=== PATIENT | female | born 1975 | race Caucasian/White ===

== ENCOUNTER 2020-01-22 11:32 | Outpatient (REF) | payer OTHER, SELFPAY ==
--- NOTE | 2020-01-22 11:43 | XR_ITS ---
EXAMINATION: XR ANKLE, RIGHT CLINICAL INFORMATION: Pain right ankle COMPARISON: Radiographs right ankle 05/05/2017 TECHNIQUE: AP, lateral, and mortise views of the right ankle. FINDINGS: There is no acute or healing fracture, dislocation, or visible ankle capsular effusion. The ankle mortise is symmetric. The talar dome shows no osteochondral lesion. There is no joint narrowing or erosive change. The subtalar joint is unremarkable. The retrocalcaneal recess is preserved. Again, there is plantar calcaneal spur and dorsal spurring at the talonavicular region. IMPRESSION: 1. No acute bony abnormality. 2. Plantar calcaneal spur. Spurring talonavicular region.
[2020-01-22 15:14] LABS: Anion Gap 15 (12-20); Blood Urea Nitrogen 9 mg/dL (9-16); Calcium 9.1 mg/dL (8.4-10.2); Carbon Dioxide 25 mmol/L (22-29); Chloride 102 mmol/L (96-108); Estimated Glomerular Filt Rate > 60; Glucose Random 139 mg/dL (60-115); Potassium 3.9 mmol/l (3.3-5.1); Sodium 138 mmol/L (135-145)
[2020-01-23 19:42] LABS: LDL Cholesterol Direct 174 mg/dL (<100)
== END 2020-01-22 11:33 | disposition home or self-care (01) ==
LOC: HO.HMGCLDS 11:32
PROVIDERS: PCP Internal Medicine; Visit Provider Internal Medicine
DX: M25.571 Pain in right ankle and joints of right foot (principal); I10 Essential (primary) hypertension; J45.909 Unspecified asthma, uncomplicated; Z91.09 Other allergy status, other than to drugs and biological substances
CPT/HCPCS: 36415; 73600; 80048; 83721; 84443

== ENCOUNTER 2020-05-28 13:40 | Outpatient (REF) | payer OTHER, SELFPAY ==
[2020-05-28 16:29] LABS: MANUAL DIFF FLAG NO
[2020-05-28 16:35] LABS: Basophils Percent Auto 0.3 % (0-2); Eosinophils Absolute Auto 0.6 X10*3/uL (0.0-0.4); Eosinophils Percent Auto 4.5 % (0-4); Hematocrit 48.1 % (37-47); Hemoglobin 15.5 g/dl (12.0-16.0); Imm Gran Abs Auto 0.06 X10*3/uL (0.00-0.03); Imm Gran Pct Auto 0.4 % (0.0-0.4); Lymphocytes Absolute Auto 3.1 X10*3/uL (1.2-4.9); Lymphocytes Percent Auto 23.5 % (20-40); Mean Corpuscular HGB Conc 32.2 g/dl (31.0-35.0); Mean Corpuscular Hemoglobin 29.4 pg (27.0-33.0); Mean Corpuscular Volume 91.3 fL (80-98); Mean Platelet Volume 10.7 fL (9.4-12.3); Monocytes Absolute Auto 1.1 X10*3/uL (0.1-1.2); Monocytes Percent Auto 8.5 % (2-11); Neutrophils Absolute Auto 8.4 X10*3/uL (2.0-8.3); Neutrophils Percent Auto 62.8 % (45-73); Platelet Count 514 X10*3/uL (160-400); Red Blood Count 5.27 X10*6/uL (4.20-5.50); Red Cell Distribution Width 14.6 % (11.0-16.0); White Blood Count 13.4 X10*3/uL (4.8-10.8)
== END 2020-05-28 13:41 | disposition home or self-care (01) ==
LOC: HO.HMGCLDS 13:40
PROVIDERS: PCP Internal Medicine; Visit Provider Internal Medicine
DX: I10 Essential (primary) hypertension (principal); J45.909 Unspecified asthma, uncomplicated; M25.571 Pain in right ankle and joints of right foot; Z91.09 Other allergy status, other than to drugs and biological substances
CPT/HCPCS: 36415; 85025

== ENCOUNTER → 2020-06-13 13:18 | Outpatient (BNV) | payer OTHER, SELFPAY | PROVIDERS: PCP Internal Medicine; Visit Provider Internal Medicine | DX: D47.3 Essential (hemorrhagic) thrombocythemia (principal); D72.829 Elevated white blood cell count, unspecified | CPT/HCPCS: 99203; 99213; 99214; 99441 ==

== ENCOUNTER 2020-06-17 12:27 | Outpatient (REF) | payer OTHER, SELFPAY ==
[2020-06-17 15:25] LABS: Alanine Aminotransferase < 6 U/L (0-31); Albumin Level 4.3 g/dL (3.5-5.0); Alkaline Phosphatase 89 U/L (39-117); Anion Gap 15 (12-20); Aspartate Amino Transferase 13 U/L (5-31); Bilirubin Direct 0.2 mg/dL (0.0-0.5); Bilirubin Total 0.5 mg/dL (0.0-1.0); Blood Urea Nitrogen 9 mg/dL (9-16); Calcium 8.5 mg/dL (8.4-10.2); Carbon Dioxide 26 mmol/L (22-29); Chloride 102 mmol/L (96-108); Cholesterol 178 mg/dL; Estimated Glomerular Filt Rate > 60; Glucose Fasting 90 mg/dL (60-99); HDL Cholesterol 41 mg/dL; LDL Cholesterol Calculated 89 mg/dl; Potassium 3.9 mmol/L (3.3-5.1); Sodium 139 mmol/L (135-145); Total Protein 7.5 g/dL (6.5-8.0); Triglycerides 244 mg/dL
== END 2020-06-17 12:28 | disposition home or self-care (01) ==
LOC: HO.HMGCLDS 12:27
PROVIDERS: PCP Internal Medicine; Visit Provider Internal Medicine
DX: D72.829 Elevated white blood cell count, unspecified (principal); E78.9 Disorder of lipoprotein metabolism, unspecified; G43.109 Migraine with aura, not intractable, without status migrainosus; I10 Essential (primary) hypertension; J45.909 Unspecified asthma, uncomplicated; D47.3 Essential (hemorrhagic) thrombocythemia
CPT/HCPCS: 36415; 80048; 80061; 80076; 81206; 81207; 81219; 81270; 81279; 81339

== ENCOUNTER 2020-07-29 12:20 | Outpatient (REF) | payer OTHER, SELFPAY ==
--- NOTE | ~2020-07-29 | MM_ITS ---
EXAMINATION: MM SCREENING DIGITAL BREAST TOMOSYNTHESIS, BILATERAL CLINICAL INFORMATION: Screening. Asymptomatic. The lifetime risk of breast cancer based on the Tyrer-Cuzick Model is 7.0%. COMPARISON: Mammography: April 17, 2019 and studies dating back to August 22, 2013 TECHNIQUE: Digital breast tomosynthesis is performed in both the craniocaudal and mediolateral oblique views along with computer-aided detection (CAD). Synthesized 2D images are generated from the tomosynthesis. FINDINGS: There are scattered areas of fibroglandular density (ACR BI-RADS breast composition Category b). There are no significant masses, abnormal calcifications, or other abnormalities. There is a stable lobulated density about the central aspect of the right breast about 5 cm from the nipple. MM/MM tomosynthesis screening BI IMPRESSION: There are no significant changes from prior study. ASSESSMENT: BI-RADS 1: Negative RECOMMENDATION: Routine annual mammography screening. This patient's information was entered into a reminder system with a target due date for their next mammogram.
== END 2020-07-29 12:21 | disposition home or self-care (01) ==
LOC: HO.MAMMO 12:20
PROVIDERS: PCP Internal Medicine; Visit Provider Internal Medicine
DX: Z12.31 Encounter for screening mammogram for malignant neoplasm of breast (principal)
CPT/HCPCS: 77063; 77067

== ENCOUNTER 2020-09-26 09:57 | Outpatient (REF) | payer OTHER, SELFPAY ==
[2020-09-26 11:28] LABS: Hematocrit 47.2 % (37-47); Hemoglobin 15.6 g/dl (12.0-16.0); Mean Corpuscular HGB Conc 33.1 g/dl (31.0-35.0); Mean Corpuscular Hemoglobin 29.9 pg (27.0-33.0); Mean Corpuscular Volume 90.4 fL (80-98); Mean Platelet Volume 10.3 fL (9.4-12.3); Platelet Count 420 X10*3/uL (160-400); Red Blood Count 5.22 X10*6/uL (4.20-5.50); Red Cell Distribution Width 14.2 % (11.0-16.0); White Blood Count 15.1 X10*3/uL (4.8-10.8)
[2020-09-26 12:28] LABS: HCG Quantitative < 2 mIU/mL
[2020-09-26 15:06] LABS: CT PCR NOT DETECTED (Not Detect.); NG PCR NOT DETECTED (Not Detect.)
[2020-09-30 17:46] LABS: HPV mRNA E6/E7 rflx Not Detected (Not Detected)
== END 2020-09-26 09:58 | disposition home or self-care (01) ==
LOC: HO.LAB 09:57
PROVIDERS: PCP Internal Medicine; Visit Provider Obstetrics & Gynecology
DX: Z01.419 Encounter for gynecological examination (general) (routine) without abnormal findings (principal); Z11.51 Encounter for screening for human papillomavirus (HPV); Z11.3 Encounter for screening for infections with a predominantly sexual mode of transmission; N93.9 Abnormal uterine and vaginal bleeding, unspecified
CPT/HCPCS: 36415; 84443; 84702; 85027; 87491; 87591; 87624; 88142

== ENCOUNTER → 2020-10-02 10:48 | Outpatient (BNVA) | payer OTHER, SELFPAY | PROVIDERS: PCP Internal Medicine; Visit Provider Obstetrics & Gynecology | DX: Z30.09 Encounter for other general counseling and advice on contraception (principal); N92.1 Excessive and frequent menstruation with irregular cycle | CPT/HCPCS: Q3014 ==

== ENCOUNTER 2020-10-13 07:48 | Outpatient (REF) | payer OTHER, SELFPAY | END 2020-10-13 07:49 | disposition home or self-care (01) | LOC: HO.LAB 07:48 | PROVIDERS: PCP Internal Medicine; Visit Provider Obstetrics & Gynecology | DX: N92.1 Excessive and frequent menstruation with irregular cycle (principal) | CPT/HCPCS: 58100; 88305 ==

== ENCOUNTER 2020-10-15 13:34 | Outpatient (REF) | payer OTHER, SELFPAY ==
--- NOTE | ~2020-10-15 | US_ITS ---
EXAMINATION: PELVIC ULTRASOUND CLINICAL INFORMATION: Abnormal bleeding COMPARISON: Previous exam January 2019 TECHNIQUE: Transabdominal pelvic ultrasound FINDINGS: The uterus is anteverted and measures 12.8 x 5.3 x 6.9 cm in dimension. There are 2 focal hypoechoic lesions in the posterior intramural uterine body suggestive of fibroids measuring 1.7 x 1.4 x 1.6 cm and 2.1 x 1.5 x 1.9 cm. These do not appear appreciably changed in size. No other focal uterine lesion is seen. Endometrial thickness is normal measuring 0.6 cm. The ovaries are normal. The right ovary measures 2.2 x 1.3 x 2.4 cm. The left ovary measures 1.9 x 1.3 x 1.4 cm. There is no fluid in the pelvis. US/US pelvic and transvaginal IMPRESSION: Small uterine fibroids not appreciably changed from January 2019 exam. Otherwise unremarkable exam.
== END 2020-10-15 13:35 | disposition home or self-care (01) ==
LOC: HO.US 13:34
PROVIDERS: Visit Provider Obstetrics & Gynecology
DX: N93.9 Abnormal uterine and vaginal bleeding, unspecified (principal)
CPT/HCPCS: 76830; 76856

== ENCOUNTER → 2020-10-27 11:44 | Outpatient (BNVA) | payer OTHER, SELFPAY | PROVIDERS: Visit Provider Obstetrics & Gynecology | CPT/HCPCS: Q3014 ==

== ENCOUNTER → 2020-11-06 10:01 | Outpatient (BNVA) | payer OTHER, SELFPAY | PROVIDERS: PCP Internal Medicine; Visit Provider Obstetrics & Gynecology | DX: Z30.430 Encounter for insertion of intrauterine contraceptive device (principal) | CPT/HCPCS: 58300; J7298 ==

== ENCOUNTER → 2020-12-23 09:43 | Outpatient (BNVA) | payer OTHER, SELFPAY | PROVIDERS: Visit Provider Obstetrics & Gynecology | DX: Z30.431 Encounter for routine checking of intrauterine contraceptive device (principal); N92.1 Excessive and frequent menstruation with irregular cycle | CPT/HCPCS: 99212 ==

== ENCOUNTER 2021-03-05 09:04 | Outpatient (REF) | payer OTHER, SELFPAY | END 2021-03-05 09:05 | disposition home or self-care (01) | LOC: HO.HMGCLDS 09:04 | PROVIDERS: Visit Provider Internal Medicine | DX: Z20.822 Contact with and (suspected) exposure to COVID-19 (principal) | CPT/HCPCS: C9803; U0003; U0005 ==

== ENCOUNTER → 2021-03-24 09:12 | Outpatient (BNVA) | payer OTHER, SELFPAY | PROVIDERS: Visit Provider Obstetrics & Gynecology | DX: Z30.432 Encounter for removal of intrauterine contraceptive device (principal); N92.1 Excessive and frequent menstruation with irregular cycle | CPT/HCPCS: 58301; 99212 ==

== ENCOUNTER → 2021-04-01 15:00 | Outpatient (BNVA) | payer OTHER, SELFPAY | PROVIDERS: Visit Provider Obstetrics & Gynecology | DX: N92.1 Excessive and frequent menstruation with irregular cycle (principal) | CPT/HCPCS: Q3014 ==

== ENCOUNTER 2021-04-21 08:59 | Outpatient (REF) | payer OTHER, SELFPAY ==
[2021-04-21 11:26] LABS: MANUAL DIFF FLAG NO
[2021-04-21 11:28] LABS: Basophils Absolute Auto 0.1 X10*3/uL (0.0-0.2); Basophils Percent Auto 0.4 % (0-2); Eosinophils Absolute Auto 0.6 X10*3/uL (0.0-0.4); Eosinophils Percent Auto 4.2 % (0-4); Hematocrit 47.3 % (37.0-47.0); Hemoglobin 15.5 g/dl (12.0-16.0); Imm Gran Abs Auto 0.06 X10*3/uL (0.00-0.03); Imm Gran Pct Auto 0.4 % (0.0-0.4); Lymphocytes Absolute Auto 2.9 X10*3/uL (1.2-4.9); Lymphocytes Percent Auto 19.5 % (20-40); Mean Corpuscular HGB Conc 32.8 g/dl (31.0-35.0); Mean Corpuscular Hemoglobin 30.8 pg (27.0-33.0); Mean Corpuscular Volume 93.8 fL (80.0-98.0); Mean Platelet Volume 10.7 fL (9.4-12.3); Neutrophils Absolute Auto 10.1 x10*3/uL (2.0-8.3); Neutrophils Percent Auto 68.5 % (45-73); Platelet Count 462 X10*3/uL (160-400); Red Blood Count 5.04 X10*6/uL (4.20-5.50); Red Cell Distribution Width 14.6 % (11.0-16.0); White Blood Count 14.7 X10*3/uL (4.8-10.8)
[2021-04-21 12:16] LABS: Alanine Aminotransferase 8 U/L (0-31); Alkaline Phosphatase 85 U/L (39-117); Anion Gap 14 (12-20); Aspartate Amino Transferase 15 U/L (5-31); Bilirubin Total 0.4 mg/dL (0.0-1.0); Blood Urea Nitrogen 9 mg/dL (9-16); Calcium 8.9 mg/dL (8.4-10.2); Carbon Dioxide 26 mmol/L (22-29); Chloride 105 mmol/L (96-108); Cholesterol 167 mg/dL; Estimated Glomerular Filt Rate > 60; Glucose Fasting 88 mg/dL (60-99); HDL Cholesterol 39 mg/dL; LDL Cholesterol Calculated 85 mg/dl; Sodium 141 mmol/L (135-145); Total Protein 7.2 g/dL (6.5-8.0); Triglycerides 219 mg/dL
== END 2021-04-21 09:00 | disposition home or self-care (01) ==
LOC: HO.HMGCLDS 08:59
PROVIDERS: PCP Internal Medicine; Visit Provider Internal Medicine
DX: D47.3 Essential (hemorrhagic) thrombocythemia (principal); E03.8 Other specified hypothyroidism; E78.9 Disorder of lipoprotein metabolism, unspecified; I10 Essential (primary) hypertension; J45.40 Moderate persistent asthma, uncomplicated; Z91.09 Other allergy status, other than to drugs and biological substances
CPT/HCPCS: 36415; 80053; 80061; 84443; 85025

== ENCOUNTER 2021-08-10 08:51 | Outpatient (REF) | payer OTHER, SELFPAY ==
--- NOTE | ~2021-08-10 | MM_ITS ---
EXAMINATION: MM SCREENING DIGITAL BREAST TOMOSYNTHESIS, BILATERAL CLINICAL INFORMATION: Screening. Asymptomatic. The lifetime risk of breast cancer based on the Tyrer-Cuzick Model is 7%. COMPARISON: Mammography: 07/29/2020, 04/17/2019, 04/11/2018 TECHNIQUE: Digital breast tomosynthesis is performed in both the craniocaudal and mediolateral oblique views along with computer-aided detection (CAD). Synthesized 2D images are generated from the tomosynthesis. FINDINGS: There are scattered areas of fibroglandular density (ACR BI-RADS breast composition Category b). There is fine fibronodular parenchymal pattern similar to prior studies. No significant mass or architectural abnormality or abnormal calcifications. Again, there are intramammary nodes bilateral posterior upper outer breasts. The axilla and skin contours are unremarkable. No significant changes. MM/MM tomosynthesis screening BI IMPRESSION: No mammographic evidence of malignancy. ASSESSMENT: BI-RADS 2: Benign RECOMMENDATION: Routine annual mammography screening. This patient's information was entered into a reminder system with a target due date for their next mammogram.
== END 2021-08-10 08:52 | disposition home or self-care (01) ==
LOC: HO.MAMMO 08:51
PROVIDERS: PCP Internal Medicine; Visit Provider Internal Medicine
DX: Z12.31 Encounter for screening mammogram for malignant neoplasm of breast (principal)
CPT/HCPCS: 77063; 77067

== ENCOUNTER 2021-08-26 09:51 | Outpatient (REF) | payer OTHER, SELFPAY ==
--- NOTE | ~2021-08-26 | XR_ITS ---
EXAMINATION: XR ANKLE, RIGHT CLINICAL INFORMATION: Pain in right ankle. COMPARISON: Prior exam January 2020. TECHNIQUE: AP, lateral, and mortise views of the right ankle. FINDINGS: Osteoarthritis of the talonavicular joint with marginal osteophytes dorsally unchanged in the joint space narrowing. Remaining bone and joints are unremarkable. Small calcaneal spur. XR/XR ankle RT min 3V IMPRESSION: [id number] osteoarthritis of the talonavicular joint, unchanged.
[2021-08-26 12:20] LABS: Alanine Aminotransferase 13 U/L (0-31); Albumin Level 4.4 g/dL (3.5-5.0); Alkaline Phosphatase 98 U/L (39-117); Anion Gap 15 (12-20); Aspartate Amino Transferase 16 U/L (5-31); Bilirubin Total 0.3 mg/dL (0.0-1.0); Blood Urea Nitrogen 9 mg/dL (9-16); Calcium 9.8 mg/dL (8.4-10.2); Carbon Dioxide 24 mmol/L (22-29); Chloride 106 mmol/L (96-108); Estimated Glomerular Filt Rate > 60; Glucose Random 111 mg/dL (60-115); Potassium 3.8 mmol/L (3.3-5.1); Sodium 141 mmol/L (135-145); Total Protein 7.8 g/dL (6.5-8.0)
[2021-08-26 12:29] LABS: TSH reflex Free T4 2.78 uIU/mL (0.32-4.0)
== END 2021-08-26 09:52 | disposition home or self-care (01) ==
LOC: HO.HMGCX 09:51
PROVIDERS: PCP Internal Medicine; Visit Provider Internal Medicine
DX: E03.8 Other specified hypothyroidism (principal); E78.9 Disorder of lipoprotein metabolism, unspecified; I10 Essential (primary) hypertension
CPT/HCPCS: 36415; 73610; 80053; 84443

== ENCOUNTER 2021-09-20 16:43 | Emergency (ER) | payer OTHER, SELFPAY ==
[2021-09-20 16:44] VITALS: BP 181/103; PULSE 116; RESP 14; TEMP 37; O2SAT 94; BMI 36.1
[2021-09-20 16:58] LABS: MANUAL DIFF FLAG NO
[2021-09-20 17:00] LABS: Basophils Absolute Auto 0.1 X10*3/uL (0.0-0.2); Basophils Percent Auto 0.5 % (0-2); Eosinophils Absolute Auto 1.1 X10*3/uL (0.0-0.4); Eosinophils Percent Auto 7.7 % (0-4); Hematocrit 47.7 % (37.0-47.0); Hemoglobin 15.7 g/dl (12.0-16.0); Imm Gran Abs Auto 0.07 X10*3/uL (0.00-0.03); Imm Gran Pct Auto 0.5 % (0.0-0.4); Lymphocytes Absolute Auto 4.5 X10*3/uL (1.2-4.9); Lymphocytes Percent Auto 30.3 % (20-40); Mean Corpuscular HGB Conc 32.9 g/dl (31.0-35.0); Mean Corpuscular Hemoglobin 30.1 pg (27.0-33.0); Mean Corpuscular Volume 91.4 fL (80.0-98.0); Mean Platelet Volume 9.8 fL (9.4-12.3); Monocytes Absolute Auto 1.2 X10*3/uL (0.1-1.2); Monocytes Percent Auto 7.7 % (2-11); Neutrophils Absolute Auto 7.9 x10*3/uL (2.0-8.3); Neutrophils Percent Auto 53.3 % (45-73); Platelet Count 500 X10*3/uL (160-400); Red Blood Count 5.22 X10*6/uL (4.20-5.50); Red Cell Distribution Width 13.5 % (11.0-16.0); White Blood Count 14.8 X10*3/uL (4.8-10.8)
[2021-09-20 17:13] LABS: Alanine Aminotransferase 12 U/L (0-31); Albumin Level 4.3 g/dL (3.5-5.0); Alkaline Phosphatase 107 U/L (39-117); Anion Gap 14 (12-20); Aspartate Amino Transferase 17 U/L (5-31); Bilirubin Direct < 0.2 mg/dL (0.0-0.5); Bilirubin Total 0.2 mg/dL (0.0-1.0); Blood Urea Nitrogen 9 mg/dL (9-16); Calcium 9.2 mg/dL (8.4-10.2); Carbon Dioxide 24 mmol/L (22-29); Chloride 103 mmol/L (96-108); Creatinine Clr Calc Pharmacy 81.9; Estimated Glomerular Filt Rate > 60; Glucose Random 130 mg/dL (60-115); Potassium 3.7 mmol/L (3.3-5.1); Sodium 137 mmol/L (135-145)
[2021-09-20 18:26] VITALS: BP 147/95; PULSE 103; RESP 18; TEMP 37.2; O2SAT 96
[2021-09-20 18:49] LABS: Appearance Urine HAZY; Color Urine YELLOW; Glucose Urine UA NEG (NEG); Leukocyte Esterase Urine NEG (NEG); Nitrite Urine NEG (NEG); Specific Gravity - Urine 1.015 (1.005-1.025); Urine Blood NEG (NEG); Urine Ketones NEG (NEG); Urine Protein NEG (NEG-TRACE)
--- NOTE | 2021-09-20 18:53 | ED.GIBLEED ---
HPI - GI Bleed General Chief complaint: GI Bleed Stated complaint: bloody stool Time Seen by Provider: 09/20/21 18:53 Source: patient Mode of arrival: ambulatory Limitations: no limitations History of Present Illness HPI Narrative: Patient with History of IBS otherwise healthy never had colonoscopy in the past comes here for blood in the stool x2 earlier today. Patient had normal bowel movement mixed with blood which was maroon last bowel movement was 16:00 which was small amount no history of hemorrhoids patient denies any abdominal pain no nausea no vomiting no dizziness no history of constipation or hemorrhoids Related Data Home Medications Medication Instructions Recorded Confirmed amitriptyline 50 mg tablet 50 mg PO BEDTIME 01/18/20 08/26/21 cholecalciferol (vitamin D3) 50 50 mcg PO DAILY 01/18/20 08/26/21 mcg (2,000 unit) capsule lamotrigine 150 mg tablet 300 mg PO QAM 01/18/20 08/26/21 ziprasidone HCl 60 mg capsule 60 mg PO BID 01/18/20 08/26/21 Previous Rx's Medication Instructions Recorded propranolol 120 mg capsule,24 120 mg PO DAILY 90 days #90 caps 07/30/20 hr,extended release albuterol sulfate 90 mcg/actuation 2 puff PO Q6H PRN for muscle spasm 11/17/20 aerosol inhaler #25.5 grams cetirizine 10 mg tablet 10 mg PO DAILY 90 days #90 tabs 01/07/21 amlodipine 10 mg tablet 10 mg PO DAILY #90 tabs 04/08/21 fluticasone furoate 200 1 inh inhalation DAILY 30 days #28 04/08/21 mcg-vilanterol 25 mcg/dose ea inhalation powder (Breo Ellipta) losartan 50 mg tablet 50 mg PO DAILY 90 days #90 tabs 06/25/21 simvastatin 20 mg tablet 20 mg PO BEDTIME 90 days #90 tabs 06/25/21 Ventolin HFA 90 mcg/actuation 2 puff PO Q6H PRN for muscle spasm 09/14/21 aerosol inhaler (albuterol sulfate) #18 grams Allergies Allergy/AdvReac Type Severity Reaction Status Date / Time penicillin V Allergy Unknown hives Verified 08/26/21 09:27 Penicillins [PENICILLINS] Allergy Unknown HIVES Verified 08/26/21 09:27 celecoxib [Celebrex] AdvReac Unknown unknown Verified 08/26/21 09:27 clonidine AdvReac Unknown dizziness, Verified 08/26/21 09:27 N/V sumatriptan [Imitrex] AdvReac Unknown unknown Verified 08/26/21 09:27 Review of Systems Review of Systems: Yes all other systems are reviewed and are negative [facility] Past Medical History Surgical History H/O skin graft History of carpal tunnel release History of tooth extraction Hx of cholecystectomy Family History Family History Father Anxiety HTN (hypertension) Mother Anxiety Depression HTN (hypertension) Maternal Grandmother High cholesterol HTN (hypertension) Maternal Grandfather Hemochromatosis Stomach cancer Brother No problems noted. Sister No problems noted. Son No problems noted. Daughter No problems noted. Other Mental health disorder Social History Social History Household Members: None Housing: Apartment Alcohol intake: current Alcohol intake frequency: a few times a month Patient Tobacco Use Status: Former Tobacco user e-Cigarette/Vaping Use: Never Used Use of substances other than those prescribed or required for medical reasons: Yes Substance Use Type: Marijuana Advance Directives: Yes Advance Directives Information Provided: No Advance Directives on File: No service: No Current occupational status: disabled Cognitive needs: No Hearing needs: No Vision needs: Yes Physical Exam Vital Signs: Vital Signs: Last Vital Signs Temp 99.0 F 09/20/21 18:26 Pulse 99 09/20/21 19:16 Resp 14 09/20/21 19:16 BP 137/90 H 09/20/21 19:16 Pulse Ox 96 09/20/21 19:16 O2 Del Method 09/20/21 19:16 BMI result Body Mass Index 36.1 Appearance: Alert. Oriented X3. No acute distress. Eyes: No pallor ENT: Pharynx normal. Oral Mucosa moist Neck: Normal inspection. Neck supple. CVS: Normal heart rate and rhythm. Pulses normal. Respiratory: No respiratory distress. Equal air entry bilateral, no wheezing/rales/rhonchi Abdomen: Soft and nontender. Bowel sounds are present, no mass palpable, no CVA tenderness rectal; brown stool Hemoccult negative Skin: Skin warm and dry. Normal skin color. Normal skin turgor. Extremities: No lower extremity edema. No calf tenderness Neuro: Oriented X 3. No motor deficit. MDM - GI Bleed MDM Narrative Medical decision making narrative: Patient rectal is negative for bleeding patient had lot of watermelon, earlier today likely the cause of red discoloration of stool patient advised to follow with PCP/GI in case bleeding continues Lab Data Attestation: I reviewed the patient's lab results. Result diagrams: 09/20/21 16:52 09/20/21 16:52 Labs: Lab Results 09/20/21 09/20/21 09/20/21 Range/Units 16:52 16:52 18:44 WBC 14.8 H (4.8-10.8) X10*3/uL RBC 5.22 (4.20-5.50) X10*6/uL Hgb 15.7 (12.0-16.0) g/dl Hct 47.7 H (37.0-47.0) % MCV 91.4 (80.0-98.0) fL MCH 30.1 (27.0-33.0) pg MCHC 32.9 (31.0-35.0) g/dl RDW 13.5 (11.0-16.0) % Plt Count 500 H (160-400) X10*3/uL MPV 9.8 (9.4-12.3) fL Immature Gran % (Auto) 0.5 H (0.0-0.4) % Neut % (Auto) 53.3 (45-73) % Lymph % (Auto) 30.3 (20-40) % Williams % (Auto) 7.7 (2-11) % Eos % (Auto) 7.7 H (0-4) % Baso % (Auto) 0.5 (0-2) % Lymph # (Auto) 4.5 (1.2-4.9) X10*3/uL Williams # (Auto) 1.2 (0.1-1.2) X10*3/uL Eos # (Auto) 1.1 H (0.0-0.4) X10*3/uL Baso # (Auto) 0.1 (0.0-0.2) X10*3/uL Abs Immat Gran (auto) 0.07 H (0.00-0.03) X10*3/uL Absolute Neuts (auto) 7.9 (2.0-8.3) x10*3/uL Absolute Nucleated RBC 0.000 (0.0-0.012) X10*3/uL Nucleated RBC % (auto) 0.0 (0.0-0.2) /100WBC Sodium 137 (135-145) mmol/L Potassium 3.7 (3.3-5.1) mmol/L Chloride 103 (96-108) mmol/L Carbon Dioxide 24 (22-29) mmol/L Anion Gap 14 (12-20) BUN 9 (9-16) mg/dL Creatinine 0.84 (0.5-1.4) mg/dL Estim Creat Clear Calc 81.9 Estimated GFR > 60 Random Glucose 130 H (60-115) mg/dL Calcium 9.2 D (8.4-10.2) mg/dL Total Bilirubin 0.2 (0.0-1.0) mg/dL Direct Bilirubin < 0.2 (0.0-0.5) mg/dL AST 17 (5-31) U/L ALT 12 (0-31) U/L Alkaline Phosphatase 107 (39-117) U/L Total Protein 8.0 (6.5-8.0) g/dL Albumin 4.3 (3.5-5.0) g/dL Urine Color YELLOW Urine Appearance HAZY Urine pH 6.0 (5.0-8.0) Ur Specific [place] 1.015 (1.005-1.025) Urine Protein NEG (NEG-TRACE) MG/DL Urine Glucose (UA) NEG (NEG) MG/DL Urine Ketones NEG (NEG) MG/DL Urine Blood NEG (NEG) Urine Nitrite NEG (NEG) Ur Leukocyte Esterase NEG (NEG) Stool Occult Blood (NEGATIVE) 09/20/21 Range/Units 19:12 WBC (4.8-10.8) X10*3/uL RBC (4.20-5.50) X10*6/uL Hgb (12.0-16.0) g/dl Hct (37.0-47.0) % MCV (80.0-98.0) fL MCH (27.0-33.0) pg MCHC (31.0-35.0) g/dl RDW (11.0-16.0) % Plt Count (160-400) X10*3/uL MPV (9.4-12.3) fL Immature Gran % (Auto) (0.0-0.4) % Neut % (Auto) (45-73) % Lymph % (Auto) (20-40) % Williams % (Auto) (2-11) % Eos % (Auto) (0-4) % Baso % (Auto) (0-2) % Lymph # (Auto) (1.2-4.9) X10*3/uL Williams # (Auto) (0.1-1.2) X10*3/uL Eos # (Auto) (0.0-0.4) X10*3/uL Baso # (Auto) (0.0-0.2) X10*3/uL Abs Immat Gran (auto) (0.00-0.03) X10*3/uL Absolute Neuts (auto) (2.0-8.3) x10*3/uL Absolute Nucleated RBC (0.0-0.012) X10*3/uL Nucleated RBC % (auto) (0.0-0.2) /100WBC Sodium (135-145) mmol/L Potassium (3.3-5.1) mmol/L Chloride (96-108) mmol/L Carbon Dioxide (22-29) mmol/L Anion Gap (12-20) BUN (9-16) mg/dL Creatinine (0.5-1.4) mg/dL Estim Creat Clear Calc Estimated GFR Random Glucose (60-115) mg/dL Calcium (8.4-10.2) mg/dL Total Bilirubin (0.0-1.0) mg/dL Direct Bilirubin (0.0-0.5) mg/dL AST (5-31) U/L ALT (0-31) U/L Alkaline Phosphatase (39-117) U/L Total Protein (6.5-8.0) g/dL Albumin (3.5-5.0) g/dL Urine Color Urine Appearance Urine pH (5.0-8.0) Ur Specific [place] (1.005-1.025) Urine Protein (NEG-TRACE) MG/DL Urine Glucose (UA) (NEG) MG/DL Urine Ketones (NEG) MG/DL Urine Blood (NEG) Urine Nitrite (NEG) Ur Leukocyte Esterase (NEG) Stool Occult Blood NEGATIVE (NEGATIVE) Discharge Plan Discharge Clinical Impression: Dark red stool Patient Disposition: Home, Self-Care Instructions: Rectal Bleeding (ED) Additional Instructions: Red color of stool is likely from food/watermelon Follow with PCP if red discoloration/ bleeding continues Prescriptions: No Action albuterol sulfate 90 mcg/actuation HFA aerosol inhaler 2 puff PO Q6H PRN (Reason: for muscle spasm) Qty: 25.5 0RF cetirizine 10 mg tablet 10 mg PO DAILY 90 Days Qty: 90 3RF losartan 50 mg tablet 50 mg PO DAILY 90 Days Qty: 90 0RF simvastatin 20 mg tablet 20 mg PO BEDTIME 90 Days Qty: 90 0RF albuterol sulfate [Ventolin HFA] 90 mcg/actuation HFA aerosol inhaler 2 puff PO Q6H PRN (Reason: for muscle spasm) Qty: 18 0RF propranolol 120 mg capsule,extended release 24 hr 120 mg PO DAILY 90 Days Qty: 90 0RF Breo Ellipta 200-25 mcg/dose blister with device 1 inh inhalation DAILY 30 Days Qty: 28 3RF amlodipine 10 mg tablet 10 mg PO DAILY Qty: 90 0RF cholecalciferol (vitamin D3) 50 mcg (2,000 unit) capsule 50 mcg PO DAILY ziprasidone HCl 60 mg capsule 60 mg PO BID lamotrigine 150 mg tablet 300 mg PO QAM amitriptyline 50 mg tablet 50 mg PO BEDTIME
[2021-09-20 19:16] VITALS: BP 137/90; PULSE 99; RESP 14; O2SAT 96
[2021-09-20 19:17] LABS: OBS Int Ctl Valid YES; OBS1 NEGATIVE (NEGATIVE)
== END 2021-09-20 19:55 | disposition home or self-care (01) ==
PROVIDERS: Emergency Provider Internal Medicine; PCP Internal Medicine
DX: K92.1 Melena (principal); Z79.899 Other long term (current) drug therapy
CPT/HCPCS: 36415; 80048; 80076; 81003; 82272; 85025; 99284

== ENCOUNTER 2021-11-13 08:28 | Emergency (ER) | payer OTHER, SELFPAY ==
--- NOTE | ~2021-11-13 | XR_ITS ---
EXAMINATION: XR chest 1V CLINICAL INFORMATION: Fever, pneumonia. COMPARISON: None TECHNIQUE: XR chest 1V Tubes and lines: None Lungs and pleura: Both lungs are clear. Heart and mediastinum: The mediastinum is within normal limits.. Bones/soft tissue: Skeletal structures included are normal for patient's age. XR/XR chest 1V IMPRESSION: No radiographic evidence of acute pneumonia.
[2021-11-13 08:51] VITALS: BP 138/93; BP 158/80; PULSE 123; PULSE 125; RESP 18; TEMP 38.3; O2SAT 94; BMI 38.5
--- NOTE | 2021-11-13 09:13 | ED.GENADULT ---
HPI - General Adult General Chief complaint: Headache Stated complaint: migraine Time Seen by Provider: 11/13/21 08:47 Source: patient Mode of arrival: ambulatory Limitations: no limitations History of Present Illness HPI narrative: 46-year-old female history of migraines on propanolol presents to ED for migraine exacerbation. Patient states she woke up with migraine headache TODAY and called her primary care who told to come to the ED to get migraine meds. Patient states the panel is her long-term migraine medication and does not work in acute episodes. Patient states feeling warm but denies any chest pain, shortness of breath, neck stiffness, rash, watery eyes, coughing, abdominal pain, dysuria, hematuria, or any recent travel outside the country. pATIENT ADMITS TO BODYACHES SINCE YESTERDAY. Patient states her AURAl from migraine is usually photophobia and nausea. Patient states presently just some mild nausea WITH HEADACHE. Patient states having migraine also on Tuesday. Patient denies any seizures or loss of consciousness. Related Data Home Medications Medication Instructions Recorded Confirmed amitriptyline 50 mg tablet 50 mg PO BEDTIME 01/18/20 08/26/21 cholecalciferol (vitamin D3) 50 50 mcg PO DAILY 01/18/20 08/26/21 mcg (2,000 unit) capsule lamotrigine 150 mg tablet 300 mg PO QAM 01/18/20 08/26/21 ziprasidone HCl 60 mg capsule 60 mg PO BID 01/18/20 08/26/21 Previous Rx's Medication Instructions Recorded propranolol 120 mg capsule,24 120 mg PO DAILY 90 days #90 caps 07/30/20 hr,extended release albuterol sulfate 90 mcg/actuation 2 puff PO Q6H PRN for muscle spasm 11/17/20 aerosol inhaler #25.5 grams fluticasone furoate 200 1 inh inhalation DAILY 30 days #28 04/08/21 mcg-vilanterol 25 mcg/dose ea inhalation powder (Breo Ellipta) Ventolin HFA 90 mcg/actuation 2 puff PO Q6H PRN for muscle spasm 09/14/21 aerosol inhaler (albuterol sulfate) #18 grams amlodipine 10 mg tablet 10 mg PO DAILY #90 tabs 09/23/21 cetirizine 10 mg tablet 10 mg PO DAILY 90 days #90 tabs 09/23/21 losartan 50 mg tablet 50 mg PO DAILY 90 days #90 tabs 09/23/21 simvastatin 20 mg tablet 20 mg PO BEDTIME 90 days #90 tabs 09/23/21 Allergies Allergy/AdvReac Type Severity Reaction Status Date / Time penicillin V Allergy Unknown hives Verified 09/29/21 09:00 Penicillins [PENICILLINS] Allergy Unknown HIVES Verified 09/29/21 09:00 celecoxib [Celebrex] AdvReac Unknown unknown Verified 09/29/21 09:00 clonidine AdvReac Unknown dizziness, Verified 09/29/21 09:00 N/V sumatriptan [Imitrex] AdvReac Unknown unknown Verified 09/29/21 09:00 Review of Systems Review of Systems: Migraine exacerbation Yes all other systems are reviewed and are negative [facility] Past Medical History Medical History (Updated 11/13/21 @ 13:13 by ARSH Ureña) Ankle pain, right Asthma Bipolar disorder Environmental allergies Hypertension, essential Migraine headache with aura Obesity Surgical History H/O skin graft H/O: hysterectomy History of carpal tunnel release History of tooth extraction Hx of cholecystectomy Family History Family History Father Anxiety HTN (hypertension) Mother Anxiety Depression HTN (hypertension) Maternal Grandmother High cholesterol HTN (hypertension) Maternal Grandfather Hemochromatosis Stomach cancer Brother No problems noted. Sister No problems noted. Son No problems noted. Daughter No problems noted. Other Mental health disorder Social History Social History Household Members: None Housing: Apartment Alcohol intake: current Alcohol intake frequency: does not drink Patient Tobacco Use Status: Former Tobacco user e-Cigarette/Vaping Use: Never Used Use of substances other than those prescribed or required for medical reasons: No Substance Use Type: Marijuana Advance Directives: Yes Advance Directives Information Provided: Yes Advance Directives on File: No service: No Current occupational status: disabled Cognitive needs: No Hearing needs: No Vision needs: Yes Physical Exam ED Vital Signs: Vital Signs - 24 hr 11/13/21 08:51 11/13/21 11:33 Temperature 101 F H 99.5 F Pulse Rate 123 H 110 H Respiratory Rate 18 17 Blood Pressure 138/93 H 141/75 H Pulse Oximetry 94 96 Oxygen Delivery Method Room Air Room Air BMI result Body Mass Index 38.5 Const General: cooperative, healthy appearing, comfortable, no acute distress, well developed, alert, awake and Physically active Orientation/consciousness: patient oriented x3 [facility] Head: Yes normal to inspection, Yes No palpable skull fracture present, Yes normocephalic, Yes atraumatic and No abrasion Ears: hearing grossly normal bilaterally, external ears normal, TM's normal bilaterally, EAC's normal, mastoids normal and no periauricular adenopathy Throat: Yes posterior oropharynx normal, Yes tonsils normal and Yes uvula midline Eyes Other: Negative for photophobia. General: appearance normal, both eyes and all related structures Neck Neck: Yes normal visual inspection, Yes full ROM, Yes no lymphadenopathy, Yes no meningeal signs, Yes trachea midline, Yes supple, No anterior neck swelling, No positive Brudzinski's sign, No positive Kernig's sign and No tender Chest Chest palpation & inspection: normal inspection of the chest and normal palpation of entire chest wall Resp Effort & Inspection: normal respiratory effort and able to speak in complete sentences Auscultation: clear to auscultation bilaterally Cardio Jugular venous distension: no JVD Heart sounds: S1 normal heart sound present and S2 normal heart sound present GI Inspection: Yes normal to inspection and No abdominal wall ecchymosis Palpation (GI): Soft to palpation, not firm, nontender and no guarding General: No CVA tenderness and Yes no CVA tenderness Back/Spine/Pelvis Back: no CVA tenderness, No CVA tenderness and No back tenderness Skin General skin exam: no rashes or lesions noted and elasticity normal Neuro General: patient oriented x3, gait normal, no meningeal signs and CN's II-XI intact bilaterally Cranial nerves: Yes CN's II-XII intact bilaterally Extrem General: Yes normal to inspection and Yes full ROM Psych Appearance: grossly normal, well kempt and not disheveled Course Course Course Narrative: Patient is well-appearing vital signs shows febrile tachycardia. Sepsis alert called. Tylenol fluids ordered. Chest x-ray UA ordered. Reevaluation(s) Reevaluation #1: Sepsis Alert called. Labs ordered Time: 21:13 Reevaluation #2: Sepsis cancel. Patient positive for COVID. Chest x-ray negative pneumonia. Patient is not toxic appearing. White count 76259. UA negative for UTI. PATIENT WELL-APPEARING. NOT SUSPECTING MENINGITIS. PATIENT NOT SEPTIC. UA NEGATIVE FOR INFECTION. Time: 10:37 Medical Decision Making MDM Narrative Medical decision making narrative: cOVID Lab Data Result diagrams: 11/13/21 09:35 11/13/21 09:35 Labs: Lab Results 11/13/21 11/13/21 11/13/21 Range/Units 09:22 09:22 09:35 WBC 15.6 H (4.8-10.8) X10*3/uL RBC 5.12 (4.20-5.50) X10*6/uL Hgb 15.4 (12.0-16.0) g/dl Hct 46.5 (37.0-47.0) % MCV 90.8 (80.0-98.0) fL MCH 30.1 (27.0-33.0) pg MCHC 33.1 (31.0-35.0) g/dl RDW 13.9 (11.0-16.0) % Plt Count 478 H (160-400) X10*3/uL MPV 9.5 (9.4-12.3) fL Immature Gran % (Auto) 0.6 H (0.0-0.4) % Neut % (Auto) 85.9 H (45-73) % Lymph % (Auto) 3.9 L (20-40) % [place] % (Auto) 6.1 (2-11) % Eos % (Auto) 3.1 (0-4) % Baso % (Auto) 0.4 (0-2) % Lymph # (Auto) 0.6 L (1.2-4.9) X10*3/uL [place] # (Auto) 1.0 (0.1-1.2) X10*3/uL Eos # (Auto) 0.5 H (0.0-0.4) X10*3/uL Baso # (Auto) 0.1 (0.0-0.2) X10*3/uL Abs Immat Gran (auto) 0.09 H (0.00-0.03) X10*3/uL Absolute Neuts (auto) 13.4 H (2.0-8.3) x10*3/uL Absolute Nucleated RBC 0.000 (0.0-0.012) X10*3/uL Nucleated RBC % (auto) 0.0 (0.0-0.2) /100WBC PT (10.0-13.1) SEC INR (0.9-1.1) APTT (26.0-36.4) SEC Sodium (135-145) mmol/L Potassium (3.3-5.1) mmol/L Chloride (96-108) mmol/L Carbon Dioxide (22-29) mmol/L Anion Gap (12-20) BUN (9-16) mg/dL Creatinine (0.5-1.4) mg/dL Estim Creat Clear Calc Estimated GFR Random Glucose (60-115) mg/dL Lactic Acid (0.5-2.0) mmol/L Calcium (8.4-10.2) mg/dL Total Bilirubin (0.0-1.0) mg/dL AST (5-31) U/L ALT (0-31) U/L Alkaline Phosphatase (39-117) U/L Total Protein (6.5-8.0) g/dL Albumin (3.5-5.0) g/dL Urine Color Urine Appearance Urine pH (5.0-8.0) Ur Specific [place] (1.005-1.025) Urine Protein (NEG-TRACE) MG/DL Urine Glucose (UA) (NEG) MG/DL Urine Ketones (NEG) MG/DL Urine Blood (NEG) Urine Nitrite (NEG) Ur Leukocyte Esterase (NEG) Urine Test (NEGATIVE) COVID-19 (TIGIST) Positive A (Negative) COVID-19 Clin Com See Note Influenza Type A ([facility]) Negative (Negative) Influenza Type B ([facility]) Negative (Negative) Influenza A & B Note See Note 11/13/21 11/13/21 11/13/21 Range/Units 09:35 09:35 09:35 WBC (4.8-10.8) X10*3/uL RBC (4.20-5.50) X10*6/uL Hgb (12.0-16.0) g/dl Hct (37.0-47.0) % MCV (80.0-98.0) fL MCH (27.0-33.0) pg MCHC (31.0-35.0) g/dl RDW (11.0-16.0) % Plt Count (160-400) X10*3/uL MPV (9.4-12.3) fL Immature Gran % (Auto) (0.0-0.4) % Neut % (Auto) (45-73) % Lymph % (Auto) (20-40) % [place] % (Auto) (2-11) % Eos % (Auto) (0-4) % Baso % (Auto) (0-2) % Lymph # (Auto) (1.2-4.9) X10*3/uL [place] # (Auto) (0.1-1.2) X10*3/uL Eos # (Auto) (0.0-0.4) X10*3/uL Baso # (Auto) (0.0-0.2) X10*3/uL Abs Immat Gran (auto) (0.00-0.03) X10*3/uL Absolute Neuts (auto) (2.0-8.3) x10*3/uL Absolute Nucleated RBC (0.0-0.012) X10*3/uL Nucleated RBC % (auto) (0.0-0.2) /100WBC PT 10.6 (10.0-13.1) SEC INR 0.9 (0.9-1.1) APTT 37.3 H (26.0-36.4) SEC Sodium 139 (135-145) mmol/L Potassium 4.1 (3.3-5.1) mmol/L Chloride 103 (96-108) mmol/L Carbon Dioxide 24 (22-29) mmol/L Anion Gap 16 (12-20) BUN 8 L (9-16) mg/dL Creatinine 0.83 (0.5-1.4) mg/dL Estim Creat Clear Calc 85.9 Estimated GFR > 60 Random Glucose 93 (60-115) mg/dL Lactic Acid 1.2 (0.5-2.0) mmol/L Calcium 9.0 (8.4-10.2) mg/dL Total Bilirubin 0.3 (0.0-1.0) mg/dL AST 18 (5-31) U/L ALT 12 (0-31) U/L Alkaline Phosphatase 99 (39-117) U/L Total Protein 7.6 (6.5-8.0) g/dL Albumin 4.3 (3.5-5.0) g/dL Urine Color Urine Appearance Urine pH (5.0-8.0) Ur Specific [place] (1.005-1.025) Urine Protein (NEG-TRACE) MG/DL Urine Glucose (UA) (NEG) MG/DL Urine Ketones (NEG) MG/DL Urine Blood (NEG) Urine Nitrite (NEG) Ur Leukocyte Esterase (NEG) Urine Test (NEGATIVE) COVID-19 (TIGIST) (Negative) COVID-19 Clin Com Influenza Type A ([facility]) (Negative) Influenza Type B ([facility]) (Negative) Influenza A & B Note 11/13/21 11/13/21 Range/Units 09:48 09:48 WBC (4.8-10.8) X10*3/uL RBC (4.20-5.50) X10*6/uL Hgb (12.0-16.0) g/dl Hct (37.0-47.0) % MCV (80.0-98.0) fL MCH (27.0-33.0) pg MCHC (31.0-35.0) g/dl RDW (11.0-16.0) % Plt Count (160-400) X10*3/uL MPV (9.4-12.3) fL Immature Gran % (Auto) (0.0-0.4) % Neut % (Auto) (45-73) % Lymph % (Auto) (20-40) % [place] % (Auto) (2-11) % Eos % (Auto) (0-4) % Baso % (Auto) (0-2) % Lymph # (Auto) (1.2-4.9) X10*3/uL [place] # (Auto) (0.1-1.2) X10*3/uL Eos # (Auto) (0.0-0.4) X10*3/uL Baso # (Auto) (0.0-0.2) X10*3/uL Abs Immat Gran (auto) (0.00-0.03) X10*3/uL Absolute Neuts (auto) (2.0-8.3) x10*3/uL Absolute Nucleated RBC (0.0-0.012) X10*3/uL Nucleated RBC % (auto) (0.0-0.2) /100WBC PT (10.0-13.1) SEC INR (0.9-1.1) APTT (26.0-36.4) SEC Sodium (135-145) mmol/L Potassium (3.3-5.1) mmol/L Chloride (96-108) mmol/L Carbon Dioxide (22-29) mmol/L Anion Gap (12-20) BUN (9-16) mg/dL Creatinine (0.5-1.4) mg/dL Estim Creat Clear Calc Estimated GFR Random Glucose (60-115) mg/dL Lactic Acid (0.5-2.0) mmol/L Calcium (8.4-10.2) mg/dL Total Bilirubin (0.0-1.0) mg/dL AST (5-31) U/L ALT (0-31) U/L Alkaline Phosphatase (39-117) U/L Total Protein (6.5-8.0) g/dL Albumin (3.5-5.0) g/dL Urine Color YELLOW Urine Appearance CLOUDY Urine pH 8.5 H (5.0-8.0) Ur Specific [place] 1.015 (1.005-1.025) Urine Protein TRACE (NEG-TRACE) MG/DL Urine Glucose (UA) NEG (NEG) MG/DL Urine Ketones NEG (NEG) MG/DL Urine Blood NEG (NEG) Urine Nitrite NEG (NEG) Ur Leukocyte Esterase NEG (NEG) Urine Test NEGATIVE (NEGATIVE) COVID-19 (TIGIST) (Negative) COVID-19 Clin Com Influenza Type A ([facility]) (Negative) Influenza Type B ([facility]) (Negative) Influenza A & B Note Discharge Plan Discharge Clinical Impression: COVID-19, Migraine Patient Disposition: Home, Self-Care Instructions: Migraine Headache (ED), COVID-19 (Coronavirus Disease 2019) (ED) Additional Instructions: YOU TESTED POSITIVE FOR COVID-19. YOU NEED TO ISOLATE FOR AT LEAST 7 DAYS. RETURN TO THE ED IMMEDIATELY FOR CHEST PAIN, SHORTNESS OF BREATH, WEAKNESS, DIZZINESS, COUGHING UP BLOOD, LEG SWELLING, CALF PAIN, WORSENING HEADACHE, OR ANY OTHER CONCERNING SYMPTOMS. PLEASE FOLLOW-UP WITH PRIMARY CARE PROVIDER. Prescriptions: No Action albuterol sulfate 90 mcg/actuation HFA aerosol inhaler 2 puff PO Q6H PRN (Reason: for muscle spasm) Qty: 25.5 0RF albuterol sulfate [Ventolin HFA] 90 mcg/actuation HFA aerosol inhaler 2 puff PO Q6H PRN (Reason: for muscle spasm) Qty: 18 0RF simvastatin 20 mg tablet 20 mg PO BEDTIME 90 Days Qty: 90 0RF cetirizine 10 mg tablet 10 mg PO DAILY 90 Days Qty: 90 3RF losartan 50 mg tablet 50 mg PO DAILY 90 Days Qty: 90 0RF amlodipine 10 mg tablet 10 mg PO DAILY Qty: 90 0RF propranolol 120 mg capsule,extended release 24 hr 120 mg PO DAILY 90 Days Qty: 90 0RF Breo Ellipta 200-25 mcg/dose blister with device 1 inh inhalation DAILY 30 Days Qty: 28 3RF cholecalciferol (vitamin D3) 50 mcg (2,000 unit) capsule 50 mcg PO DAILY ziprasidone HCl 60 mg capsule 60 mg PO BID lamotrigine 150 mg tablet 300 mg PO QAM amitriptyline 50 mg tablet 50 mg PO BEDTIME Stand Alone Forms: Work/School Release Print Language: Hungarian
[2021-11-13 09:43] LABS: Basophils Absolute Auto 0.1 X10*3/uL (0.0-0.2); Basophils Percent Auto 0.4 % (0-2); Eosinophils Absolute Auto 0.5 X10*3/uL (0.0-0.4); Eosinophils Percent Auto 3.1 % (0-4); Hematocrit 46.5 % (37.0-47.0); Hemoglobin 15.4 g/dl (12.0-16.0); Imm Gran Abs Auto 0.09 X10*3/uL (0.00-0.03); Imm Gran Pct Auto 0.6 % (0.0-0.4); Lymphocytes Absolute Auto 0.6 X10*3/uL (1.2-4.9); Lymphocytes Percent Auto 3.9 % (20-40); MANUAL DIFF FLAG NO; Mean Corpuscular HGB Conc 33.1 g/dl (31.0-35.0); Mean Corpuscular Hemoglobin 30.1 pg (27.0-33.0); Mean Corpuscular Volume 90.8 fL (80.0-98.0); Mean Platelet Volume 9.5 fL (9.4-12.3); Monocytes Percent Auto 6.1 % (2-11); Neutrophils Absolute Auto 13.4 x10*3/uL (2.0-8.3); Neutrophils Percent Auto 85.9 % (45-73); Platelet Count 478 X10*3/uL (160-400); Red Blood Count 5.12 X10*6/uL (4.20-5.50); Red Cell Distribution Width 13.9 % (11.0-16.0); White Blood Count 15.6 X10*3/uL (4.8-10.8)
[2021-11-13 09:51] LABS: INTERNATIONAL NORM RATIO 0.9 (0.9-1.1); Prothrombin Time 10.6 SEC (10.0-13.1)
[2021-11-13 09:52] LABS: Lactic Acid 1.2 mmol/L (0.5-2.0)
[2021-11-13 09:53] LABS: Partial Thromboplastin Time 37.3 SEC (26.0-36.4)
[2021-11-13 09:54] LABS: COVID-19 Test Positive (Negative)
[2021-11-13 09:59] LABS: Appearance Urine CLOUDY; Color Urine YELLOW; Glucose Urine UA NEG (NEG); Leukocyte Esterase Urine NEG (NEG); Nitrite Urine NEG (NEG); PH 8.5 (5.0-8.0); Specific Gravity - Urine 1.015 (1.005-1.025); Urine Blood NEG (NEG); Urine Ketones NEG (NEG); Urine Protein TRACE MG/DL (NEG-TRACE)
[2021-11-13 10:13] LABS: Alanine Aminotransferase 12 U/L (0-31); Albumin Level 4.3 g/dL (3.5-5.0); Alkaline Phosphatase 99 U/L (39-117); Anion Gap 16 (12-20); Aspartate Amino Transferase 18 U/L (5-31); Bilirubin Total 0.3 mg/dL (0.0-1.0); Blood Urea Nitrogen 8 mg/dL (9-16); Carbon Dioxide 24 mmol/L (22-29); Chloride 103 mmol/L (96-108); Creatinine Clr Calc Pharmacy 85.9; Estimated Glomerular Filt Rate > 60; Glucose Random 93 mg/dL (60-115); Potassium 4.1 mmol/L (3.3-5.1); Sodium 139 mmol/L (135-145); Total Protein 7.6 g/dL (6.5-8.0)
[2021-11-13] MEDS: Acetaminophen 325 MG TABLET 975 MG PO (10:23)
[2021-11-13] MEDS: 0.9 % Sodium Chloride 1,000 ML 999 ML IV (10:24)
[2021-11-13 10:37] LABS: Influenza A Negative (Negative); Influenza B2 Negative (Negative)
--- NOTE | 2021-11-13 11:08 | PC.NURSE ---
sepsis protocol cancelled due to pt having covid. PA is aware
[2021-11-13 11:14] LABS: UPreg QC Valid YES; Urine Pregnancy NEGATIVE (NEGATIVE)
[2021-11-13 11:33] VITALS: BP 141/75; PULSE 110; RESP 17; TEMP 37.5; O2SAT 96
== END 2021-11-13 15:31 | disposition home or self-care (01) ==
PROVIDERS: Physician Assistant; Emergency Provider Student in an Organized Health Care Education/Training Program; PCP Internal Medicine
DX: U07.1 COVID-19 (principal); G43.909 Migraine, unspecified, not intractable, without status migrainosus; I10 Essential (primary) hypertension; J45.909 Unspecified asthma, uncomplicated
CPT/HCPCS: 71045; 80053; 81003; 81025; 83605; 85025; 85610; 85730; 87040; 87502; 87635; 99283; 99284

== ENCOUNTER → 2021-12-21 07:10 | Outpatient (BNVA) | payer OTHER, SELFPAY | PROVIDERS: PCP Internal Medicine; Visit Provider Physician Assistant | DX: Z12.11 Encounter for screening for malignant neoplasm of colon (principal); J45.40 Moderate persistent asthma, uncomplicated | CPT/HCPCS: 99202 ==

== ENCOUNTER 2022-01-19 | Outpatient (REF) | payer OTHER, SELFPAY ==
--- NOTE | ~2022-01-19 | XR_ITS ---
EXAMINATION: 1. STANDING BILATERAL AP KNEE RADIOGRAPH 2. RADIOGRAPHS LEFT KNEE, 2 VIEWS CLINICAL INFORMATION: Pain COMPARISON: Bilateral knee x-rays 04/09/2019 TECHNIQUE: Standing AP views of both knees were obtained. Additional lateral and patellar sunrise views of the left knee were obtained. FINDINGS: Left knee: No fracture or dislocation. Mild narrowing of the medial joint space height. Small tricompartmental marginal osteophytes are noted, most prominent involving the lateral and patellofemoral compartments. No suprapatellar joint effusion. No focal soft tissue swelling of the anterior knee. AP standing right knee: No gross fracture or dislocation. Minimal narrowing of the medial joint space height. Tiny tricompartmental marginal osteophytes. XR/XR knee LT 2V IMPRESSION: 1. Mild degenerative changes of the left knee. 2. Mild degenerative changes of the right knee. 3. Degenerative changes are relatively similar in prominence compared with radiographs from April 2019.
--- NOTE | ~2022-01-19 | XR_ITS ---
EXAMINATION: 1. STANDING BILATERAL AP KNEE RADIOGRAPH 2. RADIOGRAPHS LEFT KNEE, 2 VIEWS CLINICAL INFORMATION: Pain COMPARISON: Bilateral knee x-rays 04/09/2019 TECHNIQUE: Standing AP views of both knees were obtained. Additional lateral and patellar sunrise views of the left knee were obtained. FINDINGS: Left knee: No fracture or dislocation. Mild narrowing of the medial joint space height. Small tricompartmental marginal osteophytes are noted, most prominent involving the lateral and patellofemoral compartments. No suprapatellar joint effusion. No focal soft tissue swelling of the anterior knee. AP standing right knee: No gross fracture or dislocation. Minimal narrowing of the medial joint space height. Tiny tricompartmental marginal osteophytes. XR/XR knee standing BI IMPRESSION: 1. Mild degenerative changes of the left knee. 2. Mild degenerative changes of the right knee. 3. Degenerative changes are relatively similar in prominence compared with radiographs from April 2019.
== END 2022-01-19 00:01 | disposition home or self-care (01) ==
LOC: HO.HOSX
PROVIDERS: Visit Provider Physician Assistant
DX: M17.12 Unilateral primary osteoarthritis, left knee (principal)
CPT/HCPCS: 20610; 73560; 73565; 99202; J1040

== ENCOUNTER 2022-01-21 11:26 | Day surgery (SDC) | payer OTHER, SELFPAY ==
[2022-01-21] VITALS (7 sets, daily range): BP systolic 123–142; BP diastolic 64–89; PULSE 86–107; RESP 16–18; TEMP 36.6–37; O2SAT 96–98; BMI 36.6
--- NOTE | ~2022-01-21 | CT_ITS ---
PROCEDURE: CT GUIDED BONE MARROW BIOPSY CLINICAL INFORMATION: Thrombocytosis. COMPARISON: None TECHNIQUE: Following explaining CT fluoroscopy-guided bone marrow biopsy iliac crest procedure, benefits and risk, a written consent was obtained. Patient was placed prone on fluoroscopy table and preliminary imaging of pelvis was obtained. Lead markers were placed along the posterior buttock region overlying the left posterior iliac crest. An optimal lead marker was selected and marked. The marked site was cleaned and draped in usual sterile manner. 1% lidocaine was injected at puncture site. Through a small skin incision a 14 American guide needle was advanced from the skin to the level of periosteum of the left neck crest. With a hammer the needle was advanced into the bone marrow. Subsequently the stylet was removed and bone marrow was aspirated into two syringes containing EDTA and heparin. Subsequently coaxial bone cutting needle was advanced and a core biopsy of bone marrow was obtained. Postprocedure the needles withdrawn and complete hemostasis achieved at puncture site. Sterile dressing applied postprocedure. Patient tolerated procedure extremely well. Conscious sedation was utilized for 30 minutes and patient monitored by IR nursing and IR radiologist. This CT examination was performed using dose optimization techniques as appropriate, variously including the following: *Automated exposure control *Adjustment of mA and/or kV according to patient size (this includes techniques or standardized protocols for targeted exams where dose is matched to indication/reason for exam; i.e. extremities or head) *Use of iterative reconstruction technique DLP: 239 mGy-cm FINDINGS: On preliminary CT imaging there is symmetrical bone marrow of the pelvis. No lytic or sclerotic process seen. No pelvic mass, free fluid seen. Few scattered diverticuli seen in sigmoid colon. CT fluoroscopy-guided bone marrow biopsy and aspirate was performed with a 14-gauge needle. CT/CT biopsy aspirate bone marrow IMPRESSION: Successful CT fluoroscopy-guided two bone marrow aspirates and a bone marrow biopsy was performed through the left posterior iliac crest.
[2022-01-21 12:17] LABS: Hematocrit 49.1 % (37.0-47.0); Hemoglobin 16.5 g/dl (12.0-16.0); Mean Corpuscular HGB Conc 33.6 g/dl (31.0-35.0); Mean Corpuscular Hemoglobin 30.9 pg (27.0-33.0); Mean Corpuscular Volume 91.9 fL (80.0-98.0); Platelet Count 504 X10*3/uL (160-400); Red Blood Count 5.34 X10*6/uL (4.20-5.50); White Blood Count 22.1 X10*3/uL (4.8-10.8)
[2022-01-21 12:28] LABS: Anion Gap 18 (12-20); Carbon Dioxide 22 mmol/L (22-29); Chloride 108 mmol/L (96-108); Potassium 3.9 mmol/L (3.3-5.1); Sodium 144 mmol/L (135-145)
[2022-01-21 12:29] LABS: Partial Thromboplastin Time 28.1 SEC (26.0-36.4)
[2022-01-21 12:48] LABS: SLIDE REVIEW MANUAL DIFF
[2022-01-21 13:26] LABS: Lymphocytes Absolute Manual 5.7 X10*3/uL (1.2-4.9); Lymphocytes Percent Manual 26 % (20-40); Monocytes Absolute Manual 0.9 X10*3/uL (0.1-1.2); Monocytes Percent Manual 4 % (2-11); Neutrophils Percent Manual 70 % (45-73)
[2022-01-21 13:27] LABS: Band Neutrophils Percent 0 % (3-5); Neutrophils Absolute Manual 15.5 X10*3/uL (2.0-8.3); RBC Morphology NORMAL
[2022-01-21 13:28] LABS: Platelet Estimate INCREASED (NORMAL); Platelet Morphology Comment NORM
[2022-01-21 14:48] LABS: Bone Marrow SEE SEPARATE REPORT
== END 2022-01-21 16:30 | disposition home or self-care (01) ==
PROVIDERS: Pathology Anatomic Pathology & Clinical Pathology; Radiology Diagnostic Radiology; PCP Internal Medicine; Visit Provider Internal Medicine
PROC: (CPT 38221; principal; 2022-01-21 13:30)
DX: D47.3 Essential (hemorrhagic) thrombocythemia (principal); I10 Essential (primary) hypertension
CPT/HCPCS: 36415; 38221; 38222; 80051; 85007; 85027; 85610; 85730; 88184; 88185; 88237; 88264; 88305; 88311; 88313; 88374; 99153; J1642; J2250; J3010

== ENCOUNTER 2022-04-09 17:15 | Outpatient (REF) | payer OTHER, SELFPAY ==
--- NOTE | ~2022-04-09 | XR_ITS ---
EXAMINATION: XR SHOULDER, LEFT CLINICAL INFORMATION: Left shoulder pain COMPARISON: None TECHNIQUE: AP external rotation, Grashey, scapular Y, and axillary views of the left shoulder. FINDINGS: The bones and soft tissues are normal. No fracture. Glenohumeral and acromioclavicular alignment is anatomic with normal joint space. No abnormal soft tissue calcifications. XR/XR shoulder LT min 2V IMPRESSION: Normal left shoulder.
== END 2022-04-09 17:16 | disposition home or self-care (01) ==
LOC: HO.HOSX 17:15
PROVIDERS: Visit Provider Physician Assistant
DX: M19.012 Primary osteoarthritis, left shoulder (principal); M75.82 Other shoulder lesions, left shoulder
CPT/HCPCS: 20610; 73030; 99202; J1040

== ENCOUNTER → 2022-05-04 08:33 | Outpatient (BNVA) | payer OTHER, SELFPAY | PROVIDERS: PCP Internal Medicine; Visit Provider Orthopaedic Surgery | DX: G56.02 Carpal tunnel syndrome, left upper limb (principal) | CPT/HCPCS: 99202 ==

== ENCOUNTER 2022-06-02 11:00 | Outpatient (RCR) | payer OTHER, SELFPAY ==
--- NOTE | 2022-04-26 11:44 | MHC.PT.EP ---
[facility] [place] Office [place] Office [place] Office [address] Joseph Thrasher [address] [phone] F: [phone] F: [phone] F: [phone] F: [phone] Physical Therapy Plan of Care Date of Evaluation: Date of Surgery: n/a Diagnosis: arthritis of L AC joint Assessment: Patient is a 47 year old female presenting to PT with complaints of pain in her L shoulder. Pt reports onset of pain began about 2 weeks ago due to insidious onset. She presents today with impairments in pain, ROM, shoulder strength, and posture. Pt's current occupation is none, with baseline physical activities including ADLs, reaching, lifting. 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 Clinical presentation today is most consistent with signs and sx associated with possible L shoulder impingement and pt will benefit from skilled PT to address the following problems and impairments noted upon evaluation: pain, ROM, shoulder strength, and posture. These problems limit the patient with the following functional activities: ADLs, reaching, lifting. The prescribed treatment plan of care is medically necessary. Co-morbidities of HTN were identified and taken into considerations of plan of care. Pt was educated on HEP, role of PT, prognosis, POC. Frequency and Duration: The patient will be seen 2 x week x 4 weeks Short Term Goals: Pt will demonstrate L shoulder AROM in available range with min to no pain in 2 weeks. Pt will demonstrate improved L shoulder strength by 1/3 grade in 2 weeks. Pt will demonstrate improved postural awareness by sitting with biomechanically correct posture without cues throughout session to improve overall postural function in 2 weeks. Assisted Goals: Pt will demonstrate improved SPADI score by 13 points in 4 weeks for improved functional mobility. Pt will demonstrate ability to reach OH with min to no pain in 4 week for improved ability to wash her hair. Pt will demonstrate ability to complete ADLs with min to no pain in 4 weeks for return to PLOF. Treatment Plan: Modalities to reduce pain, spasms and effusion. Manual therapy to restore motion and function. Therapeutic exercise to improve strength and flexibility. Neuromuscular re-education for posture and balance. Therapeutic activities to return to functional activities of daily living. Electronically signed by: Katrin Amador, PT, DPT, ATC Please sign and return to therapist. Thank you for your referral.
--- NOTE | 2022-06-02 11:50 | MHC.PT.DC ---
[facility] [place] Office [place] Office [place] Office [address] Joseph Thrasher [address] [phone] F: [phone] F: [phone] F: [phone] F: [phone] Physical Therapy Discharge Report Diagnosis: arthritis of L AC joint Date of Surgery: n/a Date of Evaluation: 04/26/22 Date of Discharge: 06/02/22 Treatments to Date: 6 Cancellations to Date: 5 No Shows to Date: 0 Discharge Status: Achieved Goals Improved Function Independent with HEP Discharge Summary: 06/02/2022: Pt has made progress since beginning skilled PT. Pain appears to have subsided at this point. She is completing all activities with good tolerance. At this point max benefits of PT have been provided and skilled PT is no longer indicated at this time. Recommend continuing with HEP to maintain all gains thus far. Pt to be d/c and agreement with this. Electronically signed by: Katrin Amador, PT, DPT, ATC Please sign and return to therapist. Thank you for your referral.
== END 2022-06-02 11:51 | disposition home or self-care (01) ==
LOC: HO.PTCHIC 11:00
PROVIDERS: PCP Internal Medicine; Visit Provider Physician Assistant
DX: M19.012 Primary osteoarthritis, left shoulder (principal); M75.82 Other shoulder lesions, left shoulder
CPT/HCPCS: 97110; 97161

== ENCOUNTER 2022-06-07 09:18 | Day surgery (SDC) | payer OTHER, SELFPAY ==
[2022-06-07 10:24] VITALS: BMI 37.2
--- NOTE | 2022-06-07 12:51 | MHC.SHP ---
Pre-Procedural Eval Section A Date of Service: 06/07/22 The patient is an INPATIENT: No Changes since office visit: No Cold of Flu in the past 2 weeks, No New Medical Problems, No Changes in Medication and No Patient answered all questions The History & Physical has been completed within 30 days and I have reviewed it.: Yes Section B Chief Complaint: Carpal tunnel syndrome, left upper limb Allergies: Allergies Allergy/AdvReac Type Severity Reaction Status Date / Time penicillin V Allergy Unknown hives Verified 05/04/22 08:47 Penicillins [PENICILLINS] Allergy Unknown HIVES Verified 05/04/22 08:47 celecoxib [Celebrex] AdvReac Unknown unknown Verified 05/04/22 08:47 clonidine AdvReac Unknown dizziness, Verified 05/04/22 08:47 N/V sumatriptan [Imitrex] AdvReac Unknown unknown Verified 05/04/22 08:47 Plan I have reviewed the history and physical and performed a pertinent physical examination on my patient. No changes have occurred unless specified. Time Spent With Patient Time: Total time managing care of this patient today ____ minutes.
--- NOTE | 2022-06-07 12:52 | W.PM.OPN ---
Operative Note Operative Note Date of Service: 06/07/22 Narrative: Preop diagnosis: 1. Left Carpal tunnel syndrome Postop diagnosis: same Procedure: 1. Left Carpal tunnel release Surgeon: Amada Puga MD Anesthesia: local block using 1% lidocaine with epinephrine Findings: Thickened transverse carpal ligament. EBL: Less than 5 mL Specimens: None Complications: None Disposition: Brought to recovery room in stable condition Plan: Follow-up for 10-14 days for wound check and suture removal Indications: The patient is 47 years old, with left carpal tunnel syndrome that has been unresponsive to nonoperative management. The risks and benefits of operative treatment including but not limited to risk of damage to blood vessels, nerves, tendons, infection, persistent pain, persistent symptoms, or possible need for additional surgery were discussed with the patient and the patient wishes to proceed with surgery. Procedure: Once consent was obtained a local block was performed using a combination of 1% lidocaine with epinephrine. The patient was then brought back to the operating suite and placed on the operative table in supine position. The left upper extremity was prepped and draped in a standard surgical fashion. Once assured that we had a good block, a 2.0 cm longitudinal incision was made centered over the carpal tunnel. The incision was made through the skin to the subcutaneous tissues using a #15 blade. Dissection was made down to the level of the transverse carpal ligament with care being taken to protect the palmar cutaneous nerve. Once the transverse carpal ligament was clearly visualized, a longitudinal incision was made in the transverse carpal ligament 1st using a #15 blade, then using tenotomy scissors under direct visualization. Care was taken to look for and protect the motor branch of the median nerve when seen in this area. Once satisfied with our carpal tunnel release the wound was copiously irrigated with normal saline and hemostasis was obtained with a brief period of local pressure. The skin edges were reapproximated with some 5.0 nylon suture material and a sterile dressing was applied. The patient appears to have tolerated the procedure well and with no complications. All digits were well vascularized at the conclusion of the case.
== END 2022-06-07 14:55 | disposition home or self-care (01) ==
PROVIDERS: PCP Internal Medicine; Visit Provider Orthopaedic Surgery
PROC: (CPT 64721; principal; 2022-06-07 11:20)
DX: G56.02 Carpal tunnel syndrome, left upper limb (principal); R20.0 Anesthesia of skin; R20.2 Paresthesia of skin; I10 Essential (primary) hypertension; J45.909 Unspecified asthma, uncomplicated; E66.9 Obesity, unspecified; Z68.37 Body mass index [BMI] 37.0-37.9, adult; G43.909 Migraine, unspecified, not intractable, without status migrainosus; Z88.0 Allergy status to penicillin; Z88.8 Allergy status to other drugs, medicaments and biological substances; Z87.891 Personal history of nicotine dependence
CPT/HCPCS: 64721; J0171

== ENCOUNTER → 2022-06-22 08:54 | Outpatient (BNVA) | payer OTHER, SELFPAY | PROVIDERS: PCP Internal Medicine; Visit Provider Orthopaedic Surgery ==

== ENCOUNTER 2022-06-24 07:54 | Day surgery (SDC) | payer OTHER, SELFPAY ==
[2022-06-17 19:39] VITALS: BMI 37.8
--- NOTE | 2022-06-23 09:58 | P.CONAN_ITS ---
Documented by User: Jelena Foy NP 06/23/22 10:01 HPI - Anesthesia Eval Consult details Narrative: 47yo F for Colonoscopy Chronic thrombocytosis - testing and bone marrow negative. Continues to follow with heme. PMFSH Active Problems Active Problems: All Active Problems (Updated 06/18/22 @ 14:03 by Mayelin Baron RN) Lipid disorder (Acute) Thrombocytosis (Chronic) Well woman exam (Acute) Menometrorrhagia (Acute) Family planning advice (Acute) Encounter for IUD insertion (Acute) IUD check up (Acute) Encounter for IUD removal (Acute) Asthma, moderate persistent (Acute) Other specified hypothyroidism (Acute) Encounter for general adult medical examination with abnormal findings (Acute) Ankle pain, right (Acute) COVID-19 (Acute) Encounter for screening colonoscopy (Acute) Osteoarthritis of left knee (Acute) Arthritis of left acromioclavicular joint (Acute) Tendonitis of left rotator cuff (Acute) Elevated hemoglobin (Acute) Carpal tunnel syndrome of left wrist (Acute) Obesity (Acute) Migraine headache with aura (Acute) Bipolar disorder (Acute) Hypertension, essential (Acute) Ankle pain, right (Acute) Asthma (Acute) Environmental allergies (Acute) Past Medical History Medical History Ankle pain, right Asthma Bipolar disorder Environmental allergies History of COVID-19 Hypertension, essential Migraine headache with aura Obesity Family History Family History Father Anxiety HTN (hypertension) Mother Anxiety Depression HTN (hypertension) Maternal Grandmother High cholesterol HTN (hypertension) Maternal Grandfather Hemochromatosis Stomach cancer Brother No problems noted. Sister No problems noted. Son No problems noted. Daughter No problems noted. Other Mental health disorder Surgical History Surgical History H/O skin graft H/O: hysterectomy History of bone marrow biopsy History of carpal tunnel release History of tooth extraction Hx of cholecystectomy Social History Social History Household Members: None Housing: Apartment Are you a primary dialysis patient care technician to a significant other at home: No Do you presently have visiting nurse or other home services: No Alcohol intake: current Alcohol intake frequency: holidays/special occasions only Patient Tobacco Use Status: Former Tobacco user Smoked in Last 30 Days: No e-Cigarette/Vaping Use: Never Used Use of substances other than those prescribed or required for medical reasons: Yes Substance Use Type: Marijuana Substance Use Frequency: Occasionally Have you been hit, kicked, punched, or otherwise hurt by someone within the past year? If so, by whom?: No Advance Directives: No Advance Directives Information Provided: Yes Recently lost weight without trying: No How much weight loss: Not applicable Eating poorly because of decreased appetite: No Nutrition screen score: 0 Nutrition Risks: No Nutritional Risk Patient : No : No Poor oral hygiene: No service: No Current occupational status: disabled Current occupation: rt hand Cognitive needs: No Hearing needs: No Vision needs: Yes Meds Allergies Allergy/AdvReac Type Severity Reaction Status Date / Time penicillin V Allergy Unknown hives Verified 06/22/22 09:05 Penicillins [PENICILLINS] Allergy Unknown HIVES Verified 06/22/22 09:05 celecoxib [Celebrex] AdvReac Unknown unknown Verified 06/22/22 09:05 clonidine AdvReac Unknown dizziness, Verified 06/22/22 09:05 N/V sumatriptan [Imitrex] AdvReac Unknown unknown Verified 06/22/22 09:05 Home Medications Medication Instructions Recorded Confirmed Last Taken Type amitriptyline 50 mg tablet 50 mg PO BEDTIME 01/18/20 04/30/22 Unknown History cholecalciferol (vitamin D3) 50 50 mcg PO DAILY 01/18/20 04/30/22 Unknown History mcg (2,000 unit) capsule lamotrigine 150 mg tablet 300 mg PO QAM 01/18/20 04/30/22 Unknown History ziprasidone HCl 60 mg capsule 60 mg PO BID 01/18/20 04/30/22 Unknown History ibuprofen 200 mg tablet 400 mg PO QID 04/09/22 04/30/22 Unknown History Exam Exam Date and Time: June 23, 2022 0958 Height,Weight and Vital Signs: Height 5 ft 1 in Weight 90.718 kg Pertinent Lab Results Pertinent Lab Results: Laboratory Tests 11/13/21 01/21/22 03/17/22 09:35 12:08 08:52 WBC 14.0 H Hgb 17.1 H Hct 51.6 H Plt Count 453 H Sodium 144 Potassium 3.9 Chloride 108 Carbon Dioxide 22 BUN 8 L Creatinine 0.83 Assessment and Plan Assessment Anesthesia Assessment: Chart Reviewed Documented by User: Luis Arguelles MD 06/24/22 09:14 [facility] Past Medical History Medical History Ankle pain, right Asthma Bipolar disorder Environmental allergies History of COVID-19 Hypertension, essential Migraine headache with aura Obesity Family History Family History Father Anxiety HTN (hypertension) Mother Anxiety Depression HTN (hypertension) Maternal Grandmother High cholesterol HTN (hypertension) Maternal Grandfather Hemochromatosis Stomach cancer Brother No problems noted. Sister No problems noted. Son No problems noted. Daughter No problems noted. Other Mental health disorder Family history of problems with anesthesia: No Surgical History Surgical History H/O skin graft H/O: hysterectomy History of bone marrow biopsy History of carpal tunnel release History of tooth extraction Hx of cholecystectomy History of Problems with Anesthesia: No Social History Social History Household Members: None Housing: Apartment Are you a primary dialysis patient care technician to a significant other at home: No Do you presently have visiting nurse or other home services: No Alcohol intake: current Alcohol intake frequency: holidays/special occasions only Patient Tobacco Use Status: Former Tobacco user Smoked in Last 30 Days: No e-Cigarette/Vaping Use: Never Used Use of substances other than those prescribed or required for medical reasons: Yes Substance Use Type: Marijuana Substance Use Frequency: Occasionally Have you been hit, kicked, punched, or otherwise hurt by someone within the past year? If so, by whom?: No Advance Directives: No Advance Directives Information Provided: Yes Recently lost weight without trying: No How much weight loss: Not applicable Eating poorly because of decreased appetite: No Nutrition screen score: 0 Nutrition Risks: No Nutritional Risk Patient : No : No Poor oral hygiene: No service: No Current occupational status: disabled Current occupation: rt hand Cognitive needs: No Hearing needs: No Vision needs: Yes Meds Allergies Allergy/AdvReac Type Severity Reaction Status Date / Time penicillin V Allergy Unknown hives Verified 06/22/22 09:05 Penicillins [PENICILLINS] Allergy Unknown HIVES Verified 06/22/22 09:05 celecoxib [Celebrex] AdvReac Unknown unknown Verified 06/22/22 09:05 clonidine AdvReac Unknown dizziness, Verified 06/22/22 09:05 N/V sumatriptan [Imitrex] AdvReac Unknown unknown Verified 06/22/22 09:05 Home Medications Medication Instructions Recorded Confirmed Last Taken Type amitriptyline 50 mg tablet 50 mg PO BEDTIME 01/18/20 04/30/22 Unknown History cholecalciferol (vitamin D3) 50 50 mcg PO DAILY 01/18/20 04/30/22 Unknown History mcg (2,000 unit) capsule lamotrigine 150 mg tablet 300 mg PO QAM 01/18/20 04/30/22 Unknown History ziprasidone HCl 60 mg capsule 60 mg PO BID 01/18/20 04/30/22 Unknown History ibuprofen 200 mg tablet 400 mg PO QID 04/09/22 04/30/22 Unknown History Exam Airway Mallampati Class: I TM Dist: <=3cm Neck ROM: Full Denture: Upper and Lower Heart: ok Lungs: ok Assessment and Plan Assessment Anesthesia Assessment: Anesthesia Plan Discussed Final Anesthetic Review Family History of Problems with Anesthesia: No History of Problems with Anesthesia: No NPO: Yes ASA Class: II Final Preanesthetic Review: No Changes in Pt Med Stat, Meds/Allgs Chart Reviewed, Consent Obtained/Reviewed and Anes Risks/Benef Reviewed Patient Risk: Low Procedure Risk: Low Anesthetic Plan Anesthetic Plan: MAC: and Agree w/ Assess. and Plan Disposition: Standard PACU
--- NOTE | 2022-06-24 08:51 | MHC.SHP ---
Pre-Procedural Eval Section A Date of Service: 06/24/22 Section B Chief Complaint: Encounter for screening for malignant neoplasm of Relevant Family History (Specify if Yes): No Relevant Social History: Other (specify) (THC) Present Medications: see Short Stay Collaborative assessment Medical History: Significant History (Ankle pain, right Asthma Bipolar disorder Environmental allergies History of COVID-19 Hypertension, essential Migraine headache with aura Obesity) History of Previous Operations: Relevant previous surgery/procedure and date(s) (H/O skin graft H/O: hysterectomy History of bone marrow biopsy History of carpal tunnel release History of tooth extraction Hx of cholecystectomy) Allergies: Allergies Allergy/AdvReac Type Severity Reaction Status Date / Time penicillin V Allergy Unknown hives Verified 06/22/22 09:05 Penicillins [PENICILLINS] Allergy Unknown HIVES Verified 06/22/22 09:05 celecoxib [Celebrex] AdvReac Unknown unknown Verified 06/22/22 09:05 clonidine AdvReac Unknown dizziness, Verified 06/22/22 09:05 N/V sumatriptan [Imitrex] AdvReac Unknown unknown Verified 06/22/22 09:05 Review of Systems Sugical H&P ROS: Negative: Constitution, Cardiovascular, Respiratory, Neurological, Psychiatric, Hem-Onc, Allergic/Immunologic, Gastrointestinal, Genitourinary, Musculoskeletal, Integumentary, Endocrine and Eyes/Ears/Nose/Throat Exam Surgical H&P Exam: Normal: HEENT, Normal: Heart, Normal: Lungs, Normal: Extremities, Normal: Abdomen, Normal: Skin and Normal: Neurological Plan Diagnosis/Plan: Unchanged I have reviewed the history and physical and performed a pertinent physical examination on my patient. No changes have occurred unless specified. Time Spent With Patient Time: Total time managing care of this patient today ____ minutes.
[2022-06-24 08:57] VITALS: BP 136/98; PULSE 100; RESP 16; TEMP 36.1; O2SAT 94
[2022-06-24] MEDS: Lactated Ringers 1,000 ML 100 ML IVCONT (09:08)
--- NOTE | 2022-06-24 10:14 | P.OP_ITS ---
Operative Note Operative Note Date of Service: 06/24/22 Narrative: Operative Information Procedure Description: Colonoscopy Indication: screening Anesthesia: MAC COLONOSCOPY Instrument: Olympus variable stiffness pediatric scope 190L Colonoscopy Monitoring: Vital signs and clinical assessment, continuous EKG monitoring, Pulse oximetry, Carbon Dioxide monitoring and blood pressure monitoring were done throughout the procedure. Colon withdrawal time was 12 minutes. Procedure: The patient was placed in the left lateral decubitis position and pre-procedure medications were administered. After a digital rectal examination of the ano-rectum, the video colonoscope was inserted into the rectum and advanced through the colon to the cecum/TI. The colonoscope was slowly withdrawn in a retrograde panoramic fashion and the colon mucosa was carefully examined including a retroflexed view of the rectum. Findings and interventions are described below. Procedure Difficulty: difficult due to severe diverticulosis and tight colon angles Findings: Terminal Ileum-normal Cecum:normal Ascending Colon: normal Transverse Colon -normal Descending Colon:normal Sigmoid Colon: severe diverticulosis with angulated colon, luminal narrowing-- 8-9 mm sessile polyp removed with cold snare Rectum: Retroflexion with small internal hemorrhoids, grade I Anorectum - normal Colon preparation: Table [place] Bowel Preparation Scale Right colon; 2 Transverse colon: 2 Left colon; 2 (0 = Unprepared colon segment with mucosa not seen due to solid stool that cannot be cleared. 1 = Portion of mucosa of the colon segment seen, but other areas of the colon segment not well seen due to staining, residual stool and/or opaque liquid. 2 = Minor amount of residual staining, small fragments of stool and/or opaque liquid, but mucosa of colon segment seen well. 3 = Entire mucosa of colon segment seen well with no residual staining, small fragments of stool or opaque liquid) Impression and Post Procedure Diagnosis: polyp internal hemorrhoids diverticular disease Plan: High fiber diet leaflet Avoid straining at stool, epsom salts and sitz bath, anusol supps or cream Repeat Colonoscopy in 5-7 years if adenomatous polyp which appeared to be by kudo pit markings, otherwise 10 yrs if hyperplastic or earlier if clinically indicated Above findings were reviewed with the patient and relevant handouts were provided if indicated.
[2022-06-24 10:20] VITALS: BP 130/92; PULSE 96; RESP 20; TEMP 36.6; O2SAT 96
[2022-06-24 10:35] VITALS: BP 135/92; PULSE 93; RESP 18; TEMP 36.8; O2SAT 96
== END 2022-06-24 10:59 | disposition home or self-care (01) ==
PROVIDERS: PCP Internal Medicine; Visit Provider Internal Medicine Gastroenterology
PROC: 0DJD8ZZ Inspection of Lower Intestinal Tract, Via Natural or Artificial Opening Endoscopic (ICD-10-PCS; CPT 45378; principal; 2022-06-24 09:40)
DX: Z12.11 Encounter for screening for malignant neoplasm of colon (principal); D12.5 Benign neoplasm of sigmoid colon; K57.30 Diverticulosis of large intestine without perforation or abscess without bleeding; K64.0 First degree hemorrhoids; I10 Essential (primary) hypertension; J45.40 Moderate persistent asthma, uncomplicated; G43.109 Migraine with aura, not intractable, without status migrainosus; F31.9 Bipolar disorder, unspecified; E66.9 Obesity, unspecified; Z68.36 Body mass index [BMI] 36.0-36.9, adult; Z79.51 Long term (current) use of inhaled steroids; Z79.899 Other long term (current) drug therapy; Z88.0 Allergy status to penicillin; Z88.8 Allergy status to other drugs, medicaments and biological substances; Z90.49 Acquired absence of other specified parts of digestive tract; F12.90 Cannabis use, unspecified, uncomplicated; Z87.891 Personal history of nicotine dependence; Z86.16 Personal history of COVID-19
CPT/HCPCS: 45385; 88305; J3010

== ENCOUNTER → 2022-07-08 07:40 | Outpatient (BNVA) | payer OTHER, SELFPAY | PROVIDERS: PCP Internal Medicine; Referring Provider Internal Medicine; Visit Provider Physician Assistant | DX: D36.9 Benign neoplasm, unspecified site (principal) | CPT/HCPCS: 99212 ==

== ENCOUNTER 2022-08-09 08:05 | Outpatient (REF) | payer OTHER, SELFPAY ==
[2022-08-09 11:15] LABS: MANUAL DIFF FLAG NO
[2022-08-09 11:42] LABS: Basophils Percent Auto 0.3 % (0-2); Eosinophils Percent Auto 7.1 % (0-4); Hematocrit 48.8 % (37.0-47.0); Imm Gran Abs Auto 0.08 X10*3/uL (0.00-0.03); Imm Gran Pct Auto 0.6 % (0.0-0.4); Lymphocytes Absolute Auto 3.5 X10*3/uL (1.2-4.9); Mean Corpuscular HGB Conc 32.8 g/dl (31.0-35.0); Mean Corpuscular Hemoglobin 30.9 pg (27.0-33.0); Mean Corpuscular Volume 94.4 fL (80.0-98.0); Mean Platelet Volume 10.8 fL (9.4-12.3); Monocytes Percent Auto 7.5 % (2-11); Neutrophils Absolute Auto 8.2 x10*3/uL (2.0-8.3); Neutrophils Percent Auto 59.5 % (45-73); Platelet Count 439 X10*3/uL (160-400); Red Blood Count 5.17 X10*6/uL (4.20-5.50); Red Cell Distribution Width 13.5 % (11.0-16.0); White Blood Count 13.8 X10*3/uL (4.8-10.8)
[2022-08-09 12:28] LABS: Alanine Aminotransferase 12 U/L (0-31); Alkaline Phosphatase 91 U/L (39-117); Anion Gap 13 (12-20); Aspartate Amino Transferase 13 U/L (5-31); Bilirubin Total 0.4 mg/dL (0.0-1.0); Blood Urea Nitrogen 11 mg/dL (9-16); Carbon Dioxide 26 mmol/L (22-29); Chloride 106 mmol/L (96-108); Cholesterol 216 mg/dL; Estimated Glomerular Filt Rate > 60; Glucose Fasting 103 mg/dL (60-99); HDL Cholesterol 41 mg/dL; LDL Cholesterol Calculated 120 mg/dl; Potassium 3.8 mmol/L (3.3-5.1); Sodium 141 mmol/L (135-145); Total Protein 6.8 g/dL (6.5-8.0); Triglycerides 278 mg/dL
[2022-08-09 12:33] LABS: Ferritin 111 ng/mL (10-250); TSH reflex Free T4 4.47 uIU/mL (0.32-4.0)
[2022-08-09 14:58] LABS: Free T4 (Free Thyroxine) 0.81 ng/dL (0.71-1.85)
== END 2022-08-09 08:06 | disposition home or self-care (01) ==
LOC: HO.HMGCLDS 08:05
PROVIDERS: PCP Internal Medicine; Visit Provider Internal Medicine
DX: I10 Essential (primary) hypertension (principal); F31.9 Bipolar disorder, unspecified; J45.40 Moderate persistent asthma, uncomplicated; D47.3 Essential (hemorrhagic) thrombocythemia; E78.9 Disorder of lipoprotein metabolism, unspecified; D58.2 Other hemoglobinopathies; E66.9 Obesity, unspecified; Z91.09 Other allergy status, other than to drugs and biological substances
CPT/HCPCS: 36415; 80053; 80061; 82728; 84439; 84443; 85025

== ENCOUNTER 2022-08-16 09:08 | Outpatient (REF) | payer OTHER, SELFPAY ==
--- NOTE | ~2022-08-16 | MM_ITS ---
EXAMINATION: MM SCREENING DIGITAL BREAST TOMOSYNTHESIS, BILATERAL CLINICAL INFORMATION: Screening. Asymptomatic. The lifetime risk of breast cancer based on the Tyrer-Cuzick Model is 6%. COMPARISON: Mammography: 08/10/2021, 07/29/2020, 04/17/2019, 04/11/2018, 11/30/2016 TECHNIQUE: Digital breast tomosynthesis is performed in both the craniocaudal and mediolateral oblique views along with computer-aided detection (CAD). Synthesized 2D images are generated from the tomosynthesis. FINDINGS: There are scattered areas of fibroglandular density (ACR BI-RADS breast composition Category b). Left breast appears similar to prior studies. There is no significant mass or interval architectural abnormality. Neither breast shows abnormal calcifications. There are intramammary nodes again seen bilateral outer breasts similar to prior studies. The axilla and skin contours are similar to previous exams. Right CC view has smooth macrolobulated asymmetry central breast approximately 0.6 cm more conspicuous when compared with prior studies. No developing nodule on MLO view. Patient will be recalled to further characterize. MM/MM tomosynthesis screening BI IMPRESSION: Right: -Smooth macrolobulated asymmetric nodule more conspicuous on the CC view. Left: -No mammographic evidence of malignancy. ASSESSMENT: BI-RADS 0: Incomplete - Need Additional Imaging Evaluation RECOMMENDATION: 1. Additional views right breast (rolled CC x2, ML). 2. Targeted ultrasound if warranted after review of the additional views. 3. Radiology department staff will contact the patient for additional imaging. This patient's information was entered into a reminder system with a target due date for their next mammogram.
== END 2022-08-16 09:09 | disposition home or self-care (01) ==
LOC: HO.MAMMO 09:08
PROVIDERS: PCP Internal Medicine; Visit Provider Internal Medicine
DX: Z12.31 Encounter for screening mammogram for malignant neoplasm of breast (principal)
CPT/HCPCS: 77063; 77067

== ENCOUNTER 2022-09-09 15:02 | Outpatient (REF) | payer OTHER, SELFPAY ==
--- NOTE | ~2022-09-09 | MM_ITS ---
EXAMINATION: MM DIAGNOSTIC DIGITAL BREAST TOMOSYNTHESIS, RIGHT US DIAGNOSTIC ULTRASOUND BREAST, RIGHT CLINICAL INFORMATION: Recall from screening for smooth macrolobulated asymmetric density central breast under 1 cm more conspicuous when compared with prior studies. COMPARISON: Multiple prior mammography exams including most recent 08/16/2022. TECHNIQUE: Digital breast tomosynthesis is performed. 2D images are generated from the tomosynthesis. The following views are obtained: Rolled CC x2, ML. Ultrasound right breast is targeted to the central and outer breast using grayscale imaging and color Doppler without and with harmonics. FINDINGS: There are scattered areas of fibroglandular density (ACR BI-RADS breast composition Category b). The additional views show small macrolobulated nodule approximately 0.6 cm, margins smooth. No architectural abnormality. Finding is less conspicuous on the additional views when compared with the standard mammography. Ultrasound demonstrates an incidental intramammary node which is stable on mammography and unrelated to recall. There is no other cystic or solid mass or architectural abnormality. Results are discussed with the patient at time of visit. The finding on mammography is less conspicuous on additional views. There is no architectural abnormality or ultrasound correlate. No significant change from prior exam. As a precaution, short interval follow-up right diagnostic mammography is suggested to assess for an occult developing density. Patient is in agreement with the management plan. MM/MM tomosynthesis added views R IMPRESSION: -Small macrolobulated nodule with smooth margins less conspicuous on additional views. Likely no significant change from prior year. -No ultrasound correlate visualized. ASSESSMENT: BI-RADS 3: Probably Benign RECOMMENDATION: Diagnostic right mammography in 6 months. This patient's information was entered into a reminder system with a target due date for their next mammogram.
== END 2022-09-09 15:03 | disposition home or self-care (01) ==
LOC: HO.MAMMO 15:02
PROVIDERS: PCP Internal Medicine; Visit Provider Internal Medicine
DX: N64.89 Other specified disorders of breast (principal)
CPT/HCPCS: 76642; 77061; 77065

== ENCOUNTER 2022-09-15 09:41 | Outpatient (REF) | payer OTHER, SELFPAY ==
[2022-09-15 10:55] LABS: Estimated Average Glucose 91 mg/dL; Hemoglobin A1c % 4.8 %
[2022-09-15 12:08] LABS: TSH reflex Free T4 3.32 uIU/mL (0.32-4.0)
== END 2022-09-15 09:42 | disposition home or self-care (01) ==
LOC: HO.LAB 09:41
PROVIDERS: PCP Internal Medicine; Visit Provider Internal Medicine
DX: R73.01 Impaired fasting glucose (principal); R94.6 Abnormal results of thyroid function studies
CPT/HCPCS: 36415; 83036; 84443

== ENCOUNTER → 2022-10-04 09:53 | Outpatient (BNVA) | payer OTHER, SELFPAY | PROVIDERS: PCP Internal Medicine; Visit Provider Obstetrics & Gynecology ==

== ENCOUNTER 2022-10-29 13:13 | Outpatient (REF) | payer OTHER, SELFPAY ==
--- NOTE | ~2022-10-29 | XR_ITS ---
EXAMINATION: XR KNEE, RIGHT CLINICAL INFORMATION: Pain unspecified knee COMPARISON: 01/19/2022 TECHNIQUE: [place] and lateral views obtained of the right knee. FINDINGS: Small right knee effusion. Marginal osteophytes are seen at the patella and also at the medial femoral condyle. No acute osseous abnormality is seen. On the lateral view there is mild lateral tracking of the patella. XR/XR knee RT 2V IMPRESSION: Mild degenerative change. No acute osseous abnormalities seen. Small knee effusion.
== END 2022-10-29 13:14 | disposition home or self-care (01) ==
LOC: HO.HOSX 13:13
PROVIDERS: PCP Internal Medicine; Visit Provider Physician Assistant
DX: M17.0 Bilateral primary osteoarthritis of knee (principal)
CPT/HCPCS: 73560; 99212

== ENCOUNTER 2022-10-29 13:13 | Outpatient (AMB) | payer OTHER, SELFPAY ==
--- NOTE | 2022-10-29 13:23 | MHC.OFFVIS ---
Intake Vital Signs 10/29/22 13:24 Height 5 ft 1 in Weight 199 lb BMI 37.6 Intake Visit Reasons: Newprob-B/L knee pain Intake Note: Charity is a 47 year old female who presents today for bilateral knee pain. Patient reports ongoing throbbing pain for a few weeks. Hx of injections in her left knee with 3 weeks of relief. Hx of PT and Home exercise with mild relief. She states that both of her knee are at the same level in pain. Her pain is on the medial aspect of the knee per patient. Pain is worse when laying down and being active all day. Allergies penicillin V Allergy (Unknown, Verified 10/04/22 10:01) hives Penicillins [PENICILLINS] Allergy (Unknown, Verified 10/04/22 10:01) HIVES celecoxib [Celebrex] Adverse Reaction (Unknown, Verified 10/04/22 10:01) unknown clonidine Adverse Reaction (Unknown, Verified 10/04/22 10:01) dizziness, N/V sumatriptan [Imitrex] Adverse Reaction (Unknown, Verified 10/04/22 10:01) unknown HPI Newprob-B/L knee pain HPI Details 47-year-old female who presents in the office today for an evaluation of bilateral knee pain. The patient has a cortisone injection in the left knee on 01/19/2022, which gave her about 3 weeks of relief. She claims her bilateral knees are at the same level of pain. She reports her pain is along the medial aspect of the bilateral knees. She states she has an increase in pain when laying down or being active for long periods of time. Patient has a history of physical therapy and at home exercises, with mild relief. [facility] Medical History (Updated 10/29/22 @ 13:57 by Christina Osorio) Ankle pain, right Asthma Bipolar disorder Environmental allergies History of COVID-19 History of high blood pressure History of high cholesterol Hypertension, essential Migraine headache with aura Obesity Surgical History H/O skin graft H/O: hysterectomy History of bone marrow biopsy History of carpal tunnel release History of tooth extraction Hx of cholecystectomy Hx of colonoscopy Family History Father Anxiety HTN (hypertension) Mother Anxiety Depression HTN (hypertension) Maternal Grandmother High cholesterol HTN (hypertension) Maternal Grandfather Hemochromatosis Stomach cancer Brother No problems noted. Sister No problems noted. Son No problems noted. Daughter No problems noted. Other Mental health disorder Social History Household Members: None Housing: Apartment Are you a primary children's zoo caretaker to a significant other at home: No Do you presently have visiting nurse or other home services: No Alcohol intake: current Alcohol intake frequency: holidays/special occasions only Patient Tobacco Use Status: Former Tobacco user e-Cigarette/Vaping Use: Never Used Substance Use Type: Marijuana service: No Current occupational status: disabled Current occupation: rt hand Cognitive needs: No Hearing needs: No Vision needs: Yes Female Reproductive History Menstrual Age of Menarche: 10 Review of Systems Const All systems reviewed & are unremarkable except as noted in HPI and below Physical Exam Vital Signs: BMI result Body Mass Index 37.6 Const General: cooperative, healthy appearing and no acute distress Resp Effort & Inspection: normal respiratory effort and able to speak in complete sentences Cardio Rate: regular rate Peripheral pulses: Peripheral pulses 2+ throughout GI Palpation (GI): Soft to palpation Skin Lesions: no lesions Rashes: no rashes Extrem Other: Bilateral knees: Normal to inspection. No ecchymosis, erythema, or joint effusion. No tenderness to palpation to the medial or lateral joint lines. Full knee extension and flexion. Crepitus felt with ROM. NVI. Results Reviewed Results Reviewed: 10/29/22 13:42 Lidocaine HCl 2 % MPF [Xylocaine 2 % MPF] 5 ml .ROUTE .STK-MED ONE methylPREDNISolone acetate [DEPO-MedroL] 80 mg .ROUTE .STK-MED ONE Assessment & Plan Assessment & Plan (1) Osteoarthritis of right knee: Code(s): M17.11 - Unilateral primary osteoarthritis, right knee (2) Osteoarthritis of left knee: Code(s): M17.12 - Unilateral primary osteoarthritis, left knee Plan Ms. Roberts is a 47-year-old female who presents in the office today for an evaluation of bilateral knee pain. The patient has a cortisone injection in the left knee on 01/19/2022, which gave her about 3 weeks of relief. She claims her bilateral knees are at the same level of pain. She reports her pain is along the medial aspect of the bilateral knees. She states she has an increase in pain when laying down or being active for long periods of time. Patient has a history of physical therapy and at home exercises, with mild relief. The patient was offered a cortisone injection in the bilateral knees with 80 mg of DepoMedrol. The patient was explained the risk, benefits, and alternatives to receiving this injection. After receiving consent for the injection, the patient had the procedure done while in office today. The patient tolerated the procedure well with no complications. The office will petition the insurance for Gel injections. Follow up will be after approval is obtained for the Gel injections, or sooner if needed. I also sent Diclofenac 75 mg po BID to the pharmacy. X-rays of the right knees which were obtained while in the office today and were reviewed by me, Anni Verdugo PA-C, revealed significant osteoarthritis. Orders: Orders XR knee RT 2V Today M25.569 - Pain in unspecified knee Medications: New diclofenac sodium 75 mg PO BID PRN 60 tabs 0RF pain 30 days Patient Instructions: Scribed for Anni Verdugo PA-C by Christina Osorio medical customer service representative, on 10/29/2022 at 1:21 pm, EST. Your attestation Coding Level of Care Code Est Pt Level 4 (15073) Diagnoses Osteoarthritis of right knee M17.11 Osteoarthritis of left knee M17.12
[2022-10-29 13:24] VITALS: BMI 37.6
== END 2022-10-29 13:58 | disposition home or self-care (01) ==
PROVIDERS: PCP Internal Medicine; Visit Provider Physician Assistant
DX: M17.0 Bilateral primary osteoarthritis of knee (principal)
CPT/HCPCS: 99214

== ENCOUNTER 2022-11-05 14:10 | Outpatient (AMB) | payer OTHER, SELFPAY ==
--- NOTE | 2022-11-05 14:12 | MHC.PC.OV ---
Vital Signs 11/05/22 14:17 Height 5 ft 1 in Weight 215 lb BMI 40.6 BP 142/96 H Pulse 99 Pulse Source Pulse Oximeter Pulse Oximetry (%) 98 Oxygen Delivery Method Room Air Intake Visit Reasons: 4 Month F/U On Med/Labs Allergies penicillin V Allergy (Unknown, Verified 11/05/22 14:13) hives Penicillins [PENICILLINS] Allergy (Unknown, Verified 11/05/22 14:13) HIVES celecoxib [Celebrex] Adverse Reaction (Unknown, Verified 11/05/22 14:13) unknown clonidine Adverse Reaction (Unknown, Verified 11/05/22 14:13) dizziness, N/V sumatriptan [Imitrex] Adverse Reaction (Unknown, Verified 11/05/22 14:13) unknown Medication List - Last Reconciled 11/05/22 by Lee Mercado MD albuterol sulfate 90 mcg/actuation 2 puffs PO Q6H PRN amitriptyline 50 mg PO BEDTIME amlodipine 10 mg PO DAILY cetirizine 10 mg PO DAILY 90 days cholecalciferol (vitamin D3) 50 mcg PO DAILY diclofenac sodium 75 mg PO BID PRN 30 days hydroxyzine pamoate 25 mg PO TID lamotrigine 300 mg PO QAM losartan 50 mg PO DAILY 90 days methylcellulose (laxative) (Citrucel) 500 mg PO TID propranolol ER 120 mg PO DAILY 90 days simvastatin 20 mg PO BEDTIME 90 days Ventolin HFA 90 mcg/actuation (albuterol sulfate) 2 puffs PO Q6H PRN NS ziprasidone HCl 60 mg PO BID Tobacco use date assessed: 11/05/22 Dental Screening Dental Screen Date: 11/05/22 Did you have a dental visit in the last 12 months?: No Was dental information given to patient?: Patient declined HPI 4 Month F/U On Med/Labs HPI Details Patient is a 47-year-old female came in today for her regular 4 month follow-up appointment Patient is stable Blood pressure :? Blood pressure is stable,, patient is on amlodipine 10 mg and losartan 50 mg, patient is tolerating medication no side effects Asthma stable, continue Breo, no shortness of breath no wheezing She is on simvastatin 20 mg for lipid control Patient also see Dr. Vidal for gynecological needs Psychiatrist for psychiatric care And Neurology for migraine headaches Has appointment in March labs to be done before visit [facility] Medical History Ankle pain, right Asthma Bipolar disorder Environmental allergies History of COVID-19 History of high blood pressure History of high cholesterol Hypertension, essential Migraine headache with aura Obesity Surgical History H/O skin graft H/O: hysterectomy History of bone marrow biopsy History of carpal tunnel release History of tooth extraction Hx of cholecystectomy Hx of colonoscopy Family History Father Anxiety HTN (hypertension) Mother Anxiety Depression HTN (hypertension) Maternal Grandmother High cholesterol HTN (hypertension) Maternal Grandfather Hemochromatosis Stomach cancer Brother No problems noted. Sister No problems noted. Son No problems noted. Daughter No problems noted. Other Mental health disorder Social History Household Members: None Housing: Apartment Are you a primary infant caregiver to a significant other at home: No Do you presently have visiting nurse or other home services: No Alcohol intake: current Alcohol intake frequency: holidays/special occasions only Patient Tobacco Use Status: Former Tobacco user e-Cigarette/Vaping Use: Never Used Substance Use Type: Marijuana service: No Current occupational status: disabled Current occupation: rt hand Cognitive needs: No Hearing needs: No Vision needs: Yes Female Reproductive History Menstrual Age of Menarche: 10 Questionnaire PHQ-9 Over the last 2 weeks, how often have you been bothered by any of the following problems? 1. Little interest or pleasure in doing things: not at all 2. Feeling down, depressed, or hopeless: not at all 3. Trouble falling or staying asleep, or sleeping too much: not at all 4. Feeling tired or having little energy: not at all 5. Poor appetite or overeating: not at all 6. Feeling bad about yourself - or that you are a failure or have let yourself or your family down: not at all 7. Trouble concentrating on things, such as reading the newspaper or watching television: not at all 8. Moving or speaking so slowly that other people could have noticed. Or the opposite - being so fidgety or restless that you have been moving around a lot more than usual: not at all 9. Thoughts that you would be better off or of hurting yourself in some way: not at all Total score: 0 Source: Developed by Drs. Arthur Ojeda, Cecy Sheridan, Luis Carvalho and colleagues, with an educational dari from [employer]. Thrive Questionnaire Date Thrive assessed: 11/05/22 I am a: Patient What is your living situation today?: I have a steady place to live Within the past 12 months, did the food you bought not last and you didn't have the money to get more?: Never true Within the past 12 months, did you worry whether your food would run out before you got money to buy more?: Never true Do you have trouble paying for medicines?: No Do you have trouble getting transportation to medical appointments?: No Do you have trouble paying your heating and electricity bill?: No Do you have trouble taking care of your child, family member or friend?: No Do you have trouble with day-to-day activities such as bathing, preparing meals, shopping, managing finances, etc.?: No Are you currently unemployed and looking for a job?: No Are you interested in more education?: No KANDY-7 AMB Questionnaire KANDY-7 Date KANDY - 7 assessed: 11/05/22 Feeling nervous, anxious, or on edge: 1 = Several days Not being able to stop or control worryin = Several days Worrying too much about different things: 0 = Not at all Trouble relaxin = Not at all Being so restless that it is hard to sit still: 0 = Not at all Becoming easily annoyed or irritable: 1 = Several days Feeling afraid as if something awful might happen: 0 = Not at all Total KANDY-7 score (0-4 normal; 5-9 mild; 10-14 moderate; 15-21 severe): 3 Source: Developed by Drs. Arthur Ojeda, Cecy Sheridan, Luis Carvalho and colleagues, with an educational dari from [employer]. Review of Systems Const Denies chills and Denies fever(s) ENT Denies epistaxis and Denies nasal discharge Card Denies chest pain Resp Denies chest congestion, Denies cough and Denies hemoptysis GI Denies diarrhea and Denies nausea Skin/Breast Denies rash Neuro Reports no additional complaints Psych Reports no additional complaints Endo Reports no additional complaints Physical exam (Primary Care) Vital Signs: Last Vital Signs Pulse 99 11/05/22 14:17 BP 142/96 H 11/05/22 14:17 Pulse Ox 98 11/05/22 14:17 Oxygen Delivery Method Room Air 11/05/22 14:17 BMI result Body Mass Index 40.6 Tobacco/Smoking Status: Tobacco use Status Tobacco use date assessed 11/05/22 11/05/22 14:15 Patient Tobacco Use Status Former Tobacco user 11/05/22 14:15 e-Cigarette/Vaping Use Never Used 11/05/22 14:15 PHQ-9: PHQ-9 Score PHQ-9: Total score 0 11/05/22 14:18 Thrive Assessment: Date of Thrive Assessment Date Thrive assessed 11/05/22 11/05/22 14:18 Const General: cooperative, comfortable and no acute distress Orientation/consciousness: patient oriented x3 HENMT Head: Yes normocephalic Eyes General: appearance normal, both eyes and all related structures Neck Neck: Yes supple Resp Effort & Inspection: normal respiratory effort, no cough and no stridor Cardio Rhythm: regular rhythm Heart sounds: S1 normal heart sound present and S2 normal heart sound present Skin General skin exam: turgor normal Neuro General: patient oriented x3, tone normal and moves all extremities Extrem Right lower extremity: no edema Left lower extremity: no edema Assessment and Plan Assessment & Plan (1) Hypertension, essential: Code(s): I10 - Essential (primary) hypertension (2) Migraine headache with aura: Code(s): G43.109 - Migraine with aura, not intractable, without status migrainosus (3) Bipolar disorder: Code(s): F31.9 - Bipolar disorder, unspecified (4) Environmental allergies: Code(s): Z91.09 - Other allergy status, other than to drugs and biological substances (5) Lipid disorder: Code(s): E78.9 - Disorder of lipoprotein metabolism, unspecified (6) Impaired fasting blood sugar: Code(s): R73.01 - Impaired fasting glucose Plan Patient is a 47-year-old female came in today for her regular 4 month follow-up appointment Patient is stable Blood pressure :? Blood pressure is stable,, patient is on amlodipine 10 mg and losartan 50 mg, patient is tolerating medication no side effects Asthma stable, continue Breo, no shortness of breath no wheezing She is on simvastatin 20 mg for lipid control Patient also see Dr. Vidal for gynecological needs Psychiatrist for psychiatric care And Neurology for migraine headaches Has appointment in March labs to be done before visit Orders: Orders Comprehensive Met. Panel Today E78.9 - Disorder of lipoprotein metabolism, unspecified, F31.9 - Bipolar disorder, unspecified, G43.109 - Migraine with aura, not intractable, without status migrainosus, I10 - Essential (primary) hypertension, R73.01 - Impaired fasting glucose, Z91.09 - Other allergy status, other than to drugs and biological substances Hemoglobin A1c Today E78.9 - Disorder of lipoprotein metabolism, unspecified, F31.9 - Bipolar disorder, unspecified, G43.109 - Migraine with aura, not intractable, without status migrainosus, I10 - Essential (primary) hypertension, R73.01 - Impaired fasting glucose, Z91.09 - Other allergy status, other than to drugs and biological substances LDL Cholesterol Direct Today E78.9 - Disorder of lipoprotein metabolism, unspecified, F31.9 - Bipolar disorder, unspecified, G43.109 - Migraine with aura, not intractable, without status migrainosus, I10 - Essential (primary) hypertension, R73.01 - Impaired fasting glucose, Z91.09 - Other allergy status, other than to drugs and biological substances TSH reflex Free T4 Today E78.9 - Disorder of lipoprotein metabolism, unspecified, F31.9 - Bipolar disorder, unspecified, G43.109 - Migraine with aura, not intractable, without status migrainosus, I10 - Essential (primary) hypertension, R73.01 - Impaired fasting glucose, Z91.09 - Other allergy status, other than to drugs and biological substances Complete Blood Count Auto Diff Today E78.9 - Disorder of lipoprotein metabolism, unspecified, F31.9 - Bipolar disorder, unspecified, G43.109 - Migraine with aura, not intractable, without status migrainosus, I10 - Essential (primary) hypertension, R73.01 - Impaired fasting glucose, Z91.09 - Other allergy status, other than to drugs and biological substances Coding Level of Care Code Est Pt Level 4 (20489) Diagnoses Hypertension, essential I10 Migraine headache with aura G43.109 Bipolar disorder F31.9 Environmental allergies Z91.09 Lipid disorder E78.9 Impaired fasting blood sugar R73.01
[2022-11-05 14:17] VITALS: BP 142/96; PULSE 99; O2SAT 98; BMI 40.6
== END 2022-11-05 15:45 | disposition home or self-care (01) ==
PROVIDERS: PCP Internal Medicine; Visit Provider Internal Medicine
DX: I10 Essential (primary) hypertension (principal); G43.109 Migraine with aura, not intractable, without status migrainosus; F31.9 Bipolar disorder, unspecified; Z91.09 Other allergy status, other than to drugs and biological substances; E78.9 Disorder of lipoprotein metabolism, unspecified; R73.01 Impaired fasting glucose
CPT/HCPCS: 99214

== ENCOUNTER 2022-12-02 12:40 | Outpatient (AMB) | payer OTHER, SELFPAY ==
--- NOTE | 2022-12-02 12:46 | MHC.OFFVIS ---
Intake Vital Signs 12/02/22 12:54 Height 5 ft 1 in Weight 215 lb BMI 40.6 Intake Visit Reasons: OV - B/L knee Durolane Gel Injections Intake Note: Charity is a 47 year old female who presents today for bilateral knee Durolane gel injections, last cortisone injections 10/29/22. Patient reports her last injection gave her a week of relief. Allergies penicillin V Allergy (Unknown, Verified 12/02/22 12:53) hives Penicillins [PENICILLINS] Allergy (Unknown, Verified 12/02/22 12:53) HIVES celecoxib [Celebrex] Adverse Reaction (Unknown, Verified 12/02/22 12:53) unknown clonidine Adverse Reaction (Unknown, Verified 12/02/22 12:53) dizziness, N/V sumatriptan [Imitrex] Adverse Reaction (Unknown, Verified 12/02/22 12:53) unknown HPI OV - B/L knee Durolane Gel Injections HPI Details 47-year-old female who presents in the office today for a follow up of bilateral knee pain and her Durolane injection in the bilateral knees. The patient had a cortisone injection on 10/29/2022 with a week of relief. [facility] Medical History Ankle pain, right Asthma Bipolar disorder Environmental allergies History of COVID-19 History of high blood pressure History of high cholesterol Hypertension, essential Migraine headache with aura Obesity Surgical History H/O skin graft H/O: hysterectomy History of bone marrow biopsy History of carpal tunnel release History of tooth extraction Hx of cholecystectomy Hx of colonoscopy Family History Father Anxiety HTN (hypertension) Mother Anxiety Depression HTN (hypertension) Maternal Grandmother High cholesterol HTN (hypertension) Maternal Grandfather Hemochromatosis Stomach cancer Brother No problems noted. Sister No problems noted. Son No problems noted. Daughter No problems noted. Other Mental health disorder Social History Household Members: None Housing: Apartment Are you a primary critical care registered nurse to a significant other at home: No Do you presently have visiting nurse or other home services: No Alcohol intake: current Alcohol intake frequency: holidays/special occasions only Patient Tobacco Use Status: Former Tobacco user e-Cigarette/Vaping Use: Never Used Substance Use Type: Marijuana service: No Current occupational status: disabled Current occupation: rt hand Cognitive needs: No Hearing needs: No Vision needs: Yes Female Reproductive History Menstrual Age of Menarche: 10 Review of Systems Const All systems reviewed & are unremarkable except as noted in HPI and below Physical Exam Vital Signs: BMI result Body Mass Index 40.6 Const General: cooperative, healthy appearing and no acute distress Resp Effort & Inspection: normal respiratory effort and able to speak in complete sentences Cardio Rate: regular rate Peripheral pulses: Peripheral pulses 2+ throughout GI Palpation (GI): Soft to palpation Skin Lesions: no lesions Rashes: no rashes Extrem Other: Bilateral knees: Normal to inspection. No ecchymosis, erythema, or joint effusion. No tenderness to palpation to the medial or lateral joint lines. Full knee extension and flexion. Crepitus felt with ROM. NVI. Office Procedures Joint Injection/Drain Joint Injection/Drain Primary Site: right knee Secondary Site: left knee Prep: site was prepped using aseptic technique, ethochloride spray was applied and injection warnings given Injected: in the joint (Durolane bilat knee) Approach Used: anterolateral Procedure: The patient tolerated the procedure well, but had some pain with the injection and there was some relief with the local anesthesia Coding 91546 - Large joint Procedure code (CPT) selection complete Results Reviewed Results Reviewed: 12/02/22 12:44 Hyaluronate Sodium, Stabilized [Durolane] 60 mg INTRAARTIC .K-MED ONE Assessment & Plan Assessment & Plan (1) Osteoarthritis of right knee: Code(s): M17.11 - Unilateral primary osteoarthritis, right knee (2) Osteoarthritis of left knee: Code(s): M17.12 - Unilateral primary osteoarthritis, left knee Plan Ms. Roberts is a 47-year-old female who presents in the office today for a follow up of bilateral knee pain and her Durolane injection in the bilateral knees. The patient had a cortisone injection on 10/29/2022 with a week of relief. The patient was offered a Durolane injection in the bilateral knees. The patient was explained the risk, benefits, and alternatives to receiving this injection. After receiving consent for the injection, the patient had the procedure done while in office today. The patient tolerated the procedure well with no complications. Follow up will be PRN, or sooner if needed. Patient Instructions: Scribed for Anni Verdugo PA-C by Christina Osorio medical delivery driver, on 12/02/2022 at 12:50 pm, EST. Coding Level of Care Code Procedure Only Diagnoses Osteoarthritis of right knee M17.11 Osteoarthritis of left knee M17.12 CPT Codes Coding - 94216 Large joint: 91233 - Large joint ([id number])
[2022-12-02 12:54] VITALS: BMI 40.6
== END 2022-12-02 13:13 | disposition home or self-care (01) ==
PROVIDERS: PCP Internal Medicine; Visit Provider Physician Assistant
DX: M17.0 Bilateral primary osteoarthritis of knee (principal)
CPT/HCPCS: 20610

== ENCOUNTER → 2022-12-02 12:40 | Outpatient (BNVA) | payer OTHER, SELFPAY | PROVIDERS: PCP Internal Medicine; Visit Provider Physician Assistant | DX: M17.0 Bilateral primary osteoarthritis of knee (principal) | CPT/HCPCS: 20610; J7318 ==

== ENCOUNTER 2023-03-11 07:04 | Outpatient (REF) | payer OTHER, SELFPAY ==
[2023-03-11 12:22] LABS: MANUAL DIFF FLAG NO
[2023-03-11 12:29] LABS: Basophils Absolute Auto 0.1 X10*3/uL (0.0-0.2); Basophils Percent Auto 0.5 % (0-2); Hematocrit 49.3 % (37.0-47.0); Imm Gran Abs Auto 0.04 X10*3/uL (0.00-0.03); Imm Gran Pct Auto 0.3 % (0.0-0.4); Lymphocytes Absolute Auto 3.2 X10*3/uL (1.2-4.9); Lymphocytes Percent Auto 24.7 % (20-40); Mean Corpuscular HGB Conc 32.5 g/dl (31.0-35.0); Mean Corpuscular Hemoglobin 31.4 pg (27.0-33.0); Mean Corpuscular Volume 96.9 fL (80.0-98.0); Mean Platelet Volume 11.3 fL (9.4-12.3); Monocytes Absolute Auto 0.9 X10*3/uL (0.1-1.2); Monocytes Percent Auto 6.7 % (2-11); Neutrophils Absolute Auto 7.7 x10*3/uL (2.0-8.3); Neutrophils Percent Auto 59.8 % (45-73); Platelet Count 429 X10*3/uL (160-400); Red Blood Count 5.09 X10*6/uL (4.20-5.50); Red Cell Distribution Width 14.2 % (11.0-16.0)
[2023-03-11 12:52] LABS: Estimated Average Glucose 97 mg/dL
[2023-03-11 14:58] LABS: Alanine Aminotransferase 13 U/L (0-31); Albumin Level 4.2 g/dL (3.5-5.0); Alkaline Phosphatase 84 U/L (39-117); Anion Gap 16 (12-20); Aspartate Amino Transferase 18 U/L (5-31); Bilirubin Total 0.3 mg/dL (0.0-1.0); Blood Urea Nitrogen 12 mg/dL (9-16); Calcium 9.4 mg/dL (8.4-10.2); Carbon Dioxide 24 mmol/L (22-29); Chloride 109 mmol/L (96-108); Estimated Glomerular Filt Rate > 60; Glucose Random 91 mg/dL (60-115); Potassium 3.9 mmol/L (3.3-5.1); Sodium 145 mmol/L (135-145); TSH reflex Free T4 5.41 uIU/mL (0.32-4.0); Total Protein 7.7 g/dL (6.5-8.0)
[2023-03-11 16:29] LABS: Free T4 (Free Thyroxine) 0.88 ng/dL (0.71-1.85)
[2023-03-12 19:57] LABS: LDL Cholesterol Direct 115 mg/dL (<100)
== END 2023-03-11 07:05 | disposition home or self-care (01) ==
LOC: HO.HMGCLDS 07:04
PROVIDERS: PCP Internal Medicine; Visit Provider Internal Medicine
DX: I10 Essential (primary) hypertension (principal); G43.109 Migraine with aura, not intractable, without status migrainosus; F31.9 Bipolar disorder, unspecified; E78.9 Disorder of lipoprotein metabolism, unspecified; R73.01 Impaired fasting glucose; Z91.09 Other allergy status, other than to drugs and biological substances
CPT/HCPCS: 36415; 80053; 83036; 83721; 84439; 84443; 85025

== ENCOUNTER 2023-03-16 14:51 | Outpatient (REF) | payer OTHER, SELFPAY ==
--- NOTE | ~2023-03-16 | MM_ITS ---
EXAMINATION: MM DIAGNOSTIC DIGITAL BREAST TOMOSYNTHESIS, RIGHT CLINICAL INFORMATION: 6 month follow-up right breast for nodule central aspect. COMPARISON: Mammography: 09/09/2022, 08/10/2021, 07/29/2020, 04/17/2019, 04/11/2018, 11/30/2016 TECHNIQUE: Digital right breast tomosynthesis is performed in both the craniocaudal and mediolateral oblique views along with computer-aided detection (CAD). Synthesized 2D images are generated from the tomosynthesis. FINDINGS: There are scattered areas of fibroglandular density (ACR BI-RADS breast composition Category b). There is a stable small lobulated mass measuring approximately 6 mm within the central slightly lateral slightly superior right breast. This has features which are consistent with a lymph node, including a fatty hilum. No significant change in morphology or size. This finding is a benign intramammary lymph node and requires no further follow-up. There is a second more dense lymph node in the far upper outer right breast. This is also unchanged and benign. There are no additional suspicious findings in the right breast. MM/MM tomosynthesis diagnostic RT IMPRESSION: No evidence of right breast malignancy. Benign findings as detailed. Small lobular mass in the central right breast has features which are diagnostic of an intramammary lymph node, and given stability, no further follow-up recommended. ASSESSMENT: BI-RADS BI-RADS 2 - Benign Findings RECOMMENDATION: 1 year F/U Results were provided to the patient at time of visit by the technologist. This patient's information was entered into a reminder system with a target due date for their next mammogram.
== END 2023-03-16 14:52 | disposition home or self-care (01) ==
LOC: HO.MAMMO 14:51
PROVIDERS: PCP Internal Medicine; Visit Provider Internal Medicine
DX: N63.11 Unspecified lump in the right breast, upper outer quadrant (principal)
CPT/HCPCS: 77061; 77065

== ENCOUNTER → 2023-03-16 15:00 | Outpatient (BNV) | payer OTHER, SELFPAY | PROVIDERS: PCP Internal Medicine; Visit Provider Radiology Diagnostic Radiology | DX: N63.10 Unspecified lump in the right breast, unspecified quadrant (principal) | CPT/HCPCS: 77061; 77065 ==

== ENCOUNTER 2023-03-22 08:55 | Outpatient (AMB) | payer OTHER, SELFPAY ==
--- NOTE | 2023-03-22 09:11 | MHC.PC.OV ---
Vital Signs 03/22/23 09:12 Height 5 ft 6 in Weight 201 lb 6 oz BMI 32.5 BP 142/88 H Blood Pressure Location Rt brachial Position Sitting Pulse 110 H Pulse Source Pulse Oximeter Pulse Oximetry (%) 96 Oxygen Delivery Method Room Air Intake Visit Reasons: PE Allergies penicillin V Allergy (Unknown, Verified 03/22/23 09:14) hives Penicillins [PENICILLINS] Allergy (Unknown, Verified 03/22/23 09:14) HIVES celecoxib [Celebrex] Adverse Reaction (Unknown, Verified 03/22/23 09:14) unknown clonidine Adverse Reaction (Unknown, Verified 03/22/23 09:14) dizziness, N/V sumatriptan [Imitrex] Adverse Reaction (Unknown, Verified 03/22/23 09:14) unknown Medication List - Last Reconciled 03/22/23 by Lee Mercado MD amitriptyline 50 mg PO BEDTIME amlodipine 10 mg PO DAILY cetirizine 10 mg PO DAILY 90 days cholecalciferol (vitamin D3) 50 mcg PO DAILY diclofenac sodium 75 mg PO BID PRN hydroxyzine pamoate 25 mg PO TID lamotrigine 300 mg PO QAM levothyroxine 25 mcg PO DAILY losartan 50 mg PO DAILY 90 days propranolol ER 120 mg PO DAILY 90 days simvastatin 20 mg PO BEDTIME 90 days Ventolin HFA 90 mcg/actuation (albuterol sulfate) 2 puffs PO Q6H PRN NS ziprasidone HCl 60 mg PO BID Tobacco use date assessed: 03/22/23 Dental Screening Dental Screen Date: 03/22/23 Did you have a dental visit in the last 12 months?: No Did you have a dental problem in the last 6 months where you did not have access to dental care?: No Was dental information given to patient?: No HPI PE HPI Details Patient is a 47-year-old female came in today for physical exam Mammogram is up-to-date Patient is established with Dr. Vidal [facility] Colonoscopy up-to-date through [facility] Labs done recently reviewed with the patient Her TSH level came back at 5.41 , she was started on levothyroxine 25 mcg we will repeat labs again in 2 months Last year patient sprained her right ankle she was under care of orthopedic [facility]'s Dr. Camarena Patient has gone through physical therapy as well, she continued to have pain in her ankle, patient would like to have a 2nd opinion She will get back to me with more information on which doctor she would like to see. Her blood pressure continued to be elevated I am stopping amlodipine and adding atenolol chlorthalidone she is to continue losartan Need to lose weight BMI is elevated Her white count continued to be elevated however stable Medication list reviewed Follow-up 3 months [facility] Medical History History of high cholesterol History of high blood pressure History of COVID-19 Obesity Migraine headache with aura Bipolar disorder Hypertension, essential Ankle pain, right Asthma Environmental allergies Surgical History Hx of colonoscopy History of bone marrow biopsy H/O: hysterectomy Hx of cholecystectomy History of tooth extraction H/O skin graft History of carpal tunnel release Family History Father Anxiety HTN (hypertension) Mother Anxiety Depression HTN (hypertension) Maternal Grandmother High cholesterol HTN (hypertension) Maternal Grandfather Hemochromatosis Stomach cancer Brother No problems noted. Sister No problems noted. Son No problems noted. Daughter No problems noted. Other Mental health disorder Social History Household Members: None Housing: Apartment Are you a primary personal care service provider to a significant other at home: No Do you presently have visiting nurse or other home services: No Alcohol intake: current Alcohol intake frequency: holidays/special occasions only Patient Tobacco Use Status: Former Tobacco user e-Cigarette/Vaping Use: Never Used Substance Use Type: Marijuana service: No Current occupational status: disabled Current occupation: rt hand Cognitive needs: No Hearing needs: No Vision needs: Yes Female Reproductive History Menstrual Age of Menarche: 10 Questionnaire Thrive Questionnaire Date Thrive assessed: 11/05/22 AUDIT C Alcohol Use Questionnaire (AUDIT-C) 1. How often do you have a drink containing alcohol?: 2-4 times a month 2. How many drinks containing alcohol do you have on a typical day when you are drinking?: 1 or 2 3. How often do you have six or more drinks on one occasion?: Never Total Score: 2 KANDY-7 AMB Questionnaire KANDY-7 Date KANDY - 7 assessed: 11/05/22 Source: Developed by Drs. Arthur Ojeda, Cecy Sheridan, Luis Carvalho and colleagues, with an educational dari from [employer]. Review of Systems Const Denies chills, Denies fever(s) and Denies headache(s) Eyes Denies blurry vision ENT Denies headache(s), Denies nasal discharge, Denies nasal obstruction, Denies odynophagia and Denies sinus pain Card Denies chest pain at rest and Denies chest pain with activity Resp Denies cough and Denies hemoptysis GI Denies diarrhea, Denies odynophagia, Denies vomiting and Denies hematemesis Reports as per HPI Musc Denies abnormal gait Skin/Breast Reports as per HPI Neuro Denies Neuro-related abnormal movements, Denies Abnormal speech present, Denies abnormal gait, Denies headache(s) and Denies Sensory deficit (Neuro) Psych Denies mood swings and Denies paranoia Endo Reports as per HPI Reinier/Lymph Reports as per HPI Aller/Immun Reports as per HPI Physical exam (Primary Care) Vital Signs: Last Vital Signs Pulse 110 H 03/22/23 09:12 BP 142/88 H 03/22/23 09:12 Pulse Ox 96 03/22/23 09:12 Oxygen Delivery Method Room Air 03/22/23 09:12 BMI result Body Mass Index 32.5 Tobacco/Smoking Status: Tobacco use Status Tobacco use date assessed 03/22/23 03/22/23 09:16 Patient Tobacco Use Status Former Tobacco user 03/22/23 09:16 e-Cigarette/Vaping Use Never Used 03/22/23 09:16 Thrive Assessment: Date of Thrive Assessment Date Thrive assessed 11/05/22 03/22/23 09:16 Const General: cooperative, comfortable and no acute distress Orientation/consciousness: patient oriented x3 HENMT Other: Teeth missing Head: Yes normocephalic and Yes atraumatic Eyes General: appearance normal, both eyes and all related structures Pupils: Equal, round and reactive pupils present EOM: EOMs intact bilaterally Neck Neck: Yes supple and No lymphadenopathy Thyroid: Thyroid normal Lymphatic: no lymphadenopathy noted Resp Effort & Inspection: normal respiratory effort and able to speak in complete sentences Auscultation: clear to auscultation bilaterally Cardio Heart sounds: S1 normal heart sound present and S2 normal heart sound present GI Palpation (GI): Soft to palpation and nontender Auscultation: normal bowel sounds General: Yes no CVA tenderness Back/Spine/Pelvis Back: no CVA tenderness Skin General skin exam: elasticity normal and turgor normal Neuro General: patient oriented x3 and gait normal Cranial nerves: Yes Equal, round and reactive pupils present Speech: No Abnormal speech present Sensory Exam: No Sensory deficit (Neuro) Coordination: tandem gait normal and Romberg test negative Extrem General: Yes normal exam except as noted and No edema Assessment and Plan Assessment & Plan (1) Encounter for general adult medical examination with abnormal findings: Code(s): Z00.01 - Encounter for general adult medical examination with abnormal findings (2) Elevated TSH: Code(s): R79.89 - Other specified abnormal findings of blood chemistry (3) Thrombocytosis: Code(s): D47.3 - Essential (hemorrhagic) thrombocythemia (4) Bipolar disorder: Code(s): F31.9 - Bipolar disorder, unspecified Qualifiers: Active/Remission status: in full remission Most recent bipolar episode type: mixed Qualified Code(s): F31.78 - Bipolar disorder, in full remission, most recent episode mixed (5) Hypertension, essential: Code(s): I10 - Essential (primary) hypertension (6) Environmental allergies: Code(s): Z91.09 - Other allergy status, other than to drugs and biological substances (7) Ankle pain, right: Code(s): M25.571 - Pain in right ankle and joints of right foot Qualifiers: Chronicity: chronic Qualified Code(s): M25.571 - Pain in right ankle and joints of right foot; G89.29 - Other chronic pain (8) Migraine headache with aura: Code(s): G43.109 - Migraine with aura, not intractable, without status migrainosus Qualifiers: Intractability: intractable Status migrainosus presence: without status migrainosus Qualified Code(s): G43.119 - Migraine with aura, intractable, without status migrainosus (9) Osteoarthritis of left knee: Code(s): M17.12 - Unilateral primary osteoarthritis, left knee Qualifiers: Osteoarthritis type: primary Qualified Code(s): M17.12 - Unilateral primary osteoarthritis, left knee (10) Arthritis of left acromioclavicular joint: Code(s): M19.012 - Primary osteoarthritis, left shoulder (11) Other specified hypothyroidism: Code(s): E03.8 - Other specified hypothyroidism (12) Asthma, moderate persistent: Comment: Follows PCP, no hospital admissions well managed Code(s): J45.40 - Moderate persistent asthma, uncomplicated Qualifiers: Asthma complication type: uncomplicated Qualified Code(s): J45.40 - Moderate persistent asthma, uncomplicated (13) Tubular adenoma: Comment: reviewed report and path- repeat asymptomatic colonoscopy 5 years Unable to add diverticulosis and hemorrhoids to document First-degree relatives should begin screening at age 40 Code(s): D36.9 - Benign neoplasm, unspecified site (14) Hemorrhoids: Code(s): K64.9 - Unspecified hemorrhoids Qualifiers: Hemorrhoid type: first degree Qualified Code(s): K64.0 - First degree hemorrhoids (15) Osteoarthritis of right knee: Code(s): M17.11 - Unilateral primary osteoarthritis, right knee Qualifiers: Osteoarthritis type: primary Qualified Code(s): M17.11 - Unilateral primary osteoarthritis, right knee (16) Impaired fasting blood sugar: Code(s): R73.01 - Impaired fasting glucose (17) Obesity due to excess calories: Code(s): E66.09 - Other obesity due to excess calories Qualifiers: Body mass index: BMI 32.0-32.9 Obesity classification: adult class 1 (BMI 30 - 34.9) Serious obesity comorbidity presence: with serious comorbidity Qualified Code(s): E66.09 - Other obesity due to excess calories; Z68.32 - Body mass index [BMI] 32.0-32.9, adult Plan Patient is a 47-year-old female came in today for physical exam Mammogram is up-to-date Patient is established with Dr. Vidal [facility] Colonoscopy up-to-date through [facility] Labs done recently reviewed with the patient Her TSH level came back at 5.41 , she was started on levothyroxine 25 mcg we will repeat labs again in 2 months Last year patient sprained her right ankle she was under care of orthopedic [facility] Dr. Camarena Patient has gone through physical therapy as well, she continued to have pain in her ankle, patient would like to have a 2nd opinion She will get back to me with more information on which doctor she would like to see. Her blood pressure continued to be elevated I am stopping amlodipine and adding atenolol chlorthalidone she is to continue losartan Need to lose weight BMI is elevated Her white count continued to be elevated however stable Medication list reviewed Follow-up 3 months Orders: Orders TSH reflex Free T4 Today R79.89 - Other specified abnormal findings of blood chemistry Medications: New atenolol-chlorthalidone 50-25 mg 1 tab PO DAILY 90 tabs 0RF Discontinued amlodipine Discontinued Reason: Doctor's Order 10 mg PO DAILY 90 tabs 0RF Coding Level of Care Code Est Pt Prev Care 40-64y(36019) Diagnoses Encounter for general adult medical examination with abnormal findings Z00.01 Elevated TSH R79.89 Thrombocytosis D47.3 Bipolar disorder, in full remission, most recent episode mixed F31.78 Active/Remission status: in full remission Most recent bipolar episode type: mixed Hypertension, essential I10 Environmental allergies Z91.09 Chronic pain of right ankle M25.571; G89.29 Chronicity: chronic Intractable migraine with aura without status migrainosus G43.119 Intractability: intractable Status migrainosus presence: without status migrainosus Primary osteoarthritis of left knee M17.12 Osteoarthritis type: primary Arthritis of left acromioclavicular joint M19.012 Other specified hypothyroidism E03.8 Moderate persistent asthma without complication J45.40 Asthma complication type: uncomplicated Tubular adenoma D36.9 Grade I hemorrhoids K64.0 Hemorrhoid type: first degree Primary osteoarthritis of right knee M17.11 Osteoarthritis type: primary Impaired fasting blood sugar R73.01 Class 1 obesity due to excess calories with serious comorbidity and body mass index (BMI) of 32.0 to 32.9 in adult E66.09; Z68.32 Body mass index: BMI 32.0-32.9 Obesity classification: adult class 1 (BMI 30 - 34.9) Serious obesity comorbidity presence: with serious comorbidity
[2023-03-22 09:12] VITALS: BP 142/88; PULSE 110; O2SAT 96; BMI 32.5
== END 2023-03-22 09:37 | disposition home or self-care (01) ==
PROVIDERS: Visit Provider Internal Medicine
DX: Z00.01 Encounter for general adult medical examination with abnormal findings (principal); D47.3 Essential (hemorrhagic) thrombocythemia; F31.78 Bipolar disorder, in full remission, most recent episode mixed; R79.89 Other specified abnormal findings of blood chemistry; I10 Essential (primary) hypertension; Z91.09 Other allergy status, other than to drugs and biological substances; M25.571 Pain in right ankle and joints of right foot; G89.29 Other chronic pain; G43.119 Migraine with aura, intractable, without status migrainosus; M17.12 Unilateral primary osteoarthritis, left knee; M19.012 Primary osteoarthritis, left shoulder; E03.8 Other specified hypothyroidism
CPT/HCPCS: 99214; 99396

== ENCOUNTER 2023-04-19 10:26 | Emergency (ER) | payer OTHER, SELFPAY ==
--- NOTE | ~2023-04-19 | CT_ITS ---
EXAMINATION: CT abdomen pelvis w IV con CLINICAL INFORMATION: Reason for Exam bilat lower tenderness COMPARISON: No prior CT available for comparison. TECHNIQUE: Multidetector volumetric imaging was performed from the superior aspect of the liver through the pubic symphysis 85 mL Omnipaque 350 injected Sagittal and coronal reformatted images were obtained on the technologist's workstation. This CT examination was performed using dose optimization techniques as appropriate, variously including the following: *Automated exposure control *Adjustment of mA and/or kV according to patient size (this includes techniques or standardized protocols for targeted exams where dose is matched to indication/reason for exam; i.e. extremities or head) *Use of iterative reconstruction technique DLP: 739 mGy-cm FINDINGS: LOWER THORAX: There is 4 mm nodule right lower lobe image 1 series 8. 4 mm nodule left lower lobe image 127 series 4. HEPATOBILIARY: No focal hepatic lesions. No biliary ductal dilatation. GALLBLADDER: Gallbladder has been removed. SPLEEN: Spleen is normal in size. PANCREAS: No focal mass or ductal dilatation. STOMACH AND GASTROINTESTINAL TRACT: Stomach is grossly unremarkable. There is fat stranding surrounding the sigmoid colon, this is on the basis of underlying diverticulosis, the CT appearance of which is compatible with ACUTE DIVERTICULITIS. At this time there is no evidence of complication, no localized fluid collection or abscess formation. Tobias image marked. No CT evidence of appendicitis. ADRENALS: No adrenal nodules. KIDNEYS/URETERS: No hydronephrosis, stones or solid mass lesions. URINARY BLADDER: Partially decompressed. PELVIC VISCERA: Unremarkable PERITONEUM: No free air or fluid. LYMPH NODES: No lymphadenopathy. VASCULAR:Abdominal aorta normal in size, no aneurysm found. BONES, ABDOMINAL WALL AND SOFT TISSUES: Age-appropriate changes of the spine and skeletal system, no destructive osteolytic or osteosclerotic bone lesion found CT/CT abdomen pelvis w IV con IMPRESSION: * There is fat stranding surrounding the sigmoid colon, this is on the basis of underlying diverticulosis, the CT appearance of which is compatible with ACUTE DIVERTICULITIS. At this time there is no evidence of complication, no localized fluid collection or abscess formation. Tobias image marked. * Status post cholecystectomy. * There are tiny lung nodules 4 mm or less. Per the 2017 revised Fleischner Society guidelines, no routine follow up is necessarily required in low-risk patients, and consideration of 12-month followup CT is recommended for patients at high-risk for the development of pulmonary neoplasm.
[2023-04-19 10:47] VITALS: BP 144/91; BP 150/82; PULSE 68; PULSE 81; RESP 18; TEMP 36.6; O2SAT 98; BMI 38.4
[2023-04-19 11:31] LABS: MANUAL DIFF FLAG NO
[2023-04-19 11:32] LABS: Basophils Percent Auto 0.2 % (0-2); Eosinophils Percent Auto 5.1 % (0-4); Hematocrit 45.6 % (37.0-47.0); Hemoglobin 15.1 g/dl (12.0-16.0); Imm Gran Abs Auto 0.11 X10*3/uL (0.00-0.03); Imm Gran Pct Auto 0.6 % (0.0-0.4); Lymphocytes Absolute Auto 3.1 X10*3/uL (1.2-4.9); Lymphocytes Percent Auto 15.5 % (20-40); Mean Corpuscular HGB Conc 33.1 g/dl (31.0-35.0); Mean Corpuscular Hemoglobin 30.8 pg (27.0-33.0); Mean Corpuscular Volume 93.1 fL (80.0-98.0); Mean Platelet Volume 9.7 fL (9.4-12.3); Monocytes Absolute Auto 1.4 X10*3/uL (0.1-1.2); Neutrophils Absolute Auto 14.1 x10*3/uL (2.0-8.3); Neutrophils Percent Auto 71.6 % (45-73); Platelet Count 460 X10*3/uL (160-400); Red Cell Distribution Width 13.5 % (11.0-16.0); White Blood Count 19.7 X10*3/uL (4.8-10.8)
[2023-04-19 11:33] LABS: Appearance Urine Turbid; Color Urine Yellow; Glucose Urine UA Negative (Negative); Leukocyte Esterase Urine Large (3+) (Negative); Nitrite Urine Negative (Negative); PH 6.5 (5.0-9.0); Specific Gravity - Urine 1.015 (1.005-1.025); UMIC TRIGGER UACC YES; Urine Blood Negative (Negative); Urine Ketones Negative (Negative); Urine Protein Negative (Neg-Trace)
[2023-04-19 11:51] LABS: Alanine Aminotransferase 8 U/L (0-31); Albumin Level 3.8 g/dL (3.5-5.0); Alkaline Phosphatase 82 U/L (39-117); Anion Gap 12 (12-20); Aspartate Amino Transferase 12 U/L (5-31); Bilirubin Direct 0.1 mg/dL (0.0-0.5); Bilirubin Total 0.3 mg/dL (0.0-1.0); Blood Urea Nitrogen 13 mg/dL (9-16); Calcium 9.4 mg/dL (8.4-10.2); Carbon Dioxide 28 mmol/L (22-29); Chloride 105 mmol/L (96-108); Creatinine Clr Calc Pharmacy 59.5; Estimated Glomerular Filt Rate 49; Glucose Random 118 mg/dL (60-115); Lipase 26 U/L (8-78); Potassium 3.7 mmol/L (3.3-5.1); Sodium 141 mmol/L (135-145); Total Protein 7.1 g/dL (6.5-8.0)
[2023-04-19 12:03] LABS: Bacteria Urine 2+ (None Seen); Hyaline Casts Urine 0-2 /LPF (0-2); RBC Urine 0-2 /HPF (0-2); UACC Culture Trigger YES
--- NOTE | 2023-04-19 13:00 | ED.GENADULT ---
HPI - General Adult General Chief complaint: Abdominal Pain Stated complaint: ABD PAIN,NAUSEA,CONSTIPATED X2 DAYS PER EMS Time Seen by Provider: 04/19/23 16:34 Source: patient and RN notes reviewed Mode of arrival: ambulatory Limitations: no limitations History of Present Illness HPI narrative: This is a 48-year-old female, with a history of bipolar disorder, presenting to the emergency department with complaints of abdominal pain x 2 days. Patient reports that she has had intermittent and cramping like abdominal pain that last for several minutes and resolves on its own. She states that she has a history of diverticulitis in this feels similar. She denies any dysuria however does report after emptying her bladder she still feels discomfort in her bladder afterwards. She denies any fevers, chills, chest pain, shortness breast, abdominal pain, nausea, vomiting or diarrhea. She reports that she has not had a bowel movement in 2 days. No other complaints or concerns at this time. MD complaint: Abdominal pain Onset (ago): day(s) Radiation: non-radiation Severity: moderate Quality: aching Pain Consistency: intermittent Relieving factors: none Exacerbating factors: none Associated symptoms: denies other symptoms Treatments prior to arrival: none Related Data Home Medications Medication Instructions Recorded Confirmed amitriptyline 50 mg tablet 50 mg PO BEDTIME 01/18/20 04/01/23 cholecalciferol (vitamin D3) 50 50 mcg PO DAILY 01/18/20 04/01/23 mcg (2,000 unit) capsule lamotrigine 150 mg tablet 300 mg PO QAM 01/18/20 04/01/23 ziprasidone HCl 60 mg capsule 60 mg PO BID 01/18/20 04/01/23 hydroxyzine pamoate 25 mg capsule 25 mg PO TID 08/24/22 04/01/23 Previous Rx's Medication Instructions Recorded propranolol 120 mg capsule,24 120 mg PO DAILY 90 days #90 caps 07/30/20 hr,extended release Ventolin HFA 90 mcg/actuation 2 puff PO Q6H PRN for muscle spasm 07/16/22 aerosol inhaler (albuterol sulfate) #18 grams cetirizine 10 mg tablet 10 mg PO DAILY 90 days #90 tabs 11/23/22 diclofenac sodium 75 mg 75 mg PO BID PRN for pain #60 tabs 12/21/22 tablet,delayed release simvastatin 20 mg tablet 20 mg PO BEDTIME 90 days #90 tabs 02/03/23 losartan 50 mg tablet 50 mg PO DAILY 90 days #90 tabs 03/11/23 levothyroxine 25 mcg tablet 25 mcg PO DAILY #90 tabs 03/15/23 atenolol 50 mg-chlorthalidone 25 1 tab PO DAILY #90 tabs 03/22/23 mg tablet levofloxacin 750 mg tablet 750 mg PO DAILY 10 days #10 tabs 04/19/23 metronidazole 500 mg tablet 500 mg PO TID 10 days #30 tabs 04/19/23 Allergies Allergy/AdvReac Type Severity Reaction Status Date / Time penicillin V Allergy Unknown hives Verified 04/01/23 08:50 Penicillins [PENICILLINS] Allergy Unknown HIVES Verified 04/01/23 08:50 celecoxib [Celebrex] AdvReac Unknown unknown Verified 04/01/23 08:50 clonidine AdvReac Unknown dizziness, Verified 04/01/23 08:50 N/V sumatriptan [Imitrex] AdvReac Unknown unknown Verified 04/01/23 08:50 Review of Systems Review of Systems: Yes all other systems are reviewed and are negative Constitutional: Constitutional: Reports as per [facility] Past Medical History Attestation statement: The following information was validated with the patient. Onset Date is defined in the Problem List Problems that require an onset date and time if occurred within 24 hrs of arrival to the ED Aortic Dissection and Rupture; Neurologic impairment; Cardiopulmonary Arrest; Endotracheal Intubation; Insertion or Replacement of Mechanical Circulatory Assist Device Medical History History of high cholesterol History of high blood pressure History of COVID-19 Obesity Migraine headache with aura Bipolar disorder Hypertension, essential Ankle pain, right Asthma Environmental allergies Surgical History Hx of colonoscopy History of bone marrow biopsy H/O: hysterectomy Hx of cholecystectomy History of tooth extraction H/O skin graft History of carpal tunnel release Family History Family History Father Anxiety HTN (hypertension) Mother Anxiety Depression HTN (hypertension) Maternal Grandmother High cholesterol HTN (hypertension) Maternal Grandfather Hemochromatosis Stomach cancer Brother No problems noted. Sister No problems noted. Son No problems noted. Daughter No problems noted. Other Mental health disorder Social History Social History Household Members: None Housing: Apartment Are you a primary career placement specialist to a significant other at home: No Do you presently have visiting nurse or other home services: No Alcohol intake: current Alcohol intake frequency: holidays/special occasions only Patient Tobacco Use Status: Former Tobacco user Smoked in Last 30 Days: No e-Cigarette/Vaping Use: Never Used Use of substances other than those prescribed or required for medical reasons: Yes Substance Use Type: Marijuana Substance Use Frequency: Occasionally Advance Directives: No Advance Directives Information Provided: No Patient : No service: No Current occupational status: disabled Current occupation: rt hand Cognitive needs: No Hearing needs: No Vision needs: Yes Physical Exam ED Vital Signs: Vital Signs - 24 hr 04/19/23 10:47 04/19/23 17:10 04/19/23 18:19 Temperature 97.8 F 100.0 F 99.8 F Pulse Rate 81 88 91 Respiratory Rate 18 18 16 Blood Pressure 144/91 H 150/102 H 177/91 H Pulse Oximetry 98 97 Oxygen Delivery Method Room Air Room Air Room Air BMI result Body Mass Index 38.4 Const General: cooperative, comfortable and no acute distress Orientation/consciousness: patient oriented x3 Limitations: no limitations HENMT Head: Yes normal to inspection, Yes normocephalic and Yes atraumatic Ears: hearing grossly normal bilaterally General nose exam: Normal external nose present Face and sinus: Yes normal facial exam Mouth: Normal oral and palatal mucosa present, oropharynx normal and moist mucous membranes Throat: Yes posterior oropharynx normal Eyes General: appearance normal, both eyes and all related structures Eyelids: Yes eyelids normal Conjunctivae: conjunctivae normal Sclerae: sclerae normal Pupils: Equal, round and reactive pupils present EOM: EOMs intact bilaterally Neck Neck: Yes normal visual inspection, Yes full ROM and Yes no lymphadenopathy Lymphatic: no lymphadenopathy noted Chest Chest palpation & inspection: normal inspection of the chest Resp Effort & Inspection: normal respiratory effort and able to speak in complete sentences Auscultation: clear to auscultation bilaterally, no crackles, no rales, no rhonchi and no wheezes Cardio Rate: regular rate Rhythm: regular rhythm Heart sounds: S1 normal heart sound present and S2 normal heart sound present GI Other: Abdomen is soft, with tenderness palpation in the suprapubic region, no rebound or guarding. Inspection: Yes normal to inspection Skin General skin exam: no rashes or lesions noted Trauma: no lacerations or abrasions Wounds: no wounds Neuro General: patient oriented x3 and moves all extremities Cranial nerves: Yes Equal, round and reactive pupils present Extrem General: Yes normal to inspection Right upper extremity: normal to inspection Left upper extremity: normal to inspection Right lower extremity: normal to inspection Left lower extremity: normal to inspection Course Course Course Narrative: This is a rapid medical exam: Additional HPI, ROS, PE not included below will be deferred to primary provider. Patient is a 48-year-old female presenting to the ED with complaint of lower abdominal pain since the weekend. States pain is intermittent and cramping, describes as similar to labor pain. Reports history of diverticulitis. States last was constipated, last BM was Tuesday and was normal. Denies dysuria, flank pain, hematuria or other urinary symptoms. Plan: CT abdomen, labs, UA Medications Administered Generic Name Dose Route Start Last Admin Trade Name Freq PRN Reason Stop Dose Admin Levofloxacin 750 mg in 150 mls @ 100 mls/hr 04/19/23 19:22 04/19/23 19:40 Levaquin IV 04/19/23 20:51 100 mls/hr ONCE ONE Administration Discontinued Medications Generic Name Dose Route Start Last Admin Trade Name Freq PRN Reason Stop Dose Admin Sodium Chloride 1,000 mls @ 999 mls/hr 04/19/23 19:07 04/19/23 19:44 Ns IV 04/19/23 20:07 999 mls/hr .Q1H1M ONE Administration Iohexol 100 ml 04/19/23 18:07 04/19/23 18:07 Iohexol 350 Mg/Ml 100 Ml Infus..Btl IV 04/19/23 18:08 85 ml ONCE ONE Administration Medical Decision Making Medical Decision Making [facility] Narrative: This is a 48-year-old female presenting to the emergency department for evaluation of lower abdominal pain x2 days. She also endorses constipation, has not moved her bowel in 2 days. She reports that the pain is intermittent, and suprapubic region. Denies any vaginal discharge or bleeding. On arrival, patient afebrile, vital signs within normal limits. She is nontoxic appearing. Abdomen is soft, with tenderness palpation her suprapubic region. Patient has a history of diverticulitis, and symptoms feel similar. Labs were ordered and performed out in the waiting room, significant for leukocytosis at 19.7, with left shift. Chemistry within normal limits. Random glucose 118, normal liver function test. Urine is contaminated, unable to discern if this is infectious. Abdominal CT revealing fat stranding surrounding the sigmoid colon, with the basis of underlying diverticulosis, compatible with acute diverticulitis. There has no evidence of complication, no localized fluid collection or abscess formation. I discussed these findings with my attending physician, Dr. Woods. Given patient's nontoxic appearance, stable vital signs, and has been able to tolerate p.o., will attempt to treat outpatient with strict return precautions. Patient given 1 L of fluids and dose of IV Levaquin. Discharged on Levaquin and Flagyl. She is tolerating liquid p.o. without difficulty or increased pain. Discussed return precautions. Differential Diagnosis Differential Diagnoses: The differential diagnosis associated with the presentation includes Diverticulitis, diverticulosis, gastritis, gastroenteritis Admission/Observation Consideration of admission/observation: Escalation of care including admission/observation considered Lab Data MDM Lab Attestation statement: I reviewed the patient's lab results. Leukocytosis at 19.7, with left shift. 04/19/23 11:24 04/19/23 11:24 Labs: Lab Results 04/19/23 Range/Units 11:24 WBC 19.7 H (4.8-10.8) X10*3/uL RBC 4.90 (4.20-5.50) X10*6/uL Hgb 15.1 (12.0-16.0) g/dl Hct 45.6 (37.0-47.0) % MCV 93.1 (80.0-98.0) fL MCH 30.8 (27.0-33.0) pg MCHC 33.1 (31.0-35.0) g/dl RDW 13.5 (11.0-16.0) % Plt Count 460 H (160-400) X10*3/uL MPV 9.7 (9.4-12.3) fL Immature Gran % (Auto) 0.6 H (0.0-0.4) % Neut % (Auto) 71.6 (45-73) % Lymph % (Auto) 15.5 L (20-40) % [place] % (Auto) 7.0 (2-11) % Eos % (Auto) 5.1 H (0-4) % Baso % (Auto) 0.2 (0-2) % Lymph # (Auto) 3.1 (1.2-4.9) X10*3/uL [place] # (Auto) 1.4 H (0.1-1.2) X10*3/uL Eos # (Auto) 1.0 H (0.0-0.4) X10*3/uL Baso # (Auto) 0.0 (0.0-0.2) X10*3/uL Abs Immat Gran (auto) 0.11 H (0.00-0.03) X10*3/uL Absolute Neuts (auto) 14.1 H (2.0-8.3) x10*3/uL Absolute Nucleated RBC 0.000 (0.0-0.012) X10*3/uL Nucleated RBC % (auto) 0.0 (0.0-0.2) /100WBC Sodium 141 (135-145) mmol/L Potassium 3.7 (3.3-5.1) mmol/L Chloride 105 (96-108) mmol/L Carbon Dioxide 28 (22-29) mmol/L Anion Gap 12 (12-20) BUN 13 (9-16) mg/dL Creatinine 1.17 (0.5-1.4) mg/dL Estim Creat Clear Calc 59.5 Estimated GFR 49 Random Glucose 118 H (60-115) mg/dL Calcium 9.4 (8.4-10.2) mg/dL Total Bilirubin 0.3 (0.0-1.0) mg/dL Direct Bilirubin 0.1 (0.0-0.5) mg/dL AST 12 (5-31) U/L ALT 8 (0-31) U/L Alkaline Phosphatase 82 (39-117) U/L Total Protein 7.1 (6.5-8.0) g/dL Albumin 3.8 (3.5-5.0) g/dL Lipase 26 (8-78) U/L Urine Color Yellow Urine Appearance Turbid Urine pH 6.5 (5.0-9.0) Ur Specific [place] 1.015 (1.005-1.025) Urine Protein Negative (Neg-Trace) mg/dL Urine Glucose (UA) Negative (Negative) mg/dL Urine Ketones Negative (Negative) mg/dL Urine Blood Negative (Negative) Urine Nitrite Negative (Negative) Ur Leukocyte Esterase Large (3+) H (Negative) Urine RBC 0-2 (0-2) /HPF Urine WBC 6-10 (0-5) /HPF Ur Squamous Epith Cells 11-20 (0-2) /HPF Urine Bacteria 2+ (None Seen) Hyaline Casts 0-2 (0-2) /LPF Radiology Impression Discussion of test interpretation with radiology: I have reviewed the radiologist's reading. Radiologist Impression: EXAMINATION: CT abdomen pelvis w IV con CLINICAL INFORMATION: Reason for Exam bilat lower tenderness COMPARISON: No prior CT available for comparison. TECHNIQUE: Multidetector volumetric imaging was performed from the superior aspect of the liver through the pubic symphysis 85 mL Omnipaque 350 injected Sagittal and coronal reformatted images were obtained on the technologist's workstation. This CT examination was performed using dose optimization techniques as appropriate, variously including the following: *Automated exposure control *Adjustment of mA and/or kV according to patient size (this includes techniques or standardized protocols for targeted exams where dose is matched to indication/reason for exam; i.e. extremities or head) *Use of iterative reconstruction technique DLP: 739 mGy-cm FINDINGS: LOWER THORAX: There is 4 mm nodule right lower lobe image 1 series 8. 4 mm nodule left lower lobe image 127 series 4. HEPATOBILIARY: No focal hepatic lesions. No biliary ductal dilatation. GALLBLADDER: Gallbladder has been removed. SPLEEN: Spleen is normal in size. PANCREAS: No focal mass or ductal dilatation. STOMACH AND GASTROINTESTINAL TRACT: Stomach is grossly unremarkable. There is fat stranding surrounding the sigmoid colon, this is on the basis of underlying diverticulosis, the CT appearance of which is compatible with ACUTE DIVERTICULITIS. At this time there is no evidence of complication, no localized fluid collection or abscess formation. Tobias image marked. No CT evidence of appendicitis. ADRENALS: No adrenal nodules. KIDNEYS/URETERS: No hydronephrosis, stones or solid mass lesions. URINARY BLADDER: Partially decompressed. PELVIC VISCERA: Unremarkable PERITONEUM: No free air or fluid. LYMPH NODES: No lymphadenopathy. VASCULAR:Abdominal aorta normal in size, no aneurysm found. BONES, ABDOMINAL WALL AND SOFT TISSUES: Age-appropriate changes of the spine and skeletal system, no destructive osteolytic or osteosclerotic bone lesion found CT/CT abdomen pelvis w IV con IMPRESSION: * There is fat stranding surrounding the sigmoid colon, this is on the basis of underlying diverticulosis, the CT appearance of which is compatible with ACUTE DIVERTICULITIS. At this time there is no evidence of complication, no localized fluid collection or abscess formation. Tboias image marked. * Status post cholecystectomy. * There are tiny lung nodules 4 mm or less. Per the 2017 revised Fleischner Society guidelines, no routine follow up is necessarily required in low-risk patients, and consideration of 12-month followup CT is recommended for patients at high-risk for the development of pulmonary neoplasm. Dictated By: Panchito Eubanks MD Discharge Plan Discharge Clinical Impression: Diverticulitis, Lung nodules Patient Disposition: Home, Self-Care Instructions: Diverticulitis (ED), Diverticulitis Diet (ED) Additional Instructions: You presented to the emergency department due to abdominal pain, you have diverticulitis. This is inflammation of the lining of your digestive system. We treated you with a dose of IV antibiotics, and I am prescribing you antibiotics to be taken. Please finish the entire course even if your feeling better. It is critical that you stick to a clear liquids diet for several days. Examples of a clear liquid diet include brought, fruit juices without pulled, ice chips, ice pops, gelatin, water, tea or coffee without cream. As you start to feel better, you may incorporate low-fiber foods including canned or cooked fruits without scans or seeds, eggs, refined white bread, fruit, low-fiber cereals, milk yogurt and cheese, white rice, pasta and noodles. You may see more further recommendations with attached document. If you are unable to tolerate food or liquids by mouth and you have worsening pain, worsening fevers please return for re-evaluation. Your chest CT shows tiny lung nodules 4mm or less, please follow-up with your primary care physician as they may want to periodically monitor these on a yearly basis. Please inform your primary care physician about this finding. Prescriptions: New levofloxacin 750 mg tablet 750 mg PO DAILY 10 Days Qty: 10 0RF metronidazole 500 mg tablet 500 mg PO TID 10 Days Qty: 30 0RF No Action albuterol sulfate [Ventolin HFA] 90 mcg/actuation HFA aerosol inhaler 2 puff PO Q6H PRN (Reason: for muscle spasm) Qty: 18 2RF cetirizine 10 mg tablet 10 mg PO DAILY 90 Days Qty: 90 3RF diclofenac sodium 75 mg tablet,delayed release (DR/EC) 75 mg PO BID PRN (Reason: for pain) Qty: 60 0RF simvastatin 20 mg tablet 20 mg PO BEDTIME 90 Days Qty: 90 0RF losartan 50 mg tablet 50 mg PO DAILY 90 Days Qty: 90 0RF levothyroxine 25 mcg tablet 25 mcg PO DAILY Qty: 90 0RF propranolol 120 mg capsule,extended release 24 hr 120 mg PO DAILY 90 Days Qty: 90 0RF cholecalciferol (vitamin D3) 50 mcg (2,000 unit) capsule 50 mcg PO DAILY ziprasidone HCl 60 mg capsule 60 mg PO BID lamotrigine 150 mg tablet 300 mg PO QAM amitriptyline 50 mg tablet 50 mg PO BEDTIME hydroxyzine pamoate 25 mg capsule 25 mg PO TID atenolol-chlorthalidone 50-25 mg tablet 1 tab PO DAILY Qty: 90 0RF Stand Alone Forms: Work/School Release
[2023-04-19 17:10] VITALS: BP 150/102; PULSE 88; RESP 18; TEMP 37.8
[2023-04-19] MEDS: iohexoL 350 MG/ML 100 ML INFUS..BTL IV (18:07)
[2023-04-19 18:19] VITALS: BP 177/91; PULSE 91; RESP 16; TEMP 37.7; O2SAT 97
--- NOTE | 2023-04-19 19:23 | ECG_ITS ---
Test Reason : QT CHECK Blood Pressure : / mmHG Vent. Rate : 089 BPM Atrial Rate : 089 BPM P-R Int : 146 ms QRS Dur : 092 ms QT Int : 360 ms P-R-T Axes : 029 016 029 degrees QTc Int : 438 ms Normal sinus rhythm Nonspecific ST abnormality Abnormal ECG When compared with ECG of 02-NOV-2011 06:39, Non-specific change in ST segment in Inferior leads ST now depressed in Lateral leads Nonspecific T wave abnormality now evident in Lateral leads Referred By: Vannesa Parisi Electronically Signed By:PRISCA HUSSEIN
[2023-04-19] MEDS: levoFLOXacin/D5W 750 MG/150 ML PIGGYBACK 100 MG IV (19:40)
[2023-04-19] MEDS: 0.9 % Sodium Chloride 1,000 ML 999 ML IV ×2 (19:44→20:33)
== END 2023-04-19 21:13 | disposition home or self-care (01) ==
PROVIDERS: Emergency Provider Emergency Medicine Emergency Medical Services; PCP Internal Medicine
DX: K57.32 Diverticulitis of large intestine without perforation or abscess without bleeding (principal); R91.8 Other nonspecific abnormal finding of lung field; I10 Essential (primary) hypertension; E78.5 Hyperlipidemia, unspecified; Z79.02 Long term (current) use of antithrombotics/antiplatelets; Z79.899 Other long term (current) drug therapy
CPT/HCPCS: 36415; 74177; 80048; 80076; 81001; 83690; 85025; 87086; 93005; 96374; 99284; 99285; J1956; Q9967

== ENCOUNTER → 2023-04-19 19:23 | Outpatient (BNV) | payer OTHER, SELFPAY | PROVIDERS: Emergency Provider Emergency Medicine Emergency Medical Services; PCP Internal Medicine; Visit Provider Internal Medicine | DX: R10.9 Unspecified abdominal pain (principal); R94.31 Abnormal electrocardiogram [ECG] [EKG] | CPT/HCPCS: 93010 ==

== ENCOUNTER 2023-05-04 09:23 | Outpatient (AMB) | payer OTHER, SELFPAY ==
--- NOTE | 2023-05-04 09:32 | MHC.OFFVIS ---
Intake Intake Visit Reasons: Newprob-Right ankle pain Intake Note: Charity is a 48 year old female who presents today for a new problem visit with complaints of right ankle pain. Patient reports that in May she sprained the ankle this was a twisting injury, she never sought treatment after the injury. She has pain that is worsened with activity and occasionally upon waking up. Occasional numbness and tingling. pain is felt on the lateral and medial aspects of the ankle. She tried an over the counter brace but had difficulty putting on a shoe over the brace. Allergies penicillin V Allergy (Unknown, Verified 04/01/23 08:50) hives Penicillins [PENICILLINS] Allergy (Unknown, Verified 04/01/23 08:50) HIVES celecoxib [Celebrex] Adverse Reaction (Unknown, Verified 04/01/23 08:50) unknown clonidine Adverse Reaction (Unknown, Verified 04/01/23 08:50) dizziness, N/V sumatriptan [Imitrex] Adverse Reaction (Unknown, Verified 04/01/23 08:50) unknown Medication List - Last Reconciled 05/04/23 by Arlet Cerna MD amitriptyline 50 mg PO BEDTIME atenolol-chlorthalidone 50-25 mg 1 tab PO DAILY cetirizine 10 mg PO DAILY 90 days cholecalciferol (vitamin D3) 50 mcg PO DAILY diclofenac sodium 75 mg PO BID PRN hydroxyzine pamoate 25 mg PO TID lamotrigine 300 mg PO QAM levofloxacin 750 mg PO DAILY 10 days levothyroxine 25 mcg PO DAILY losartan 50 mg PO DAILY 90 days metronidazole 500 mg PO TID 10 days propranolol ER 120 mg PO DAILY 90 days simvastatin 20 mg PO BEDTIME 90 days Ventolin HFA 90 mcg/actuation (albuterol sulfate) 2 puffs PO Q6H PRN NS ziprasidone HCl 60 mg PO BID HPI HPI Comments History of Present Illness Details Almost 2 years of right ankle pain, medial and lateral areas. Was seeing Dr. Camarena at [facility], last seen 09/2022. Xrays done and told it was tendon. Says does not go out much. When she goes out, it's to go to store and walks home. Does not drive so gets rides. Denies swelling or can't tell. She could wake up in pain. Does not exercise. She went to in 2021. Did try a brace, probably over the shelf lace up brace, and wore it for a month only, very uncomfortable. Occasional numbness on toes. [facility] Medical History History of high cholesterol History of high blood pressure History of COVID-19 Obesity Migraine headache with aura Bipolar disorder Hypertension, essential Ankle pain, right Asthma Environmental allergies Surgical History Hx of colonoscopy History of bone marrow biopsy H/O: hysterectomy Hx of cholecystectomy History of tooth extraction H/O skin graft History of carpal tunnel release Family History Father Anxiety HTN (hypertension) Mother Anxiety Depression HTN (hypertension) Maternal Grandmother High cholesterol HTN (hypertension) Maternal Grandfather Hemochromatosis Stomach cancer Brother No problems noted. Sister No problems noted. Son No problems noted. Daughter No problems noted. Other Mental health disorder Social History Household Members: None Housing: Apartment Are you a primary career counselor to a significant other at home: No Do you presently have visiting nurse or other home services: No Alcohol intake: current Alcohol intake frequency: holidays/special occasions only Patient Tobacco Use Status: Former Tobacco user e-Cigarette/Vaping Use: Never Used Substance Use Type: Marijuana service: No Current occupational status: disabled Current occupation: rt hand Cognitive needs: No Hearing needs: No Vision needs: Yes Female Reproductive History Menstrual Age of Menarche: 10 Review of Systems Const All systems reviewed & are unremarkable except as noted in HPI and below Physical Exam Constitutional: Patient appears to be in no acute distress, well nourished and well developed. MSK: Reported pain with dorsiflexion but no footdrop at rest. Tender distal/anteriorly to right medial malleolus. No other tender areas seen. No signs of redness, effusion, warmth. No ankle instability noted. Strength is 5/5 in all muscle groups tested. No increased tone noted. Neurological: Neurologic examination of the upper and lower extremities was nonfocal with intact sensation, muscle stretch reflexes and without focal motor deficits . Horta?s negative bilaterally. Babinski was down going bilaterally. Clonus was negative. Gait is antalgic without loss of balance. Results Reviewed Results Reviewed: I independently reviewed the results of the following: Ankle/foot x-rays done today, compared to previous one done, showed no fracture. Small calcaneal fracture. I reviewed records from the following: Ortho saw her for knee gel injections. Hand surgery Dr. Ybarra- s/p Left Carpal Tunnel Release 06/07/[address] Mercado who referred her Assessment & Plan Assessment & Plan (1) Right ankle sprain: Code(s): S93.401A - Sprain of unspecified ligament of right ankle, initial encounter Qualifiers: Encounter type: initial encounter Involved ligament of ankle: other ligament Qualified Code(s): S93.491A - Sprain of other ligament of right ankle, initial encounter Plan We will treat this as a right ankle medial sprain. Patient reassured that there was no fracture and expect this to get better. Advised relative rest, elevation and ice 3 times a day. Will put her on a walking boot for comfort and support. Will re-evaluate in 4-6 weeks to assess if further imaging would be needed, if she does not get better. Assessment and plan discussed with patient, and patient was agreeable. All questions were answered thoroughly. Arlet Cerna MD, CELINE Board Certified, [place] Board of Physical Medicine and Rehabilitation (ABPMR) Board Certified, [place] Board of Electrodiagnostic Medicine (ABEM) Orders: Orders XR ankle RT 2V Today M25.571 - Pain in right ankle and joints of right foot Medications: Discontinued levofloxacin Discontinued Reason: Patient Completed Course 750 mg PO DAILY 10 days 10 tabs 0RF metronidazole Discontinued Reason: Patient Completed Course 500 mg PO TID 10 days 30 tabs 0RF Coding Level of Care Code New Pt Level 4 (03288) Diagnoses Sprain of other ligament of right ankle, initial encounter S93.491A Encounter type: initial encounter Involved ligament of ankle: other ligament
== END 2023-05-04 10:06 | disposition home or self-care (01) ==
PROVIDERS: PCP Internal Medicine; Visit Provider Physical Medicine & Rehabilitation
DX: S93.491A Sprain of other ligament of right ankle, initial encounter (principal)
CPT/HCPCS: 99204

== ENCOUNTER 2023-05-04 09:48 | Outpatient (REF) | payer OTHER, SELFPAY ==
--- NOTE | ~2023-05-04 | XR_ITS ---
EXAMINATION: XR ANKLE, RIGHT CLINICAL INFORMATION: Pain COMPARISON: None available. TECHNIQUE: AP, lateral, and mortise views of the right ankle. FINDINGS: No acute fracture or dislocation. Moderate osteophyte is the talonavicular joint with loss of joint space. Plantar calcaneal spurring. Soft tissue swelling about the ankle. XR/XR ankle RT 2V IMPRESSION: 1. Moderate degenerative changes of the foot. 2. Soft tissue swelling about the ankle. 3. No acute fracture or dislocation.
== END 2023-05-04 09:49 | disposition home or self-care (01) ==
LOC: HO.HOSX 09:48
PROVIDERS: Visit Provider Physical Medicine & Rehabilitation
DX: S93.491A Sprain of other ligament of right ankle, initial encounter (principal); X58.XXXA Exposure to other specified factors, initial encounter; Y93.9 Activity, unspecified; Y92.9 Unspecified place or not applicable; Y99.9 Unspecified external cause status; Z79.899 Other long term (current) drug therapy
CPT/HCPCS: 73600; 99202

== ENCOUNTER 2023-05-24 18:21 | Emergency (ER) | payer OTHER, SELFPAY ==
--- NOTE | ~2023-05-24 | CT_ITS ---
EXAMINATION: CT ABDOMEN AND PELVIS WITH CONTRAST CLINICAL INFORMATION: Left lower quadrant pain, diverticulitis. COMPARISON: CT abdomen/pelvis 04/19/2023. TECHNIQUE: Multidetector volumetric images were obtained from the superior aspect of the liver through the pubic symphysis following administration 85 mL of Omnipaque 350 intravenous contrast. Sagittal and coronal reformatted images were obtained on the technologist's workstation. Oral contrast: No This CT examination was performed using dose optimization techniques as appropriate, variously including the following: *Automated exposure control *Adjustment of mA and/or kV according to patient size (this includes techniques or standardized protocols for targeted exams where dose is matched to indication/reason for exam; i.e. extremities or head) *Use of iterative reconstruction technique DLP: 728 mGy-cm FINDINGS: LUNG BASES: Stable solid pulmonary nodules, for instance measuring 4 mm in the right lower lobe (4:1). LIVER, GALLBLADDER, AND BILIARY TREE: The liver is enlarged measuring 19.5 cm craniocaudally, but otherwise normal in morphology and signal. No liver lesions. Cholecystectomy. No biliary ductal dilatation. PANCREAS: Unremarkable. SPLEEN: Again noted atrophic spleen. ADRENAL GLANDS: Unremarkable. KIDNEYS AND URETERS: The kidneys are normal in size, shape, and attenuation. No hydronephrosis, hydroureter, or calculi seen. No perinephric stranding. BLADDER: Unremarkable. GASTROINTESTINAL TRACT: Wall thickening with surrounding fat stranding and free fluid centered around diverticuli within the sigmoid colon. No free air. No organized extraluminal collection. The stomach and the small bowel are nondilated. Normal appendix. ABDOMINAL WALL: No significant hernia is appreciated. LYMPH NODES: Unchanged mildly prominent periportal lymph nodes measuring up to 1.1 cm in short axis. No pathologically enlarged lymph nodes by CT short axis size criteria. VASCULAR: Unremarkable. PELVIC VISCERA: Hysterectomy. Small amount of free fluid. OSSEOUS STRUCTURES: Degenerative changes of the spine. No acute or aggressive appearing osseous findings. CT/CT abdomen pelvis w IV con IMPRESSION: 1. Findings are most consistent with acute sigmoid diverticulitis. When clinically appropriate and if the patient is due, further evaluation with outpatient colonoscopy is recommended. 2. Mild hepatomegaly. 3. Compared to 04/19/2023, unchanged solid pulmonary nodules in the lung bases, largest measuring 4 mm according to the UPDATED 2017 Fleischner Society recommendations, the advised follow-up imaging for multiple solid nodules measuring up to 6-8 mm is follow-up CT at 3 to 6 months. In high-risk patients, subsequent CT follow-up at 18 to 24 months is recommended. In low-risk patients, subsequent CT follow-up at 18 to 24 months is optional.
[2023-05-24 18:56] VITALS: BP 191/120; PULSE 131; RESP 18; TEMP 38.2; O2SAT 95; BMI 38.4
--- NOTE | 2023-05-24 19:02 | ED.GENADULT ---
HPI - General Adult General Chief complaint: Abdominal Pain Stated complaint: diverticulitis, advised to come in by pcp Time Seen by Provider: 05/24/23 20:24 Source: patient Mode of arrival: ambulatory Limitations: no limitations History of Present Illness HPI narrative: Patient is a 48-year-old female who presents emergency department for evaluation of left lower quadrant abdominal pain reportedly that feels consistent with prior episode of diverticulitis. Left lower quadrant pain began yesterday, Advised by her primary care provider to come to the emergency department. Reports a recent episode of diverticulitis in April of 2023 symptoms had completely resolved within 3 days of being on antibiotics. Reports pain at this time feels consistent with prior. Upon arrival she was noted to be hypertensive, tachycardic, and febrile meeting SIRS criteria, sepsis alert was called from triage and patient was room. Upon speaking with patient she does report that her heart rate has been running high with her doctor recently, she is unaware how high, but reports that her amlodipine was discontinued and she was started on atenolol and has remained on her losartan without any dosage change. Related Data Home Medications Medication Instructions Recorded Confirmed amitriptyline 50 mg tablet 50 mg PO BEDTIME 01/18/20 05/04/23 cholecalciferol (vitamin D3) 50 50 mcg PO DAILY 01/18/20 05/04/23 mcg (2,000 unit) capsule lamotrigine 150 mg tablet 300 mg PO QAM 01/18/20 05/04/23 ziprasidone HCl 60 mg capsule 60 mg PO BID 01/18/20 05/04/23 hydroxyzine pamoate 25 mg capsule 25 mg PO TID 08/24/22 05/04/23 Previous Rx's Medication Instructions Recorded propranolol 120 mg capsule,24 120 mg PO DAILY 90 days #90 caps 07/30/20 hr,extended release Ventolin HFA 90 mcg/actuation 2 puff PO Q6H PRN for muscle spasm 07/16/22 aerosol inhaler (albuterol sulfate) #18 grams cetirizine 10 mg tablet 10 mg PO DAILY 90 days #90 tabs 11/23/22 diclofenac sodium 75 mg 75 mg PO BID PRN for pain #60 tabs 12/21/22 tablet,delayed release losartan 50 mg tablet 50 mg PO DAILY 90 days #90 tabs 03/11/23 levothyroxine 25 mcg tablet 25 mcg PO DAILY #90 tabs 03/15/23 atenolol 50 mg-chlorthalidone 25 1 tab PO DAILY #90 tabs 03/22/23 mg tablet simvastatin 20 mg tablet 20 mg PO BEDTIME 90 days #90 tabs 05/04/23 ciprofloxacin HCl 500 mg tablet 500 mg PO BID #20 tabs 05/24/23 (Cipro) metronidazole 500 mg tablet 500 mg PO TID #30 tabs 05/24/23 Allergies Allergy/AdvReac Type Severity Reaction Status Date / Time penicillin V Allergy Unknown hives Verified 04/01/23 08:50 Penicillins [PENICILLINS] Allergy Unknown HIVES Verified 04/01/23 08:50 celecoxib [Celebrex] AdvReac Unknown unknown Verified 04/01/23 08:50 clonidine AdvReac Unknown dizziness, Verified 04/01/23 08:50 N/V sumatriptan [Imitrex] AdvReac Unknown unknown Verified 04/01/23 08:50 Review of Systems Review of Systems: Yes all other systems are reviewed and are negative PMFSH Past Medical History Attestation statement: The following information was validated with the patient. Source: old records reviewed Medical History History of high cholesterol History of high blood pressure History of COVID-19 Obesity Migraine headache with aura Bipolar disorder Hypertension, essential Ankle pain, right Asthma Environmental allergies Surgical History Hx of colonoscopy History of bone marrow biopsy H/O: hysterectomy Hx of cholecystectomy History of tooth extraction H/O skin graft History of carpal tunnel release Family History Family History Father Anxiety HTN (hypertension) Mother Anxiety Depression HTN (hypertension) Maternal Grandmother High cholesterol HTN (hypertension) Maternal Grandfather Hemochromatosis Stomach cancer Brother No problems noted. Sister No problems noted. Son No problems noted. Daughter No problems noted. Other Mental health disorder Social History Social History Household Members: None Housing: Apartment Are you a primary manager medicare to a significant other at home: No Do you presently have visiting nurse or other home services: No Alcohol intake: current Alcohol intake frequency: holidays/special occasions only Patient Tobacco Use Status: Former Tobacco user Smoked in Last 30 Days: No e-Cigarette/Vaping Use: Never Used Use of substances other than those prescribed or required for medical reasons: No Substance Use Type: Marijuana Advance Directives: No Advance Directives Information Provided: No service: No Current occupational status: disabled Current occupation: rt hand Cognitive needs: No Hearing needs: No Vision needs: Yes Physical Exam ED Vital Signs: Vital Signs - 24 hr 05/24/23 18:56 05/24/23 20:16 05/24/23 20:16 Temperature 100.8 F H 99.1 F 99.5 F Pulse Rate 131 H 108 H 110 H Respiratory Rate 18 16 17 Blood Pressure 191/120 H 175/106 H 181/118 H Pulse Oximetry 95 94 95 Oxygen Delivery Method Room Air Room Air Room Air 05/24/23 22:18 05/24/23 22:19 Temperature 98.6 F Pulse Rate 96 Respiratory Rate 12 12 Blood Pressure 155/117 H Pulse Oximetry 96 Oxygen Delivery Method Room Air BMI result Body Mass Index 38.4 Appearance: Alert.?Oriented to person, place and time. No acute distress.?Normal affect. Eyes: Pupils equal, round and reactive to light.? ENT: Pharynx normal.?? Neck: Normal inspection.? Neck supple.?? CVS: Heart sounds normal. Normal heart rate and rhythm.? Pulses normal.?? Respiratory: No respiratory distress.? Lung sounds clear to auscultation bilaterally?? Abdomen: Soft with left lower quadrant tenderness upon palpation, no rigidity, no guarding. Normoactive bowel sounds. ? Skin: Skin warm and dry.? Normal skin color.? Extremities: No lower extremity edema.? Neuro: Moves all extremities spontaneously. Sensation intact bilaterally. No focal neuro deficits. Ambulates with normal steady gait. Course Course Course Narrative: RME: 48 yold female with pmh of diveritculitits presents to the ED for LLq abdominal pain since last night. patient now is febirle and tachycardic. labs ordered. Charge nurse made aware. Medications Administered Discontinued Medications Generic Name Dose Route Start Last Admin Trade Name Freq PRN Reason Stop Dose Admin Acetaminophen 650 mg 05/24/23 18:59 05/24/23 19:04 Acetaminophen 325 Mg Tablet PO 05/24/23 19:00 650 mg ONCE ONE Administration Sodium Chloride 1,000 mls @ 999 mls/hr 05/24/23 19:06 05/24/23 22:17 Ns IV 05/24/23 20:06 Infused .Q1H1M STA Infusion Levofloxacin 750 mg in 150 mls @ 100 mls/hr 05/24/23 20:25 05/24/23 22:56 Levaquin IV 05/24/23 21:54 Infused ONCE ONE Infusion Iohexol 100 ml 05/24/23 21:06 05/24/23 21:06 Iohexol 350 Mg/Ml 100 Ml Infus..Btl IV 05/24/23 21:07 85 ml ONCE ONE Administration Morphine Sulfate 4 mg 05/24/23 21:46 05/24/23 22:19 Morphine Sulfate 4 Mg/Ml Cartridge IVPUSH 05/24/23 21:47 4 mg ONCE ONE Administration Protocol Ondansetron HCl 4 mg 05/24/23 21:46 05/24/23 22:19 Ondansetron Hcl 4 Mg/2 Ml Vial IVPUSH 05/24/23 21:47 4 mg ONCE ONE Administration Medical Decision Making Medical Decision Making MDM Narrative: Patient is a 48-year-old female past medical history of hyperlipidemia, hypertension, migraine, bipolar disorder, asthma, diverticulitis who presents to the emergency department for evaluation of left lower quadrant pain as per HPI. Overall she appears well, though she did present tachycardic hypertensive and febrile. Fever responded to acetaminophen, heart rate has come down as well. She does report a history of tachycardia recently which prompted her PCP to discontinue amlodipine and initiate atenolol. Repeat blood pressure 158/89 which is significantly improved. Of lower quadrant abdominal pain is 8/10, no rigidity or guarding, patient to received morphine for pain. Patient met sirs criteria, sepsis alert was notified. Reviewed labs; leukocytosis with left shift, no lactic acidosis, unremarkable CMP. HCG negative. Urinalysis without evidence of infection. Viral testing is negative. CT of the abdomen and pelvis reveals acute sigmoid diverticulitis, uncomplicated, no evidence of localized fluid collection or abscess formation. Not consistent with sepsis. At this time feel that she is stable for discharge home she is tolerating oral intake, will send prescription for ciprofloxacin and metronidazole, 10 day course to pharmacy, strict return precautions and outpatient follow-up with PCP Differential Diagnosis Differential Diagnoses: The differential diagnosis associated with the presentation includes (Diverticulitis, colitis, gastroenteritis, constipation, obstruction, low suspicion for peritonitis) Admission/Observation Consideration of admission/observation: Escalation of care including admission/observation considered (See narrative above for further detail) Lab Data MDM Lab Attestation statement: I reviewed the patient's lab results. (See narrative above) 05/24/23 20:06 05/24/23 20:06 Labs: Lab Results 05/24/23 Range/Units 20:06 WBC 19.7 H (4.8-10.8) X10*3/uL RBC 4.78 (4.20-5.50) X10*6/uL Hgb 14.9 (12.0-16.0) g/dl Hct 44.3 (37.0-47.0) % MCV 92.7 (80.0-98.0) fL MCH 31.2 (27.0-33.0) pg MCHC 33.6 (31.0-35.0) g/dl RDW 14.2 (11.0-16.0) % Plt Count 378 (160-400) X10*3/uL MPV 9.9 (9.4-12.3) fL Immature Gran % (Auto) 0.6 H (0.0-0.4) % Neut % (Auto) 72.6 (45-73) % Lymph % (Auto) 14.5 L (20-40) % [place] % (Auto) 8.3 (2-11) % Eos % (Auto) 3.7 (0-4) % Baso % (Auto) 0.3 (0-2) % Lymph # (Auto) 2.9 (1.2-4.9) X10*3/uL [place] # (Auto) 1.6 H (0.1-1.2) X10*3/uL Eos # (Auto) 0.7 H (0.0-0.4) X10*3/uL Baso # (Auto) 0.1 (0.0-0.2) X10*3/uL Abs Immat Gran (auto) 0.11 H (0.00-0.03) X10*3/uL Absolute Neuts (auto) 14.3 H (2.0-8.3) x10*3/uL Absolute Nucleated RBC 0.000 (0.0-0.012) X10*3/uL Nucleated RBC % (auto) 0.0 (0.0-0.2) /100WBC Smear Tech's Comments VERIFIED Sodium 140 (135-145) mmol/L Potassium 3.7 (3.3-5.1) mmol/L Chloride 105 (96-108) mmol/L Carbon Dioxide 25 (22-29) mmol/L Anion Gap 14 (12-20) BUN 10 (9-16) mg/dL Creatinine 0.98 (0.5-1.4) mg/dL Estim Creat Clear Calc 71.0 Estimated GFR > 60 Random Glucose 107 (60-115) mg/dL Lactic Acid 1.5 (0.5-2.0) mmol/L Calcium 9.4 (8.4-10.2) mg/dL Total Bilirubin 0.3 (0.0-1.0) mg/dL AST 11 (5-31) U/L ALT 6 (0-31) U/L Alkaline Phosphatase 85 (39-117) U/L Total Protein 7.6 (6.5-8.0) g/dL Albumin 4.1 (3.5-5.0) g/dL Beta HCG, Quant 4 mIU/mL Urine Color Yellow Urine Appearance Cloudy Urine pH 5.5 (5.0-9.0) Ur Specific [place] 1.015 (1.005-1.025) Urine Protein Negative (Neg-Trace) mg/dL Urine Glucose (UA) Negative (Negative) mg/dL Urine Ketones Negative (Negative) mg/dL Urine Blood Negative (Negative) Urine Nitrite Negative (Negative) Ur Leukocyte Esterase Moderate (2+) H (Negative) Urine RBC 0-2 (0-2) /HPF Urine WBC 21-50 H (0-5) /HPF Ur Squamous Epith Cells 11-20 (0-2) /HPF Urine Bacteria 4+ (None Seen) Hyaline Casts 0-2 (0-2) /LPF Influenza Type A (PCR) NEGATIVE (Negative) Influenza Type B (PCR) NEGATIVE (Negative) RSV RNA Qual (PCR) NEGATIVE (Negative) SARS-CoV-2 RNA (RT-PCR) NEGATIVE (Negative) Independent Interpretation I performed an independent interpretation of an: CT Scan (Uncomplicated diverticulitis) Radiology Impression Discussion of test interpretation with radiology: I have reviewed the radiologist's reading. Radiologist Impression: CT/CT ankle RT wo IV con IMPRESSION: 1. No acute fractures or malalignment. 2. Mild multifocal degenerative osteoarthritis. 3. Diffuse soft tissue swelling and stranding. No organized collection. If the patient has persistent diminished ability to bear weight, consider obtaining an MRI of the ankle without contrast to exclude an occult injury such as ligamentous/tendinous injury. External Record Review External record reviewed: Outpatient record Prescription Management I considered prescription management with: Antibiotic Critical Care Time Critical Care Time Critical Care Time: Yes Total Critical Care Time: 45 Attestation: I personally attest to this critical care time spent taking care of the patient exclusive of all other billable procedures was approximately 45 minutes including initial evaluation of patient, ordering tests, CT interpretation, pain management, documentation, re-evaluation. Discharge Plan Discharge Clinical Impression: Diverticulitis Patient Disposition: Home, Self-Care Instructions: Diverticulitis (ED), Diverticulitis Diet (ED) Additional Instructions: Clear liquids for the next 3 days. Then follow-up bland diet; including crackers, bananas, rice, soup, toast, and boiled vegetables. This may progress to plain baked or boiled chicken or turkey. Avoid dairy products or foods high in fat or grease. A new prescription for antibiotics were sent to your pharmacy, ciprofloxacin and metronidazole, please complete this entire course do not skip any doses or stopped taking it early. Follow-up with your primary care provider. Return back to emergency department any new or worsening symptoms or concerns. Prescriptions: New ciprofloxacin HCl [Cipro] 500 mg tablet 500 mg PO BID Qty: 20 0RF metronidazole 500 mg tablet 500 mg PO TID Qty: 30 0RF No Action albuterol sulfate [Ventolin HFA] 90 mcg/actuation HFA aerosol inhaler 2 puff PO Q6H PRN (Reason: for muscle spasm) Qty: 18 2RF cetirizine 10 mg tablet 10 mg PO DAILY 90 Days Qty: 90 3RF diclofenac sodium 75 mg tablet,delayed release (DR/EC) 75 mg PO BID PRN (Reason: for pain) Qty: 60 0RF losartan 50 mg tablet 50 mg PO DAILY 90 Days Qty: 90 0RF levothyroxine 25 mcg tablet 25 mcg PO DAILY Qty: 90 0RF simvastatin 20 mg tablet 20 mg PO BEDTIME 90 Days Qty: 90 0RF propranolol 120 mg capsule,extended release 24 hr 120 mg PO DAILY 90 Days Qty: 90 0RF cholecalciferol (vitamin D3) 50 mcg (2,000 unit) capsule 50 mcg PO DAILY ziprasidone HCl 60 mg capsule 60 mg PO BID lamotrigine 150 mg tablet 300 mg PO QAM amitriptyline 50 mg tablet 50 mg PO BEDTIME hydroxyzine pamoate 25 mg capsule 25 mg PO TID atenolol-chlorthalidone 50-25 mg tablet 1 tab PO DAILY Qty: 90 0RF Referrals: Lee Mercado MD [Primary Care Provider] - Interventions: ED Discharge Assessment Last Done: 05/24/23 23:24 Discharge Date/Time: 05/24/23 23:34
[2023-05-24] MEDS: Acetaminophen 325 MG TABLET 650 MG PO (19:04)
[2023-05-24] MEDS: 0.9 % Sodium Chloride 1,000 ML 999 ML IV (20:12)
[2023-05-24 20:16] VITALS: BP 175/106; BP 181/118; PULSE 108; PULSE 110; RESP 16; RESP 17; TEMP 37.3; TEMP 37.5; O2SAT 94; O2SAT 95
[2023-05-24 20:20] LABS: Appearance Urine Cloudy; Color Urine Yellow; Glucose Urine UA Negative (Negative); Leukocyte Esterase Urine Moderate (2+) (Negative); Nitrite Urine Negative (Negative); PH 5.5 (5.0-9.0); Specific Gravity - Urine 1.015 (1.005-1.025); UMIC TRIGGER UACC YES; Urine Blood Negative (Negative); Urine Ketones Negative (Negative); Urine Protein Negative (Neg-Trace)
[2023-05-24 20:22] LABS: Bacteria Urine 4+ (None Seen); Hyaline Casts Urine 0-2 /LPF (0-2); RBC Urine 0-2 /HPF (0-2); UACC Culture Trigger YES; WBC Urine 21-50 /HPF (0-5)
[2023-05-24 20:24] LABS: Basophils Absolute Auto 0.1 X10*3/uL (0.0-0.2); Basophils Percent Auto 0.3 % (0-2); Eosinophils Absolute Auto 0.7 X10*3/uL (0.0-0.4); Eosinophils Percent Auto 3.7 % (0-4); Hematocrit 44.3 % (37.0-47.0); Hemoglobin 14.9 g/dl (12.0-16.0); Imm Gran Abs Auto 0.11 X10*3/uL (0.00-0.03); Imm Gran Pct Auto 0.6 % (0.0-0.4); Lymphocytes Absolute Auto 2.9 X10*3/uL (1.2-4.9); Lymphocytes Percent Auto 14.5 % (20-40); MANUAL DIFF FLAG SCAN; Mean Corpuscular HGB Conc 33.6 g/dl (31.0-35.0); Mean Corpuscular Hemoglobin 31.2 pg (27.0-33.0); Mean Corpuscular Volume 92.7 fL (80.0-98.0); Mean Platelet Volume 9.9 fL (9.4-12.3); Monocytes Absolute Auto 1.6 X10*3/uL (0.1-1.2); Monocytes Percent Auto 8.3 % (2-11); Neutrophils Absolute Auto 14.3 x10*3/uL (2.0-8.3); Neutrophils Percent Auto 72.6 % (45-73); Platelet Count 378 X10*3/uL (160-400); Red Blood Count 4.78 X10*6/uL (4.20-5.50); Red Cell Distribution Width 14.2 % (11.0-16.0); SCAN SMEAR FLAG 1; White Blood Count 19.7 X10*3/uL (4.8-10.8)
[2023-05-24 20:27] LABS: Lactic Acid 1.5 mmol/L (0.5-2.0)
[2023-05-24] MEDS: levoFLOXacin/D5W 750 MG/150 ML PIGGYBACK 100 MG IV (20:40)
[2023-05-24 20:44] LABS: Alanine Aminotransferase 6 U/L (0-31); Albumin Level 4.1 g/dL (3.5-5.0); Alkaline Phosphatase 85 U/L (39-117); Anion Gap 14 (12-20); Aspartate Amino Transferase 11 U/L (5-31); Bilirubin Total 0.3 mg/dL (0.0-1.0); Blood Urea Nitrogen 10 mg/dL (9-16); Calcium 9.4 mg/dL (8.4-10.2); Carbon Dioxide 25 mmol/L (22-29); Chloride 105 mmol/L (96-108); Estimated Glomerular Filt Rate > 60; Glucose Random 107 mg/dL (60-115); HCG Quantitative 4 mIU/mL; Potassium 3.7 mmol/L (3.3-5.1); Sodium 140 mmol/L (135-145); Total Protein 7.6 g/dL (6.5-8.0)
[2023-05-24 20:58] LABS: Influenza A PCR NEGATIVE (Negative); Influenza B PCR NEGATIVE (Negative); Resp Syncy Virus RNA Qual PCR NEGATIVE (Negative); SARS COV2 PCR INHOUSE NEGATIVE (Negative); SLIDE REVIEW VERIFIED
[2023-05-24] MEDS: iohexoL 350 MG/ML 100 ML INFUS..BTL IV (21:06)
--- NOTE | 2023-05-24 21:34 | PC.NURSE ---
normal saline 1L bolus still running at this time.
[2023-05-24 22:18] VITALS: BP 155/117; PULSE 96; RESP 12; TEMP 37; O2SAT 96
[2023-05-24 22:19] VITALS: RESP 12
[2023-05-24] MEDS: ondansetron HCL 4 MG/2 ML VIAL IVPUSH (22:19)
[2023-05-24] MEDS: Morphine Sulfate 4 MG/ML CARTRIDGE IVPUSH (22:19)
== END 2023-05-24 23:34 | disposition home or self-care (01) ==
PROVIDERS: Physician Assistant; Emergency Provider Emergency Medicine; PCP Internal Medicine
DX: K57.32 Diverticulitis of large intestine without perforation or abscess without bleeding (principal); R10.32 Left lower quadrant pain; R00.0 Tachycardia, unspecified; I10 Essential (primary) hypertension; Z11.52 Encounter for screening for COVID-19; Z20.822 Contact with and (suspected) exposure to COVID-19; Z79.899 Other long term (current) drug therapy; Z87.891 Personal history of nicotine dependence
CPT/HCPCS: 0241U; 36415; 74177; 80053; 81001; 83605; 84702; 85025; 87040; 87086; 96361; 96374; 96375; 99285; J1956; J2270; J2405; Q9967

== ENCOUNTER 2023-06-08 11:39 | Outpatient (AMB) | payer OTHER, SELFPAY ==
--- NOTE | 2023-06-08 11:42 | MHC.OFFVIS ---
Intake Vital Signs 06/08/23 11:43 Height 5 ft 1 in Weight 200 lb BMI 37.8 Intake Visit Reasons: OV- Right ankle pain Intake Note: Charity is a 48 year old female who presents today for a a follow up of her right ankle sprain. She injured the ankle in May of 2021, a twisting injury. She was placed in a walking boot and instructed to utilize ice and elevation. Patient reports that she was wearing the boot for about 2 weeks but discontinued it as it was causing increased pain in her knees. She has purchased a compression brace that is helpful Allergies penicillin V Allergy (Unknown, Verified 06/08/23 11:44) hives Penicillins [PENICILLINS] Allergy (Unknown, Verified 06/08/23 11:44) HIVES celecoxib [Celebrex] Adverse Reaction (Unknown, Verified 06/08/23 11:44) unknown clonidine Adverse Reaction (Unknown, Verified 06/08/23 11:44) dizziness, N/V sumatriptan [Imitrex] Adverse Reaction (Unknown, Verified 06/08/23 11:44) unknown Medication List - Last Reconciled 06/08/23 by Arlet Cerna MD amitriptyline 50 mg PO BEDTIME atenolol-chlorthalidone 50-25 mg 1 tab PO DAILY cetirizine 10 mg PO DAILY 90 days cholecalciferol (vitamin D3) 50 mcg PO DAILY ciprofloxacin HCl (Cipro) 500 mg PO BID diclofenac sodium 75 mg PO BID PRN hydroxyzine pamoate 25 mg PO TID lamotrigine 300 mg PO QAM levothyroxine 25 mcg PO DAILY losartan 50 mg PO DAILY 90 days metronidazole 500 mg PO TID propranolol ER 120 mg PO DAILY 90 days simvastatin 20 mg PO BEDTIME 90 days Ventolin HFA 90 mcg/actuation (albuterol sulfate) 2 puffs PO Q6H PRN NS ziprasidone HCl 60 mg PO BID HPI HPI Comments History of Present Illness Details Almost 2 years of right ankle pain, medial and lateral areas. Was seeing Dr. Camarena at [facility], last seen 09/2022. Xrays done and told it was tendon. Says does not go out much. When she goes out, it's to go to store and walks home. Does not drive so gets rides. Denies swelling or can't tell. She could wake up in pain. Does not exercise. She went to PT in 2021. Did try a brace, probably over the shelf lace up brace, and wore it for a month only, very uncomfortable. Occasional numbness on toes. Started knee pain with the boot, has appointment with Anni. Chronic knee pain, has had gel injections in the past. Right foot pain improved but still painful at night. Does not hurt while walking. Wearing a comopression sock. No more swelling. Wearing compression sock since 5 dayts ago. [facility] Medical History History of high cholesterol History of high blood pressure History of COVID-19 Obesity Migraine headache with aura Bipolar disorder Hypertension, essential Ankle pain, right Asthma Environmental allergies Surgical History Hx of colonoscopy History of bone marrow biopsy H/O: hysterectomy Hx of cholecystectomy History of tooth extraction H/O skin graft History of carpal tunnel release Family History Father Anxiety HTN (hypertension) Mother Anxiety Depression HTN (hypertension) Maternal Grandmother High cholesterol HTN (hypertension) Maternal Grandfather Hemochromatosis Stomach cancer Brother No problems noted. Sister No problems noted. Son No problems noted. Daughter No problems noted. Other Mental health disorder Social History Household Members: None Housing: Apartment Are you a primary director of critical care to a significant other at home: No Do you presently have visiting nurse or other home services: No Alcohol intake: current Alcohol intake frequency: holidays/special occasions only Patient Tobacco Use Status: Former Tobacco user e-Cigarette/Vaping Use: Never Used Substance Use Type: Marijuana service: No Current occupational status: disabled Current occupation: rt hand Cognitive needs: No Hearing needs: No Vision needs: Yes Female Reproductive History Menstrual Age of Menarche: 10 Physical Exam Vital Signs: BMI result Body Mass Index 37.8 Constitutional: Patient appears to be in no acute distress, well nourished and well developed. MSK: No pain with dorsiflexion. No footdrop. Less tender around right lateral and medial malleoli. No signs of redness, effusion, warmth. No tenderness achilles and plantar fascia. No ankle instability noted. Strength is 5/5 in all muscle groups tested. No increased tone noted. Neurological: Neurologic examination of the upper and lower extremities was nonfocal with intact sensation, muscle stretch reflexes and without focal motor deficits . Horta?s negative bilaterally. Babinski was down going bilaterally. Clonus was negative. Gait is non antalgic without loss of balance. Results Reviewed Results Reviewed: Ordering Physician: Arlet Alcazar Date of Service: 05/04/23 Procedure(s): XR ankle RT 2V Accession Number(s): [id number] cc: Arlet Alcazar~ EXAMINATION: XR ANKLE, RIGHT CLINICAL INFORMATION: Pain COMPARISON: None available. TECHNIQUE: AP, lateral, and mortise views of the right ankle. FINDINGS: No acute fracture or dislocation. Moderate osteophyte is the talonavicular joint with loss of joint space. Plantar calcaneal spurring. Soft tissue swelling about the ankle. XR/XR ankle RT 2V IMPRESSION: 1. Moderate degenerative changes of the foot. 2. Soft tissue swelling about the ankle. 3. No acute fracture or dislocation. Assessment & Plan Assessment & Plan (1) Right ankle sprain: Code(s): S93.401A - Sprain of unspecified ligament of right ankle, initial encounter Qualifiers: Encounter type: initial encounter Involved ligament of ankle: other ligament Qualified Code(s): S93.491A - Sprain of other ligament of right ankle, initial encounter Plan Improved but not completely resolved yet. She no longer has pain with walking. She is wearing the compression sock and advised she would need rest breaks from this. She had finished PT. She wants to see orthopedics for ffup on knee pain. Assessment and plan discussed with patient, and patient was agreeable. All questions were answered thoroughly. Follow-up 6 weeks. Arlet Cerna MD, CELINE Board Certified, [place] Board [employer] Medicine and Rehabilitation (ABPMR) Board Certified, [place] Board [employer] Electrodiagnostic Medicine (ABEM) Medications: Discontinued ciprofloxacin HCl (Cipro) Discontinued Reason: Patient Completed Course 500 mg PO BID 20 tabs 0RF metronidazole Discontinued Reason: Patient Completed Course 500 mg PO TID 30 tabs 0RF Coding Level of Care Code Est Pt Level 3 (04995) Diagnoses Sprain of other ligament of right ankle, initial encounter S93.491A Encounter type: initial encounter Involved ligament of ankle: other ligament
[2023-06-08 11:43] VITALS: BMI 37.8
== END 2023-06-08 12:36 | disposition home or self-care (01) ==
PROVIDERS: PCP Internal Medicine; Visit Provider Physical Medicine & Rehabilitation
DX: S93.491A Sprain of other ligament of right ankle, initial encounter (principal)
CPT/HCPCS: 99213

== ENCOUNTER → 2023-06-08 11:39 | Outpatient (BNVA) | payer OTHER, SELFPAY | PROVIDERS: PCP Internal Medicine; Visit Provider Physical Medicine & Rehabilitation | DX: S93.491D Sprain of other ligament of right ankle, subsequent encounter (principal) | CPT/HCPCS: 99212 ==

== ENCOUNTER 2023-06-15 06:43 | Outpatient (REF) | payer OTHER, SELFPAY | END 2023-06-15 06:44 | disposition home or self-care (01) | LOC: HO.HMGCLDS 06:43 | PROVIDERS: PCP Internal Medicine; Visit Provider Internal Medicine | DX: R79.89 Other specified abnormal findings of blood chemistry (principal) | CPT/HCPCS: 36415; 84443 ==

== ENCOUNTER 2023-06-24 11:45 | Outpatient (AMB) | payer OTHER, SELFPAY ==
[2023-06-24 11:51] VITALS: BP 142/88; PULSE 86; O2SAT 97; BMI 38.0
--- NOTE | 2023-06-24 11:51 | MHC.PC.OV ---
Vital Signs 06/24/23 11:51 Height 5 ft 1 in Weight 201 lb BMI 38.0 BP 142/88 H Blood Pressure Location Lt brachial Position Sitting Pulse 86 Pulse Source Pulse Oximeter Pulse Oximetry (%) 97 Oxygen Delivery Method Room Air Intake Visit Reasons: 3 month fu Allergies penicillin V Allergy (Unknown, Verified 06/24/23 11:51) hives Penicillins [PENICILLINS] Allergy (Unknown, Verified 06/24/23 11:51) HIVES celecoxib [Celebrex] Adverse Reaction (Unknown, Verified 06/24/23 11:51) unknown clonidine Adverse Reaction (Unknown, Verified 06/24/23 11:51) dizziness, N/V sumatriptan [Imitrex] Adverse Reaction (Unknown, Verified 06/24/23 11:51) unknown Medication List - Last Reconciled 06/24/23 by Lee Mercado MD amitriptyline 50 mg PO BEDTIME atenolol-chlorthalidone 50-25 mg 1 tab PO DAILY cetirizine 10 mg PO DAILY 90 days cholecalciferol (vitamin D3) 50 mcg PO DAILY diclofenac sodium 75 mg PO BID PRN hydroxyzine pamoate 25 mg PO TID lamotrigine 300 mg PO QAM levothyroxine 25 mcg PO DAILY losartan 50 mg PO DAILY 90 days propranolol ER 120 mg PO DAILY 90 days simvastatin 20 mg PO BEDTIME 90 days Ventolin HFA 90 mcg/actuation (albuterol sulfate) 2 puffs PO Q6H PRN NS ziprasidone HCl 60 mg PO BID Tobacco use date assessed: 06/24/23 Dental Screening Dental Screen Date: 07/06/23 Did you have a dental visit in the last 12 months?: No Did you have a dental problem in the last 6 months where you did not have access to dental care?: No Was dental information given to patient?: No HPI 3 month fu HPI Details Labs were done April and May, patient was in hospital due to diverticulitis twice this year She will call Gastroenterology for follow-up appointment Blood pressure continued to be high, I am increasing losartan to 100 mg she is to continue with atenolol chlorthalidone 50-25 mg once a day Migraine headache: Patient is taking propranolol high-dose through Dr. Soto, but has not seen him in over 1 year, she tells me that he is not aware that she is on atenolol for blood pressure I am going to taper off propranolol, to see if she still needs it. Propranolol 60 mg ER sent patient is to start taking 2 tablets for 2 weeks and then 1 tablet for 2 weeks We will set up telemedicine visit in 3 weeks to follow-up on that. Hypothyroidism: Continue levothyroxine Need to lose weight BMI is elevated Allergies stable patient is on cetirizine 10 mg daily Lipid disorder: Continue simvastatin 20 mg Psychiatric care for bipolar disorder through Psychiatry [facility] Medical History History of high cholesterol History of high blood pressure History of COVID-19 Obesity Migraine headache with aura Bipolar disorder Hypertension, essential Ankle pain, right Asthma Environmental allergies Surgical History Hx of colonoscopy History of bone marrow biopsy H/O: hysterectomy Hx of cholecystectomy History of tooth extraction H/O skin graft History of carpal tunnel release Family History Father Anxiety HTN (hypertension) Mother Anxiety Depression HTN (hypertension) Maternal Grandmother High cholesterol HTN (hypertension) Maternal Grandfather Hemochromatosis Stomach cancer Brother No problems noted. Sister No problems noted. Son No problems noted. Daughter No problems noted. Other Mental health disorder Social History Household Members: None Housing: Apartment Are you a primary neonatal intensive care nurse to a significant other at home: No Do you presently have visiting nurse or other home services: No Alcohol intake: current Alcohol intake frequency: holidays/special occasions only Patient Tobacco Use Status: Former Tobacco user e-Cigarette/Vaping Use: Never Used Substance Use Type: Marijuana service: No Current occupational status: disabled Current occupation: rt hand Cognitive needs: No Hearing needs: No Vision needs: Yes Female Reproductive History Menstrual Age of Menarche: 10 Questionnaire Thrive Questionnaire Date Thrive assessed: 11/05/22 AUDIT C Alcohol Use Questionnaire (AUDIT-C) 1. How often do you have a drink containing alcohol?: Monthly or less 2. How many drinks containing alcohol do you have on a typical day when you are drinking?: 1 or 2 3. How often do you have six or more drinks on one occasion?: Never Total Score: 1 Score Reviewed/Action Taken: Yes KANDY-7 AMB Questionnaire KANDY-7 Date KANDY - 7 assessed: 11/05/22 Source: Developed by Drs. Arthur Ojeda, Cecy Sheridan, Luis Carvalho and colleagues, with an educational dari from [employer]. Review of Systems Const Denies chills and Denies fever(s) ENT Denies epistaxis and Denies nasal discharge Card Denies chest pain Resp Denies chest congestion, Denies cough and Denies hemoptysis GI Denies diarrhea and Denies nausea Skin/Breast Denies rash Neuro Reports no additional complaints Psych Reports no additional complaints Endo Reports no additional complaints Physical exam (Primary Care) Vital Signs: Last Vital Signs Pulse 86 06/24/23 11:51 BP 142/88 H 06/24/23 11:51 Pulse Ox 97 06/24/23 11:51 Oxygen Delivery Method Room Air 06/24/23 11:51 BMI result Body Mass Index 38.0 Tobacco/Smoking Status: Tobacco use Status Tobacco use date assessed 06/24/23 06/24/23 11:53 Patient Tobacco Use Status Former Tobacco user 06/24/23 11:53 e-Cigarette/Vaping Use Never Used 06/24/23 11:53 Thrive Assessment: Date of Thrive Assessment Date Thrive assessed 11/05/22 06/24/23 11:53 Const General: cooperative, comfortable and no acute distress Orientation/consciousness: patient oriented x3 HENMT Head: Yes normocephalic Eyes General: appearance normal, both eyes and all related structures Neck Neck: Yes supple Resp Effort & Inspection: normal respiratory effort, no cough and no stridor Cardio Rhythm: regular rhythm Heart sounds: S1 normal heart sound present and S2 normal heart sound present Skin General skin exam: turgor normal Neuro General: patient oriented x3, tone normal and moves all extremities Extrem Right lower extremity: no edema Left lower extremity: no edema Assessment and Plan Assessment & Plan (1) Hypertension, essential: Code(s): I10 - Essential (primary) hypertension (2) Environmental allergies: Code(s): Z91.09 - Other allergy status, other than to drugs and biological substances (3) Migraine headache with aura: Code(s): G43.109 - Migraine with aura, not intractable, without status migrainosus Qualifiers: Status migrainosus presence: without status migrainosus Intractability: intractable Qualified Code(s): G43.119 - Migraine with aura, intractable, without status migrainosus (4) Other specified hypothyroidism: Code(s): E03.8 - Other specified hypothyroidism (5) Impaired fasting blood sugar: Code(s): R73.01 - Impaired fasting glucose (6) Obesity due to excess calories: Code(s): E66.09 - Other obesity due to excess calories Qualifiers: Obesity classification: adult class 1 (BMI 30 - 34.9) Serious obesity comorbidity presence: with serious comorbidity Body mass index: BMI 32.0-32.9 Qualified Code(s): E66.09 - Other obesity due to excess calories; Z68.32 - Body mass index [BMI] 32.0-32.9, adult Plan Labs were done April and May, patient was in hospital due to diverticulitis twice this year She will call Gastroenterology for follow-up appointment Blood pressure continued to be high, I am increasing losartan to 100 mg she is to continue with atenolol chlorthalidone 50-25 mg once a day Migraine headache: Patient is taking propranolol high-dose through Dr. Soto, but has not seen him in over 1 year, she tells me that he is not aware that she is on atenolol for blood pressure I am going to taper off propranolol, to see if she still needs it. Propranolol 60 mg ER sent patient is to start taking 2 tablets for 2 weeks and then 1 tablet for 2 weeks We will set up telemedicine visit in 3 weeks to follow-up on that. Hypothyroidism: Continue levothyroxine Need to lose weight BMI is elevated Allergies stable patient is on cetirizine 10 mg daily Lipid disorder: Continue simvastatin 20 mg Psychiatric care for bipolar disorder through Psychiatry Medications: New propranolol ER Take 2 capsule daily for 2 weeks and then 1 capsule daily for 2 weeks 30 caps 0RF Changed From losartan 50 mg PO DAILY 90 days 90 tabs 0RF To losartan 100 mg PO DAILY 90 tabs 0RF 90 days Discontinued propranolol ER Discontinued Reason: Doctor's Order 120 mg PO DAILY 90 days 90 caps 0RF Coding Level of Care Code Est Pt Level 4 (26023) Diagnoses Hypertension, essential I10 Environmental allergies Z91.09 Intractable migraine with aura without status migrainosus G43.119 Status migrainosus presence: without status migrainosus Intractability: intractable Other specified hypothyroidism E03.8 Impaired fasting blood sugar R73.01 Class 1 obesity due to excess calories with serious comorbidity and body mass index (BMI) of 32.0 to 32.9 in adult E66.09; Z68.32 Obesity classification: adult class 1 (BMI 30 - 34.9) Serious obesity comorbidity presence: with serious comorbidity Body mass index: BMI 32.0-32.9
== END 2023-06-24 14:20 | disposition home or self-care (01) ==
PROVIDERS: PCP Internal Medicine; Visit Provider Internal Medicine
DX: I10 Essential (primary) hypertension (principal); Z91.09 Other allergy status, other than to drugs and biological substances; G43.119 Migraine with aura, intractable, without status migrainosus; E03.8 Other specified hypothyroidism; R73.01 Impaired fasting glucose; E66.09 Other obesity due to excess calories; Z68.32 Body mass index [BMI] 32.0-32.9, adult
CPT/HCPCS: 99214

== ENCOUNTER 2023-07-12 12:31 | Outpatient (AMB) | payer OTHER, SELFPAY ==
--- NOTE | 2023-07-12 12:41 | A.OFFVIS_ITS ---
Intake Vital Signs 07/12/23 12:43 Height 5 ft 1 in Weight 201 lb BMI 38.0 Intake Visit Reasons: OV - left knee pain, last gel inj 12/02/22 Intake Note: Charity is a 47 year old female who presents today for a follow up for her left knee OA, last durolane B/L gel injections 12/02/22. Patient reports that her last gel injection gave her 3 + months relief. She states that the gel injection worked better than the cortisone. Allergies penicillin V Allergy (Unknown, Verified 07/12/23 12:42) hives Penicillins [PENICILLINS] Allergy (Unknown, Verified 07/12/23 12:42) HIVES celecoxib [Celebrex] Adverse Reaction (Unknown, Verified 07/12/23 12:42) unknown clonidine Adverse Reaction (Unknown, Verified 07/12/23 12:42) dizziness, N/V sumatriptan [Imitrex] Adverse Reaction (Unknown, Verified 07/12/23 12:42) unknown HPI OV - left knee pain, last gel inj 12/02/22 HPI Details 48-year-old female who presents in the o ice today for a follow up of left knee pain. I last saw the patient in the office on 12/02/2022, at that time she was given a Durolane injection in the bilateral knees. While in the office today the patient reports the Durolane injection gave her more than 3 months of relief. She feels the gel injections help her better than the cortisone injections do. [facility] Medical History History of high cholesterol History of high blood pressure History of COVID-19 Obesity Migraine headache with aura Bipolar disorder Hypertension, essential Ankle pain, right Asthma Environmental allergies Surgical History Hx of colonoscopy History of bone marrow biopsy H/O: hysterectomy Hx of cholecystectomy History of tooth extraction H/O skin graft History of carpal tunnel release Family History Father Anxiety HTN (hypertension) Mother Anxiety Depression HTN (hypertension) Maternal Grandmother High cholesterol HTN (hypertension) Maternal Grandfather Hemochromatosis Stomach cancer Brother No problems noted. Sister No problems noted. Son No problems noted. Daughter No problems noted. Other Mental health disorder Social History Household Members: None Housing: Apartment Are you a primary respiratory care faculty to a significant other at home: No Do you presently have visiting nurse or other home services: No Alcohol intake: current Alcohol intake frequency: holidays/special occasions only Patient Tobacco Use Status: Former Tobacco user e-Cigarette/Vaping Use: Never Used Substance Use Type: Marijuana service: No Current occupational status: disabled Current occupation: rt hand Cognitive needs: No Hearing needs: No Vision needs: Yes Female Reproductive History Menstrual Age of Menarche: 10 Review of Systems Const All systems reviewed & are unremarkable except as noted in HPI and below Physical Exam Vital Signs: BMI result Body Mass Index 38.0 Const General: cooperative, healthy appearing and no acute distress Resp Effort & Inspection: normal respiratory effort and able to speak in complete sentences Cardio Rate: regular rate Peripheral pulses: Peripheral pulses 2+ throughout GI Palpation (GI): Soft to palpation Skin Lesions: no lesions Rashes: no rashes Extrem Other: Bilateral knees: Normal to inspection. No ecchymosis, erythema, or joint effusion. No tenderness to palpation to the medial or lateral joint lines. Full knee extension and flexion. Crepitus felt with ROM. NVI. Office Procedures Joint Injection/Drain Joint Injection/Drain Primary Site: left knee Secondary Site: right knee Prep: site was prepped using aseptic technique, ethochloride spray was applied and injection warnings given Injected: 80 mg of, DepoMedrol, with 8 mL of (2% plain lido ) and in the joint Approach Used: anterolateral Procedure: The patient tolerated the procedure well, but had some pain with the injection and there was some relief with the local anesthesia Coding 52716 - Large joint Procedure code (CPT) selection complete Assessment & Plan Assessment & Plan (1) Osteoarthritis of right knee: Code(s): M17.11 - Unilateral primary osteoarthritis, right knee Qualifiers: Osteoarthritis type: primary Qualified Code(s): M17.11 - Unilateral primary osteoarthritis, right knee (2) Osteoarthritis of left knee: Code(s): M17.12 - Unilateral primary osteoarthritis, left knee Qualifiers: Osteoarthritis type: primary Qualified Code(s): M17.12 - Unilateral primary osteoarthritis, left knee Plan Ms. Roberts is a 48-year-old female who presents in the office today for a follow up of left knee pain. I last saw the patient in the office on 12/02/2022, at that time she was given a Durolane injection in the bilateral knees. While in the office today the patient reports the Durolane injection gave her more than 3 months of relief. She feels the gel injections help her better than the cortisone injections do. The patient was offered a cortisone injection in the bilateral knees with 80 mg of DepoMedrol. The patient was explained the risk, benefits, and alternatives to receiving this injection. After receiving consent for the injection, the patient had the procedure done while in office today. The patient tolerated the procedure well with no complications. The patient would like to repeat the Gel injection series, therefore the office will reach out for insurance approval. Follow up will be after approval is obtained, or sooner if needed. Patient Instructions: Scribed by Christina Osorio nuclear medical technologist, for Anni Verdugo PA-C on 07/12/2023 at 12:49 pm, EST. Coding Level of Care Code Est Pt Level 4 (44857) Diagnoses Primary osteoarthritis of right knee M17.11 Osteoarthritis type: primary Primary osteoarthritis of left knee M17.12 Osteoarthritis type: primary CPT Codes Coding - 92839 Large joint: 00606 - Large joint ([id number])
[2023-07-12 12:43] VITALS: BMI 38.0
== END 2023-07-12 13:09 | disposition home or self-care (01) ==
PROVIDERS: PCP Internal Medicine; Visit Provider Physician Assistant
DX: M17.0 Bilateral primary osteoarthritis of knee (principal)
CPT/HCPCS: 20610; 99214

== ENCOUNTER → 2023-07-12 12:31 | Outpatient (BNVA) | payer OTHER, SELFPAY | PROVIDERS: PCP Internal Medicine; Visit Provider Physician Assistant | DX: M17.0 Bilateral primary osteoarthritis of knee (principal) | CPT/HCPCS: 20610; 99212; J1010; J1040 ==

== ENCOUNTER 2023-07-13 07:42 | Outpatient (AMB) | payer OTHER, SELFPAY ==
--- NOTE | 2023-07-13 07:53 | MHC.OFFVIS ---
Intake Vital Signs 07/13/23 07:55 Height 5 ft 1 in Weight 200 lb BMI 37.8 BP 160/90 H Blood Pressure Location Lt brachial Position Sitting Pulse 107 H Intake Visit Reasons: pt req appointment Intake Note: Patient [place] [facility] [place] Di[place]. Patient cc: constipation on and off, denies any other GI issues. Weight Yardage Checker Required: Yes Accompanied by: Self / Same As Patient Allergies penicillin V Allergy (Unknown, Verified 07/13/23 07:52) hives Penicillins [PENICILLINS] Allergy (Unknown, Verified 07/13/23 07:52) HIVES celecoxib [Celebrex] Adverse Reaction (Unknown, Verified 07/13/23 07:52) unknown clonidine Adverse Reaction (Unknown, Verified 07/13/23 07:52) dizziness, N/V sumatriptan [Imitrex] Adverse Reaction (Unknown, Verified 07/13/23 07:52) unknown Medication List - Last Reconciled 07/13/23 by Heather Hopkins PA-C amitriptyline 50 mg PO BEDTIME atenolol-chlorthalidone 50-25 mg 1 tab PO DAILY cetirizine 10 mg PO DAILY 90 days cholecalciferol (vitamin D3) 50 mcg PO DAILY diclofenac sodium 75 mg PO BID PRN hydroxyzine pamoate 25 mg PO TID lamotrigine 300 mg PO QAM levothyroxine 25 mcg PO DAILY losartan 100 mg PO DAILY 90 days propranolol ER Take 2 capsule daily for 2 weeks and then 1 capsule daily for 2 weeks simvastatin 20 mg PO BEDTIME 90 days Ventolin HFA 90 mcg/actuation (albuterol sulfate) 2 puffs PO Q6H PRN NS ziprasidone HCl 60 mg PO BID HPI HPI Comments History of Present Illness Details A 48-year-old female, self-referred after episode of acute diverticulitis, CT documented back in May-she was treated-levoflox/ metronid- 04/19/23, and then 05/25/23- she is very concerned having 2 close episodes- She presents today Symptoms completely resolved- She complains of intermittent constipation- she was unable to buy stool regimen-she had good response with colace and miralax she is htn- has not taken meds yet today Working w/ psych- meds- cause fast heartrate no CP or SOB No nausea, vomiting, abdominal pain, hematemesis, hematochezia fever or chills PFSH Medical History History of high cholesterol History of high blood pressure History of COVID-19 Obesity Migraine headache with aura Bipolar disorder Hypertension, essential Ankle pain, right Asthma Environmental allergies Surgical History Hx of colonoscopy History of bone marrow biopsy H/O: hysterectomy Hx of cholecystectomy History of tooth extraction H/O skin graft History of carpal tunnel release Family History Father Anxiety HTN (hypertension) Mother Anxiety Depression HTN (hypertension) Maternal Grandmother High cholesterol HTN (hypertension) Maternal Grandfather Hemochromatosis Stomach cancer Brother No problems noted. Sister No problems noted. Son No problems noted. Daughter No problems noted. Other Mental health disorder Social History Household Members: None Housing: Apartment Are you a primary hearing care professional to a significant other at home: No Do you presently have visiting nurse or other home services: No Alcohol intake: current Alcohol intake frequency: holidays/special occasions only Patient Tobacco Use Status: Former Tobacco user e-Cigarette/Vaping Use: Never Used Substance Use Type: Marijuana service: No Current occupational status: disabled Current occupation: rt hand Cognitive needs: No Hearing needs: No Vision needs: Yes Female Reproductive History Menstrual Age of Menarche: 10 Review of Systems Const All systems reviewed & are unremarkable except as noted in HPI and below Card Denies chest pain, Denies dyspnea and Denies dyspnea on exertion Resp Denies dyspnea and Denies dyspnea on exertion GI Denies abdominal pain, Denies hematochezia, Denies constipation, Denies GI cramping, Denies heartburn, Denies diarrhea, Denies nausea and Denies vomiting Psych Reports anxiety Physical Exam Vital Signs: Last Vital Signs Pulse 107 H 07/13/23 07:55 BP 160/90 H 07/13/23 07:55 BMI result Body Mass Index 37.8 Const General: cooperative, healthy appearing, comfortable and no acute distress Orientation/consciousness: patient oriented x3 Limitations: no limitations HEENT Teeth and gingiva: no dentures Eyes Sclerae: sclerae normal Resp Effort & Inspection: normal respiratory effort and able to speak in complete sentences Auscultation: clear to auscultation bilaterally, no rales, no rhonchi and no wheezes Cardio Rate: tachycardic (ziprasidone- will be weaning) Rhythm: regular rhythm Heart sounds: S1 normal heart sound present and S2 normal heart sound present GI Palpation (GI): Soft to palpation and nontender Auscultation: normal bowel sounds Skin General skin exam: no rashes or lesions noted Neuro General: patient oriented x3 Extrem General: Yes full ROM Psych Appearance: grossly normal Mental Status: mental status grossly normal Speech and movement: Normal speech and movement present Affect: normal affect Attitude: cooperative Thought process: Normal thought process present Thought content: Normal thought content present Insight: Good insight present (Psych) Judgement: Good judgement present (Psych) Results Reviewed Results Reviewed: CT/CT abdomen pelvis w IV con IMPRESSION: 1. Findings are most consistent with acute sigmoid diverticulitis. When clinically appropriate and if the patient is due, further evaluation with outpatient colonoscopy is recommended. 2. Mild hepatomegaly. 3. Compared to 04/19/2023, unchanged solid pulmonary nodules in the lung bases, largest measuring 4 mm according to the UPDATED 2017 Fleischner Society recommendations, the advised follow-up imaging for multiple solid nodules measuring up to 6-8 mm is follow-up CT at 3 to 6 months. In high-risk patients, subsequent CT follow-up at 18 to 24 months is recommended. In low-risk patients, subsequent CT follow-up at 18 to 24 months is optional. 06/2022- Mary mpression and Post Procedure Diagnosis: polyp-TUBULAR ADENOMA internal hemorrhoids diverticular disease-Findings and interventions are described below. Procedure Difficulty: difficult due to severe diverticulosis and tight colon angles Plan: High fiber diet leaflet Avoid straining at stool, epsom salts and sitz bath, anusol supps or cream Repeat Colonoscopy in 5-7 years if adenomatous polyp which appeared to be by kudo pit markings, otherwise 10 yrs if hyperplastic or earlier if clinically indicated Assessment & Plan Assessment & Plan (1) Diverticulosis large intestine w/o perforation or abscess w/bleeding: Comment: Reviewed previous colonoscopy 06/2022-severe diverticulosis Code(s): K57.31 - Diverticulosis of large intestine without perforation or abscess with bleeding Plan: ER protocol (2) Tubular adenoma: Comment: reviewed report and path- Adenoma severe diverticulosis First-degree relatives should begin screening at age 40 Code(s): D36.9 - Benign neoplasm, unspecified site (3) History of diverticulitis: Comment: 04/19/23, 05/25/23 Code(s): Z87.19 - Personal history of other diseases of the digestive system Plan: ER protocol reviewed- Plan Consistent bowel regimen- colace- miralax Foods to avoid HFD Ref surgical consult- Abd pain- ED Medications: New polyethylene glycol 3350 (Miralax) 17 grams PO DAILY 510 grams 6RF docusate sodium (Colace) 200 mg (2 x 100 mg) PO BEDTIME 60 caps 5RF Patient Instructions: Consistent bowel regimen- colace- miralax Foods to avoid-popcorn, nuts, seeds, corn HFD-literature Ref surgical consult- Again reviewed and reinforced any Abd pain- ED given to recent episodes diverticulitis She is agreeable to the plan No major barriers to understanding were identified Encouraged to call with any questions or concerns Coding Level of Care Code Est Pt Level 4 (37171) Diagnoses Diverticulosis large intestine w/o perforation or abscess w/bleeding K57.31 Tubular adenoma D36.9 History of diverticulitis Z87.19 Time Spent (min) 35
[2023-07-13 07:55] VITALS: BP 160/90; PULSE 107; BMI 37.8
== END 2023-07-13 08:43 | disposition home or self-care (01) ==
PROVIDERS: PCP Internal Medicine; Visit Provider Physician Assistant
DX: K57.31 Diverticulosis of large intestine without perforation or abscess with bleeding (principal); D36.9 Benign neoplasm, unspecified site; Z87.19 Personal history of other diseases of the digestive system
CPT/HCPCS: 99214

== ENCOUNTER → 2023-07-13 07:42 | Outpatient (BNVA) | payer OTHER, SELFPAY | PROVIDERS: PCP Internal Medicine; Visit Provider Physician Assistant | DX: K57.31 Diverticulosis of large intestine without perforation or abscess with bleeding (principal); D36.9 Benign neoplasm, unspecified site; Z87.19 Personal history of other diseases of the digestive system; Z90.49 Acquired absence of other specified parts of digestive tract; Z98.890 Other specified postprocedural states | CPT/HCPCS: 99212 ==

== ENCOUNTER 2023-07-14 08:33 | Outpatient (AMB) | payer OTHER, SELFPAY ==
--- NOTE | 2023-07-14 08:59 | A.OFFPC_ITS ---
Intake Visit Reasons: 3 Wk F/u~ Allergies penicillin V Allergy (Unknown, Verified 07/14/23 08:59) hives Penicillins [PENICILLINS] Allergy (Unknown, Verified 07/14/23 08:59) HIVES celecoxib [Celebrex] Adverse Reaction (Unknown, Verified 07/14/23 08:59) unknown clonidine Adverse Reaction (Unknown, Verified 07/14/23 08:59) dizziness, N/V sumatriptan [Imitrex] Adverse Reaction (Unknown, Verified 07/14/23 08:59) unknown Medication List - Last Reconciled 07/14/23 by Lee Mercado MD amitriptyline 50 mg PO BEDTIME atenolol-chlorthalidone 50-25 mg 1 tab PO DAILY cetirizine 10 mg PO DAILY 90 days cholecalciferol (vitamin D3) 50 mcg PO DAILY diclofenac sodium 75 mg PO BID PRN docusate sodium (Colace) 200 mg (2 x 100 mg) PO BEDTIME hydroxyzine pamoate 25 mg PO TID lamotrigine 300 mg PO QAM levothyroxine 25 mcg PO DAILY losartan 100 mg PO DAILY 90 days polyethylene glycol 3350 (Miralax) 17 grams PO DAILY propranolol ER Take 2 capsule daily for 2 weeks and then 1 capsule daily for 2 weeks simvastatin 20 mg PO BEDTIME 90 days Ventolin HFA 90 mcg/actuation (albuterol sulfate) 2 puffs PO Q6H PRN NS ziprasidone HCl 60 mg PO BID Tobacco use date assessed: 07/14/23 Dental Screening Dental Screen Date: 07/14/23 Did you have a dental visit in the last 12 months?: No Did you have a dental problem in the last 6 months where you did not have access to dental care?: No Was dental information given to patient?: No HPI 3 Wk F/u~ HPI Details Patient is 48-year-old female this is a telemedicine follow-up appointment Patient is in process of tapering off propranolol that she was taking for migra ine headaches through neurologist She is currently on atenolol as well, blood pressure continued to be high, I am increasing the dose of atenolol to 100 mg, she is to continue Vit chlorthalidone 25 mg and losartan 100 mg Propranolol will be stopped. Patient has seen plastic parts fabricator trimmer for the current diverticulitis She has appointment coming up with surgeon to discuss partial colectomy on of this month. [facility] Medical History History of high cholesterol History of high blood pressure History of COVID-19 Obesity Migraine headache with aura Bipolar disorder Hypertension, essential Ankle pain, right Asthma Environmental allergies Surgical History Hx of colonoscopy History of bone marrow biopsy H/O: hysterectomy Hx of cholecystectomy History of tooth extraction H/O skin graft History of carpal tunnel release Family History Father Anxiety HTN (hypertension) Mother Anxiety Depression HTN (hypertension) Maternal Grandmother High cholesterol HTN (hypertension) Maternal Grandfather Hemochromatosis Stomach cancer Brother No problems noted. Sister No problems noted. Son No problems noted. Daughter No problems noted. Other Mental health disorder Social History Household Members: None Housing: Apartment Are you a primary direct care supervisor to a significant other at home: No Do you presently have visiting nurse or other home services: No Alcohol intake: current Alcohol intake frequency: holidays/special occasions only Patient Tobacco Use Status: Former Tobacco user e-Cigarette/Vaping Use: Never Used Substance Use Type: Marijuana service: No Current occupational status: disabled Current occupation: rt hand Cognitive needs: No Hearing needs: No Vision needs: Yes Female Reproductive History Menstrual Age of Menarche: 10 Questionnaire Thrive Questionnaire Date Thrive assessed: 11/05/22 AUDIT C Alcohol Use Questionnaire (AUDIT-C) 1. How often do you have a drink containing alcohol?: Monthly or less 2. How many drinks containing alcohol do you have on a typical day when you are drinking?: 1 or 2 3. How often do you have six or more drinks on one occasion?: Never Total Score: 1 Score Reviewed/Action Taken: Yes KANDY-7 AMB Questionnaire KANDY-7 Date KANDY - 7 assessed: 11/05/22 Source: Developed by Drs. Arthur Ojeda, Cecy Sheridan, Luis Carvalho and colleagues, with an educational dari from [employer]. Review of Systems Const All systems reviewed & are unremarkable except as noted in HPI and below Card Denies chest pain, Denies dyspnea and Denies dyspnea on exertion Resp Denies dyspnea and Denies dyspnea on exertion GI Denies abdominal pain, Denies hematochezia, Denies constipation, Denies GI cramping, Denies heartburn, Denies diarrhea, Denies nausea and Denies vomiting Psych Reports anxiety Physical exam (Primary Care) Tobacco/Smoking Status: Tobacco use Status Tobacco use date assessed 07/14/23 07/14/23 09:00 Patient Tobacco Use Status Former Tobacco user 07/14/23 09:00 e-Cigarette/Vaping Use Never Used 07/14/23 09:00 Thrive Assessment: Date of Thrive Assessment Date Thrive assessed 11/05/22 07/14/23 09:00 Telehealth Telehealth Location of provider rendering services: practice address Location of patient: address on file Patient Identification confirmed using: Name, : Yes Telehealth method: video (Attempted) Patient verbally consented to treatment: Yes Patient verbally consented to billing insurance company: Yes Patient informed of any privacy concerns related to visit: Yes Minutes spent on Phone/Video with Pt.: 13 Assessment and Plan Assessment & Plan (1) Hypertension, essential: Code(s): I10 - Essential (primary) hypertension (2) Migraine headache with aura: Code(s): G43.109 - Migraine with aura, not intractable, without status migrainosus Qualifiers: Status migrainosus presence: without status migrainosus Intractability: intractable Qualified Code(s): G43.119 - Migraine with aura, intractable, without status migrainosus Plan Patient is 48-year-old female this is a telemedicine follow-up appointment Patient is in process of tapering off propranolol that she was taking for mi graine headaches through neurologist She is currently on atenolol as well, blood pressure continued to be high, I am increasing the dose of atenolol to 100 mg, she is to continue Vit chlorthalidone 25 mg and losartan 100 mg Propranolol will be stopped. Patient has seen plastic parts fabricator trimmer for the current diverticulitis She has appointment coming up with surgeon to discuss partial colectomy on of this month. Medications: New atenolol 100 mg PO DAILY 90 tabs 0RF Blood pressure chlorthalidone 25 mg PO DAILY 90 tabs 0RF Blood pressure Discontinued atenolol-chlorthalidone 50-25 mg Discontinued Reason: Doctor's Order 1 tab PO DAILY 90 tabs 0RF propranolol ER Discontinued Reason: Doctor's Order Take 2 capsule daily for 2 weeks and then 1 capsule daily for 2 weeks 30 caps 0RF Coding Level of Care Code Tele Est Pt Level 3 (55616) Diagnoses Hypertension, essential I10 Intractable migraine with aura without status migrainosus G43.119 Status migrainosus presence: without status migrainosus Intractability: intractable
== END 2023-07-14 11:56 | disposition home or self-care (01) ==
PROVIDERS: PCP Internal Medicine; Visit Provider Internal Medicine
DX: I10 Essential (primary) hypertension (principal); G43.119 Migraine with aura, intractable, without status migrainosus
CPT/HCPCS: 99213

== ENCOUNTER 2023-07-20 08:38 | Outpatient (AMB) | payer OTHER, SELFPAY ==
--- NOTE | 2023-07-20 09:02 | MHC.OFFVIS ---
Intake Intake Visit Reasons: B/L Durolane Gel Injections Intake Note: Charity is a 48 year old female who presents today for bilateral knee Durolane gel injections. Allergies penicillin V Allergy (Unknown, Verified 07/20/23 09:10) hives Penicillins [PENICILLINS] Allergy (Unknown, Verified 07/20/23 09:10) HIVES celecoxib [Celebrex] Adverse Reaction (Unknown, Verified 07/20/23 09:10) unknown clonidine Adverse Reaction (Unknown, Verified 07/20/23 09:10) dizziness, N/V sumatriptan [Imitrex] Adverse Reaction (Unknown, Verified 07/20/23 09:10) unknown HPI B/L Durolane Gel Injections HPI Details 48-year-old female who presents in the office today for a follow up of bilateral knee pain. Patient presents today for a Durolane injection. I last saw the patient in the office on 07/12/2023 when she received a cortisone injection. [facility] Medical History History of high cholesterol History of high blood pressure History of COVID-19 Obesity Migraine headache with aura Bipolar disorder Hypertension, essential Ankle pain, right Asthma Environmental allergies Surgical History Hx of colonoscopy History of bone marrow biopsy H/O: hysterectomy Hx of cholecystectomy History of tooth extraction H/O skin graft History of carpal tunnel release Family History Father Anxiety HTN (hypertension) Mother Anxiety Depression HTN (hypertension) Maternal Grandmother High cholesterol HTN (hypertension) Maternal Grandfather Hemochromatosis Stomach cancer Brother No problems noted. Sister No problems noted. Son No problems noted. Daughter No problems noted. Other Mental health disorder Social History Household Members: None Housing: Apartment Are you a primary cardiac care nurse to a significant other at home: No Do you presently have visiting nurse or other home services: No Alcohol intake: current Alcohol intake frequency: holidays/special occasions only Patient Tobacco Use Status: Former Tobacco user e-Cigarette/Vaping Use: Never Used Substance Use Type: Marijuana service: No Current occupational status: disabled Current occupation: rt hand Cognitive needs: No Hearing needs: No Vision needs: Yes Female Reproductive History Menstrual Age of Menarche: 10 Physical Exam Const General: cooperative, healthy appearing and no acute distress Resp Effort & Inspection: normal respiratory effort and able to speak in complete sentences Cardio Rate: regular rate Peripheral pulses: Peripheral pulses 2+ throughout GI Palpation (GI): Soft to palpation Skin Lesions: no lesions Rashes: no rashes Extrem Other: Bilateral knees: Normal to inspection. No ecchymosis, erythema, or joint effusion. No tenderness to palpation to the medial or lateral joint lines. Full knee extension and flexion. Crepitus felt with ROM. NVI. Office Procedures Joint Injection/Drain Joint Injection/Drain Primary Site: right knee Secondary Site: left knee Prep: site was prepped using aseptic technique, ethochloride spray was applied and injection warnings given Injected: in the joint (Durolane ) Approach Used: anterolateral Procedure: The patient tolerated the procedure well, but had some pain with the injection and there was some relief with the local anesthesia Coding 38543 - Large joint Procedure code (CPT) selection complete Assessment & Plan Assessment & Plan (1) Osteoarthritis of left knee: Code(s): M17.12 - Unilateral primary osteoarthritis, left knee Qualifiers: Osteoarthritis type: primary Qualified Code(s): M17.12 - Unilateral primary osteoarthritis, left knee (2) Osteoarthritis of right knee: Code(s): M17.11 - Unilateral primary osteoarthritis, right knee Qualifiers: Osteoarthritis type: primary Qualified Code(s): M17.11 - Unilateral primary osteoarthritis, right knee Plan Ms. Roberts is a 48-year-old female who presents in the office today for a follow up of bilateral knee pain. Patient presents today for a Durolane injection. I last saw the patient in the office on 07/12/2023 when she received a cortisone injection. The patient was offered a Durolane injection in the bilateral knees. The patient was explained the risk, benefits, and alternatives to receiving this injection. After receiving consent for the injection, the patient had the procedure done while in the office today. The patient tolerated the procedure well with no complications. Follow up will be PRN, or sooner if needed. Patient Instructions: Scribed by Christina Osorio quality engineer medical device, for Anni Verdugo PA-C on 07/19/2023 at 8:40 am, EST. Coding Level of Care Code Procedure Only Diagnoses Primary osteoarthritis of left knee M17.12 Osteoarthritis type: primary Primary osteoarthritis of right knee M17.11 Osteoarthritis type: primary CPT Codes Coding - 09324 Large joint: 45640 - Large joint ([id number])
== END 2023-07-20 09:10 | disposition home or self-care (01) ==
PROVIDERS: PCP Internal Medicine; Visit Provider Physician Assistant
DX: M17.0 Bilateral primary osteoarthritis of knee (principal)
CPT/HCPCS: 20610

== ENCOUNTER → 2023-07-20 08:38 | Outpatient (BNVA) | payer OTHER, SELFPAY | PROVIDERS: PCP Internal Medicine; Visit Provider Physician Assistant | DX: M17.0 Bilateral primary osteoarthritis of knee (principal) | CPT/HCPCS: 20610; J7318 ==

== ENCOUNTER → 2023-07-25 12:40 | Outpatient (BNVA) | payer OTHER, SELFPAY | PROVIDERS: PCP Internal Medicine; Referring Provider Physician Assistant; Visit Provider Surgery | DX: K57.31 Diverticulosis of large intestine without perforation or abscess with bleeding (principal); Z87.19 Personal history of other diseases of the digestive system | CPT/HCPCS: 99202 ==

== ENCOUNTER 2023-07-25 12:41 | Outpatient (AMB) | payer OTHER, SELFPAY ==
--- NOTE | 2023-07-25 12:51 | MHC.OFFVIS ---
Vital Signs 07/25/23 12:56 Height 5 ft 1 in Weight 200 lb BMI 37.8 BP 153/94 H Blood Pressure Location Rt brachial Position Sitting Pulse 66 Intake Visit Reasons: Diverticulitis Intake Note: Patient referred by Heather Hopkins for diverticulitis. Recent Abd pelvis CT: 05-24-23. Patient c/o: last time suffered from abd pain in May. Constipation controlled with Dulcolax. Colonoscopy: 06-25-23 Registered Nurse Maternal Child Required: No Accompanied by: Self / Same As Patient Allergies penicillin V Allergy (Unknown, Verified 07/25/23 12:58) hives Penicillins [PENICILLINS] Allergy (Unknown, Verified 07/25/23 12:58) HIVES celecoxib [Celebrex] Adverse Reaction (Unknown, Verified 07/25/23 12:58) unknown clonidine Adverse Reaction (Unknown, Verified 07/25/23 12:58) dizziness, N/V sumatriptan [Imitrex] Adverse Reaction (Unknown, Verified 07/25/23 12:58) unknown HPI Comments Details: Patient presents with recurrent multiple episodes of acute diverticulitis. She has had most recent episode in April and May of this year. She almost required hospitalization for the 1st episode because of severity of symptoms. Patient wishes to undergo elective excision of her disease left colon. Past surgical history gallbladder, hysterectomy Patient otherwise tolerating a diet. He is having regular bowel habits. She is on disability. Chart was reviewed and patient evaluated COUNT INCLUDES THE [facility] Medical History History of high cholesterol History of high blood pressure History of COVID-19 Obesity Migraine headache with aura Bipolar disorder Hypertension, essential Ankle pain, right Asthma Environmental allergies Surgical History Hx of colonoscopy History of bone marrow biopsy H/O: hysterectomy Hx of cholecystectomy History of tooth extraction H/O skin graft History of carpal tunnel release Family History Father Anxiety HTN (hypertension) Mother Anxiety Depression HTN (hypertension) Maternal Grandmother High cholesterol HTN (hypertension) Maternal Grandfather Hemochromatosis Stomach cancer Brother No problems noted. Sister No problems noted. Son No problems noted. Daughter No problems noted. Other Mental health disorder Social History Household Members: None Housing: Apartment Are you a primary childcare worker to a significant other at home: No Do you presently have visiting nurse or other home services: No Alcohol intake: current Alcohol intake frequency: holidays/special occasions only Patient Tobacco Use Status: Former Tobacco user e-Cigarette/Vaping Use: Never Used Substance Use Type: Marijuana service: No Current occupational status: disabled Current occupation: rt hand Cognitive needs: No Hearing needs: No Vision needs: Yes Female Reproductive History Menstrual Age of Menarche: 10 Physical Exam Vital Signs: Last Vital Signs Pulse 66 07/25/23 12:56 BP 153/94 H 07/25/23 12:56 BMI result Body Mass Index 37.8 Const Other: Moderately corpulent female Chest Other: Chest breath sounds bilaterally, HS 1 in 2 GI Other: Abdomen corpulent, benign. Multiple scars from prior surgeries. Assessment & Plan Assessment & Plan (1) History of diverticulitis: Comment: 04/19/23, 05/25/23 Code(s): Z87.19 - Personal history of other diseases of the digestive system Category: Surgical Plan: See below (2) Diverticulosis large intestine w/o perforation or abscess w/bleeding: Comment: Reviewed previous colonoscopy 06/2022-severe diverticulosis Code(s): K57.31 - Diverticulosis of large intestine without perforation or abscess with bleeding Category: Surgical Plan: Extensive discussion was had regarding the risks, benefits, alternatives of open sigmoid resection with primary anastomosis. This included but not limited to bleeding, infection, recurrence of diverticular disease, numbness, pain, scarring, diverting ostomy and the patient wished to proceed. All questions answered. Arrangements were made for this. Patient will have bowel prep with oral antibiotics day prior.
[2023-07-25 12:56] VITALS: BP 153/94; PULSE 66; BMI 37.8
== END 2023-07-25 13:09 | disposition home or self-care (01) ==
PROVIDERS: PCP Internal Medicine; Referring Provider Physician Assistant; Visit Provider Surgery
DX: K57.31 Diverticulosis of large intestine without perforation or abscess with bleeding (principal); Z87.19 Personal history of other diseases of the digestive system
CPT/HCPCS: 99204

== ENCOUNTER 2023-08-18 10:04 | Outpatient (REF) | payer OTHER, SELFPAY | END 2023-08-18 10:05 | disposition home or self-care (01) | LOC: HO.MAMMO 10:04 | PROVIDERS: Visit Provider Internal Medicine | DX: Z13.89 Encounter for screening for other disorder (principal) ==

== ENCOUNTER 2023-08-18 11:49 | Inpatient (IN) | payer OTHER, SELFPAY ==
[2023-08-10 13:10] VITALS: BP 164/76; PULSE 86; RESP 16; O2SAT 96; BMI 37.8
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
--- NOTE | 2023-08-17 10:32 | MHC.SHP ---
Pre-Procedural Eval Section A - 24 Hr Update-Section A only Date of Service: 08/17/23 The patient is an INPATIENT: Yes Changes since office visit: No Cold of Flu in the past 2 weeks, No New Medical Problems, No Changes in Medication and No Patient answered all questions Section B - Complete if H&P > 30 days Chief Complaint: Diverticulosis of large intestine,hx of diseases Allergies: Allergies Allergy/AdvReac Type Severity Reaction Status Date / Time Penicillins [PENICILLINS] Allergy Unknown HIVES Verified 08/12/23 09:51 celecoxib [Celebrex] AdvReac Intermediate Hives Verified 08/12/23 09:51 clonidine AdvReac Intermediate hives,dizziness, Verified 08/12/23 09:51 N/V sumatriptan [Imitrex] AdvReac Intermediate Hives Verified 08/12/23 09:51 Plan I have reviewed the history and physical and performed a pertinent physical examination on my patient. No changes have occurred unless specified. Time Spent With Patient Time: Total time managing care of this patient today ____ minutes.
[2023-08-18] VITALS (11 sets, daily range): BP systolic 93–123; BP diastolic 53–83; PULSE 58–94; RESP 16–18; TEMP 36.3–36.6; O2SAT 93–99; BMI 37.9
--- OUTSIDE RECORDS SUMMARY | 2023-08-18 11:54 | XMS_ITS | Continuity of Care Document ---
Author Organization [facility] Address [address], [address] [place] [address]- Care Team Providers Care Pizza Cook Name Role Phone Rogelio GUEVARA, Lee Primary Care Physician [phone] [id number](s): 09/11[facility] - 09/18/21 [facility] [address], [address] [place] [address]- Attending Physician: Irma Spivey MD Referring Physician: Lee Mercado MD Allergies, Adverse Reactions, Alerts Substance Reaction Severity Status penicillins hives Active Medications amiTRIPTYLINE = 50 mg, By Mouth, Daily at bedtime, 0 Refills, Maintenance, 05/15/21 12:02:00 EST, Partial fill upon patient request if the prescription is for a schedule II opioid drug. Start Date: 05/15/21 Status: Ordered Amlodipine = 10 mg, By Mouth, Daily at bedtime, 0 Refills, Maintenance, 05/15/21 12:01:00 EST, Partial fill upon patient request if the prescription is for a schedule II opioid drug. Start Date: 05/15/21 Status: Ordered Breo Ellipta 200 mcg-25 mcg/inh inhalation powder 1 puffs, Inhalation, Daily, 0 Refills, Maintenance, 07/24/21 14:14:00 EDT, Partial fill upon patient request if the prescription is for a schedule II opioid drug. Start Date: 07/24/21 Status: Ordered Cetirizine = 10 mg, By Mouth, Daily at bedtime, 0 Refills, Maintenance, 07/24/21 8:35:00 EDT, Partial fill upon patient request if the prescription is for a schedule II opioid drug. Start Date: 07/24/21 Status: Ordered Colace sodium 100 mg oral capsule 100 mg, 1, capsule, By Mouth, 2 times a day, PRN, # 30 capsule, Refills 0, Tot. Refills 0, Maintenance, for constipation, 07/24/21 9:24:00 EDT, Route to Pharmacy Electronically, [facility][id number], Partial fill upon patient request if the pre... Start Date: 07/24/21 Status: Ordered ibuprofen 800 mg oral tablet 800 mg, 1, tablet, By Mouth, Every 8 hours, # 30 tablet, Refills 0, Tot. Refills 0, Maintenance, 07/24/21 9:23:00 EDT, Route to Pharmacy Electronically, [facility] #[id number], Partial fill uponpatient request if the prescription is for a schedu... Start Date: 07/24/21 Status: Ordered Lamictal XR 200 mg oral tablet, extended release 1 tablet = 200 mg, By Mouth, Daily, 0 Refills, Maintenance Start Date: 01/29/13 Status: Ordered Losartan = 50 mg, By Mouth, Daily, 0 Refills, Maintenance, 05/15/21 12:01:00 EST, Partial fill upon patient request if the prescription is for a schedule II opioid drug. Start Date: 05/15/21 Status: Ordered Propranolol 120 mg, By Mouth, Daily, Maintenance, 01/29/13 18:39:54 EDT Start Date: 01/29/13 Status: Ordered Simvastatin = 20 mg, By Mouth, Daily at bedtime, 0 Refills, Maintenance, 07/24/21 8:35:00 EDT, Partial fill upon patient request if the prescription is for a schedule II opioid drug. Start Date: 07/24/21 Status: Ordered Tylenol 325 mg oral tablet 975 mg, 3, tablet, By Mouth, Every 6 hours, PRN, # 50 tablet, Refills 0, Tot. Refills 0, Maintenance, for pain, 07/24/21 9:23:00 EDT, Route to Pharmacy Electronically, [facility] #[id number], Partial fill upon patient request if the prescription... Start Date: 07/24/21 Status: Ordered Vitamin D3 oral tablet 1 tablet = 10 mcg, By Mouth, Daily, 0 Refills, Maintenance, 07/24/21 14:14:00 EDT, Partial fill upon patient request if the prescription is for a schedule II opioid drug. Start Date: 07/24/21 Status: Ordered Ziprasidone = 60 mg, By Mouth, Daily at bedtime, 0 Refills, Maintenance, 07/24/21 8:35:00 EDT, Partial fill upon patient request if the prescription is for a schedule II opioid drug. Start Date: 07/24/21 Status: Ordered Problem List Condition Effective Dates Status Health Status Inform ant Asthma(Confirmed) Active Bipolar disorder(Confirmed) Active History of hypothyroidism(Confirmed) Active Hypertension(Confirmed) Active Migraine with aura(Confirmed) Active Obese class II(Confirmed) Active Vital Signs Most recent to oldest [Reference Range]: 1 Height 155 cm (09/11/21 9:19 AM) Weight 87.36 kg (09/11/21 9:19 AM) Oxygen Saturation [94-100 %] 98 % (09/11/21 9:19 AM) Pulse Rate [55-90 bpm] 98 bpm *H* (09/11/21 9:19 AM) Body Mass Index [18.5-24.99] 36.36 *>HHI* (09/11/21 9:19 AM) Blood Pressure [90-138/55-84 mm Hg] 120/ 90mm Hg (09/11/21 9:19 AM) Respiratory Rate [16-30 br/min] 24 br/mi n (09/11/21 9:19 AM) Blood pressure sites Arm, left (09/11/21 9:19 AM) Weight Obtained Via Standing scale (09/11/21 9:19 AM)
--- OUTSIDE RECORDS SUMMARY | 2023-08-18 11:54 | XMS_ITS | Continuity of Care Document ---
Author Organization [facility] Address [address], [address] [place] [address]- Care Team Providers Care Community Living Instructor Name Role Phone Rogelio GUEVARA, Asma Primary Care Physician [id number] Date(s): 09/11/21 - 10/11/21 [facility] [address] [place], [place] [address] Attending Physician: Karena Giron Admitting Physician: Karnea Giron Referring Physician: AdmKarena meeks Allergies, Adverse Reactions, Alerts Substance Reaction Severity [...] 07/24/21 9:24:00 EDT, Route to Pharmacy Electronically, [facility] #[id number], Partial fill upon patient request if the pre... Start Date: 07/24/21 Status: Ordered ibuprofen 800 mg oral tablet 800 mg, 1, tablet, By Mouth, Every 8 hours, # 30 tablet, Refills 0, Tot. Refills 0, Maintenance, 07/24/21 9:23:00 EDT, Route to Pharmacy Electronically, [facility] #[id number], Partial fill uponpatient request if the prescription [...] 07/24/21 9:23:00 EDT, Route to Pharmacy Electronically, [facility] #[id number], Partial fill upon patient request if the [...]
--- OUTSIDE RECORDS SUMMARY | 2023-08-18 11:54 | XMS_ITS | Continuity of Care Document ---
Author Organization [facility] Address [address] [place] [address]- Care Team Providers Care Public Housing Manager Name Role Phone Rogelio GUEVARA, Asma Primary Care Physician Encounter [facility] Date(s): 07/28/21 - 07/28/[address] [address]- Discharge Disposition: A-D/C Home Attending Physician: Irma Spivey MD Admitting Physician: Irma Spivey MD Referring Physician: Irma Spivey MD Allergies, Adverse Reactions, Alerts Substance Reaction [...] 07/24/21 9:24:00 EDT, Route to Pharmacy Electronically, [facility] #[id number], Partial fill upon patient request if the pre... Start Date: 07/24/21 Status: Ordered ibuprofen 800 mg oral tablet 800 mg, 1, tablet, By Mouth, Every 8 hours, # 30 tablet, Refills 0, Tot. Refills 0, Maintenance, 07/24/21 9:23:00 EDT, Route to Pharmacy Electronically, [facility] #[id number], Partial fill uponpatient request if the prescription [...] opioid drug. Start Date: 05/15/21 Status: Ordered oxyCODONE 5 mg oral tablet 5 mg, 1, tablet, By Mouth, Every 6 hours, PRN, for 5 days, # 8 tablet, Refills 0, Tot. Refills 0, Acute 07/29/21 9:24:00 EDT, for pain, 07/24/21 9:24:00 EDT, Route to Pharmacy Electronically, [facility] #[id number], Partial fill upon patient requ... Start Date: 07/24/21 Stop Date: 07/29/21 Status: Ordered OxyCODONE IR Tablet 5 mg, Tablet, By Mouth, Every 4 hours, in PACU ONLY, if patient can tolerate PO, PRN for Pain , Mild, Routine, 07/28/21 9:06:00 EDT Start Date: 07/28/21 Stop Date: 08/04/21 Status: Ordered Propranolol 120 mg, By Mouth, [...] 07/24/21 9:23:00 EDT, Route to Pharmacy Electronically, [facility] #[id number], Partial fill upon patient request if the [...] Most recent to oldest [Reference Range]: 1 2 3 Height 155 cm (07/28/21 6:19 AM) 155 cm (07/24/21 2:45 PM) Weight 88.5 kg (07/28/21 6:19 AM) 82.2 kg (07/24/21 2:45 PM) Oxygen Saturation [94-100 %] 95 % (07/28/21 12:45 PM) 98 % (07/28/21 12:30 PM) 98 % (07/28/21 12:15 PM) Pulse Rate [55-90 bpm] 99 bpm *H* (07/28/21 6:19 AM) Body Mass Index [18.5-24.99] 36.84 *>HHI* (07/28/21 6:19 AM) 34.21 *>HHI* (07/24/21 2:45 PM) Blood Pressure [90-138/55-84 mm Hg] 144/93mm Hg *H* (07/28/21 12:45 PM) 145/96mm Hg *H* (07/28/21 12:30 PM) 137/85mm Hg (07/28/21 12:15 PM) Respiratory Rate [16-30 br/min] 12 br/min *L* (07/28/21 12:50 PM) 18 br/min (07/28/21 12:45 PM) 14 br/min *L* (07/28/21 12:30 PM) Temperature [96.8-100.4 DegF] 98.5 DegF (07/28/21 12:45 PM) 97.1 DegF (07/28/21 11:15 AM) 98.2 DegF (07/28/21 6:19 AM) Liters per Minute 5 L/min (07/28/21 12:00 PM) 5 L/min (07/28/21 11:45 AM) 5 L/min (07/28/21 11:30 AM) Mode of Delivery (Oxygen) Room air (07/28/21 12:45 PM) Room air (07/28/21 12:30 PM) Simple face mask (07/28/21 12:00 PM) Blood pressure sites Arm, right (07/28/21 12:30 PM) Arm, right (07/28/21 12:15 PM) Arm, right (07/28/21 12:00 PM) Temperature Route Temporal (07/28/21 12:45 PM) Temporal (07/28/21 11:15 AM) Temporal (07/28/21 6:19 AM) Dry Weight 82.2 kg (07/24/21 2:45 PM) Weight Obtained Via Standing scale (07/28/21 6:19 AM) Patient/family stated (07/24/21 2:45 PM) Dry Weight Obtained Via Patient lift maharaj ging scale (07/24/21 2:45 PM)
--- OUTSIDE RECORDS SUMMARY | 2023-08-18 11:54 | XMS_ITS | Continuity of Care Document ---
Author Organization [facility] Address [address], [address] [place] [address]- Care Team Providers Care Civil Process Server Name Role Phone Rogelio GUEVARA, Lee Primary Care Physician [id number] Date[facility] 08/14/21 - 08/21/21 [facility] [address], [address] [place] [address]- Attending Physician: Irma Spivey MD Referring Physician: [...] 07/24/21 9:24:00 EDT, Route to Pharmacy Electronically, [facility] #[id number], Partial fill upon patient request if the pre... Start Date: 07/24/21 Status: Ordered ibuprofen 800 mg oral tablet 800 mg, 1, tablet, By Mouth, Every 8 hours, # 30 tablet, Refills 0, Tot. Refills 0, Maintenance, 07/24/21 9:23:00 EDT, Route to Pharmacy Electronically, [facility] #[id number], Partial fill uponpatient request if the prescription [...] 07/24/21 9:23:00 EDT, Route to Pharmacy Electronically, [facility] #[id number], Partial fill upon patient request if the [...] with aura(Confirmed) Active Obese class II(Confirmed) Active Procedures Procedure Date Related Diagnosis Body Site Status Laparoscopic total hysterectomy 07/28/21 Completed Vital Signs Most recent to oldest [Reference Range]: 1 Height 155 cm (08/14/21 8:41 AM) Weight 89.45 kg (08/14/21 8:41 AM) Pulse Rate [55-90 bpm] 106 bpm *H* (08/14/21 8:41 AM) Body Mass Index [18.5-24.99] 37.23 *>HHI* (08/14/21 8:41 AM) Blood Pressure [90-138/55-84 mm Hg] 135/ 81mm Hg (08/14/21 8:41 AM) Respiratory Rate [16-30 br/min] 24 br/mi n (08/14/21 8:41 AM) Blood pressure sites Arm, left (08/14/21 8:41 AM) Weight Obtained Via Standing scale (08/14/21 8:41 AM)
--- OUTSIDE RECORDS SUMMARY | 2023-08-18 11:54 | XMS_ITS | Continuity of Care Document ---
[facility] Address [address], [address] [place] [address]- Care Team Providers Care Program Professional Name Role Phone Rogelio GUEVARA, Asma Primary Care Physician Encounter [facility] Date(s): 05/15/21 - 06/14/21 [facility] [address] [place], [place] [address] Attending Physician: Karena Giron Admitting Physician: Karena Giron Referring Physician: AdmtrKarena Allergies, Adverse Reactions, Alerts Substance Reaction Severity Status penicillins Active Medications Acetaminophen 0 Refills, Maintenance Start Date: 01/29/13 Status: Ordered amiTRIPTYLINE By Mouth, Daily at bedtime, 0 Refills, Maintenance, 05/15/21 12:02:00 EST, Partial fill upon patient request if the prescription is for a schedule II opioid drug. Start Date: 05/15/21 Status: Ordered Amlodipine By Mouth, Daily, 0 Refills, Maintenance, 05/15/21 12:01:00 EST, Partial fill upon patient request if the prescription is for a schedule II opioid drug. Start Date: 05/15/21 Status: Ordered Lamictal XR 200 mg oral tablet, extended release 1 tablet = 200 mg, By Mouth, Daily, 0 Refills, Maintenance Start Date: 01/29/13 Status: Ordered Losartan By Mouth, Daily, 0 Refills, Maintenance, 05/15/21 12:01:00 EST, Partial fill upon patient request if the prescription is for a schedule II opioid drug. Start Date: 05/15/21 Status: Ordered Propranolol Maintenance, 01/29/13 18:39:54 Start Date: 01/29/13 Status: Ordered sumatriptan 100 mg oral tablet 1 tablet = 100 mg, By Mouth, Daily, 0 Refills, Maintenance Start Date: 01/29/13 Status: Ordered Zofran ODT 4 mg oral tablet, disintegrating 1 tablet = 4 mg, By Mouth, Every 8 hours, PRN Nausea & Vomiting, # 10 tablet, 0 Refills, Maintenance, Tablet Start Date: 01/30/13 Status: Ordered Zofran ODT 4 mg oral tablet, disintegrating 1 tablet = 4 mg, By Mouth, 3 times a day, # 6 tablet, 0 Refills, Maintenance, DIS Tablet Start Date: 12/12/11 Status: Ordered Problem List Condition Effective Dates Status Health Status Inform ant Asthma(Confirmed) Active Bipolar disorder(Confirmed) Active History of hypothyroidism(Confirmed) Active Hypertension(Confirmed) Active Migraine with aura(Confirmed) Active
--- OUTSIDE RECORDS SUMMARY | 2023-08-18 11:54 | XMS_ITS | Continuity of Care Document ---
Author Organization [facility] Address [address], [address] [place] [address]- Care Team Providers Care Refrigerated National Truck Driver Name Role Phone Rogelio GUEVARA, Asma Primary Care Physician [facility] Date(s): 06/05/21 - 07/05/21 [facility] [address] [place], [place] [address] Allergies, Adverse Reactions, Alerts Substance Reaction Severity [...]
--- OUTSIDE RECORDS SUMMARY | 2023-08-18 11:54 | XMS_ITS | Continuity of Care Document ---
Author Organization [facility] Address [address], [address] [place] [address]- Care Team Providers Care Dough Mixer Name Role Phone Rogelio GUEVARA, Lee Primary Care Physician Encounter [facility] [place] Date(s): 07/24/21 - 07/31/21 [facility] [address], [address] [place] [address]- Attending Physician: Irma Spivey MD Referring Physician: [...] 07/24/21 9:24:00 EDT, Route to Pharmacy Electronically, [facility] #[id number], Partial fill upon patient request if the pre... Start Date: 07/24/21 Status: Ordered ibuprofen 800 mg oral tablet 800 mg, 1, tablet, By Mouth, Every 8 hours, # 30 tablet, Refills 0, Tot. Refills 0, Maintenance, 07/24/21 9:23:00 EDT, Route to Pharmacy Electronically, [facility] #[id number], Partial fill uponpatient request if the prescription [...] 07/24/21 9:23:00 EDT, Route to Pharmacy Electronically, [facility] #[id number], Partial fill upon patient request if the [...] oldest [Reference Range]: 1 Height 155 cm (07/24/21 8:36 AM) Weight 90.5 kg (07/24/21 8:36 AM) Pulse Rate [55-90 bpm] 110 bpm *H* (07/24/21 8:36 AM) Body Mass Index [18.5-24.99] 37.67 *>HHI* (07/24/21 8:36 AM) Blood Pressure [90-138/55-84 mm Hg] 135/ 82mm Hg (07/24/21 8:36 AM) Respiratory Rate [16-30 br/min] 27 br/mi n (07/24/21 8:36 AM) Blood pressure sites Arm, left (07/24/21 8:36 AM) Weight Obtained Via Standing scale (07/24/21 8:36 AM)
--- OUTSIDE RECORDS SUMMARY | 2023-08-18 11:54 | XMS_ITS | Continuity of Care Document ---
Author Organization [facility] ter Address [address] [place] [id number]- Care Team Providers Care Marketing Automation Analyst Name Role Phone Rogelio GUEVARA, Lee Primary Care Physician [phone] [place] [facility] [place] - 03/21/[address] [address]- Encounter Diagnosis Left shoulder pain(Final) - 03/21/22 Discharge Disposition: A-D/C Walkout Attending Physician: Abigail Mortensen DO Admitting Physician: Abigail Mortensen DO Referring Physician: Not on Staff, Referring MD Allergies, Adverse Reactions, Alerts Substance Reaction [...] 07/24/21 9:24:00 EDT, Route to Pharmacy Electronically, [id number], Partial fill upon patient request if the pre... Start Date: 07/24/21 Status: Ordered ibuprofen 200 mg oral tablet 400 mg, 2, tablet, By Mouth, Every 6 hours, PRN, # 120 tablet, Refills 0, Tot. Refills 0, Maintenance, Pain , Mild, 03/21/22 16:43:00 EST, Route to Pharmacy Electronically, [facility] #[id number], Partial fill upon patient request if the prescrip... Start Date: 03/21/22 Status: Ordered ibuprofen 800 mg oral tablet 800 mg, 1, tablet, By Mouth, Every 8 hours, # 30 tablet, Refills 0, Tot. Refills 0, Maintenance, 07/24/21 9:23:00 EDT, Route to Pharmacy Electronically, [facility] #[id number], Partial fill uponpatient request if the prescription is for a schedu... Start Date: 07/24/21 Status: Ordered Lamictal XR 200 mg oral tablet, extended release 1 tablet = 200 mg, By Mouth, Daily, 0 Refills, Maintenance Start Date: 01/29/13 Status: Ordered lidocaine 4% topical film 1 patch, Topically, Daily, PRN Pain , Moderate, # 6 patch, 0 Refills, Maintenance, 03/21/22 16:44:00 EST, Film, [facility] #[id number], Partial fill upon patient request if the prescription is for a schedule II opioid drug., 1 patch Topically Rayne... Start Date: 03/21/22 Status: Ordered Losartan = 50 mg, By [...] 07/24/21 Status: Ordered Tylenol 325 mg oral capsule 2 capsule = 650 mg, By Mouth, 4 times a day, PRN as needed for pain, # 90 capsule, 0 Refills, Maintenance, 03/21/22 16:42:00 EST, Capsule, [facility] #[id number], Partial fill upon patient request if the prescription is for a schedule II opioid d... Start Date: 03/21/22 Status: Ordered Tylenol 325 mg oral tablet 975 mg, 3, tablet, By Mouth, Every 6 hours, PRN, # 50 tablet, Refills 0, Tot. Refills 0, Maintenance, for pain, 07/24/21 9:23:00 EDT, Route to Pharmacy Electronically, [facility] #[id number], Partial fill upon patient request if the [...] Date: 07/24/21 Status: Ordered Problem List Condition Confirmation Course Effective Dates Status H ealth Status Informant Asthma Confirmed Active Bipolar disorder Confirmed Active History of hypothyroidism Confirmed Active Hypertension Confirmed Active Migraine with aura Confirmed Active Obese class II Confirmed Active Severe obesity (BMI 35.0-39.9) with comorbidity Confirmed Active Results Radiology Reports * Exam Date Time Procedure Performing Provider Status 03/21/22 7:28 AM Shoulder Min 2 Views Left Martinez , Jeremy jasmine; Auth (Verified) Notes: (Shoulder Min 2 Views Left) Reason For Exam: with Pain;Trauma RESULT: Shoulder Min 2 Views Left Shoulder Min 2 Views Left Hx of Present Illness: L shoulder pain; Reason: Trauma; with Pain; Clinical Question(s): Fracture; Special Instructions: This is a protocol film and radiologist should call any findings to the ChargeNurse COMPARISON: Chest x-ray 01/11/2014 FINDINGS: No fracture or dislocation. Mild glenohumeral joint space narrowing and marginal osteophyte formation. Normal acromioclavicular joint and portions of the clavicle included on the exam. No calcification of the rotator cuff. Mild degenerative changes involve the visualized thoracic spine. IMPRESSION: No acute osseous abnormality. WSN: [id number] Ordering Physician: Jovan Serrano Dictated By: Rodney Knight MD Dictated Date/Time: 03/21/22 9:40 am Reviewed By: Rodney Knight MD Signed By: Rodney Knight MD Signed Date/Time: 03/21/22 9:40 am Transcribed By: ROBINA Transcribed Date/Time: 03/21/22 9:39 am Vital Signs Most recent to oldest [Reference Range]: 1 2 3 Height 155 cm (03/21/22 5:00 PM) 155 cm (03/21/22 7:03 AM) Weight 88 kg (03/21/22 5:00 PM) 88 kg (03/21/22 7:03 AM) Oxygen Saturation [94-100 %] 94 % (03/21/22 5:00 PM) 100 % (03/21/22 2:40 PM) 100 % (03/21/22 12:49 PM) Pulse Rate [55-90 bpm] 106 bpm *H* (03/21/22 5:00 PM) 99 bpm *H* (03/21/22 2:40 PM) 110 bpm *H* (03/21/22 12:49 PM) Body Mass Index [18.5-24.99 kg/m2] 36.63 kg/m2 *>HHI* (03/21/22 5:00 PM) Blood Pressure [90-138/55-84 mm Hg] 136/98mm Hg (03/21/22 5:00 PM) 129/97mm Hg (03/21/22 2:40 PM) 134/103mm Hg (03/21/22 12:49 PM) Respiratory Rate [16-30 br/min] 20 br/min (03/21/22 5:00 PM) 18 br/min (03/21/22 2:40 PM) 18 br/min (03/21/22 10:31 AM) Temperature [96.8-100.4 DegF] 99.2 DegF (03/21/22 5:00 PM) 98.7 DegF (03/21/22 2:40 PM) 98.5 DegF (03/21/22 12:49 PM) Mode of Delivery (Oxygen) Room air (03/21/22 5:00 PM) Room air (03/21/22 2:40 PM) Room air (03/21/22 12:49 PM) Blood pressure sites Arm, right (03/21/22 5:00 PM) Arm, left (03/21/22 2:40 PM) Arm, left (03/21/22 12:49 PM) Temperature Route Oral (03/21/22 5:00 PM) Oral (03/21/22 2:40 PM) Axillary (03/21/22 12:49 PM) Dry Weight 88 kg (03/21/22 5:00 PM) 88 kg (03/21/22 7:03 AM) EKG study * Event Display: ECG 12-Lead Authored Date: [id number] Please click on pdf link to open report * Event Display: ECG 12-Lead Authored Date: [id number] Ventricular Rate: 94 BPM Atrial Rate: 94 BPM P-R Interval: 158 ms QRS Duration: 92 ms Q-T Interval: 320 ms QTC Calculation(Bazett): 400 ms P [place]: 44 degrees R [place]: 29 degrees T [place]: 55 degrees Normal sinus rhythm Nonspecific T wave abnormality Abnormal ECG When compared with ECG of 24-JUL-2021 09:29, No significant change was found Confirmed by ADRIANE WINSLOW MD ([id number]) on 03/21/2022 2:59:17 PM [place]: ADRIANE WINSLOW MD Note * Abigail Mortensen DO: PERFORM Event Display: Patient Education Leaflets Authored Date: [id number] Shoulder Pain with Uncertain Cause ?? [id number] Shoulder Pain with Uncertain Cause Shoulder pain can have many causes. Pain often comes from the structures that surround the shoulderjoint. These are the joint capsule, ligaments, tendons, muscles, and bursa. Pain can also come fromcartilage in the joint. Cartilage can become worn out or injured. It???s important to know what???scausing your pain so the healthcare provider can use the correct treatment. But sometimes, it???s difficult to find the exact cause of shoulder pain. You may need to see a specialist (orthopedist). You may also need special tests such as a CT scan or MRI. The provider may need to use special tools to look inside the joint (arthroscopy). Shoulder pain can be treated with a sling or a device that keeps your shoulder from moving. You cantake an anti-inflammatory medicine such as ibuprofen to ease pain. You may need to do special shoulder exercises. Follow up with a specialist if the pain is severe or doesn???t go away after a few weeks. Home care Follow these tips when caring for yourself at home: ??? If a sling was given to you, leave it in place for the time advised by your healthcare provider. If you aren???t sure how long to wear it, ask for advice. If the sling becomes loose, adjust it so that your forearm is level with the ground. Your shoulder should feel well supported. ??? Put an ice pack on the injured area for 20 minutes every 1 to 2 hours the first day. You can make your own ice pack by putting ice cubes in a plastic bag. Wrap the bag in a thin towel. Continue with ice packs 3 to 4 times a day for the next 2 days. Then usethe pack as needed to ease pain and swelling. ??? You may use acetaminophen or ibuprofen to controlpain, unless another pain medicine was prescribed.??If you have chronic liver or kidney disease, talk with your healthcare provider before using these medicines. Also talk with your provider if you???ve ever had a stomach ulcer or digestive bleeding. ??? Shoulder pain may seem worse at night, when there is less to distract you from the pain. If you sleep on your side, try to keep weight off your painful shoulder. Propping pillows behind you may stop you from rolling over onto that shoulder during sleep.? Shoulder and elbow joints can become stiff if left in a sling for too long. You may be instructed to start range of motion exercises about 7 to 10 days after the injury. Talk with yourprovider to find out what type of exercises to do and how soon to start. ??? You can take the slingoff to shower or bathe. ?? Follow-up care Follow up with your healthcare provider if you don???t start to get better in the next 5 days. ?? When to seek medical advice Call your healthcare provider right away??if any of these occur: ??? Pain or swelling gets worse??or continues for more than a few days ??? Your hand or fingers become cold, blue, numb, or tingly ???Large amount of bruising on your shoulder or upper arm ??? Trouble moving your hand or fingers ??? Weakness in your hand or fingers ??? Your shoulder becomes stiff ??? It feels like your shoulder is popping out ??? You are less able to do your daily activities ?? Last Reviewed Date: 2021 ?? [id number] [employer]. All rights reserved. This information is not intended as a substitute for professional medical care. Always follow your healthcare professional's instructions. ?? XR Shoulder - left GE 2 Views * BHSPowerscribe , CIS S: TRANSCRIBE Rodnye Knight MD: VERIFY Event Display: Result: Authored Date: [id number] Shoulder Min 2 Views Left Hx of Present Illness: L shoulder pain; Reason: Trauma; with Pain; Clinical Question(s): Fracture; Special Instructions: This is a protocol film and radiologist should call any findings to the ChargeNurse COMPARISON: Chest x-ray 01/11/2014 FINDINGS: No fracture or dislocation. Mild glenohumeral joint space narrowing and marginal osteophyte formation. Normal acromioclavicular joint and portions of the clavicle included on the exam. No calcification of the rotator cuff. Mild degenerative changes involve the visualized thoracic spine. IMPRESSION: No acute osseous abnormality. WSN: [id number] Ordering Physician: Jovan Serrano Dictated By: Rodney Knight MD Dictated Date/Time: 03/21/22 9:40 am Reviewed By: Rodney Knight MD Signed By: Rodney Knight MD Signed Date/Time: 03/21/22 9:40 am Transcribed By: ROBINA Transcribed Date/Time: 03/21/22 9:39 am Patient Care team information Care Team Personnel Name: Lee Mercado MD Position: [facility] Physician (General Medicine) Member Role: PCP Address: Address: [address] [place] [id number]- Name: Maida MARTI, Yandy Canales Position: [facility] ED RN W/OE and Tasks Member Role: Patient Care Provider Name: Abigail Mortensen DO Position: [facility] Resident Member Role: Admitting Physician Address: Address: [address] [place] [address] [place] [address]- Care Team Related Persons Name: KAVEH TOM Address: [place] [address]
--- OUTSIDE RECORDS SUMMARY | 2023-08-18 11:54 | XMS_ITS | Continuity of Care Document ---
[facility] Address [address] [place] [address]- Care Team Providers Care Food Concession Manager Name Role Phone Rogelio GUEVARA, Asma Primary Care Physician [place] [facility] [place] - 05/22/[facility] [address] [place], [place] [address] Attending Physician: Irma Spivey MD Referring Physician: Richard Vidal MD Allergies, Adverse Reactions, Alerts Substance Reaction [...] Active Hypertension(Confirmed) Active Migraine with aura(Confirmed) Active Procedures Procedure Date Related Diagnosis Body Site Status Carpal tunnel release Com pleted Cholecystectomy Completed Tooth extraction Complete d Vital Signs Most recent to oldest [Reference Range]: 1 Height 155 cm (05/15/21 12:02 PM)
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
[2023-08-18] MEDS: Lactated Ringers 1,000 ML 100 ML IVCONT ×2 (12:17→23:54)
--- NOTE | 2023-08-18 16:02 | W.PM.OPN ---
Operative Note Operative Note Date of Service: 08/18/23 Narrative: Preoperative diagnosis: [] Recurrent symptomatic sigmoid diverticulitis Postop diagnosis: [] The same Procedure [] exploratory laparotomy, enterolysis, sigmoid resection, colorectal trans anal anastomosis, proctoscopy, diverting loop ileostomy Surgeon: [] Nik Bus Transportation Manager: [] Donnie Type of Anesthesia: [] General Indication for surgery: [] Very corpulent abdomen. Marked sigmoid to pelvic and lateral sidewall adhesions secondary to chronic recurrent diverticulitis episodes. Pelvic small-bowel adhesions most likely secondary to the patient's prior hysterectomy Findings: [] Patient brought to the operating room, placed on operative table in supine position, after an adequate level of general anesthesia was induced, and under sterile technique Ramirez catheter was placed, the patient was placed in lithotomy position and the abdomen and perineum were prepped and draped in usual sterile fashion. Using an infraumbilical lower midline incision, this carried down through skin, subcutaneous tissue, and linea alba. Posterior fascia and peritoneum were opened and extended along the length of the incision using Bovie. Very deep pannus. Packs and retractors were placed to enhance exposure. Findings were as noted above. Small bowel adhesions were initially taken down and packed in the upper abdomen. Very marked cicatrization and scarring of the sigmoid colon to the pelvis and lateral sidewall were taken down using combination of blunt, sharp, and Bovie dissection. Once adequately mobilized, the left colon/sigmoid colon junction was transected using ABDOULAYE stapler. Next pelvic dissection was continued down to the rectosigmoid junction with the mesentery of the sigmoid colon sequentially taken down using double firing of ligature device and 0 silk suture ligatures. At what was thought to be the rectosigmoid junction, Sigmoid colon was transected using ABDOULAYE stapler. This was extended more distally using contour stapling device to remove all the disease sigmoid colon. Proximal colon had pursestring suture placed and was sequentially dilated and a 25 anvil placed into this and pursestring suture secured.. Proximal colon was well perfused and reached the pelvis with no tension. Trans anal placement of the EEA stapler was then undertaken and slowly advanced and uneventfully connected to the anvil with 2 complete donuts obtained after firing. Abdominal cavity was filled with saline and proximal left colon digitally occluded with proctoscopy performed with a very minimal air extravasation demonstrated. Because of this, it was decided to protect the anastomosis with a diverting loop ileostomy. Distal ileum was identified and was brought out the right lower quadrant muscle-splitting incision for a loop ileostomy. An ostomy/shira Bar was placed underneath this. Abdominal cavity was then very copiously irrigated again and secured hemostasis. Through a separate stab wound incision in the left lower quadrant, JAQUELINE drain was left in the pelvis and secured to the skin using 2-0 nylon. Abdominal wound was closed using mass closure fascia using looped 1. PDS. Interrupted inverted dermal 3-0 Vicryl sutures followed by Steri-Strips and sterile dressings were applied. Wound was infiltrated 0.5% Marcaine at completion. Transverse incision/enterotomy was made over the loop of the ostomy and partially matured using interrupted 3-0 Vicryl sutures. Ostomy was pink and viable at completion. Ostomy appliance was uneventfully placed. Sponge, needle, and instrument counts were reported correct. Patient tolerated procedure well and emerged from anesthesia stable condition. EBL minimal
[2023-08-18] MEDS: HYDROmorphone HCl 0.5 MG/0.5 ML SYRINGE IVPUSH ×3 (16:20→23:51)
[2023-08-18] MEDS: Ketorolac Tromethamine 30 MG/ML VIAL 15 MG IVPUSH (16:25)
[2023-08-18] MEDS: 0.9 % Sodium Chloride Flush 3 ML SYRINGE IVFLUSH ×2 (17:50→20:14)
[2023-08-18] MEDS: ondansetron HCL 4 MG/2 ML VIAL IVPUSH (17:51)
--- NOTE | 2023-08-18 17:53 | PHA.MEDREC ---
Pharmacy Consult ? Medication Reconciliation Pharmacy has reviewed the medication reconciliation completed by nursing. Spoke with patient and confirmed medications that were in question.
[2023-08-18] MEDS: Acetaminophen 1,000 MG/100 ML PIGGYBACK 400 MG IV (20:12)
[2023-08-18] MEDS: Amitriptyline HCl 50 MG TABLET PO (20:13)
[2023-08-18] MEDS: hydrOXYzine HCL 25 MG TABLET PO (20:13)
[2023-08-19] MEDS: Acetaminophen 1,000 MG/100 ML PIGGYBACK 100 MG IV (01:03)
[2023-08-19 03:38] VITALS: BP 119/71; PULSE 65; RESP 16; TEMP 36.1; O2SAT 96
[2023-08-19 06:44] LABS: MANUAL DIFF FLAG NO
[2023-08-19 06:57] LABS: Basophils Absolute Auto 0.1 X10*3/uL (0.0-0.2); Basophils Percent Auto 0.4 % (0-2); Eosinophils Absolute Auto 0.2 X10*3/uL (0.0-0.4); Eosinophils Percent Auto 1.6 % (0-4); Hematocrit 43.7 % (37.0-47.0); Hemoglobin 14.6 g/dl (12.0-16.0); Imm Gran Abs Auto 0.06 X10*3/uL (0.00-0.03); Imm Gran Pct Auto 0.4 % (0.0-0.4); Lymphocytes Absolute Auto 2.2 X10*3/uL (1.2-4.9); Lymphocytes Percent Auto 16.3 % (20-40); Mean Corpuscular HGB Conc 33.4 g/dl (31.0-35.0); Mean Corpuscular Hemoglobin 31.5 pg (27.0-33.0); Mean Corpuscular Volume 94.2 fL (80.0-98.0); Mean Platelet Volume 10.5 fL (9.4-12.3); Monocytes Absolute Auto 1.1 X10*3/uL (0.1-1.2); Monocytes Percent Auto 8.2 % (2-11); Neutrophils Percent Auto 73.1 % (45-73); Platelet Count 396 X10*3/uL (160-400); Red Blood Count 4.64 X10*6/uL (4.20-5.50); Red Cell Distribution Width 14.3 % (11.0-16.0); White Blood Count 13.7 X10*3/uL (4.8-10.8)
[2023-08-19 07:28] LABS: Anion Gap 12 (12-20); Blood Urea Nitrogen 26 mg/dL (9-16); Carbon Dioxide 28 mmol/L (22-29); Chloride 100 mmol/L (96-108); Creatinine Clr Calc Pharmacy 54.4; Estimated Glomerular Filt Rate 45; Glucose Fasting 112 mg/dL (60-99); Potassium 3.2 mmol/L (3.3-5.1); Sodium 137 mmol/L (135-145)
[2023-08-19] MEDS: HYDROmorphone HCl 0.5 MG/0.5 ML SYRINGE IVPUSH ×2 (07:36→19:48)
[2023-08-19 08:00] VITALS: BP 126/72; PULSE 70; RESP 16; TEMP 36.1; O2SAT 94
[2023-08-19] MEDS: Potassium Chloride Packet 20 MEQ PACKET 40 MEQ PO (08:22)
[2023-08-19] MEDS: hydrOXYzine HCL 25 MG TABLET PO ×3 (08:22→19:47)
[2023-08-19] MEDS: Levothyroxine Sodium 25 MCG TABLET PO (08:23)
[2023-08-19] MEDS: atenoloL 100 MG TABLET PO (08:23)
[2023-08-19] MEDS: hydroCHLOROthiazide 25 MG TABLET PO (08:23)
[2023-08-19] MEDS: Atorvastatin Calcium 10 MG TABLET PO (08:23)
[2023-08-19] MEDS: Losartan Potassium 50 MG TABLET 100 MG PO (08:23)
[2023-08-19] MEDS: amLODIPine Besylate 10 MG TABLET PO (08:23)
[2023-08-19] MEDS: lamoTRIgine 100 MG TABLET 300 MG PO (08:24)
[2023-08-19] MEDS: Acetaminophen 1,000 MG/100 ML PIGGYBACK 400 MG IV ×3 (08:24→19:47)
--- NOTE | 2023-08-19 08:45 | P.PNGS_ITS ---
Subjective Subjective Date of Service: 08/19/23 Interval history: Had some nausea yesterday but resolved. Tolerating clear liquids. Having some gas and incisional pain. Has not been OOB yet. Physical Exam 2 Vital Signs: Vital Signs: Last Vital Signs Temp 96.9 F 08/19/23 08:00 Pulse 70 08/19/23 08:00 Resp 16 08/19/23 08:00 BP 126/72 08/19/23 08:00 Pulse Ox 94 08/19/23 08:00 O2 Del Method Room Air 08/19/23 08:00 O2 Flow Rate 2 08/19/23 03:38 BMI result Body Mass Index 37.9 Const: General: comfortable, no acute distress and alert O rientation/consciousness: patient oriented x3 Resp: Effort & Inspection: normal respiratory effort GI: Other: ileostomy slightly dusky appearing but good bilious output JAQUELINE moderate sanguineous Inspection: Yes distended (mild) and Yes incision (dressing c/d/i) P alpation (GI): Soft to palpation, Tenderness to palpation present (GI) (mild incisional) and no guarding Skin: General skin exam: no rashes or lesions noted Neuro: General: patient oriented x3 Objective Data Active Medications Albuterol Sulfate (Albuterol Sulfate 90 Mcg 8 Gm Inhaler) 2 puff INHALE Q6H PRN PRN Reason: Shortness Of Breath Or Wheezing Amitriptyline HCl (Amitriptyline Hcl 50 Mg Tablet) 50 mg PO BEDTIME [facility] Last Admin: 08/18/23 20:13 Dose: 50 mg Documented By: AMOL Amlodipine Besylate (Amlodipine Besylate 10 Mg Tablet) 10 mg PO DAILY [facility]; Protocol Last Admin: 08/19/23 08:23 Dose: 10 mg Documented By: STAN Atenolol (Atenolol 100 Mg Tablet) 100 mg PO DAILY [facility]; Protocol Last Admin: 08/19/23 08:23 Dose: 100 mg Documented By: STAN Atorvastatin Calcium (Atorvastatin Calcium 10 Mg Tablet) 10 mg PO DAILY [facility] Last Admin: 08/19/23 08:23 Dose: 10 mg Documented By: STAN Hydrochlorothiazide (Hydrochlorothiazide 25 Mg Tablet) 25 mg PO DAILY [facility] Last Admin: 08/19/23 08:23 Dose: 25 mg Documented By: STAN Hydromorphone HCl (Hydromorphone Hcl 0.5 Mg/0.5 Ml Syringe) 0.5 mg IVPUSH Q4H PRN; Protocol PRN Reason: Pain, Severe (Pain Scale 7-10) Last Admin: 08/19/23 07:36 Dose: 0.5 mg Documented By: STAN Hydroxyzine HCl (Hydroxyzine Hcl 25 Mg Tablet) 25 mg PO TID [facility] Last Admin: 08/19/23 08:22 Dose: 25 mg Documented By: STAN Lactated Ringer's (Lr) 1,000 mls @ 100 mls/hr IVCONT .Q10H [facility] Last Admin: 08/18/23 23:54 Dose: 100 mls/hr Documented By: COLASR Acetaminophen (Ofirmev) 1,000 mg in 100 mls @ 400 mls/hr IV Q6H [facility] Last Admin: 08/19/23 08:24 Dose: 400 mls/hr Documented By: STAN Lamotrigine (Lamotrigine 100 Mg Tablet) 300 mg PO DAILY [facility] Last Admin: 08/19/23 08:24 Dose: 300 mg Documented By: STAN Levothyroxine Sodium (Levothyroxine Sodium 25 Mcg Tablet) 25 mcg PO DAILY [facility] Last Admin: 08/19/23 08:23 Dose: 25 mcg Documented By: STAN Losartan Potassium (Losartan Potassium 50 Mg Tablet) 100 mg PO DAILY [facility]; Protocol Last Admin: 08/19/23 08:23 Dose: 100 mg Documented By: STAN Melatonin (Melatonin 3 Mg Tablet) 9 mg PO BEDTIME PRN PRN Reason: Insomnia Ondansetron HCl (Ondansetron Hcl 4 Mg/2 Ml Vial) 4 mg IVPUSH Q6H PRN PRN Reason: Nausea and Vomiting Last Admin: 08/18/23 17:51 Dose: 4 mg Documented By: STAN Oxycodone HCl (Oxycodone Hcl Immed Release 5 Mg Tablet) 5 mg PO Q4H PRN PRN Reason: Pain, Moderate(Pain Scale 4-6) Sodium Chloride (0.9 % Sodium Chloride Flush 3 Ml Syringe) 3 ml IVFLUSH QSHIFT [facility] Last Admin: 08/19/23 08:18 Dose: Not Given Documented By: STAN Non-Admin Reason: IV Running Ziprasidone (Ziprasidone 60 Mg Capsule) 120 mg PO DAILY@1700 [facility] Labs 08/19/23 05:52 08/19/23 05:52 Labs: Laboratory Results - last 24 hr 08/19/23 05:52 MCV 94.2 MCH 31.5 MCHC 33.4 RDW 14.3 Plt Count 396 MPV 10.5 Immature Gran % (Auto) 0.4 Neut % (Auto) 73.1 H Lymph % (Auto) 16.3 L [place] % (Auto) 8.2 Eos % (Auto) 1.6 Baso % (Auto) 0.4 Lymph # (Auto) 2.2 [place] # (Auto) 1.1 Eos # (Auto) 0.2 Baso # (Auto) 0.1 Abs Immat Gran (auto) 0.06 H Absolute Neuts (auto) 10.0 H Absolute Nucleated RBC 0.000 Nucleated RBC % (auto) 0.0 Anion Gap 12 Estim Creat Clear Calc 54.4 Estimated GFR 45 Fasting Glucose 112 H Calcium 8.0 L D Procedures Date of Service Date of Service: 08/19/23 Progress Note: A&P Assessment and plan (1) History of diverticulitis: Status: Acute Plan POD #1 s/p exploratory laparotomy, enterolysis, sigmoid resection, colorectal trans anal anastomosis, proctoscopy, diverting loop ileostomy. Doing well post op. VSS. ABd exam benign with clean/intact dressing. Ostomy slightly dusky but with bilious output. Will cont clear liquids for now. Encouraged OOB/ambulation and IS use. Dc rousseau. Dec IVF. Cont pain control. Ostomy education. Time Spent With Patient Time: Total time managing care of this patient today ____ minutes. Quality Stroke Does the patient have a stroke diagnosis?: No VTE Prior VTE?: No VTE Risk Level:: Surgical - high VTE Device Contraindication: N/A - Device Ordered VTE Drug Contraindication: N/A - Med Ordered
[2023-08-19] MEDS: Lactated Ringers 1,000 ML 60 ML IVCONT ×2 (09:31→19:49)
[2023-08-19] MEDS: Heparin Sodium,Porcine 5,000 UNIT/ML VIAL 5000 UNIT SUBCUT ×2 (10:22→17:30)
--- NOTE | 2023-08-19 10:48 | MHC.CM.PN ---
PT LIVES ALONE ANKIT BE STAYING WITH MOTHER WHEN DCD HAS OWN RIDE
--- NOTE | 2023-08-19 11:57 | HO.POSTANES ---
Post Anesthesia Evaluation Post Anesthesia Evaluation Date of Service: 08/19/23 Vital Signs: Vital Signs Temp Pulse Resp BP Pulse Ox O2 Del Method O2 Flow Rate 08/19/23 08:00 96.9 F 70 16 126/72 94 Room Air 08/19/23 03:38 96.9 F 65 16 119/71 96 Nasal Cannula 2 Anesthesia: General Endotracheal-GETA Mental Status: Awake Pain Control: Satisfactory Nausea/Vomiting: None Hydration: Adequate Anesthesia-Related Issues: No Anes. Related Issues
[2023-08-19] MEDS: oxyCODONE HCl Immed Release 5 MG TABLET PO (13:44)
[2023-08-19 15:22] VITALS: BP 114/58; PULSE 73; RESP 18; TEMP 36; O2SAT 96
[2023-08-19] MEDS: Ziprasidone 60 MG CAPSULE 120 MG PO (17:29)
[2023-08-19 19:41] VITALS: BP 124/61; PULSE 73; RESP 16; TEMP 36.3; O2SAT 94
[2023-08-19] MEDS: Melatonin 3 MG TABLET 9 MG PO (19:47)
[2023-08-19] MEDS: Amitriptyline HCl 50 MG TABLET PO (19:47)
[2023-08-20] MEDS: Acetaminophen 1,000 MG/100 ML PIGGYBACK 400 MG IV ×4 (00:43→20:01)
[2023-08-20] MEDS: Heparin Sodium,Porcine 5,000 UNIT/ML VIAL 5000 UNIT SUBCUT ×3 (00:43→18:03)
[2023-08-20] MEDS: HYDROmorphone HCl 0.5 MG/0.5 ML SYRINGE IVPUSH ×3 (00:44→20:01)
[2023-08-20 03:57] VITALS: BP 107/56; PULSE 61; RESP 16; TEMP 36.1; O2SAT 94
[2023-08-20 07:36] VITALS: BP 102/62; PULSE 70; RESP 14; TEMP 36.1; O2SAT 94
--- NOTE | 2023-08-20 07:45 | P.PNGS_ITS ---
Subjective Subjective Date of Service: 08/20/23 Interval history: Feels improved today with decreased abdominal pain. Ostomy with liquid bilious output. JAQUELINE with serosang output. Eating without nausea or vomiting. Physical Exam 2 Vital Signs: Vital Signs: Last Vital Signs Temp 97.0 F 08/20/23 07:36 Pulse 70 08/20/23 07:36 Resp 14 08/20/23 07:36 BP 102/62 08/20/23 07:36 Pulse Ox 94 08/20/23 07:36 O2 Del Method Room Air 08/20/23 07:36 O2 Flow Rate 2 08/19/23 03:38 BMI result Body Mass Index 37.9 Const: General: comfortable Nutritional Appearance: well nourished Resp: Effort & Inspection: normal respiratory effort GI: Other: ostomy functioning well; wound clean and intact; JAQUELINE with serosang output. Objective Data Active Medications Albuterol Sulfate (Albuterol Sulfate 90 Mcg 8 Gm Inhaler) 2 puff INHALE Q6H PRN PRN Reason: Shortness Of Breath Or Wheezing Amitriptyline HCl (Amitriptyline Hcl 50 Mg Tablet) 50 mg PO BEDTIME [facility] Last Admin: 08/19/23 19:47 Dose: 50 mg Documented By: JAYDA Amlodipine Besylate (Amlodipine Besylate 10 Mg Tablet) 10 mg PO DAILY [facility]; Protocol Last Admin: 08/19/23 08:23 Dose: 10 mg Documented By: STAN Atenolol (Atenolol 100 Mg Tablet) 100 mg PO DAILY [facility]; Protocol Last Admin: 08/19/23 08:23 Dose: 100 mg Documented By: STAN Atorvastatin Calcium (Atorvastatin Calcium 10 Mg Tablet) 10 mg PO DAILY [facility] Last Admin: 08/19/23 08:23 Dose: 10 mg Documented By: STAN Heparin Sodium (Porcine) (Heparin Sodium,Porcine 5,000 Unit/Ml Vial) 5,000 unit SUBCUT Q8H [facility] Last Admin: 08/20/23 00:43 Dose: 5,000 unit Documented By: JAYDA Hydrochlorothiazide (Hydrochlorothiazide 25 Mg Tablet) 25 mg PO DAILY [facility] Last Admin: 08/19/23 08:23 Dose: 25 mg Documented By: STAN Hydromorphone HCl (Hydromorphone Hcl 0.5 Mg/0.5 Ml Syringe) 0.5 mg IVPUSH Q4H PRN; Protocol PRN Reason: Pain, Severe (Pain Scale 7-10) Last Admin: 08/20/23 00:44 Dose: 0.5 mg Documented By: JAYDA Hydroxyzine HCl (Hydroxyzine Hcl 25 Mg Tablet) 25 mg PO TID [facility] Last Admin: 08/19/23 19:47 Dose: 25 mg Documented By: JAYDA Lactated Ringer's (Lr) 1,000 mls @ 60 mls/hr IVCONT .[id number] [facility] Last Admin: 08/19/23 19:49 Dose: 60 mls/hr Documented By: JAYDA Acetaminophen (Ofirmev) 1,000 mg in 100 mls @ 400 mls/hr IV Q6H [facility] Last Infusion: 08/20/23 01:00 Dose: Infused Documented By: JAYDA Lamotrigine (Lamotrigine 100 Mg Tablet) 300 mg PO DAILY [facility] Last Admin: 08/19/23 08:24 Dose: 300 mg Documented By: STAN Levothyroxine Sodium (Levothyroxine Sodium 25 Mcg Tablet) 25 mcg PO DAILY [facility] Last Admin: 08/19/23 08:23 Dose: 25 mcg Documented By: STAN Losartan Potassium (Losartan Potassium 50 Mg Tablet) 100 mg PO DAILY [facility]; Protocol Last Admin: 08/19/23 08:23 Dose: 100 mg Documented By: STAN Melatonin (Melatonin 3 Mg Tablet) 9 mg PO BEDTIME PRN PRN Reason: Insomnia Last Admin: 08/19/23 19:47 Dose: 9 mg Documented By: JAYDA Ondansetron HCl (Ondansetron Hcl 4 Mg/2 Ml Vial) 4 mg IVPUSH Q6H PRN PRN Reason: Nausea and Vomiting Last Admin: 08/18/23 17:51 Dose: 4 mg Documented By: STAN Oxycodone HCl (Oxycodone Hcl Immed Release 5 Mg Tablet) 5 mg PO Q4H PRN PRN Reason: Pain, Moderate(Pain Scale 4-6) Last Admin: 08/19/23 13:44 Dose: 5 mg Documented By: STAN Sodium Chloride (0.9 % Sodium Chloride Flush 3 Ml Syringe) 3 ml IVFLUSH QSHIFT [facility] Last Admin: 08/19/23 21:04 Dose: Not Given Documented By: JAYDA Non-Admin Reason: IV Running Ziprasidone (Ziprasidone 60 Mg Capsule) 120 mg PO DAILY@1700 [facility] Last Admin: 08/19/23 17:29 Dose: 120 mg Documented By: STAN Labs 08/19/23 05:52 08/19/23 05:52 Procedures Date of Service Date of Service: 08/20/23 Progress Note: A&P Assessment and plan (1) History of diverticulitis: Status: Acute Plan POD #2 s/p exploratory laparotomy, enterolysis, sigmoid resection, colorectal trans anal anastomosis, proctoscopy, diverting loop ileostomy. Doing well post op. VSS. ABd exam benign with clean/intact dressing. Ostomy producing liquid stool. Advance to a regular diet. Encouraged OOB/ambulation and IS use. Dc rousseau. Cont pain control. Ostomy education. D/C planning. Time Spent With Patient Time: Total time managing care of this patient today ____ minutes. Quality Stroke Does the patient have a stroke diagnosis?: No VTE Prior VTE?: No VTE Risk Level:: Surgical - high VTE Device Contraindication: N/A - Device Ordered VTE Drug Contraindication: N/A - Med Ordered
[2023-08-20] MEDS: Atorvastatin Calcium 10 MG TABLET PO (08:18)
[2023-08-20] MEDS: Levothyroxine Sodium 25 MCG TABLET PO (08:19)
[2023-08-20] MEDS: atenoloL 100 MG TABLET PO (08:19)
[2023-08-20] MEDS: Losartan Potassium 50 MG TABLET 100 MG PO (08:19)
[2023-08-20] MEDS: lamoTRIgine 100 MG TABLET 300 MG PO (08:19)
[2023-08-20] MEDS: amLODIPine Besylate 10 MG TABLET PO (08:19)
[2023-08-20] MEDS: hydrOXYzine HCL 25 MG TABLET PO ×3 (08:19→20:02)
[2023-08-20] MEDS: hydroCHLOROthiazide 25 MG TABLET PO (08:19)
[2023-08-20 11:17] VITALS: TEMP 36.7
[2023-08-20] MEDS: 0.9 % Sodium Chloride Flush 3 ML SYRINGE IVFLUSH ×2 (14:33→20:36)
[2023-08-20 15:09] VITALS: BP 106/55; PULSE 63; RESP 16; TEMP 36.9; O2SAT 95
[2023-08-20] MEDS: Ziprasidone 60 MG CAPSULE 120 MG PO (18:03)
[2023-08-20 20:00] VITALS: BP 125/75; PULSE 70; RESP 16; TEMP 36.8; O2SAT 97
[2023-08-20] MEDS: Amitriptyline HCl 50 MG TABLET PO (20:02)
[2023-08-20] MEDS: Melatonin 3 MG TABLET 9 MG PO (20:02)
[2023-08-21] VITALS (7 sets, daily range): BP systolic 103–124; BP diastolic 58–67; PULSE 69–83; RESP 16–18; TEMP 36.3–36.8; O2SAT 94–96
[2023-08-21] MEDS: Acetaminophen 1,000 MG/100 ML PIGGYBACK 400 MG IV ×3 (03:18→14:03)
[2023-08-21] MEDS: oxyCODONE HCl Immed Release 5 MG TABLET PO ×2 (03:21→20:09)
[2023-08-21 06:16] LABS: Hematocrit 36.8 % (37.0-47.0); Hemoglobin 12.2 g/dl (12.0-16.0); Mean Corpuscular HGB Conc 33.2 g/dl (31.0-35.0); Mean Corpuscular Hemoglobin 31.4 pg (27.0-33.0); Mean Corpuscular Volume 94.6 fL (80.0-98.0); Mean Platelet Volume 10.5 fL (9.4-12.3); Platelet Count 362 X10*3/uL (160-400); Red Blood Count 3.89 X10*6/uL (4.20-5.50); Red Cell Distribution Width 14.6 % (11.0-16.0); White Blood Count 15.7 X10*3/uL (4.8-10.8)
[2023-08-21 06:37] LABS: Anion Gap 14 (12-20); Blood Urea Nitrogen 17 mg/dL (9-16); Calcium 8.8 mg/dL (8.4-10.2); Carbon Dioxide 23 mmol/L (22-29); Chloride 103 mmol/L (96-108); Creatinine Clr Calc Pharmacy 60.1; Estimated Glomerular Filt Rate 50; Glucose Random 95 mg/dL (60-115); Potassium 3.6 mmol/L (3.3-5.1); Sodium 136 mmol/L (135-145)
[2023-08-21] MEDS: Losartan Potassium 50 MG TABLET 100 MG PO (07:49)
[2023-08-21] MEDS: 0.9 % Sodium Chloride Flush 3 ML SYRINGE IVFLUSH ×3 (07:49→23:41)
[2023-08-21] MEDS: Levothyroxine Sodium 25 MCG TABLET PO (07:50)
[2023-08-21] MEDS: Atorvastatin Calcium 10 MG TABLET PO (07:50)
[2023-08-21] MEDS: hydroCHLOROthiazide 25 MG TABLET PO (07:50)
[2023-08-21] MEDS: lamoTRIgine 100 MG TABLET 300 MG PO (07:50)
[2023-08-21] MEDS: atenoloL 100 MG TABLET PO (07:50)
[2023-08-21] MEDS: Heparin Sodium,Porcine 5,000 UNIT/ML VIAL 5000 UNIT SUBCUT ×2 (07:51→16:32)
[2023-08-21] MEDS: amLODIPine Besylate 10 MG TABLET PO (07:51)
[2023-08-21] MEDS: hydrOXYzine HCL 25 MG TABLET PO ×3 (07:51→20:09)
--- NOTE | 2023-08-21 08:12 | PM.PNGS ---
Subjective Subjective Date of Service: 08/21/23 Interval history: Overall feels improved today with less incisional pain. Was up ambulating yesterday. Ostomy producing liquid stool. Tolerating her diet. Physical Exam Vital Signs: Vital Signs: Last Vital Signs Temp 98.2 F 08/21/23 07:12 Pulse 69 08/21/23 07:50 Resp 16 08/21/23 07:12 BP 124/60 08/21/23 07:51 Pulse Ox 94 08/21/23 07:12 O2 Del Method Room Air 08/21/23 07:12 O2 Flow Rate 2 08/19/23 03:38 BMI result Body Mass Index 37.9 Const: General: comfortable Nutritional Appearance: well nourished Resp: Effort & Inspection: normal respiratory effort GI: Other: ostomy functioning well; wound clean and intact; JAQUELINE with serosang output. Dressings changed. Objective Data Active Medications Albuterol Sulfate (Albuterol Sulfate 90 Mcg 8 Gm Inhaler) 2 puff INHALE Q6H PRN PRN Reason: Shortness Of Breath Or Wheezing Amitriptyline HCl (Amitriptyline Hcl 50 Mg Tablet) 50 mg PO BEDTIME [facility] Last Admin: 08/20/23 20:02 Dose: 50 mg Documented By: JAYDA Amlodipine Besylate (Amlodipine Besylate 10 Mg Tablet) 10 mg PO DAILY [facility]; Protocol Last Admin: 08/21/23 07:51 Dose: 10 mg Documented By: IFEOMA Atenolol (Atenolol 100 Mg Tablet) 100 mg PO DAILY [facility]; Protocol Last Admin: 08/21/23 07:50 Dose: 100 mg Documented By: IFEOMA Atorvastatin Calcium (Atorvastatin Calcium 10 Mg Tablet) 10 mg PO DAILY [facility] Last Admin: 08/21/23 07:50 Dose: 10 mg Documented By: IFEOMA Heparin Sodium (Porcine) (Heparin Sodium,Porcine 5,000 Unit/Ml Vial) 5,000 unit SUBCUT Q8H [facility] Last Admin: 08/21/23 07:51 Dose: 5,000 unit Documented By: IFEOMA Hydrochlorothiazide (Hydrochlorothiazide 25 Mg Tablet) 25 mg PO DAILY [facility] Last Admin: 08/21/23 07:50 Dose: 25 mg Documented By: IFEOMA Hydromorphone HCl (Hydromorphone Hcl 0.5 Mg/0.5 Ml Syringe) 0.5 mg IVPUSH Q4H PRN; Protocol PRN Reason: Pain, Severe (Pain Scale 7-10) Last Admin: 08/20/23 20:01 Dose: 0.5 mg Documented By: JAYDA Hydroxyzine HCl (Hydroxyzine Hcl 25 Mg Tablet) 25 mg PO TID [facility] Last Admin: 08/21/23 07:51 Dose: 25 mg Documented By: IFEOMA Acetaminophen (Ofirmev) 1,000 mg in 100 mls @ 400 mls/hr IV Q6H [facility] Last Admin: 08/21/23 07:51 Dose: 400 mls/hr Documented By: IFEOMA Lamotrigine (Lamotrigine 100 Mg Tablet) 300 mg PO DAILY [facility] Last Admin: 08/21/23 07:50 Dose: 300 mg Documented By: IFEOMA Levothyroxine Sodium (Levothyroxine Sodium 25 Mcg Tablet) 25 mcg PO DAILY [facility] Last Admin: 08/21/23 07:50 Dose: 25 mcg Documented By: IFEOMA Losartan Potassium (Losartan Potassium 50 Mg Tablet) 100 mg PO DAILY [facility]; Protocol Last Admin: 08/21/23 07:49 Dose: 100 mg Documented By: IFEOMA Melatonin (Melatonin 3 Mg Tablet) 9 mg PO BEDTIME PRN PRN Reason: Insomnia Last Admin: 08/20/23 20:02 Dose: 9 mg Documented By: JAYDA Ondansetron HCl (Ondansetron Hcl 4 Mg/2 Ml Vial) 4 mg IVPUSH Q6H PRN PRN Reason: Nausea and Vomiting Last Admin: 08/18/23 17:51 Dose: 4 mg Documented By: STAN Oxycodone HCl (Oxycodone Hcl Immed Release 5 Mg Tablet) 5 mg PO Q4H PRN PRN Reason: Pain, Moderate(Pain Scale 4-6) Last Admin: 08/21/23 03:21 Dose: 5 mg Documented By: JAYDA Sodium Chloride (0.9 % Sodium Chloride Flush 3 Ml Syringe) [facility] Last Admin: 08/21/23 07:49 Dose: 3 ml Documented By: IFEOMA Ziprasidone (Ziprasidone 60 Mg Capsule) 120 mg PO DAILY@1700 [facility] Last Admin: 08/20/23 18:03 Dose: 120 mg Documented By: IFEOMA Labs 08/21/23 05:36 08/21/23 05:36 Labs: Laboratory Results - last 24 hr 08/21/23 05:36 MCV 94.6 MCH 31.4 MCHC 33.2 RDW 14.6 Plt Count 362 MPV 10.5 Absolute Nucleated RBC 0.000 Nucleated RBC % (auto) 0.0 Anion Gap 14 Estim Creat Clear Calc 60.1 Estimated GFR 50 Random Glucose 95 Calcium 8.8 D Procedures Date of Service Date of Service: 08/21/23 Progress Note: A&P Assessment and plan (1) History of diverticulitis: Status: Acute Plan POD #3 s/p exploratory laparotomy, enterolysis, sigmoid resection, colorectal trans anal anastomosis, proctoscopy, diverting loop ileostomy. Doing well post op. VSS. ABd exam benign with clean/intact dressing. Ostomy producing liquid stool. Seems to be tolerating her regular diet. Encouraged OOB/ambulation and IS use. She is started emptying the ostomy bag; continue ostomy education. D/C planning. Time Spent With Patient Time: Total time managing care of this patient today ____ minutes. Quality Stroke Does the patient have a stroke diagnosis?: No VTE Prior VTE?: No VTE Risk Level:: Surgical - high VTE Device Contraindication: N/A - Device Ordered VTE Drug Contraindication: N/A - Med Ordered
[2023-08-21] MEDS: Ziprasidone 60 MG CAPSULE 120 MG PO (16:31)
--- NOTE | 2023-08-21 17:53 | PC.NURSE ---
4Ml of sero/sang drainage from JAQUELINE drain emptied on this shift.
[2023-08-21] MEDS: Melatonin 3 MG TABLET 9 MG PO (20:09)
[2023-08-21] MEDS: Amitriptyline HCl 50 MG TABLET PO (20:10)
[2023-08-21] MEDS: HYDROmorphone HCl 0.5 MG/0.5 ML SYRINGE IVPUSH (23:40)
[2023-08-22 04:00] VITALS: BP 112/71; PULSE 78; RESP 16; TEMP 36.3; O2SAT 92
[2023-08-22 07:29] VITALS: BP 120/75; PULSE 85; RESP 12; TEMP 36.6; O2SAT 93
--- NOTE | 2023-08-22 07:49 | P.PNGS_ITS ---
Subjective Subjective Date of Service: 08/22/23 Interval history: Feels well. Had a good weekend with some increasing discomfort last night but was more active yesterday. Participating in ostomy care. Tolerating solid diet. Physical Exam 2 Vital Signs: Vital Signs: Last Vital Signs Temp 97.8 F 08/22/23 07:29 Pulse 85 08/22/23 07:29 Resp 12 08/22/23 07:29 BP 120/75 08/22/23 07:29 Pulse Ox 93 08/22/23 07:29 O2 Del Method Room Air 08/22/23 07:29 O2 Flow Rate 2 08/19/23 03:38 BMI result Body Mass Index 37.9 Const: General: comfortable, no acute distress and alert O rientation/consciousness: patient oriented x3 Resp: Effort & Inspection: normal respiratory effort GI: Other: ostomy with gas and soft stool output, bridge in place JAQUELINE serosanguineous output Inspection: No distended and Yes incision (clean) Palpation (GI): Soft to palpation, Tenderness to palpation present (GI) (mild incisional) and no guarding Skin: General skin exam: no rashes or lesions noted Neuro: General: patient oriented x3 and moves all extremities Objective Data Active Medications Albuterol Sulfate (Albuterol Sulfate 90 Mcg 8 Gm Inhaler) 2 puff INHALE Q6H PRN PRN Reason: Shortness Of Breath Or Wheezing Amitriptyline HCl (Amitriptyline Hcl 50 Mg Tablet) 50 mg PO BEDTIME [facility] Last Admin: 08/21/23 20:10 Dose: 50 mg Documented By: ASHLEY Amlodipine Besylate (Amlodipine Besylate 10 Mg Tablet) 10 mg PO DAILY [facility]; Protocol Last Admin: 08/21/23 07:51 Dose: 10 mg Documented By: IFEOMA Atenolol (Atenolol 100 Mg Tablet) 100 mg PO DAILY [facility]; Protocol Last Admin: 08/21/23 07:50 Dose: 100 mg Documented By: IFEOMA Atorvastatin Calcium (Atorvastatin Calcium 10 Mg Tablet) 10 mg PO DAILY [facility] Last Admin: 08/21/23 07:50 Dose: 10 mg Documented By: IFEOMA Heparin Sodium (Porcine) (Heparin Sodium,Porcine 5,000 Unit/Ml Vial) 5,000 unit SUBCUT Q8H [facility] Last Admin: 08/22/23 00:07 Dose: Not Given Documented By: ASHLEY Non-Admin Reason: Patient Refused Hydrochlorothiazide (Hydrochlorothiazide 25 Mg Tablet) 25 mg PO DAILY [facility] Last Admin: 08/21/23 07:50 Dose: 25 mg Documented By: IFEOMA Hydromorphone HCl (Hydromorphone Hcl 0.5 Mg/0.5 Ml Syringe) 0.5 mg IVPUSH Q4H PRN; Protocol PRN Reason: Pain, Severe (Pain Scale 7-10) Last Admin: 08/21/23 23:40 Dose: 0.5 mg Documented By: ASHLEY Hydroxyzine HCl (Hydroxyzine Hcl 25 Mg Tablet) 25 mg PO TID [facility] Last Admin: 08/21/23 20:09 Dose: 25 mg Documented By: ASHLEY Lamotrigine (Lamotrigine 100 Mg Tablet) 300 mg PO DAILY [facility] Last Admin: 08/21/23 07:50 Dose: 300 mg Documented By: IFEOMA Levothyroxine Sodium (Levothyroxine Sodium 25 Mcg Tablet) 25 mcg PO DAILY [facility] Last Admin: 08/21/23 07:50 Dose: 25 mcg Documented By: IFEOMA Losartan Potassium (Losartan Potassium 50 Mg Tablet) 100 mg PO DAILY [facility]; Protocol Last Admin: 08/21/23 07:49 Dose: 100 mg Documented By: IFEOMA Melatonin (Melatonin 3 Mg Tablet) 9 mg PO BEDTIME PRN PRN Reason: Insomnia Last Admin: 08/21/23 20:09 Dose: 9 mg Documented By: ASHLEY Ondansetron HCl (Ondansetron Hcl 4 Mg/2 Ml Vial) 4 mg IVPUSH Q6H PRN PRN Reason: Nausea and Vomiting Last Admin: 08/18/23 17:51 Dose: 4 mg Documented By: STAN Oxycodone HCl (Oxycodone Hcl Immed Release 5 Mg Tablet) 5 mg PO Q4H PRN PRN Reason: Pain, Moderate(Pain Scale 4-6) Last Admin: 08/21/23 20:09 Dose: 5 mg Documented By: ASHLEY Sodium Chloride (0.9 % Sodium Chloride Flush 3 Ml Syringe) 3 ml IVFLUSH [facility] Last Admin: 08/21/23 23:41 Dose: 3 ml Documented By: ASHLEY Ziprasidone (Ziprasidone 60 Mg Capsule) 120 mg PO DAILY@1700 [facility] Last Admin: 08/21/23 16:31 Dose: 120 mg Documented By: IFEOMA Labs 08/21/23 05:36 08/21/23 05:36 Procedures Date of Service Date of Service: 08/22/23 Progress Note: A&P Assessment and plan (1) History of diverticulitis: Status: Acute Plan POD #4 s/p sigmoid resection, diverting loop ileostomy. Doing well post op and tolerating solid diet with good pain control, ostomy function. abd benign. Cont ostomy education, arrange for home VNA. Will remove bridge and JAQUELINE drain prior. Stable for dc to home today. F/u in 1 week. Time Spent With Patient Time: Total time managing care of this patient today ____ minutes. Quality Stroke Does the patient have a stroke diagnosis?: No VTE Prior VTE?: No VTE Risk Level:: Surgical - high VTE Device Contraindication: N/A - Device Ordered VTE Drug Contraindication: N/A - Med Ordered
[2023-08-22] MEDS: 0.9 % Sodium Chloride Flush 3 ML SYRINGE IVFLUSH (08:47)
[2023-08-22] MEDS: Heparin Sodium,Porcine 5,000 UNIT/ML VIAL 5000 UNIT SUBCUT (08:47)
[2023-08-22 08:48] VITALS: BP 120/75
[2023-08-22] MEDS: HYDROmorphone HCl 0.5 MG/0.5 ML SYRINGE IVPUSH (08:48)
[2023-08-22] MEDS: hydrOXYzine HCL 25 MG TABLET PO ×2 (08:48→14:58)
[2023-08-22] MEDS: amLODIPine Besylate 10 MG TABLET PO (08:48)
[2023-08-22] MEDS: lamoTRIgine 100 MG TABLET 300 MG PO (08:48)
[2023-08-22] MEDS: Losartan Potassium 50 MG TABLET 100 MG PO (08:48)
[2023-08-22] MEDS: Atorvastatin Calcium 10 MG TABLET PO (08:48)
[2023-08-22 08:49] VITALS: BP 120/75; PULSE 85
[2023-08-22] MEDS: hydroCHLOROthiazide 25 MG TABLET PO (08:49)
[2023-08-22] MEDS: atenoloL 100 MG TABLET PO (08:49)
[2023-08-22] MEDS: Levothyroxine Sodium 25 MCG TABLET PO (08:49)
--- NOTE | 2023-08-22 12:50 | MHC.CM.PN ---
PT WILL DC HOME TODAY WITH [facility] 5 DAYS WORTH OF OSTOMY SUPPLIES PROVIDED PT WILL ARRANGE TRANSPORT
[2023-08-22] MEDS: oxyCODONE HCl Immed Release 5 MG TABLET PO (12:59)
--- NOTE | 2023-08-22 14:00 | W.MHC.F2F ---
Service Date Service Date: 08/22/23 Encounter Date of encounter: 08/22/23 Reasons for Services Signs and symptoms assessed: abdominal pain, ostomy appearance and output Reason for longterm: wound care Homebound: Leaving the home is medically contraindicated at this time without the asist of a device and/or another person due th the listed conditions above and below. Reason homebound: weakness related to hospital stay and unable to drive Homebound supporting statement: Ms. Roberts underwent sigmoid resection, primary anastomosis, diverting loop ileostomy. She will need VNA services for ostomy care. Certification: Based on the above findings, I certify that this patient is confined to the home and needs intermittent longterm care, physical therapy and/or speech therapy, or continues to need occupational therapy. The patient is under my care, and I have initiated the establishment of the plan of care. The patient will be followed by a physician who will periodically review the plan of care. Time Spent With Patient Time: Total time managing care of this patient today ____ minutes.
--- NOTE | 2023-08-23 10:31 | PM.DS ---
DS: Providers Provider Date of Service: 08/22/23 Date of admission: 08/18/23 11:49 Date of discharge: 08/22/23 Primary care physician: Lee Mercado MD Attending physician on admission: Matthew Zaragoza Attending physician on discharge: Matthew Zaragoza DS: Diagnosis Discharge Diagnosis (1) History of diverticulitis: Status: Acute DS: Summary Hospital Course Hospital Course: HPI AT ADMISSION: Patient presents with recurrent multiple episodes of acute diverticulitis. She has had most recent episode in April and May of this year. She almost required hospitalization for the 1st episode because of severity of symptoms. Patient wishes to undergo elective excision of her disease left colon. Past surgical history gallbladder, hysterectomy. Patient otherwise tolerating a diet. He is having regular bowel habits. She is on disability. Chart was reviewed and patient evaluated. She now presents for open sigmoid resection with primary anastomosis. Patient had bowel prep with oral antibiotics day prior. HOSPITAL COURSE: On 08/18/23, an exploratory laparotomy, enterolysis, sigmoid resection, colorectal trans anal anastomosis, proctoscopy, diverting loop ileostomy was performed by Dr. Zaragoza without immediate complications. The patient tolerated the procedure well and was admitted post operatively for observation. She had an uncomplicated recovery course. On POD #1, she was doing overall well. Her ostomy had some bilious output. She was necessitating IV analgesics. Her rousseau was discontinued. Over the next few post op days, her pain improved. She had more consistent ostomy output and flatus. Her diet was advanced to solids. Her activity was increased. Ostomy education was performed. Her ileostomy bridge was removed at bedside. On the day of discharge, she was tolerating a solid diet without nausea or vomiting, had good pain control on oral analgesics and was ambulating without difficulty. Her abdomen was benign with approrpriate post op tenderness and clean incisions with a viable ileostomy with good output. She felt ready for discharge to home. She was discharged to home on 08/22/23 in stable condition with VNA services. She is to follow up in the office in 1 week. Status at Discharge Functional status at discharge: independent ambulation Overall status at discharge: patient is progressing back to baseline Time Attestation Discharge Coordination Time (in mins): 35 Quality: Safe Use of Opioids Does Pt have an Active Cancer Diagnosis on the Problem List?: No Quality: Stroke Does the patient have a stroke diagnosis?: No Physical Exam Vital Signs: Vital Signs: Last Vital Signs Temp 97.8 F 08/22/23 07:29 Pulse 85 08/22/23 08:49 Resp 12 08/22/23 07:29 BP 120/75 08/22/23 08:49 Pulse Ox 93 08/22/23 07:29 O2 Del Method Room Air 08/22/23 07:29 O2 Flow Rate 2 08/19/23 03:38 BMI result Body Mass Index 37.9 Const: General: comfortable, no acute distress and alert Orientation/consciousness: patient oriented x3 Resp: Effort & Inspection: normal respiratory effort GI: Other: ostomy viable appearing with good enteric output Inspection: No distended and Yes incision (clean) Palpation (GI): Soft to palpation, Tenderness to palpation present (GI) (mild incisional), no guarding and not rigid Skin: General skin exam: no rashes or lesions noted Neuro: General: patient oriented x3 and moves all extremities DS: Data Data Completed and Pending Pending studies at discharge: Pending at discharge 08/18/23 15:40 Surgical [PTH] Routine Discharge Plan Discharge Anticipated Discharge Date/Time: 08/22/23 15:12 Patient Disposition: Home Health Service Discharge Diagnosis: Recurrent diverticular disease of sigmoid colon Referrals: Priscilla HERR [Outside] Lee Mercado MD [Primary Care Provider] - 1 Week Matthew Zaragoza MD [Physician] - 1 Week Discharge Medications: New hydrocodone-acetaminophen 5-325 mg tablet 1 tab PO Q4-6H PRN (Reason: pain) Qty: 30 0RF Rx Instructions: Partial Fill upon patient request. Continued levothyroxine 25 mcg tablet 25 mcg PO DAILY Qty: 90 0RF simvastatin 20 mg tablet 20 mg PO BEDTIME 90 Days Qty: 90 0RF amlodipine 10 mg tablet 10 mg PO DAILY Qty: 30 0RF cetirizine 10 mg tablet 10 mg PO BEDTIME melatonin 10 mg Tablet 10 mg PO BEDTIME PRN (Reason: Insomnia) cholecalciferol (vitamin D3) 50 mcg (2,000 unit) capsule 50 mcg PO DAILY ziprasidone HCl 60 mg capsule 120 mg PO DAILY@1700 lamotrigine 150 mg tablet 300 mg PO DAILY amitriptyline 50 mg tablet 50 mg PO BEDTIME losartan 100 mg tablet 100 mg PO DAILY 90 Days Qty: 90 0RF hydroxyzine pamoate 25 mg capsule 25 mg PO TID chlorthalidone 25 mg tablet 25 mg PO DAILY Qty: 90 0RF atenolol 100 mg tablet 100 mg PO DAILY Qty: 90 0RF docusate sodium [Colace] 100 mg capsule 200 mg PO BEDTIME Qty: 60 5RF polyethylene glycol 3350 [Miralax] 17 gram/dose powder 17 g PO DAILY Qty: 510 6RF No Action ondansetron 4 mg tablet,disintegrating 4 mg PO Q6-8H PRN (Reason: nausea and vomiting) Qty: 10 0RF Discharge Orders: Discharge Order (Routine); Ordered 08/22/23 Ordered By: Naya Fields Diet: Advance to usual diet Activity on Discharge: No heavy lifting Stand Alone Forms: Patient Portal Discharge page Print Language: Upper Sorbian Activity Restrictions/Additional Instructions: Ice to wound 20 minutes several times a day as needed for pain. May shower. Leave Steri-Strips intact. No strenuous activities. F/u in the office in 1 week. Ileostomy care: change appliance every 3-4 days and as needed. Care Plan Goals: Returned to baseline Health Concerns: No new health concerns Plan of Treatment: Continued convalescence Assessment: Stable Discharge Date/Time: 08/22/23 16:35
== END 2023-08-22 16:35 | disposition home health service (06) | DRG 331 ==
LOC: HO.SSSA 11:52 → HO.S3 16:21
PROVIDERS: Physician Assistant Surgical; Surgery; Admitting Provider Surgery; PCP Internal Medicine; Visit Provider Surgery
PROC: 0DBN0ZZ Excision of Sigmoid Colon, Open Approach (ICD-10-PCS; principal; 2023-08-18 12:10)
DX: K57.32 Diverticulitis of large intestine without perforation or abscess without bleeding (principal); K66.0 Peritoneal adhesions (postprocedural) (postinfection)
CPT/HCPCS: 36415; 80048; 85025; 85027; 86850; 86900; 86901; 88305; 88307; J0131; J0736; J1170; J1644; J1885; J2250; J2371; J2405; J2704; J2795; J3010; J7120

== ENCOUNTER → 2023-08-18 11:49 | Outpatient (BNV) | payer OTHER, SELFPAY | PROVIDERS: Admitting Provider Surgery; PCP Internal Medicine; Visit Provider Physician Assistant Surgical | DX: Z87.19 Personal history of other diseases of the digestive system (principal) | CPT/HCPCS: 44146; 99024; G0180 ==

== ENCOUNTER 2023-08-22 17:42 | Emergency (ER) | payer OTHER, SELFPAY ==
[2023-08-22 17:50] VITALS: BP 106/62; BP 140/86; PULSE 84; PULSE 88; RESP 18; TEMP 38.2; O2SAT 94; O2SAT 98; BMI 37.8
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
[2023-08-22 19:13] VITALS: BP 114/72; PULSE 77; RESP 16; TEMP 36.3; O2SAT 96
[2023-08-22 19:37] VITALS: BP 114/72; PULSE 77; RESP 16; TEMP 36.3; O2SAT 96
== END 2023-08-22 19:37 | disposition home or self-care (01) ==
PROVIDERS: Emergency Provider Internal Medicine; PCP Internal Medicine
DX: Z43.3 Encounter for attention to colostomy (principal); I10 Essential (primary) hypertension; E78.00 Pure hypercholesterolemia, unspecified; F12.90 Cannabis use, unspecified, uncomplicated
CPT/HCPCS: 99283

== ENCOUNTER 2023-08-23 23:29 | Emergency (ER) | payer OTHER, SELFPAY ==
--- NOTE | ~2023-08-23 | CT_ITS ---
EXAMINATION: CT ABDOMEN AND PELVIS WITHOUT CONTRAST CLINICAL INFORMATION: Nausea and vomiting. COMPARISON: 05/24/2023 TECHNIQUE: Multidetector volumetric imaging was performed from the superior aspect of the liver through the pubic symphysis. Sagittal and coronal reformatted images were obtained on the technologist's workstation. This CT examination was performed using dose optimization techniques as appropriate, variously including the following: *Automated exposure control *Adjustment of mA and/or kV according to patient size (this includes techniques or standardized protocols for targeted exams where dose is matched to indication/reason for exam; i.e. extremities or head) *Use of iterative reconstruction technique DLP: 688 mGy-cm FINDINGS: LUNG BASES: There is a partially imaged 4 mm nodule at the right lung base. There is also faint 6 mm nodule right middle lobe. LIVER, GALLBLADDER, AND BILIARY TREE: The liver is normal in size, shape, and attenuation. No focal hepatic lesion or biliary ductal dilatation is present. The gallbladder is unremarkable with no evidence of radiopaque gallstones, gallbladder wall thickening, or obvious pericholecystic inflammatory changes. PANCREAS: Unremarkable. SPLEEN: Spleen is small in size. ADRENAL GLANDS: Unremarkable. KIDNEYS AND URETERS: The kidneys are normal in size, shape, and attenuation. No hydronephrosis, hydroureter, or calculi seen. No perinephric stranding. BLADDER: There is air within the urinary bladder. GASTROINTESTINAL TRACT: The sigmoid anastomosis is noted with infiltrative change along the anastomosis. There are diverticula of the descending and sigmoid colon without evidence for acute diverticulitis. There appears to be a diverticula of the distal small bowel in the region of the right lower abdominal ostomy with adjacent infiltration. The right lower abdominal ostomy is noted containing bowel. There is a segment of distended/mildly dilated mid small bowel measuring up to 3 cm. ABDOMINAL WALL: A lower abdominal ostomy is noted containing bowel. LYMPH NODES: Normal. VASCULAR: Unremarkable. PELVIC VISCERA: Unremarkable. OSSEOUS STRUCTURES: Unremarkable. CT/CT abdomen pelvis wo IV con IMPRESSION: 1. Inflammatory change along the sigmoid anastomosis likely postoperative. 2. There is a diverticula of the distal small bowel region of the right lower abdominal ostomy. This may also be postoperative versus small bowel diverticulitis. 3. There is a segment of distended/mildly dilated mid small bowel measuring up to 3 cm. This is probably a focal ileus. 4. There is air within the urinary bladder.This could be related to recent instrumentation or infection. 5. 4 mm nodule at the right lung base and faint 6 mm nodule right middle lobe. Fleischner guidelines were followed.
[2023-08-23 23:43] VITALS: BP 118/70; PULSE 67; RESP 18; TEMP 36.7; O2SAT 91
[2023-08-23 23:49] VITALS: BP 132/90; PULSE 88; O2SAT 97; BMI 38.7
--- NOTE | 2023-08-24 00:05 | ECG_ITS ---
Test Reason : N/V ABD PAIN Blood Pressure : / mmHG Vent. Rate : 061 BPM Atrial Rate : 061 BPM P-R Int : 156 ms QRS Dur : 102 ms QT Int : 422 ms P-R-T Axes : 041 017 013 degrees QTc Int : 424 ms Normal sinus rhythm Minimal voltage criteria for LVH, may be normal variant ( R in aVL ) Nonspecific T wave abnormality Abnormal ECG When compared with ECG of 19-APR-2023 19:30, ST no longer depressed in Lateral leads T wave inversion now evident in Anterior leads Referred By: Vannesa Parisi Electronically Signed By:GERALDINE DE LEÓN MD
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
[2023-08-24 00:24] LABS: MANUAL DIFF FLAG NO
[2023-08-24 00:26] LABS: Basophils Absolute Auto 0.1 X10*3/uL (0.0-0.2); Basophils Percent Auto 0.5 % (0-2); Eosinophils Absolute Auto 1.1 X10*3/uL (0.0-0.4); Eosinophils Percent Auto 6.4 % (0-4); Hematocrit 41.1 % (37.0-47.0); Hemoglobin 13.7 g/dl (12.0-16.0); Imm Gran Abs Auto 0.36 X10*3/uL (0.00-0.03); Lymphocytes Absolute Auto 3.5 X10*3/uL (1.2-4.9); Lymphocytes Percent Auto 19.9 % (20-40); Mean Corpuscular HGB Conc 33.3 g/dl (31.0-35.0); Mean Corpuscular Hemoglobin 31.1 pg (27.0-33.0); Mean Corpuscular Volume 93.2 fL (80.0-98.0); Mean Platelet Volume 9.5 fL (9.4-12.3); Monocytes Absolute Auto 1.3 X10*3/uL (0.1-1.2); Monocytes Percent Auto 7.5 % (2-11); NRBC Pct Auto 0.1 /100WBC (0.0-0.2); Neutrophils Absolute Auto 11.3 x10*3/uL (2.0-8.3); Neutrophils Percent Auto 63.7 % (45-73); Platelet Count 484 X10*3/uL (160-400); Red Blood Count 4.41 X10*6/uL (4.20-5.50); Red Cell Distribution Width 14.5 % (11.0-16.0); White Blood Count 17.7 X10*3/uL (4.8-10.8)
[2023-08-24] MEDS: ondansetron HCL 4 MG/2 ML VIAL IVPUSH (00:28)
[2023-08-24] MEDS: 0.9 % Sodium Chloride 1,000 ML 999 ML IV (00:29)
[2023-08-24 00:51] LABS: Alanine Aminotransferase 42 U/L (0-31); Albumin Level 3.7 g/dL (3.5-5.0); Alkaline Phosphatase 80 U/L (39-117); Anion Gap 20 (12-20); Aspartate Amino Transferase 40 U/L (5-31); Bilirubin Direct < 0.2 mg/dL (0.0-0.5); Bilirubin Total 0.2 mg/dL (0.0-1.0); Blood Urea Nitrogen 28 mg/dL (9-16); Calcium 10.3 mg/dL (8.4-10.2); Carbon Dioxide 23 mmol/L (22-29); Chloride 98 mmol/L (96-108); Creatinine Clr Calc Pharmacy 40.1; Estimated Glomerular Filt Rate 31; Glucose Random 138 mg/dL (60-115); Lipase 27 U/L (8-78); Magnesium 1.8 mg/dL (1.6-2.6); Potassium 3.8 mmol/L (3.3-5.1); Sodium 137 mmol/L (135-145); Total Protein 7.4 g/dL (6.5-8.0)
[2023-08-24 00:59] LABS: Troponin-I High Sensitivity < 2.7 ng/L (<3.5-17.0)
[2023-08-24 01:02] LABS: Influenza A PCR NEGATIVE (Negative); Influenza B PCR NEGATIVE (Negative); Resp Syncy Virus RNA Qual PCR NEGATIVE (Negative); SARS COV2 PCR INHOUSE NEGATIVE (Negative)
[2023-08-24] MEDS: Prochlorperazine Edisylate 10 MG/2 ML VIAL IVPUSH (02:14)
[2023-08-24 02:53] VITALS: BP 118/61; PULSE 91; RESP 18; TEMP 36.7; O2SAT 94
[2023-08-24 02:59] VITALS: BP 118/61; PULSE 91; RESP 18; TEMP 36.7; O2SAT 94
== END 2023-08-24 03:00 | disposition home or self-care (01) ==
PROVIDERS: Physician Assistant Medical; Emergency Provider Emergency Medicine
DX: R10.9 Unspecified abdominal pain (principal); R11.2 Nausea with vomiting, unspecified; R42 Dizziness and giddiness; Z79.899 Other long term (current) drug therapy; I10 Essential (primary) hypertension; J45.909 Unspecified asthma, uncomplicated; Z03.818 Encounter for observation for suspected exposure to other biological agents ruled out
CPT/HCPCS: 0241U; 36415; 74176; 80048; 80076; 83690; 83735; 84484; 85025; 93005; 96361; 96374; 96375; 99285; J0737; J2405

== ENCOUNTER → 2023-08-24 00:05 | Outpatient (BNV) | payer OTHER, SELFPAY | PROVIDERS: Emergency Provider Emergency Medicine; Visit Provider Internal Medicine Cardiovascular Disease | DX: R11.2 Nausea with vomiting, unspecified (principal); R10.9 Unspecified abdominal pain; R94.31 Abnormal electrocardiogram [ECG] [EKG] | CPT/HCPCS: 93010 ==

== ENCOUNTER 2023-08-30 10:17 | Outpatient (AMB) | payer OTHER, SELFPAY ==
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
== END 2023-08-30 10:51 | disposition home or self-care (01) ==
PROVIDERS: PCP Internal Medicine; Visit Provider Surgery
DX: Z09 Encounter for follow-up examination after completed treatment for conditions other than malignant neoplasm (principal); K57.32 Diverticulitis of large intestine without perforation or abscess without bleeding
CPT/HCPCS: 99024

== ENCOUNTER → 2023-08-30 10:17 | Outpatient (BNVA) | payer OTHER, SELFPAY | PROVIDERS: PCP Internal Medicine; Visit Provider Surgery | DX: Z48.815 Encounter for surgical aftercare following surgery on the digestive system (principal) | CPT/HCPCS: 99212 ==

== ENCOUNTER 2023-09-14 07:50 | Outpatient (AMB) | payer OTHER, SELFPAY ==
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
== END 2023-09-14 08:11 | disposition home or self-care (01) ==
PROVIDERS: PCP Internal Medicine; Visit Provider Surgery
DX: Z90.49 Acquired absence of other specified parts of digestive tract (principal); Z09 Encounter for follow-up examination after completed treatment for conditions other than malignant neoplasm
CPT/HCPCS: 99024

== ENCOUNTER → 2023-09-14 07:50 | Outpatient (BNVA) | payer OTHER, SELFPAY | PROVIDERS: PCP Internal Medicine; Visit Provider Surgery | DX: Z09 Encounter for follow-up examination after completed treatment for conditions other than malignant neoplasm (principal); Z90.49 Acquired absence of other specified parts of digestive tract; Z93.3 Colostomy status | CPT/HCPCS: 99212 ==

== ENCOUNTER 2023-10-17 09:55 | Outpatient (REF) | payer OTHER, SELFPAY ==
--- NOTE | ~2023-10-17 | FL_ITS ---
EXAMINATION: XR BARIUM ENEMA CLINICAL INFORMATION: Status post sigmoid resection with colorectal anastomosis and diverting ileostomy. COMPARISON: None available. Correlation made with CT abdomen and pelvis 08/24/2023. TECHNIQUE: Dilute Gastrografin was administered via a rectal tube. Multiple cine loops and spot images were then obtained. Pre and postevacuation films were obtained. FINDINGS: No acute demonstrates cholecystectomy clips in the right upper quadrant. Anastomotic suture lines present in the pelvis/presacral space. No organomegaly or abnormal calcifications. Lung bases clear. No bony abnormalities. After insertion of a rectal tube, balloon was gently inflated, and Gastroview was administered through the tube, using gravity. Contrast was observed filling the residual rectum, and flows all the way to the distal ileum. -There is a moderate to high-grade stricture at the colorectal anastomosis, which extends approximately 2 cm more proximal involving the sigmoid. -In addition, there is filling of a blind segment of rectum adjacent to the colorectal anastomosis. -No extravasation of contrast is seen. -Diverticulosis seen throughout the entire colon, most significant involving the residual sigmoid and distal descending colon. FLUOROSCOPY TIME: 6 minutes 16 seconds DOSE AREA PRODUCT: 1092 uGy-m2 (microgray-meter squared) Cine lops: 6 Spot images: 23 Plain films: 5 FL/FL barium enema IMPRESSION: 1. Moderate to high-grade short segment stricture of the colorectal anastomosis. Contrast flows proximally all the way to the ileocecal valve and refluxes into the distal ileum. No extravasation of contrast. 2. A short blind segment of rectum is present adjacent to the colorectal anastomosis. Correlate with known post surgical anatomy. 3. Pandiverticulosis, most significant in the distal descending and sigmoid colon. The procedure was performed by Rodney Magana PA-C, and directly supervised by Dr. Nance.
== END 2023-10-17 09:56 | disposition home or self-care (01) ==
LOC: HO.XRAY 09:55
PROVIDERS: PCP Internal Medicine; Visit Provider Surgery
DX: Z90.49 Acquired absence of other specified parts of digestive tract (principal)
CPT/HCPCS: 74270

== ENCOUNTER → 2023-10-17 09:58 | Outpatient (BNV) | payer OTHER, SELFPAY | PROVIDERS: PCP Internal Medicine; Visit Provider Physician Assistant Surgical | DX: Z90.49 Acquired absence of other specified parts of digestive tract (principal) | CPT/HCPCS: 74270 ==

== ENCOUNTER 2023-10-24 11:09 | Outpatient (AMB) | payer OTHER, SELFPAY ==
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
[2023-10-24 11:20] VITALS: BP 188/112; PULSE 108; BMI 35.3
== END 2023-10-24 11:42 | disposition home or self-care (01) ==
PROVIDERS: PCP Internal Medicine; Visit Provider Surgery
DX: Z90.49 Acquired absence of other specified parts of digestive tract (principal); Z09 Encounter for follow-up examination after completed treatment for conditions other than malignant neoplasm
CPT/HCPCS: 99024

== ENCOUNTER → 2023-10-24 11:09 | Outpatient (BNVA) | payer OTHER, SELFPAY | PROVIDERS: PCP Internal Medicine; Visit Provider Surgery | DX: Z09 Encounter for follow-up examination after completed treatment for conditions other than malignant neoplasm (principal); Z90.49 Acquired absence of other specified parts of digestive tract | CPT/HCPCS: 99212 ==

== ENCOUNTER 2023-11-29 10:22 | Day surgery (SDC) | payer OTHER, SELFPAY ==
[2023-11-28 06:42] VITALS: BMI 34.8
[2023-11-29 12:51] VITALS: BP 121/86; PULSE 57; RESP 16; TEMP 36.8; O2SAT 97; BMI 35.0
--- NOTE | 2023-11-29 12:57 | MHC.SHP ---
Pre-Procedural Eval Section A - 24 Hr Update-Section A only Date of Service: 11/29/23 The patient is an INPATIENT: No Changes since office visit: No Cold of Flu in the past 2 weeks, No New Medical Problems, No Changes in Medication and No Patient answered all questions The patient has been examined within 24 hours of the surgical procedure. The History & Physical has been completed within 30 days and I have reviewed it.: Yes Section B - Complete if H&P > 30 days Chief Complaint: Other intestinal obstruction unspecified as to par Allergies: Allergies Allergy/AdvReac Type Severity Reaction Status Date / Time Penicillins [PENICILLINS] Allergy Unknown HIVES Verified 10/24/23 11:20 celecoxib [Celebrex] AdvReac Intermediate Hives Verified 10/24/23 11:20 clonidine AdvReac Intermediate hives,dizziness, Verified 10/24/23 11:20 N/V sumatriptan [Imitrex] AdvReac Intermediate Hives Verified 10/24/23 11:20 hydrocodone AdvReac Mild Dizziness Verified 10/24/23 11:20 Plan I have reviewed the history and physical and performed a pertinent physical examination on my patient. No changes have occurred unless specified. Time Spent With Patient Time: Total time managing care of this patient today ____ minutes.
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
[2023-11-29] MEDS: Lactated Ringers 1,000 ML 80 ML IVCONT (13:10)
[2023-11-29 14:25] VITALS: BP 107/60; PULSE 55; RESP 12; TEMP 36.1; O2SAT 97
[2023-11-29 14:40] VITALS: BP 112/71; PULSE 54; RESP 16; O2SAT 100
[2023-11-29 14:55] VITALS: BP 120/72; PULSE 50; RESP 16; TEMP 36.2; O2SAT 100
--- NOTE | 2023-11-29 15:01 | OP_ITS ---
DATE OF SERVICE: 11/29/2023 SURGEON: Luisito Mccartney MD INDICATIONS: Anastomotic stricture. PREOPERATIVE DIAGNOSIS: POSTOPERATIVE DIAGNOSIS: PROCEDURE PERFORMED: Colonoscopy to the cecum with biopsy and balloon dilation of anastomotic stricture. ESTIMATED BLOOD LOSS: COMPLICATIONS: ANESTHESIA: Monitored anesthesia care. ASSISTANTS: SPECIMENS: DESCRIPTION OF PROCEDURE: A history and physical was performed. The risks and benefits of the procedure were explained to the patient and informed consent was obtained. The patient was placed in the left lateral decubitus position. The Olympus video colonoscope was introduced into the rectum. A stricture was identified and could not be crossed with the colonoscope. The colonoscope was removed and the gastroscope was inserted. At 10 cm from the anal verge was an anastomotic stricture what appeared to be an end-to-side anastomosis. The blind limb of the anastomosis extended to 20 cm and showed changes of diversion colitis. Next, balloon dilation of the stricture was performed to 12 mm using a 10-11-12 mm balloon with 60 second dilations. Following this, the gastroscope was able to be advanced through the anastomosis. The gastroscope was removed and the colonoscope was reinserted. The scope was able to be advanced through the anastomosis into the cecum. The cecum was identified by transillumination and palpation. There was stool in the right colon and cecum limiting examination as the patient had not been able to receive a bowel prep. Further dilation was performed to 15 mm sequentially using a 12-13.5-15 mm balloon with 60 second dilations. Random biopsies were obtained from the sigmoid. There were changes of diversion colitis as expected throughout the entire colon. There was mild diverticulosis seen in the remaining colon, mainly above the anastomosis. Retroflexed examination showed some small internal hemorrhoids. IMPRESSION: 1. Anastomotic stricture, dilated. 2. Diversion colitis. RECOMMENDATIONS: 1. Follow up the biopsy results. 2. Repeat dilation in 2-4 weeks.. MD AMANDA Blackwood/KE / [id number] MTDD
== END 2023-11-29 15:45 | disposition home or self-care (01) ==
PROVIDERS: PCP Internal Medicine; Visit Provider Internal Medicine Gastroenterology
PROC: 0D7E8ZZ Dilation of Large Intestine, Via Natural or Artificial Opening Endoscopic (ICD-10-PCS; CPT 45386; principal; 2023-11-29 12:30)
DX: K56.699 Other intestinal obstruction unspecified as to partial versus complete obstruction (principal); K52.89 Other specified noninfective gastroenteritis and colitis; K57.30 Diverticulosis of large intestine without perforation or abscess without bleeding; Z98.0 Intestinal bypass and anastomosis status; Z86.010 Personal history of colon polyps; K64.8 Other hemorrhoids; D72.829 Elevated white blood cell count, unspecified; D75.839 Thrombocytosis, unspecified; I10 Essential (primary) hypertension; Z79.899 Other long term (current) drug therapy; Z88.0 Allergy status to penicillin; Z98.890 Other specified postprocedural states; Z87.891 Personal history of nicotine dependence; Z56.0 Unemployment, unspecified
CPT/HCPCS: 45386; 45380; 88305; C1726; J2704

== ENCOUNTER 2023-12-20 09:27 | Day surgery (SDC) | payer OTHER, SELFPAY ==
[2023-12-16 14:22] VITALS: BMI 34.8
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
[2023-12-20 12:22] VITALS: BMI 34.8
[2023-12-20] MEDS: Lactated Ringers 1,000 ML 100 ML IVCONT (12:30)
[2023-12-20 12:45] VITALS: BP 130/79; PULSE 65; RESP 18; TEMP 36.7; O2SAT 98
--- NOTE | 2023-12-20 13:16 | MHC.SHP ---
Pre-Procedural Eval Section A - 24 Hr Update-Section A only Date of Service: 12/20/23 Section B - Complete if H&P > 30 days Chief Complaint: Other intestinal obstruction Details of Present Illness: see H&P no changes Relevant Family History (Specify if Yes): No Relevant Social History: None Present Medications: see Short Stay Collaborative assessment Medical History: No relevant PMH History of Previous Operations: No relevant previous surgery Allergies: Allergies Allergy/AdvReac Type Severity Reaction Status Date / Time Penicillins [PENICILLINS] Allergy Unknown HIVES Verified 12/20/23 12:25 celecoxib [Celebrex] AdvReac Intermediate Hives Verified 12/20/23 12:25 clonidine AdvReac Intermediate hives,dizziness, Verified 12/20/23 12:25 N/V sumatriptan [Imitrex] AdvReac Intermediate Hives Verified 12/20/23 12:25 hydrocodone AdvReac Mild Dizziness Verified 12/20/23 12:25 Review of Systems Sugical H&P ROS: Negative: Constitution, Cardiovascular, Respiratory, Neurological, Psychiatric, Hem-Onc, Allergic/Immunologic, Gastrointestinal, Genitourinary, Musculoskeletal, Integumentary, Endocrine and Eyes/Ears/Nose/Throat Exam Surgical H&P Exam: Normal: HEENT, Normal: Heart, Normal: Lungs, Normal: Extremities, Normal: Abdomen, Normal: Skin and Normal: Neurological Plan Diagnosis/Plan: Unchanged I have reviewed the history and physical and performed a pertinent physical examination on my patient. No changes have occurred unless specified. Time Spent With Patient Time: Total time managing care of this patient today ____ minutes.
[2023-12-20 14:10] VITALS: BP 111/67; PULSE 65; RESP 18; TEMP 36.9; O2SAT 100
[2023-12-20 14:25] VITALS: BP 141/79; PULSE 61; RESP 18; TEMP 36.9; O2SAT 98
--- NOTE | 2023-12-20 15:11 | OP_ITS ---
DATE OF SERVICE: 12/20/2023 SURGEON: Luisito Mccartney MD INDICATIONS: Anastomotic stricture. PREOPERATIVE DIAGNOSIS: POSTOPERATIVE DIAGNOSIS: PROCEDURE PERFORMED: Colonoscopy to the cecum with balloon dilation and steroid injection. ESTIMATED BLOOD LOSS: COMPLICATIONS: ANESTHESIA: Monitored anesthesia care. ASSISTANTS: SPECIMENS: DESCRIPTION OF PROCEDURE: A history and physical was performed. The risks and benefits of the procedure were explained to the patient. Informed consent was obtained. The patient was placed in the left lateral decubitus position. A digital rectal exam was performed and was found to be normal. The Olympus pediatric video colonoscope was introduced into the rectum and advanced to the cecum. The cecum was identified by transillumination, palpation, and identification of ileocecal valve. Examination was performed. The scope was removed. She tolerated the procedure well, returned to the recovery area in stable condition. FINDINGS: The previously identified anastomotic stricture was patent at 10 cm from the anal verge. The scope initially did not pass through this. Balloon dilation was sequentially performed from 13.5 mm to 20 mm with no immediate complications. Next, a total of 5 cc of Kenalog 40 mg was injected circumferentially around the stricture. There were changes of diversion colitis throughout the colon. Retroflexed examination was not performed. The stricture appeared widely patent at the termination of this procedure. Stool was present in the right colon, as the patient could not take a bowel prep, and this limited the exam of this area. IMPRESSION: Anastomotic stricture. RECOMMENDATION: 1. Follow up as needed. 2. Proceed with ileostomy takedown per General Surgery. MD AMANDA Blackwood/MODL / [id number] MTDNick
== END 2023-12-20 14:57 | disposition home or self-care (01) ==
PROVIDERS: PCP Internal Medicine; Visit Provider Internal Medicine Gastroenterology
PROC: 0D7E8ZZ Dilation of Large Intestine, Via Natural or Artificial Opening Endoscopic (ICD-10-PCS; CPT 0885T; principal; 2023-12-20 12:30)
DX: K56.699 Other intestinal obstruction unspecified as to partial versus complete obstruction (principal); K52.89 Other specified noninfective gastroenteritis and colitis; I10 Essential (primary) hypertension; J45.909 Unspecified asthma, uncomplicated; Z79.899 Other long term (current) drug therapy; Z79.02 Long term (current) use of antithrombotics/antiplatelets; Z93.2 Ileostomy status; Z98.0 Intestinal bypass and anastomosis status; Z90.49 Acquired absence of other specified parts of digestive tract
CPT/HCPCS: 0885T; 45381; C1726; J2704; J3301

== ENCOUNTER 2023-12-23 08:39 | Outpatient (AMB) | payer OTHER, SELFPAY ==
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
[2023-12-23 08:49] VITALS: BP 128/80; PULSE 91; O2SAT 98; BMI 35.0
== END 2023-12-23 09:07 | disposition home or self-care (01) ==
PROVIDERS: PCP Internal Medicine; Visit Provider Internal Medicine
DX: D47.3 Essential (hemorrhagic) thrombocythemia (principal); F31.78 Bipolar disorder, in full remission, most recent episode mixed; E66.01 Morbid (severe) obesity due to excess calories; Z68.35 Body mass index [BMI] 35.0-35.9, adult; I10 Essential (primary) hypertension; E78.9 Disorder of lipoprotein metabolism, unspecified; Z91.09 Other allergy status, other than to drugs and biological substances; G43.119 Migraine with aura, intractable, without status migrainosus

== ENCOUNTER → 2023-12-23 08:39 | Outpatient (BNVA) | payer OTHER, SELFPAY | PROVIDERS: PCP Internal Medicine; Visit Provider Internal Medicine | DX: I10 Essential (primary) hypertension (principal); E78.9 Disorder of lipoprotein metabolism, unspecified; F31.78 Bipolar disorder, in full remission, most recent episode mixed; G43.119 Migraine with aura, intractable, without status migrainosus; D47.3 Essential (hemorrhagic) thrombocythemia; E66.01 Morbid (severe) obesity due to excess calories; Z68.35 Body mass index [BMI] 35.0-35.9, adult; Z91.09 Other allergy status, other than to drugs and biological substances | CPT/HCPCS: 96127; 99212 ==

== ENCOUNTER 2023-12-23 09:08 | Outpatient (REF) | payer OTHER, SELFPAY ==
[2023-12-23 10:05] LABS: MANUAL DIFF FLAG NO
[2023-12-23 10:13] LABS: Basophils Absolute Auto 0.1 X10*3/uL (0.0-0.2); Basophils Percent Auto 0.5 % (0-2); Eosinophils Absolute Auto 0.7 X10*3/uL (0.0-0.4); Eosinophils Percent Auto 5.3 % (0-4); Hematocrit 47.3 % (37.0-47.0); Hemoglobin 15.2 g/dl (12.0-16.0); Imm Gran Abs Auto 0.05 X10*3/uL (0.00-0.03); Imm Gran Pct Auto 0.4 % (0.0-0.4); Lymphocytes Absolute Auto 2.7 X10*3/uL (1.2-4.9); Lymphocytes Percent Auto 21.4 % (20-40); Mean Corpuscular HGB Conc 32.1 g/dl (31.0-35.0); Mean Corpuscular Hemoglobin 30.7 pg (27.0-33.0); Mean Corpuscular Volume 95.6 fL (80.0-98.0); Mean Platelet Volume 10.1 fL (9.4-12.3); Monocytes Absolute Auto 0.7 X10*3/uL (0.1-1.2); Monocytes Percent Auto 5.9 % (2-11); Neutrophils Absolute Auto 8.3 x10*3/uL (2.0-8.3); Neutrophils Percent Auto 66.5 % (45-73); Platelet Count 486 X10*3/uL (160-400); Red Blood Count 4.95 X10*6/uL (4.20-5.50); Red Cell Distribution Width 13.9 % (11.0-16.0); White Blood Count 12.5 X10*3/uL (4.8-10.8)
[2023-12-23 11:01] LABS: Alanine Aminotransferase 7 U/L (0-31); Albumin Level 4.2 g/dL (3.5-5.0); Alkaline Phosphatase 81 U/L (39-117); Anion Gap 13 (12-20); Aspartate Amino Transferase 12 U/L (5-31); Bilirubin Total 0.3 mg/dL (0.0-1.0); Blood Urea Nitrogen 20 mg/dL (9-16); Calcium 9.3 mg/dL (8.4-10.2); Carbon Dioxide 21 mmol/L (22-29); Chloride 112 mmol/L (96-108); Estimated Glomerular Filt Rate 33; Glucose Random 105 mg/dL (60-115); Potassium 3.4 mmol/L (3.3-5.1); Sodium 143 mmol/L (135-145); Total Protein 7.9 g/dL (6.5-8.0)
[2023-12-23 11:11] LABS: TSH reflex Free T4 3.09 uIU/mL (0.32-4.0)
== END 2023-12-23 09:09 | disposition home or self-care (01) ==
LOC: HO.HMGCLDS 09:08
PROVIDERS: PCP Internal Medicine; Visit Provider Internal Medicine
DX: I10 Essential (primary) hypertension (principal); Z91.09 Other allergy status, other than to drugs and biological substances; F31.78 Bipolar disorder, in full remission, most recent episode mixed; G43.119 Migraine with aura, intractable, without status migrainosus; E66.9 Obesity, unspecified; E78.9 Disorder of lipoprotein metabolism, unspecified; D47.3 Essential (hemorrhagic) thrombocythemia
CPT/HCPCS: 36415; 80053; 84443; 85025

== ENCOUNTER 2023-12-26 08:43 | Outpatient (AMB) | payer OTHER, SELFPAY ==
[2023-12-26 08:47] VITALS: BP 141/97; PULSE 126; BMI 35.0
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
== END 2023-12-26 08:53 | disposition home or self-care (01) ==
PROVIDERS: PCP Internal Medicine; Visit Provider Surgery
DX: Z93.2 Ileostomy status (principal)
CPT/HCPCS: 99214

== ENCOUNTER → 2023-12-26 08:43 | Outpatient (BNVA) | payer OTHER, SELFPAY | PROVIDERS: PCP Internal Medicine; Visit Provider Surgery | DX: Z93.2 Ileostomy status (principal) | CPT/HCPCS: 99212 ==

== ENCOUNTER 2023-12-30 15:49 | Outpatient (AMB) | payer OTHER, SELFPAY ==
[2023-12-30 15:49] VITALS: BP 126/90; PULSE 117; O2SAT 98; BMI 34.8
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
== END 2023-12-30 16:07 | disposition home or self-care (01) ==
PROVIDERS: PCP Internal Medicine; Referring Provider Internal Medicine; Visit Provider Internal Medicine Hypertension Specialist
DX: I12.9 Hypertensive chronic kidney disease with stage 1 through stage 4 chronic kidney disease, or unspecified chronic kidney disease (principal); N18.9 Chronic kidney disease, unspecified; Z93.3 Colostomy status
CPT/HCPCS: 99204

== ENCOUNTER → 2023-12-30 15:49 | Outpatient (BNVA) | payer OTHER, SELFPAY | PROVIDERS: PCP Internal Medicine; Referring Provider Internal Medicine; Visit Provider Internal Medicine Hypertension Specialist | DX: I12.9 Hypertensive chronic kidney disease with stage 1 through stage 4 chronic kidney disease, or unspecified chronic kidney disease (principal); N18.9 Chronic kidney disease, unspecified; Z93.3 Colostomy status | CPT/HCPCS: 99202 ==

== ENCOUNTER 2024-01-06 08:57 | Outpatient (REF) | payer OTHER, SELFPAY ==
[2024-01-06 09:59] LABS: MANUAL DIFF FLAG NO
[2024-01-06 10:08] LABS: Basophils Absolute Auto 0.1 X10*3/uL (0.0-0.2); Basophils Percent Auto 0.5 % (0-2); Eosinophils Absolute Auto 0.7 X10*3/uL (0.0-0.4); Eosinophils Percent Auto 6.4 % (0-4); Hematocrit 43.4 % (37.0-47.0); Hemoglobin 13.9 g/dl (12.0-16.0); Imm Gran Abs Auto 0.03 X10*3/uL (0.00-0.03); Imm Gran Pct Auto 0.3 % (0.0-0.4); Lymphocytes Absolute Auto 2.8 X10*3/uL (1.2-4.9); Lymphocytes Percent Auto 23.9 % (20-40); Mean Corpuscular Hemoglobin 30.6 pg (27.0-33.0); Mean Corpuscular Volume 95.6 fL (80.0-98.0); Mean Platelet Volume 10.4 fL (9.4-12.3); Monocytes Absolute Auto 0.7 X10*3/uL (0.1-1.2); Monocytes Percent Auto 6.2 % (2-11); Neutrophils Absolute Auto 7.2 x10*3/uL (2.0-8.3); Neutrophils Percent Auto 62.7 % (45-73); Platelet Count 452 X10*3/uL (160-400); Red Blood Count 4.54 X10*6/uL (4.20-5.50); Red Cell Distribution Width 13.9 % (11.0-16.0); White Blood Count 11.5 X10*3/uL (4.8-10.8)
[2024-01-06 10:12] LABS: Appearance Urine Cloudy; Color Urine Yellow; Glucose Urine UA Negative (Negative); Leukocyte Esterase Urine Moderate (2+) (Negative); Nitrite Urine Negative (Negative); UMIC TRIGGER UA YES; Urine Blood Negative (Negative); Urine Ketones Negative (Negative); Urine Protein Trace mg/dL (Neg-Trace)
[2024-01-06 10:38] LABS: Total Protein Urine Random 20 mg/dL (<12)
[2024-01-06 10:53] LABS: Bacteria Urine 2+ (None Seen); RBC Urine 0-2 /HPF (0-2)
[2024-01-06 11:12] LABS: Alanine Aminotransferase 7 U/L (0-31); Albumin Level 3.8 g/dL (3.5-5.0); Alkaline Phosphatase 73 U/L (39-117); Anion Gap 13 (12-20); Aspartate Amino Transferase 12 U/L (5-31); Bilirubin Total 0.3 mg/dL (0.0-1.0); Blood Urea Nitrogen 13 mg/dL (9-16); Carbon Dioxide 22 mmol/L (22-29); Chloride 112 mmol/L (96-108); Estimated Glomerular Filt Rate 38; Glucose Random 94 mg/dL (60-115); Potassium 3.5 mmol/L (3.3-5.1); Sodium 143 mmol/L (135-145); Total Protein 6.9 g/dL (6.5-8.0)
== END 2024-01-06 08:58 | disposition home or self-care (01) ==
LOC: HO.HMGCLDS 08:57
PROVIDERS: PCP Internal Medicine; Visit Provider Internal Medicine Hypertension Specialist
DX: N18.9 Chronic kidney disease, unspecified (principal)
CPT/HCPCS: 36415; 80053; 81001; 82570; 84156; 84300; 85025

== ENCOUNTER 2024-01-20 10:05 | Inpatient (IN) | payer OTHER, SELFPAY ==
[2024-01-09 10:25] VITALS: BMI 34.8
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
--- NOTE | 2024-01-19 09:53 | MHC.SHP ---
Pre-Procedural Eval Section A - 24 Hr Update-Section A only Date of Service: 01/20/24 The patient is an INPATIENT: Yes Section B - Complete if H&P > 30 days Chief Complaint: Ileostomy status Allergies: Allergies Allergy/AdvReac Type Severity Reaction Status Date / Time Penicillins [PENICILLINS] Allergy Unknown HIVES Verified 12/30/23 15:51 celecoxib [Celebrex] AdvReac Intermediate Hives Verified 12/30/23 15:51 clonidine AdvReac Intermediate hives,dizziness, Verified 12/30/23 15:51 N/V sumatriptan [Imitrex] AdvReac Intermediate Hives Verified 12/30/23 15:51 hydrocodone AdvReac Mild Dizziness Verified 12/30/23 15:51 Review of Systems Sugical H&P ROS: Negative: Constitution, Cardiovascular, Respiratory, Neurological, Psychiatric, Hem-Onc, Allergic/Immunologic, Gastrointestinal, Genitourinary, Musculoskeletal, Integumentary, Endocrine and Eyes/Ears/Nose/Throat Exam Surgical H&P Exam: Normal: HEENT, Normal: Heart, Normal: Lungs, Normal: Extremities, Normal: Abdomen, Normal: Skin and Normal: Neurological Plan I have reviewed the history and physical and performed a pertinent physical examination on my patient. No changes have occurred unless specified. Time Spent With Patient Time: Total time managing care of this patient today ____ minutes.
[2024-01-20] VITALS (13 sets, daily range): BP systolic 111–160; BP diastolic 63–87; PULSE 51–63; RESP 14–18; TEMP 35.3–36.8; O2SAT 96–100
[2024-01-20] MEDS: Lactated Ringers 1,000 ML 100 ML IVCONT ×2 (10:04→19:45)
--- NOTE | 2024-01-20 10:07 | MHC.SHP ---
Pre-Procedural Eval Section A - 24 Hr Update-Section A only Date of Service: 01/20/24 The patient is an INPATIENT: Yes Changes since office visit: No Cold of Flu in the past 2 weeks, No New Medical Problems, No Changes in Medication and No Patient answered all questions Section B - Complete if H&P > 30 days Chief Complaint: Ileostomy status Allergies: Allergies Allergy/AdvReac Type Severity Reaction Status Date / Time Penicillins [PENICILLINS] Allergy Unknown HIVES Verified 01/20/24 09:57 celecoxib [Celebrex] AdvReac Intermediate Hives Verified 01/20/24 09:57 clonidine AdvReac Intermediate hives,dizziness, Verified 01/20/24 09:57 N/V sumatriptan [Imitrex] AdvReac Intermediate Hives Verified 01/20/24 09:57 hydrocodone AdvReac Mild Dizziness Verified 01/20/24 09:57 Plan I have reviewed the history and physical and performed a pertinent physical examination on my patient. No changes have occurred unless specified. Time Spent With Patient Time: Total time managing care of this patient today ____ minutes.
--- OUTSIDE RECORDS SUMMARY | 2024-01-20 10:21 | XMS_ITS ---
Author Organization [facility] Address [address] [place] [address] Care Team Providers Care Automation Software Engineer Name Role Phone Rogelio GUEVARA, [facility] Primary [facility] Provider Luisito Riggs Jr Unavailable [phone] Matthew Zaragoza M.D. 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
--- OUTSIDE RECORDS SUMMARY | 2024-01-20 10:21 | XMS_ITS ---
Author Organization [facility] Address [address] [place] [id number] Care Team Providers Care Hub Inventory Specialist Name Role Phone Rogelio [facility], [facility] Primary [facility] Provider Luisito Riggs Jr Unavailable [phone] Matthew Zaragoza M.D. Unavailable Unavailable REASON FOR VISIT another procedure in 2 weeks Encounters Encounter Location Date Provider Diagnosis [facility] [address] [place] [address] 12/01/2023 Luisito Mccartney Jr PLAN OF TREATMENT No Information
--- OUTSIDE RECORDS SUMMARY | 2024-01-20 10:22 | XMS_ITS ---
Author Organization [facility] Address [address] [place] [address] Care Team Providers Care Collection Coordinator Name Role Phone Rogelio GUEVARA, [facility] Primary Care Provider Luisito Riggs Jr Unavailable Matthew Zaragoza M.D. Unavailable Unavailable REASON FOR VISIT colonic stricture PROBLEMS Problem Type ICD Code Onset Dates Problem Status W/U Status Risk SNOMED Code Notes Problem Diverticulosis of large intestine without perforation or abscess without bleeding (K57.30) Active confirmed Diverticul ar disease of colon ([id number]) Encounters Encounter Location Date Provider Diagnosis [facility] [address], [place] [phone] 11/29/2023 Luisito Mccartney Jr Unspecified intestinal obstruction, unspecified as to partial versus complete obstruction K56.609 ; 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 ; Lymphocytic colitis K52.89 ; Diverticulosis of large intestine without perforation or abscess without bleeding K57.30 and Other hemorrhoids K64.8 ASSESSMENTS Encounter Date Diagnosis Assessment Notes Treatment Notes Treatment Clinical Notes 11/29/2023 Unspecified intestin al obstruction, unspecified as to partial versus complete obstruction (ICD-10 - K56.609) 11/29/2023 Anastomotic strictur e of gastrojejunostomy (ICD-10 - K91.89) 11/29/2023 Lymphocytic colitis (ICD-10 - K52.89) 11/29/2023 Diverticulosis of la rge intestine without perforation or abscess without bleeding (ICD-10 - K57.30) 11/29/2023 Other hemorrhoids (ICD-10 - K64.8) PLAN OF TREATMENT No Information
--- OUTSIDE RECORDS SUMMARY | 2024-01-20 10:22 | XMS_ITS | Patient Health Record ---
Author Organization [facility] Address [address] [place] [address] Care Team Providers Care Embroiderer Name Role Phone Rogelio GUEVARA, Lee Primary Care Provider Luisito Riggs Jr Unavailable Matthew Zaragoza M.D. Unavailable Unavailable ALLERGIES Allergen (clinical drug ingredient) Drug/Non Drug Allergy documented on EMR Reaction Allergy Type Onset Date Status Penicillin Unknown Drug Allergy Active RESULTS Component Value Reference Range Notes Pathology Reviewed date:12/02/2023 02:14:13 PM Interpretation: Performing Lab:[facility], [address] [place] [id number] Notes/Report: REASON FOR REFERRAL No Information MEDICATIONS Medication SIG (Take, Route, Frequency, Duration) Notes Start Date End Date Status hydrOXYzine Pamoate 25 MG TAKE 1 CAPSULE BY MOUTH THREE TIMES DAILY Oral for 30 Active Losartan Potassium 100 MG TAKE 1 TABLET BY MOUTH DAILY Oral for 90 Active lamoTRIgine 200 MG Oral for 30 Active Vitamin D3 50 MCG (1999 [place]) TAKE 1 CAPSULE BY MOUTH DAILY WITH FOOD IN THE AM Oral for 30 Active Atenolol 100 MG Oral for 90 Ac tive Melatonin 5 MG TAKE 1-2 TABLETS BY MOUTH AT BEDTIME NEEDED FOR INSOMNIA Oral for 30 Active Simvastatin 20 MG Oral for 90 Active Ziprasidone HCl 60 MG Oral for 30 Active Docusate Sodium 100 MG TAKE 2 CAPSULES B Y MOUTH EVERY NIGHT AT BEDTIME Oral for 30 Active Amitriptyline HCl 50 MG TAKE 1 TABLET BY MOUTH EVERY DAY AT BEDTIME Oral for 90 [id number],Unavail able Active Levothyroxine Sodium 25 MCG TAKE 1 TABLET BY MOUTH DAILY Oral for 90 Active Chlorthalidone 25 MG 1 tablet in the morning with food Orally for 30 day(s) Active amLODIPine Besylate 10 MG Oral for 30 Active Cetirizine HCl 10 MG Oral for 90 Active IMMUNIZATIONS Vaccine Route Administration Date Status Comme nts Influenza Unknown 11/02/2023 Refused SOCIAL HISTORY Tobacco Use: Social History Observation Description Date Details (start date - stop date) Never Smoker NA - NA Sex Assigned At : Social History Observation Description Sex Assigned At Unknown Tobacco Use/Smoking Question Answer Notes Patient is a nonsmoker Alcohol Screen Question Answer Notes Did you have a drink contain ing alcohol in the past year? Yes How often did you have a dri nk containing alcohol in the past year? Monthly or less (1 point) How many drinks did you have on a typical day when you were drinking in the past year? 1 or 2 drinks (0 point) How often did you have 6 or more drinks on one occasion in the past year? Never (0 point) Points 1 Interpretation Negative PROBLEMS Problem Type ICD Code Onset Dates Problem Status W/U Status Risk SNOMED Code Notes Problem Colonic stricture (K56.699) Active confirmed 9920445 Problem Diverticulosis of large intestine without perforation or abscess without bleeding (K57.30) Active confirmed Diverticul ar disease of colon (941896775) VITAL SIGNS Temperature 97.3 degrees Fahrenheit 11/02/2023 Blood pressure diastolic 00 mm Hg 11/02/2023 Height 5 ft 1 in in 11/02/2023 Blood pressure systolic 000 mm Hg 11/02/2023 Weight 184 lb 8 oz lbs 11/02/2023 BMI 34.86 kg/m2 11/02/2023 Encounters Encounter Location Date Provider Diagnosis [facility] [address] [place] [id number] 11/29/2023 Luisito Mccartney Jr Unspecified intestinal obstruction, unspecified as to partial versus complete obstruction K56.609 ; 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 ; Lymphocytic colitis K52.89 ; Diverticulosis of large intestine without perforation or abscess without bleeding K57.30 and Other hemorrhoids K64.8 [facility] [address] [place] [id number] 12/20/2023 Luisito Mccartney Jr Other intestinal obstruction unspecified as to partial versus complete obstruction K56.699 and Gastrointestinal anastomotic stricture K91.30 [facility] [address] [place] [address] 11/02/2023 Luisito Mccartney Jr Colonic stricture K56.699 [facility] [address] [place] [address] 12/01/2023 Luisito Mccartney Jr ASSESSMENTS Encounter Date Diagnosis Assessment Notes Treatment Notes Treatment Clinical Notes 11/29/2023 Unspecified intestin al obstruction, unspecified as to partial versus complete obstruction (ICD-10 - K56.609) 11/29/2023 Anastomotic strictur e of gastrojejunostomy (ICD-10 - K91.89) 12/20/2023 Other intestinal obstruction unspecified as to partial versus complete obstruction (ICD-10 - K56.699) 12/20/2023 Gastrointestinal anastomotic stricture (ICD-10 - K91.30) 11/02/2023 Colonic stricture (ICD-10 - K56.699) Colonoscopy material was printed 11/29/2023 Lymphocytic colitis (ICD-10 - K52.89) 11/29/2023 Diverticulosis of la rge intestine without perforation or abscess without bleeding (ICD-10 - K57.30) 11/29/2023 Other hemorrhoids (ICD-10 - K64.8) PLAN OF TREATMENT Future Test Test Name Order Date Colonoscopy with balloon dilation 2023 Insurance Providers Payer Name Payer Address Payer Phone Subscriber Number Group Number Insured Name Patient Relationship to Insured Coverage Start Date Coverage End Date [facility] [address] Attn Claims ARSH [place] [id number] АЛЕКСАНДР LUKE Self - patient is the insured MEDICAL (GENERAL) HISTORY Medical History History ICD Code Hypertension Bipolar disorder Migraine headaches Leukocytosis, thrombocytosis Colon polyps, colonoscopy 06/24, tubular adenoma, sigmoid diverticulosis Surgical History Surgery Date(Month/Year) skin graft 1991 Cholecystectomy 1996 Sigmoid resection, diverting loop ileost nicolas 2023 Hospitalization History Reason Date(Month/Year) Sigmoid resection, diverting loop ileost nicolas 08/18/23
--- NOTE | 2024-01-20 11:24 | PHA.MEDREC ---
Addendum entered by Rocío Lyman RPh 01/20/24 11:29: Reviewed by [facility] Original Note: Pharmacy Consult ? Medication Reconciliation Pharmacy has reviewed the medication reconciliation done by nursing.
--- NOTE | 2024-01-20 12:38 | W.PM.OPN ---
Operative Note Operative Note Date of Service: 01/20/24 Narrative: Preoperative diagnosis: [] Loop ileostomy Postop diagnosis: [] The same Procedure [] reversal loop of the ostomy Surgeon: [] Nik Mixed Livestock Farmer: [] Donnie Type of Anesthesia: [] General Indication for surgery: [] Loop ileostomy reversal Findings: [] Patient brought to the operating room, placed on operative table supine position, after an adequate level of general anesthesia was induced, loop ileostomy was closed using running locking 2-0 silk suture. Abdomen was then prepped and draped in usual sterile fashion. Using a transverse by elliptical incision encompassing the loop ileostomy, this carried down through skin, subcutaneous tissue, down through the fascia. Circumferentially dissection into the fascia was accomplished and the abdominal cavity entered. Adhesions of the loop ileostomy to the peritoneum were sequentially taken down in the bowel was completely freed. Bowel was adequately mobilized and using ABDOULAYE staplers, bowel was transected proximal to the loop ileostomy site at the desired locations. Mesentery of loop ileostomy was taken down using clamps, cutting, and tied using 2-0 Vicryl ties. Specimen sent to pathology. Functional end-to-end anastomosis using ABDOULAYE 60 and TA 60 staplers with the 2 loops of appropriately oriented, well-perfused, tension-free small bowel was performed. Crotch of the anastomosis was buttressed using interrupted 3-0 silk sutures. Mesenteric defect was closed using interrupted 3-0 Vicryl sutures. The anastomosis was placed into the abdominal cavity. The wound was very copiously irrigated and secured hemostasis. It was closed in the following manner; posterior fascia and peritoneum were closed using running locking 0 Vicryl suture. Anterior fascia was closed using 1. Maxon suture. Skin was closed using widely spaced vertical mattress 3-0 Vicryl sutures followed by skin leonardo and sterile dressing. At the beginning of the case and at the end, wound was infiltrated with 0.5% Marcaine/1% lidocaine. Sponge, needle, and instrument counts reported correct. Patient tolerated the procedure well and emerged from anesthesia stable condition. EBL minimal
[2024-01-20] MEDS: fentaNYL citrate/PF 100 MCG/2 ML VIAL 25 MCG IVPUSH ×3 (12:42→12:52)
[2024-01-20] MEDS: ondansetron HCL 4 MG/2 ML VIAL IVPUSH ×2 (13:22→16:24)
[2024-01-20] MEDS: Haloperidol Lactate 5 MG/ML VIAL 1 MG IVPUSH (13:55)
[2024-01-20] MEDS: Morphine Sulfate 4 MG/ML CARTRIDGE IVPUSH (14:39)
[2024-01-20] MEDS: hydrOXYzine HCL 50 MG TABLET PO ×2 (15:45→20:03)
[2024-01-20] MEDS: Acetaminophen 1,000 MG/100 ML PIGGYBACK 400 MG IV (18:14)
[2024-01-20] MEDS: Metoclopramide HCl 10 MG/2 ML VIAL IVPUSH (19:38)
[2024-01-20] MEDS: Atorvastatin Calcium 10 MG TABLET PO (20:03)
[2024-01-20] MEDS: Amitriptyline HCl 50 MG TABLET PO (20:03)
[2024-01-20] MEDS: Loratadine 10 MG TABLET PO (20:03)
[2024-01-21] VITALS (7 sets, daily range): BP systolic 118–140; BP diastolic 73–82; PULSE 64–66; RESP 16–18; TEMP 36.3–37.2; O2SAT 94–98
[2024-01-21] MEDS: Acetaminophen 1,000 MG/100 ML PIGGYBACK 400 MG IV ×5 (00:01→23:36)
[2024-01-21] MEDS: oxyCODONE HCl Immed Release 5 MG TABLET PO ×3 (00:28→22:04)
[2024-01-21] MEDS: Levothyroxine Sodium 25 MCG TABLET PO (05:45)
[2024-01-21] MEDS: Lactated Ringers 1,000 ML 100 ML IVCONT ×3 (05:45→23:36)
[2024-01-21 06:24] LABS: MANUAL DIFF FLAG NO
[2024-01-21 06:43] LABS: Anion Gap 14 (12-20); Blood Urea Nitrogen 16 mg/dL (9-16); Calcium 8.8 mg/dL (8.4-10.2); Carbon Dioxide 25 mmol/L (22-29); Chloride 103 mmol/L (96-108); Creatinine Clr Calc Pharmacy 51.1; Estimated Glomerular Filt Rate 44; Glucose Fasting 85 mg/dL (60-99); Potassium 3.9 mmol/L (3.3-5.1); Sodium 138 mmol/L (135-145)
[2024-01-21 06:46] LABS: Basophils Percent Auto 0.2 % (0-2); Eosinophils Absolute Auto 0.5 X10*3/uL (0.0-0.4); Eosinophils Percent Auto 3.1 % (0-4); Hematocrit 44.4 % (37.0-47.0); Hemoglobin 14.8 g/dl (12.0-16.0); Imm Gran Abs Auto 0.08 X10*3/uL (0.00-0.03); Imm Gran Pct Auto 0.5 % (0.0-0.4); Lymphocytes Absolute Auto 1.3 X10*3/uL (1.2-4.9); Lymphocytes Percent Auto 7.8 % (20-40); Mean Corpuscular HGB Conc 33.3 g/dl (31.0-35.0); Mean Corpuscular Volume 92.9 fL (80.0-98.0); Mean Platelet Volume 10.8 fL (9.4-12.3); Neutrophils Absolute Auto 13.7 x10*3/uL (2.0-8.3); Neutrophils Percent Auto 82.4 % (45-73); Platelet Count 385 X10*3/uL (160-400); Red Blood Count 4.78 X10*6/uL (4.20-5.50); Red Cell Distribution Width 13.5 % (11.0-16.0); White Blood Count 16.6 X10*3/uL (4.8-10.8)
--- NOTE | 2024-01-21 07:49 | MHC.CM.PN ---
PT REPORTS SHE LIVES ALONE AND IS INDEPENDENT WITH CARE SHE HAS A CANE SHE USES PRN AND NO SERVICES HCP ON FILE AND VERIFIED PCP: ARTEMIO BECK IMM DELIVERED DCP: HOME NO SERVICES VIA FAMILY TRANSPORT
[2024-01-21] MEDS: Morphine Sulfate 4 MG/ML CARTRIDGE IVPUSH ×2 (08:11→14:17)
[2024-01-21] MEDS: amLODIPine Besylate 10 MG TABLET PO (08:11)
[2024-01-21] MEDS: lamoTRIgine 100 MG TABLET 300 MG PO (08:12)
[2024-01-21] MEDS: hydrOXYzine HCL 50 MG TABLET PO ×3 (08:12→19:48)
[2024-01-21] MEDS: Losartan Potassium 50 MG TABLET 100 MG PO (08:12)
[2024-01-21] MEDS: atenoloL 100 MG TABLET PO (08:12)
--- NOTE | 2024-01-21 09:20 | P.PNGS_ITS ---
Subjective Subjective Date of Service: 01/21/24 Interval history: feeling well some pain with moving no flatus yet Physical Exam 2 Vital Signs: Vital Signs: Last Vital Signs Temp 98.2 F 01/21/24 07:05 Pulse 65 01/21/24 08:12 Resp 18 01/21/24 08:11 BP 140/80 H 01/21/24 08:12 Pulse Ox 98 01/21/24 07:05 O2 Del Method Nasal Cannula 01/21/24 07:05 O2 Flow Rate 2 01/21/24 07:05 BMI result Body Mass Index 34.8 GI: Other: abdomen soft nondistended - ostomy takedown site clean but a bit bloody- old- cleaned up with leonardo present bowel sounds present Objective Data Active Medications Albuterol Sulfate (Albuterol Sulfate 90 Mcg 8 Gm Inhaler) 2 puff INHALE Q6H PRN PRN Reason: for muscle spasm Amitriptyline HCl (Amitriptyline Hcl 50 Mg Tablet) 50 mg PO BEDTIME [facility] Last Admin: 01/20/24 20:03 Dose: 50 mg Documented By: ADAN Amlodipine Besylate (Amlodipine Besylate 10 Mg Tablet) 10 mg PO DAILY [facility]; Protocol Last Admin: 01/21/24 08:11 Dose: 10 mg Documented By: COTEMA Atenolol (Atenolol 100 Mg Tablet) 100 mg PO DAILY [facility]; Protocol Last Admin: 01/21/24 08:12 Dose: 100 mg Documented By: COTEMA Atorvastatin Calcium (Atorvastatin Calcium 10 Mg Tablet) 10 mg PO BEDTIME [facility] Last Admin: 01/20/24 20:03 Dose: 10 mg Documented By: KELINILM Calcium Carbonate (Calcium Carbonate 750 Mg Tab.Chew) 750 mg PO Q4H PRN PRN Reason: Heartburn Hydroxyzine HCl (Hydroxyzine Hcl 50 Mg Tablet) 50 mg PO TID [facility] Last Admin: 01/21/24 08:12 Dose: 50 mg Documented By: COTEMA Lactated Ringer's (Lr) 1,000 mls @ 100 mls/hr IVCONT .Q10H [facility]OU[facility] Last Admin: 01/21/24 05:45 Dose: 100 mls/hr Documented By: CASTILM Acetaminophen (Ofirmev) 1,000 mg in 100 mls @ 400 mls/hr IV Q6H [facility] Last Infusion: 01/21/24 06:03 Dose: Infused Documented By: KELINILAlvarado Lamotrigine (Lamotrigine 100 Mg Tablet) 300 mg PO DAILY [facility] Last Admin: 01/21/24 08:12 Dose: 300 mg Documented By: COTEMA Levothyroxine Sodium (Levothyroxine Sodium 25 Mcg Tablet) 25 mcg PO DAILY@0600 [facility] Last Admin: 01/21/24 05:45 Dose: 25 mcg Documented By: KELINILAlvarado Loratadine (Loratadine 10 Mg Tablet) 10 mg PO BEDTIME [facility] Last Admin: 01/20/24 20:03 Dose: 10 mg Documented By: ADAN Losartan Potassium (Losartan Potassium 50 Mg Tablet) 100 mg PO DAILY [facility]; Protocol Last Admin: 01/21/24 08:12 Dose: 100 mg Documented By: CB Magnesium Hydroxide (Milk Of Magnesia 30 Ml Oral.Susp) 30 ml PO DAILY PRN PRN Reason: Constipation Melatonin (Melatonin 3 Mg Tablet) 6 mg PO BEDTIME PRN PRN Reason: Insomnia Metoclopramide HCl (Metoclopramide Hcl 10 Mg/2 Ml Vial) 10 mg IVPUSH Q8H PRN PRN Reason: Nausea and Vomiting Last Admin: 01/20/24 19:38 Dose: 10 mg Documented By: ADAN Morphine Sulfate (Morphine Sulfate 4 Mg/Ml Cartridge) 4 mg IVPUSH Q4H PRN; Protocol PRN Reason: Pain, Severe (Pain Scale 7-10) Last Admin: 01/21/24 08:11 Dose: 4 mg Documented By: CB Ondansetron HCl (Ondansetron Hcl 4 Mg/2 Ml Vial) 4 mg IVPUSH Q6H PRN PRN Reason: Nausea and Vomiting Last Admin: 01/20/24 16:24 Dose: 4 mg Documented By: DOBROB Oxycodone HCl (Oxycodone Hcl Immed Release 5 Mg Tablet) 5 mg PO Q4H PRN PRN Reason: Pain, Moderate(Pain Scale 4-6) Last Admin: 01/21/24 00:28 Dose: 5 mg Documented By: ADAN Sodium Chloride (0.9 % Sodium Chloride Flush 3 Ml Syringe) [address] [facility] [facility] Admin: 01/21/24 08:07 Dose: Not Given Documented By: COTEMA Non-Admin Reason: IV Running Ziprasidone (Ziprasidone 60 Mg Capsule) 120 mg PO DAILY@1700 [facility] Last Admin: 01/20/24 18:14 Dose: Not Given Documented By: DOBROB Non-Admin Reason: Patient Condition Contraindication Labs 01/21/24 05:14 01/21/24 05:14 Labs: Laboratory Results - last 24 hr 01/21/24 05:14 MCV 92.9 MCH 31.0 MCHC 33.3 RDW 13.5 Plt Count 385 MPV 10.8 Immature Gran % (Auto) 0.5 H Neut % (Auto) 82.4 H Lymph % (Auto) 7.8 L [place] % (Auto) 6.0 Eos % (Auto) 3.1 Baso % (Auto) 0.2 Lymph # (Auto) 1.3 [place] # (Auto) 1.0 Eos # (Auto) 0.5 H Baso # (Auto) 0.0 Abs Immat Gran (auto) 0.08 H Absolute Neuts (auto) 13.7 H Absolute Nucleated RBC 0.000 Nucleated RBC % (auto) 0.0 Anion Gap 14 Estim Creat Clear Calc 51.1 Estimated GFR 44 Fasting Glucose 85 Calcium 8.8 Procedures Date of Service Date of Service: 01/21/24 Progress Note: A&P Assessment and plan (1) History of closure of ileostomy: Status: Acute Plan 48 yo female pod#1 sp ileostomy takedown doing well- cont on clear liquids heplock ivf and await flatus. ambulate Time Spent With Patient Time: Total time managing care of this patient today ____ minutes. Quality Stroke Does the patient have a stroke diagnosis?: No VTE Prior VTE?: No VTE Risk Level:: Surgical - low VTE Device Contraindication: N/A - Device Ordered VTE Drug Contraindication: Treatment Not Indicated
[2024-01-21] MEDS: ondansetron HCL 4 MG/2 ML VIAL IVPUSH (13:14)
--- NOTE | 2024-01-21 15:49 | HO.POSTANES ---
Post Anesthesia Evaluation Post Anesthesia Evaluation Date of Service: 01/21/24 Vital Signs: Vital Signs Temp Pulse Resp BP Pulse Ox O2 Del Method O2 Flow Rate 01/21/24 14:57 98.9 F 66 16 118/73 95 Room Air 01/21/24 14:17 17 01/21/24 08:12 65 140/80 H 01/21/24 08:12 140/80 H 01/21/24 08:11 140/80 H 01/21/24 08:11 18 01/21/24 07:05 98.2 F 65 16 140/80 H 98 Nasal Cannula 2 Anesthesia: General Endotracheal-GETA Mental Status: Awake Pain Control: Satisfactory Nausea/Vomiting: None Hydration: Adequate Anesthesia-Related Issues: No Anes. Related Issues
[2024-01-21] MEDS: Ziprasidone 60 MG CAPSULE 120 MG PO (17:41)
[2024-01-21] MEDS: Atorvastatin Calcium 10 MG TABLET PO (19:48)
[2024-01-21] MEDS: Amitriptyline HCl 50 MG TABLET PO (19:49)
[2024-01-21] MEDS: Loratadine 10 MG TABLET PO (19:49)
[2024-01-22 03:45] VITALS: BP 119/70; PULSE 64; RESP 14; TEMP 36.7; O2SAT 95
[2024-01-22] MEDS: Acetaminophen 1,000 MG/100 ML PIGGYBACK 400 MG IV ×2 (06:04→12:06)
[2024-01-22] MEDS: Levothyroxine Sodium 25 MCG TABLET PO (06:04)
[2024-01-22 07:15] VITALS: BP 124/73; PULSE 71; RESP 16; TEMP 36.4; O2SAT 95
[2024-01-22 08:15] VITALS: BP 124/73; PULSE 71
[2024-01-22] MEDS: amLODIPine Besylate 10 MG TABLET PO (08:15)
[2024-01-22] MEDS: Losartan Potassium 50 MG TABLET 100 MG PO (08:15)
[2024-01-22] MEDS: oxyCODONE HCl Immed Release 5 MG TABLET PO ×3 (08:15→16:06)
[2024-01-22] MEDS: atenoloL 100 MG TABLET PO (08:15)
[2024-01-22] MEDS: hydrOXYzine HCL 50 MG TABLET PO ×3 (08:15→20:22)
[2024-01-22] MEDS: lamoTRIgine 100 MG TABLET 300 MG PO (08:16)
[2024-01-22] MEDS: Lactated Ringers 1,000 ML 100 ML IVCONT (08:16)
--- NOTE | 2024-01-22 12:08 | PM.PNGS ---
Subjective Subjective Date of Service: 01/22/24 Interval history: Patient is feeling still sore but improved. She had little bit of a bowel movement and we are advancing her diet Physical Exam Vital Signs: Vital Signs: Last Vital Signs Temp 97.6 F 01/22/24 07:15 Pulse 71 01/22/24 08:15 Resp 16 01/22/24 07:15 BP 124/73 01/22/24 08:15 Pulse Ox 95 01/22/24 07:15 O2 Del Method Room Air 01/22/24 07:15 O2 Flow Rate 2 01/21/24 07:05 BMI result Body Mass Index 34.8 GI: Other: Abdomen is soft nondistended tender around the incision site dressings look good. Objective Data Active Medications Albuterol Sulfate (Albuterol Sulfate 90 Mcg 8 Gm Inhaler) 2 puff INHALE Q6H PRN PRN Reason: for muscle spasm Amitriptyline HCl (Amitriptyline Hcl 50 Mg Tablet) 50 mg PO BEDTIME [facility] Last Admin: 01/21/24 19:49 Dose: 50 mg Documented By: CASTILM Amlodipine Besylate (Amlodipine Besylate 10 Mg Tablet) 10 mg PO DAILY [facility]; Protocol Last Admin: 01/22/24 08:15 Dose: 10 mg Documented By: COTEMA Atenolol (Atenolol 100 Mg Tablet) 100 mg PO DAILY [facility]; Protocol Last Admin: 01/22/24 08:15 Dose: 100 mg Documented By: COTEMA Atorvastatin Calcium (Atorvastatin Calcium 10 Mg Tablet) 10 mg PO BEDTIME [facility] Last Admin: 01/21/24 19:48 Dose: 10 mg Documented By: CASTILM Calcium Carbonate (Calcium Carbonate 750 Mg Tab.Chew) 750 mg PO Q4H PRN PRN Reason: Heartburn Hydroxyzine HCl (Hydroxyzine Hcl 50 Mg Tablet) 50 mg PO TID [facility] Last Admin: 01/22/24 08:15 Dose: 50 mg Documented By: COTEMA Acetaminophen (Ofirmev) 1,000 mg in 100 mls @ 400 mls/hr IV Q6H [facility] Last Admin: 01/22/24 12:06 Dose: 400 mls/hr Documented By: COTEMA Lamotrigine (Lamotrigine 100 Mg Tablet) 300 mg PO DAILY [facility] Last Admin: 01/22/24 08:16 Dose: 300 mg Documented By: COTEMA Levothyroxine Sodium (Levothyroxine Sodium 25 Mcg Tablet) 25 mcg PO DAILY@0600 [facility] Last Admin: 01/22/24 06:04 Dose: 25 mcg Documented By: KELINILAlvarado Loratadine (Loratadine 10 Mg Tablet) 10 mg PO BEDTIME [facility] Last Admin: 01/21/24 19:49 Dose: 10 mg Documented By: ADAN Losartan Potassium (Losartan Potassium 50 Mg Tablet) 100 mg PO DAILY [facility]; Protocol Last Admin: 01/22/24 08:15 Dose: 100 mg Documented By: COTEMA Magnesium Hydroxide (Milk Of Magnesia 30 Ml Oral.Susp) 30 ml PO DAILY PRN PRN Reason: Constipation Melatonin (Melatonin 3 Mg Tablet) 6 mg PO BEDTIME PRN PRN Reason: Insomnia Metoclopramide HCl (Metoclopramide Hcl 10 Mg/2 Ml Vial) 10 mg IVPUSH Q8H PRN PRN Reason: Nausea and Vomiting Last Admin: 01/20/24 19:38 Dose: 10 mg Documented By: ADAN Morphine Sulfate (Morphine Sulfate 4 Mg/Ml Cartridge) 4 mg IVPUSH Q4H PRN; Protocol PRN Reason: Pain, Severe (Pain Scale 7-10) Last Admin: 01/21/24 14:17 Dose: 4 mg Documented By: PANFILOEMA Ondansetron HCl (Ondansetron Hcl 4 Mg/2 Ml Vial) 4 mg IVPUSH Q6H PRN PRN Reason: Nausea and Vomiting Last Admin: 01/21/24 13:14 Dose: 4 mg Documented By: PANFILOEMA Oxycodone HCl (Oxycodone Hcl Immed Release 5 Mg Tablet) 5 mg PO Q4H PRN PRN Reason: Pain, Moderate(Pain Scale 4-6) Last Admin: 01/22/24 12:06 Dose: 5 mg Documented By: COTEMA Sodium Chloride (0.9 % Sodium Chloride Flush 3 Ml Syringe) 3 ml IVFLUSH QSHIFT [facility] Last Admin: 01/22/24 07:08 Dose: Not Given Documented By: COTEMA Non-Admin Reason: IV Running Ziprasidone (Ziprasidone 60 Mg Capsule) 120 mg PO DAILY@1700 [facility] Last Admin: 01/21/24 17:41 Dose: 120 mg Documented By: COTEMA Labs 01/21/24 05:14 01/21/24 05:14 Procedures Date of Service Date of Service: 01/22/24 Progress Note: A&P Assessment and plan (1) History of closure of ileostomy: Status: Acute Assessment and Plan: 48-year-old female postop day 2. Status post ileostomy reversal overall doing well. We will advance her diet see how she does. She states she still very sore was moving around and would like to stay until tomorrow. I think that this is fair. We will Hep-Lock her IV fluids and allow her to ambulate and move around better. She understands and agrees with the above plan Time Spent With Patient Time: Total time managing care of this patient today ____ minutes. Quality Stroke Does the patient have a stroke diagnosis?: No VTE Prior VTE?: No VTE Risk Level:: Surgical - low VTE Device Contraindication: N/A - Device Ordered VTE Drug Contraindication: Treatment Not Indicated
[2024-01-22 15:56] VITALS: BP 107/68; PULSE 70; RESP 12; TEMP 36.1; O2SAT 93
[2024-01-22] MEDS: Ziprasidone 60 MG CAPSULE 120 MG PO (16:06)
[2024-01-22] MEDS: 0.9 % Sodium Chloride Flush 3 ML SYRINGE IVFLUSH ×2 (16:07→20:23)
[2024-01-22 19:22] VITALS: BP 120/74; PULSE 77; RESP 14; TEMP 36.8; O2SAT 95
[2024-01-22] MEDS: Loratadine 10 MG TABLET PO (20:21)
[2024-01-22] MEDS: Atorvastatin Calcium 10 MG TABLET PO (20:21)
[2024-01-22] MEDS: Melatonin 3 MG TABLET 6 MG PO (20:22)
[2024-01-22] MEDS: Amitriptyline HCl 50 MG TABLET PO (20:22)
[2024-01-22] MEDS: Morphine Sulfate 4 MG/ML CARTRIDGE IVPUSH (20:22)
[2024-01-23] MEDS: Acetaminophen 1,000 MG/100 ML PIGGYBACK 400 MG IV ×2 (00:40→06:20)
[2024-01-23 03:59] VITALS: BP 109/66; PULSE 70; RESP 16; TEMP 36.2; O2SAT 93
[2024-01-23] MEDS: oxyCODONE HCl Immed Release 5 MG TABLET PO ×3 (04:10→11:27)
[2024-01-23] MEDS: Levothyroxine Sodium 25 MCG TABLET PO (06:19)
[2024-01-23] MEDS: Losartan Potassium 50 MG TABLET 100 MG PO (07:26)
[2024-01-23] MEDS: hydrOXYzine HCL 50 MG TABLET PO (07:26)
[2024-01-23] MEDS: lamoTRIgine 100 MG TABLET 300 MG PO (07:26)
[2024-01-23] MEDS: amLODIPine Besylate 10 MG TABLET PO (07:26)
[2024-01-23] MEDS: atenoloL 100 MG TABLET PO (07:26)
[2024-01-23 07:53] VITALS: BP 113/74; PULSE 74; RESP 12; TEMP 36.1; O2SAT 95
--- NOTE | 2024-01-23 08:59 | PM.PNGS ---
Subjective Subjective Date of Service: 01/23/24 Interval history: Feels well this morning. Tolerating solid diet without nausea or vomiting. Remains sore at incision site but comfortable and able to move around. Passing flatus and having bowel movements. Would like to go home. Physical Exam Vital Signs: Vital Signs: Last Vital Signs Temp 96.9 F 01/23/24 07:53 Pulse 74 01/23/24 07:53 Resp 12 01/23/24 07:53 BP 113/74 01/23/24 07:53 Pulse Ox 95 01/23/24 07:53 O2 Del Method Room Air 01/23/24 07:53 O2 Flow Rate 2 01/21/24 07:05 BMI result Body Mass Index 34.8 Const: General: comfortable, no acute distress and alert Orientation/consciousness: patient oriented x3 Resp: Effort & Inspection: normal respiratory effort GI: Other: dressing c/d/i- wound leonardo removed today by Dr. Zaragoza Palpation (GI): Soft to palpation, Tenderness to palpation present (GI) (mild right sided) and no guarding Percussion: Yes normal to percussion Skin: General skin exam: no rashes or lesions noted Neuro: General: patient oriented x3 and moves all extremities Objective Data Active Medications Albuterol Sulfate (Albuterol Sulfate 90 Mcg 8 Gm Inhaler) 2 puff INHALE Q6H PRN PRN Reason: for muscle spasm Amitriptyline HCl (Amitriptyline Hcl 50 Mg Tablet) 50 mg PO BEDTIME [facility] Last Admin: 01/22/24 20:22 Dose: 50 mg Documented By: DANIEL Amlodipine Besylate (Amlodipine Besylate 10 Mg Tablet) 10 mg PO DAILY [facility]; Protocol Last Admin: 01/23/24 07:26 Dose: 10 mg Documented By: DEVIN Atenolol (Atenolol 100 Mg Tablet) 100 mg PO DAILY [facility]; Protocol Last Admin: 01/23/24 07:26 Dose: 100 mg Documented By: DEVIN Atorvastatin Calcium (Atorvastatin Calcium 10 Mg Tablet) 10 mg PO BEDTIME [facility] Last Admin: 01/22/24 20:21 Dose: 10 mg Documented By: DANIEL Calcium Carbonate (Calcium Carbonate 750 Mg Tab.Chew) 750 mg PO Q4H PRN PRN Reason: Heartburn Hydroxyzine HCl (Hydroxyzine Hcl 50 Mg Tablet) 50 mg PO TID [facility] Last Admin: 01/23/24 07:26 Dose: 50 mg Documented By: DEVIN Acetaminophen (Ofirmev) 1,000 mg in 100 mls @ 400 mls/hr IV Q6H [facility] Last Infusion: 01/23/24 06:40 Dose: Infused Documented By: DANIEL Lamotrigine (Lamotrigine 100 Mg Tablet) 300 mg PO DAILY [facility] Last Admin: 01/23/24 07:26 Dose: 300 mg Documented By: DEVIN Levothyroxine Sodium (Levothyroxine Sodium 25 Mcg Tablet) 25 mcg PO DAILY@0600 [facility] Last Admin: 01/23/24 06:19 Dose: 25 mcg Documented By: DANIEL Loratadine (Loratadine 10 Mg Tablet) 10 mg PO BEDTIME [facility] Last Admin: 01/22/24 20:21 Dose: 10 mg Documented By: DANIEL Losartan Potassium (Losartan Potassium 50 Mg Tablet) 100 mg PO DAILY [facility]; Protocol Last Admin: 01/23/24 07:26 Dose: 100 mg Documented By: DEVIN Magnesium Hydroxide (Milk Of Magnesia 30 Ml Oral.Susp) 30 ml PO DAILY PRN PRN Reason: Constipation Melatonin (Melatonin 3 Mg Tablet) 6 mg PO BEDTIME PRN PRN Reason: Insomnia Last Admin: 01/22/24 20:22 Dose: 6 mg Documented By: DANIEL Metoclopramide HCl (Metoclopramide Hcl 10 Mg/2 Ml Vial) 10 mg IVPUSH Q8H PRN PRN Reason: Nausea and Vomiting Last Admin: 01/20/24 19:38 Dose: 10 mg Documented By: CASTILAlvarado Morphine Sulfate (Morphine Sulfate 4 Mg/Ml Cartridge) 4 mg IVPUSH Q4H PRN; Protocol PRN Reason: Pain, Severe (Pain Scale 7-10) Last Admin: 01/22/24 20:22 Dose: 4 mg Documented By: DANIEL Ondansetron HCl (Ondansetron Hcl 4 Mg/2 Ml Vial) 4 mg IVPUSH Q6H PRN PRN Reason: Nausea and Vomiting Last Admin: 01/21/24 13:14 Dose: 4 mg Documented By: COTEMA Oxycodone HCl (Oxycodone Hcl Immed Release 5 Mg Tablet) 5 mg PO Q4H PRN PRN Reason: Pain, Moderate(Pain Scale 4-6) Last Admin: 01/23/24 07:25 Dose: 5 mg Documented By: DEVIN Sodium Chloride (0.9 % Sodium Chloride Flush 3 Ml Syringe) 3 ml IVFLUSH QSHIFT [facility] Last Admin: 01/23/24 07:26 Dose: Not Given Documented By: DEVIN Non-Admin Reason: IV Running Ziprasidone (Ziprasidone 60 Mg Capsule) 120 mg PO DAILY@1700 [facility] Last Admin: 01/22/24 16:06 Dose: 120 mg Documented By: COTEMA Labs 01/21/24 05:14 01/21/24 05:14 Procedures Date of Service Date of Service: 01/23/24 Progress Note: A&P Assessment and plan (1) History of closure of ileostomy: Status: Acute Plan POD #3 s/p loop ileostomy reversal. Doing well post op- tolerating diet with good GI function, good pain control. VSS. Abd exam benign with wound leonardo removed today by Dr. Zaragoza, dressing in place. Stable for dc to home today. F/u in office in 1 week. Patient comfortable with plan. Time Spent With Patient Time: Total time managing care of this patient today ____ minutes. Quality Stroke Does the patient have a stroke diagnosis?: No VTE Prior VTE?: No VTE Risk Level:: Surgical - low VTE Device Contraindication: N/A - Device Ordered VTE Drug Contraindication: Treatment Not Indicated
--- NOTE | 2024-01-23 09:05 | MHC.CM.PN ---
pt dcd home self care
--- NOTE | 2024-01-23 12:44 | PM.DS ---
DS: Providers Provider Date of Service: 01/23/24 Date of admission: 01/20/24 10:05 Date of discharge: 01/23/24 Primary care physician: Lee Mercado MD Attending physician on admission: Matthew Zaragoza Attending physician on discharge: Matthew Zaragoza DS: Diagnosis Discharge Diagnosis (1) History of closure of ileostomy: Status: Acute DS: Summary Hospital Course Hospital Course: HPI AT ADMISSION: Patient presents for follow-up status post sigmoid resection with diverting ileostomy. She had anastomotic stricture which was dilated per GI (Dr. Holbrook). She presents here for ileostomy reversal. Otherwise she is doing well. She is looking forward to having ileostomy removed. HOSPITAL COURSE: On 01/20/24, reversal of loop ileostomy was performed by Dr. Zaragoza without immediate complications. She was admitted following for observation. She had an uncomplicated post operative course. Her home meds were resumed. Her diet was advanced to solids on POD #2 after she began to pass flatus and have a bowel movement. Her activity was increased. She remained inpatient until POD #3 for pain control. On the day of discharge she was tolerating a solid diet without nausea or vomiting. She was comfortable on oral analgesics. Her abdomen was benign with clean incision and and her wound leonardo were removed. She had some residual maceration from the ostomy at her inferior aspect of the incision site which was slowly improving. She felt ready for discharge. She was discharged to home on 01/23/24 in stable condition. She is to follow up in the office in 1 week. Status at Discharge Functional status at discharge: independent ambulation Time Attestation Discharge Coordination Time (in mins): 35 Quality: Safe Use of Opioids Does Pt have an Active Cancer Diagnosis on the Problem List?: No Quality: Stroke Does the patient have a stroke diagnosis?: No Physical Exam Vital Signs: Vital Signs: Last Vital Signs Temp 96.9 F 01/23/24 07:53 Pulse 74 01/23/24 07:53 Resp 12 01/23/24 07:53 BP 113/74 01/23/24 07:53 Pulse Ox 95 01/23/24 07:53 O2 Del Method Room Air 01/23/24 07:53 O2 Flow Rate 2 01/21/24 07:05 BMI result Body Mass Index 34.8 Const: General: comfortable, no acute distress and alert Orientation/consciousness: patient oriented x3 Resp: Effort & Inspection: normal respiratory effort GI: Inspection: No distended and Yes incision (clean, mild residual macerated skin just inferior ) Palpation (GI): Soft to palpation, Tenderness to palpation present (GI) (incisional) and no guarding Skin: General skin exam: no rashes or lesions noted Neuro: General: patient oriented x3 and moves all extremities DS: Data Data Completed and Pending Completed studies during hospitalization [Text1]: 01/20/24 12:03 Surgical [PTH] Routine Loop ileostomy (revision): -Intact mucocutaneous anastomoses (two), with hyperplastic epithelium, inflammation, and fibrosis. -Attached small bowel with no significant macroscopic findings. Procedures Bypass Ileum to Cutaneous, Open Approach (08/18/23) Excision of Sigmoid Colon, Open Approach (08/18/23) Release Peritoneum, Open Approach (08/18/23) Discharge Plan Discharge Anticipated Discharge Date/Time: 01/23/24 14:24 Patient Disposition: Home, Self-Care Discharge Diagnosis: s/p ileostomy reversal Referrals: Lee Mercado MD [Primary Care Provider] - 1 Week Matthew Zaragoza MD [Physician] - 1 Week Discharge Medications: New oxycodone 5 mg tablet 5 mg PO Q8H PRN (Reason: pain) Qty: 30 0RF Rx Instructions: Partial Fill upon patient request. Continued cetirizine 10 mg tablet 10 mg PO BEDTIME Qty: 90 0RF (DME) blood pressure test kit-large Kit See Rx Instructions .Route Qty: 1 0RF Rx Instructions: once daily simvastatin 20 mg tablet 20 mg PO BEDTIME 90 Days Qty: 90 0RF albuterol sulfate 90 mcg/actuation HFA aerosol inhaler 2 puff PO Q6H PRN (Reason: for muscle spasm) Qty: 25.5 0RF melatonin 10 mg Tablet 10 mg PO BEDTIME PRN (Reason: Insomnia) lamotrigine 200 mg tablet,disintegrating 300 mg PO DAILY atenolol 100 mg tablet 100 mg PO DAILY levothyroxine 25 mcg tablet 25 mcg PO DAILY@0600 amlodipine 10 mg tablet 10 mg PO DAILY losartan 100 mg tablet 100 mg PO DAILY cholecalciferol (vitamin D3) 50 mcg (2,000 unit) capsule 50 mcg PO DAILY ziprasidone HCl 60 mg capsule 120 mg PO DAILY@1700 amitriptyline 50 mg tablet 50 mg PO BEDTIME hydroxyzine pamoate 25 mg capsule 50 mg PO TID docusate sodium [Colace] 100 mg capsule 200 mg PO BEDTIME Qty: 60 5RF Discharge Orders: Discharge Order (Routine); Ordered 01/23/24 Ordered By: Naya Fields Diet: Advance to usual diet Activity on Discharge: No heavy lifting Stand Alone Forms: Patient Portal Discharge page Print Language: Vincentian Activity Restrictions/Additional Instructions: Apply an ice pack for short intervals (20 minutes on, followed by at least 20 minutes off) for the first 2 days. Do not apply heat. Do not use creams, lotions, or topical antibiotics. These can cause infection or allergic reaction. Ok to shower 48 hours after your surgery. Dry dressing over incision while it drains. Follow up in office with Dr. Zaragoza in 1 week. ([phone]) No heavy lifting (>10lbs) or strenuous activity! Call Your Doctor If: -Your temperature exceeds 101.5? F -You experience excessive pain or swelling -You have an unexpected reaction to medication -You have excessive bleeding -You experience continued vomiting/nausea -Your incision begins to separate -Your incision shows signs of infection such as increased redness, swelling, excessive pain, drainage (light blood or clear fluid is normal) or heat Care Plan Goals: Return to baseline health and resume normal activities following recovery period. Wound healing. Health Concerns: s/p loop ileostomy reversal Plan of Treatment: F/u in office in 1 week Wound care Assessment: Doing well post op. Discharge Date/Time: 01/23/24 12:01
== END 2024-01-23 12:01 | disposition home or self-care (01) | DRG 331 ==
LOC: HO.SSSA 10:19 → HO.S3 13:07
PROVIDERS: Physician Assistant Surgical; Admitting Provider Surgery; PCP Internal Medicine; Visit Provider Surgery
PROC: 0DQB0ZZ Repair Ileum, Open Approach (ICD-10-PCS; CPT 44620; principal; 2024-01-20 11:40)
DX: Z43.2 Encounter for attention to ileostomy (principal); Z87.891 Personal history of nicotine dependence; Z79.890 Hormone replacement therapy; Z79.899 Other long term (current) drug therapy
CPT/HCPCS: 36415; 80048; 85025; 88304; J0131; J0736; J1171; J1630; J2003; J2270; J2405; J2704; J2765; J2795; J3010; J7120

== ENCOUNTER → 2024-01-20 10:05 | Outpatient (BNV) | payer OTHER, SELFPAY | PROVIDERS: Admitting Provider Surgery; PCP Internal Medicine; Visit Provider Surgery | DX: Z98.890 Other specified postprocedural states (principal) | CPT/HCPCS: 44625; 99024 ==

== ENCOUNTER 2024-01-27 10:03 | Outpatient (AMB) | payer OTHER, SELFPAY ==
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
== END 2024-01-27 11:50 | disposition home or self-care (01) ==
PROVIDERS: PCP Internal Medicine; Visit Provider Internal Medicine Hypertension Specialist
DX: I12.9 Hypertensive chronic kidney disease with stage 1 through stage 4 chronic kidney disease, or unspecified chronic kidney disease (principal); N18.9 Chronic kidney disease, unspecified
CPT/HCPCS: 99213

== ENCOUNTER → 2024-01-27 10:03 | Outpatient (BNVA) | payer OTHER, SELFPAY | PROVIDERS: PCP Internal Medicine; Visit Provider Internal Medicine Hypertension Specialist | DX: I12.9 Hypertensive chronic kidney disease with stage 1 through stage 4 chronic kidney disease, or unspecified chronic kidney disease (principal); N18.9 Chronic kidney disease, unspecified | CPT/HCPCS: 99212 ==

== ENCOUNTER 2024-01-30 08:42 | Outpatient (REF) | payer OTHER, SELFPAY ==
[2024-01-30 10:12] LABS: MANUAL DIFF FLAG NO
[2024-01-30 11:01] LABS: Basophils Absolute Auto 0.1 X10*3/uL (0.0-0.2); Basophils Percent Auto 0.9 % (0-2); Eosinophils Absolute Auto 0.8 X10*3/uL (0.0-0.4); Eosinophils Percent Auto 6.1 % (0-4); Hematocrit 42.7 % (37.0-47.0); Hemoglobin 13.6 g/dl (12.0-16.0); Imm Gran Abs Auto 0.12 X10*3/uL (0.00-0.03); Imm Gran Pct Auto 0.9 % (0.0-0.4); Lymphocytes Absolute Auto 2.6 X10*3/uL (1.2-4.9); Mean Corpuscular HGB Conc 31.9 g/dl (31.0-35.0); Mean Corpuscular Hemoglobin 30.9 pg (27.0-33.0); Monocytes Absolute Auto 1.1 X10*3/uL (0.1-1.2); Monocytes Percent Auto 8.8 % (2-11); Neutrophils Absolute Auto 8.2 x10*3/uL (2.0-8.3); Neutrophils Percent Auto 63.3 % (45-73); Platelet Count 481 X10*3/uL (160-400); Red Cell Distribution Width 13.9 % (11.0-16.0)
== END 2024-01-30 08:43 | disposition home or self-care (01) ==
LOC: HO.LAB 08:42
PROVIDERS: Absent Provider Internal Medicine Hypertension Specialist; PCP Internal Medicine; Visit Provider Surgery
DX: N18.9 Chronic kidney disease, unspecified (principal); Z87.19 Personal history of other diseases of the digestive system; Z98.890 Other specified postprocedural states
CPT/HCPCS: 36415; 80048; 85025; 99212

== ENCOUNTER 2024-01-30 08:42 | Outpatient (AMB) | payer OTHER, SELFPAY ==
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
== END 2024-01-30 09:13 | disposition home or self-care (01) ==
PROVIDERS: PCP Internal Medicine; Visit Provider Surgery
DX: Z98.890 Other specified postprocedural states (principal); Z09 Encounter for follow-up examination after completed treatment for conditions other than malignant neoplasm
CPT/HCPCS: 99024

== ENCOUNTER 2024-02-08 11:24 | Outpatient (REF) | payer OTHER, SELFPAY ==
[2024-02-08 13:31] LABS: Appearance Urine Cloudy; Color Urine Dark Yellow; Glucose Urine UA Negative (Negative); Leukocyte Esterase Urine Small (1+) (Negative); Nitrite Urine Negative (Negative); PH 5.5 (5.0-9.0); Specific Gravity - Urine >= 1.030 (1.005-1.025); UMIC TRIGGER UA YES; Urine Blood Negative (Negative); Urine Ketones Trace mg/dL (Negative); Urine Protein 30 (1+) mg/dL (Neg-Trace)
[2024-02-08 13:49] LABS: Bacteria Urine Trace (None Seen); Calcium Oxalate Crystals Urine Present; Hyaline Casts Urine 0-2 /LPF (0-2); RBC Urine 0-2 /HPF (0-2); WBC Urine 0-5 /HPF (0-5)
[2024-02-08 14:00] LABS: Anion Gap 13 (12-20); Blood Urea Nitrogen 15 mg/dL (9-16); Calcium 9.3 mg/dL (8.4-10.2); Carbon Dioxide 25 mmol/L (22-29); Chloride 108 mmol/L (96-108); Estimated Glomerular Filt Rate 41; Glucose Random 104 mg/dL (60-115); Potassium 3.5 mmol/L (3.3-5.1); Sodium 142 mmol/L (135-145)
== END 2024-02-08 11:25 | disposition home or self-care (01) ==
LOC: HO.HMGCLDS 11:24
PROVIDERS: PCP Internal Medicine; Visit Provider Internal Medicine Hypertension Specialist
DX: N18.9 Chronic kidney disease, unspecified (principal)
CPT/HCPCS: 36415; 80048; 81001

== ENCOUNTER 2024-03-05 15:11 | Outpatient (REF) | payer OTHER, SELFPAY ==
--- NOTE | ~2024-03-05 | MM_ITS ---
EXAMINATION: MM SCREENING DIGITAL BREAST TOMOSYNTHESIS, BILATERAL CLINICAL INFORMATION: Screening. Asymptomatic. COMPARISON: Mammography: Comparison is made with available priors TECHNIQUE: Digital breast mammography with tomosynthesis is performed in both the craniocaudal and mediolateral oblique views along with computer-aided detection (CAD). FINDINGS: There are scattered areas of fibroglandular density (ACR BI-RADS breast composition Category b). There are no significant masses, abnormal calcifications, or other abnormalities. MM/MM tomosynthesis screening BI IMPRESSION: No mammographic evidence of malignancy. ASSESSMENT: BI-RADS BI-RADS 1 - Negative RECOMMENDATION: Routine annual mammography screening. 1 year F/U This examination should not preclude the clinical evaluation of a suspicious palpable abnormality. This patient's information was entered into a reminder system with a target due date for their next mammogram. Electronically signed by: Jody Fuentes DO 03/12/2024 10:44 AM DORIE
== END 2024-03-05 15:12 | disposition home or self-care (01) ==
LOC: HO.MAMMO 15:11
PROVIDERS: PCP Internal Medicine; Visit Provider Internal Medicine
DX: Z12.31 Encounter for screening mammogram for malignant neoplasm of breast (principal)
CPT/HCPCS: 77063; 77067

== ENCOUNTER → 2024-03-05 15:45 | Outpatient (BNV) | payer OTHER, SELFPAY | PROVIDERS: PCP Internal Medicine; Visit Provider Internal Medicine | DX: Z12.31 Encounter for screening mammogram for malignant neoplasm of breast (principal) | CPT/HCPCS: 77063; 77067 ==

== ENCOUNTER 2024-04-02 11:32 | Outpatient (AMB) | payer OTHER, SELFPAY ==
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
[2024-04-02 11:35] VITALS: BP 150/100; BMI 34.8
--- OUTSIDE RECORDS SUMMARY | 2024-04-02 11:39 | XMS_ITS ---
Author Organization [facility] Address [address] [place] [address] Care Team Providers Care Tight Barrel Inspector Name Role Phone Rogelio GUEVARA, [facility] Primary Care Provider Luisito Riggs Jr Unavailable Matthew Zaragoza M.D. Unavailable Unavailable REASON FOR VISIT another procedure in 2 weeks Encounters Encounter Location Date Provider Diagnosis [facility] [address] [place] [address] 12/01/2023 Luisito Mccartney Jr PLAN OF TREATMENT No Information
--- OUTSIDE RECORDS SUMMARY | 2024-04-02 11:39 | XMS_ITS ---
Author Organization [facility] Address [address] [place] [address] Care Team Providers Care Shellfish Processing Machine Tender Name Role Phone Rogelio GUEVARA, [place] Primary Care Provider Luisito Riggs Jr Unavailable Matthew Zaragoza M.D. Unavailable Unavailable REASON FOR VISIT colonic stricture PROBLEMS Problem Type ICD Code Onset Dates Problem Status W/U Status Risk SNOMED Code Notes Problem Diverticulosis of large intestine without perforation or abscess without bleeding (K57.30) Active confirmed Diverticul ar disease of colon (093076412) Encounters Encounter Location Date Provider Diagnosis [facility] [address] [place], [place] [id number] 11/29/2023 Luisito Mccartney Jr Unspecified intestinal obstruction, [...]
--- OUTSIDE RECORDS SUMMARY | 2024-04-02 11:39 | XMS_ITS ---
Author Organization [facility] Address [address] [place] [address] Care Team Providers Care Public Housing Manager Name Role Phone Rogelio GUEVARA, [facility] Primary Care Provider Luisito Riggs Jr Unavailable Matthew Zaragoza M.D. Unavailable Unavailable REASON FOR VISIT balloon dilation, colonic stricture Encounters Encounter Location Date Provider Diagnosis [facility] [place] [address] [place] [id number] 12/20/2023 Luisito Mccartney Jr Other intestinal obstruction [...]
--- OUTSIDE RECORDS SUMMARY | 2024-04-02 11:39 | XMS_ITS | Patient Health Record ---
Author Organization [facility] Address [address] [place] [address] Care Team Providers Care Epoxy Specialist Name Role Phone Rogelio GUEVARA, Lee Primary Care Provider Luisito Riggs Jr Unavailable Matthew Zaragoza M.D. Unavailable Unavailable ALLERGIES Allergen (clinical drug ingredient) Drug/Non Drug Allergy documented on EMR Reaction Allergy Type Onset Date Status Penicillin Unknown Drug Allergy Active RESULTS Component Value Reference Range Notes Pathology Reviewed date:12/02/2023 02:14:13 PM Interpretation: Performing Lab:[facility], [address] [place] [id number] Notes/Report: REASON FOR REFERRAL No Information MEDICATIONS [...] EVERY DAY AT BEDTIME Oral for 90 [id number],Unavail able Active Levothyroxine Sodium 25 MCG TAKE [...] Notes Problem Colonic stricture (K56.699) Active confirmed 9090218 Problem Diverticulosis of large intestine without perforation or abscess without bleeding (K57.30) Active confirmed Diverticul ar disease of colon (637727904) VITAL SIGNS Temperature 97.3 degrees Fahrenheit 11/02/2023 Blood pressure diastolic 00 mm Hg 11/02/2023 Height 5 ft 1 in in 11/02/2023 Blood pressure systolic 000 mm Hg 11/02/2023 Weight 184 lb 8 oz lbs 11/02/2023 BMI 34.86 kg/m2 11/02/2023 Encounters Encounter Location Date Provider Diagnosis [facility] Outpatient [address] [place] [id number] 11/29/2023 Luisito Mccartney Jr Unspecified intestinal obstruction, unspecified as to partial versus complete obstruction K56.609 ; 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 ; Lymphocytic colitis K52.89 ; Diverticulosis of large intestine without perforation or abscess without bleeding K57.30 and Other hemorrhoids K64.8 [facility] Outpatient [address] [place] [address] [id number] 12/20/2023 Luisito Mccartney Jr Other intestinal obstruction unspecified as to partial versus complete obstruction K56.699 and Gastrointestinal anastomotic stricture K91.30 [facility] [address] [place] [address] 11/02/2023 Luisito Mccartney Jr Colonic stricture K56.699 [facility] [address] [place] [address] 12/01/2023 Luisito Mccartney Jr ASSESSMENTS Encounter Date [...] Insured Coverage Start Date Coverage End Date [facility] [address] Attn Claims ARSH [place] [id number] АЛЕКСАНДР LUKE Self - patient is the [...]
[2024-04-02 11:47] VITALS: BP 134/88; PULSE 102
== END 2024-04-02 11:55 | disposition home or self-care (01) ==
PROVIDERS: PCP Internal Medicine; Visit Provider Internal Medicine Hypertension Specialist
DX: I12.9 Hypertensive chronic kidney disease with stage 1 through stage 4 chronic kidney disease, or unspecified chronic kidney disease (principal); N18.9 Chronic kidney disease, unspecified
CPT/HCPCS: 99214

== ENCOUNTER → 2024-04-02 11:32 | Outpatient (BNVA) | payer OTHER, SELFPAY | PROVIDERS: PCP Internal Medicine; Visit Provider Internal Medicine Hypertension Specialist | DX: I12.9 Hypertensive chronic kidney disease with stage 1 through stage 4 chronic kidney disease, or unspecified chronic kidney disease (principal); N18.9 Chronic kidney disease, unspecified | CPT/HCPCS: 99212 ==

== ENCOUNTER 2024-04-10 09:31 | Outpatient (AMB) | payer OTHER, SELFPAY ==
--- OUTSIDE RECORDS SUMMARY | 2024-04-10 09:45 | XMS_ITS ---
Author Organization [facility] Address [address] [place] [address] Care Team Providers Care Materials Planner Name Role Phone Rogelio GUEVARA, [facility] Primary Care Provider Luisito Riggs Jr Unavailable Matthew Zaragoza M.D. Unavailable Unavailable REASON FOR VISIT another procedure in 2 weeks Encounters Encounter Location Date Provider Diagnosis [facility] [address] [place] [address] 12/01/2023 Luisito Mccartney Jr PLAN OF TREATMENT No Information
--- OUTSIDE RECORDS SUMMARY | 2024-04-10 09:45 | XMS_ITS ---
Author Organization [facility] Address [address] [place] [address] Care Team Providers Care Platform Architect Name Role Phone Rogelio G[facility], [facility] Primary [facility] Provider Luisito Riggs Jr Unavailable [phone] Matthew Zaragoza M.D. Unavailable Unavailable REASON FOR VISIT balloon dilation, colonic stricture Encounters Encounter Location Date Provider Diagnosis [facility] [place] [address] [place] [id number] 12/20/2023 Luisito Mccartney Jr Other intestinal obstruction [...]
--- OUTSIDE RECORDS SUMMARY | 2024-04-10 09:45 | XMS_ITS | Patient Health Record ---
Author Organization [facility] Address [address] [place] [address] Care Team Providers Care Microsoft Office Instructor Name Role Phone Rogelio GUEVARA, Lee Primary Care Provider Luisito Riggs Jr Unavailable [phone] Matthew Zaragoza M.D. Unavailable Unavailable ALLERGIES Allergen (clinical drug ingredient) Drug/Non Drug Allergy documented on EMR Reaction Allergy Type Onset Date Status Penicillin Unknown Drug Allergy Active RESULTS Component Value Reference Range Notes Pathology Reviewed date:12/02/2023 02:14:13 PM Interpretation: Performing Lab:[facility], [address] [place] [phone] Notes/Report: REASON FOR REFERRAL No Information MEDICATIONS Medication SIG (Take, Route, Frequency, Duration) Notes Start Date End Date Status hydrOXYzine Pamoate 25 MG TAKE 1 CAPSULE BY MOUTH THREE TIMES DAILY Oral for 30 Active Losartan Potassium 100 MG TAKE 1 TABLET BY MOUTH DAILY Oral for 90 Active lamoTRIgine 200 MG Oral for 30 Active Vitamin D3 50 MCG (1999) TAKE 1 CAPSULE BY MOUTH DAILY WITH [...] EVERY DAY AT BEDTIME Oral for 90 R10779,Unavail able Active Levothyroxine Sodium 25 MCG TAKE [...] Notes Problem Colonic stricture (K56.699) Active confirmed 6151761 Problem Diverticulosis of large intestine without perforation or abscess without bleeding (K57.30) Active confirmed Diverticul ar disease of colon (748013664) VITAL SIGNS Temperature 97.3 degrees Fahrenheit 11/02/2023 Blood pressure diastolic 00 mm Hg 11/02/2023 Height 5 ft 1 in in 11/02/2023 Blood pressure systolic 000 mm Hg 11/02/2023 Weight 184 lb 8 oz lbs 11/02/2023 BMI 34.86 kg/m2 11/02/2023 Encounters Encounter Location Date Provider Diagnosis [facility] [place] [address] [place] [id number] 11/29/2023 Luisito Mccartney Jr Unspecified intestinal obstruction, unspecified as to partial versus complete obstruction K56.609 ; 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 ; Lymphocytic colitis K52.89 ; Diverticulosis of large intestine without perforation or abscess without bleeding K57.30 and Other hemorrhoids K64.8 [facility] [place] [address] [place] [id number] 12/20/2023 Luisito Mccartney Jr Other intestinal obstruction unspecified as to partial versus complete obstruction K56.699 and Gastrointestinal anastomotic stricture K91.30 [facility] [address] [place] [address] 11/02/2023 Luisito Mccartney Jr Colonic stricture K56.699 [facility] [address] [place] [address] 12/01/2023 Luisito Mccartney Jr ASSESSMENTS Encounter Date [...] [address] Attn Claims ARSH [place] [id number] АЛЕКСАНДР LUKE Self - patient is the [...]
--- OUTSIDE RECORDS SUMMARY | 2024-04-10 09:45 | XMS_ITS ---
Author Organization [facility] Address [address] [place] [address] Care Team Providers Care Assistant Chief Of Police Name Role Phone Rogelio GUEVARA, [place] Primary Care Provider Luisito Riggs Jr Unavailable Matthew Zaragoza M.D. Unavailable Unavailable REASON FOR VISIT colonic stricture PROBLEMS Problem Type ICD Code Onset Dates Problem Status W/U Status Risk SNOMED Code Notes Problem Diverticulosis of large intestine without perforation or abscess without bleeding (K57.30) Active confirmed Diverticul ar disease of colon (500142661) Encounters Encounter Location Date Provider Diagnosis [facility] [place] [address] [place], [place] [phone] 11/29/2023 Luisito Mccartney Jr Unspecified intestinal obstruction, [...]
[2024-04-10 10:06] VITALS: BP 168/110; PULSE 74; O2SAT 96; BMI 35.2
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
== END 2024-04-10 10:25 | disposition home or self-care (01) ==
PROVIDERS: PCP Internal Medicine; Visit Provider Internal Medicine
DX: Z00.00 Encounter for general adult medical examination without abnormal findings (principal); F31.78 Bipolar disorder, in full remission, most recent episode mixed; E66.09 Other obesity due to excess calories; Z68.32 Body mass index [BMI] 32.0-32.9, adult; R09.89 Other specified symptoms and signs involving the circulatory and respiratory systems; N18.9 Chronic kidney disease, unspecified; R73.01 Impaired fasting glucose; E78.9 Disorder of lipoprotein metabolism, unspecified; G43.119 Migraine with aura, intractable, without status migrainosus; Z91.09 Other allergy status, other than to drugs and biological substances; K13.0 Diseases of lips

== ENCOUNTER → 2024-04-10 09:31 | Outpatient (BNVA) | payer OTHER, SELFPAY | PROVIDERS: PCP Internal Medicine; Visit Provider Internal Medicine | DX: Z00.01 Encounter for general adult medical examination with abnormal findings (principal); R09.89 Other specified symptoms and signs involving the circulatory and respiratory systems; N18.9 Chronic kidney disease, unspecified; E66.09 Other obesity due to excess calories; R73.01 Impaired fasting glucose; E78.9 Disorder of lipoprotein metabolism, unspecified; G43.119 Migraine with aura, intractable, without status migrainosus; F31.78 Bipolar disorder, in full remission, most recent episode mixed; K13.0 Diseases of lips; Z68.32 Body mass index [BMI] 32.0-32.9, adult; Z91.09 Other allergy status, other than to drugs and biological substances; Z87.891 Personal history of nicotine dependence | CPT/HCPCS: 96127; 99212; 99396 ==

== ENCOUNTER 2024-05-04 10:33 | Outpatient (AMB) | payer OTHER, SELFPAY ==
[2024-05-04 10:40] VITALS: BP 138/84; PULSE 69; O2SAT 97; BMI 35.4
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
--- OUTSIDE RECORDS SUMMARY | 2024-05-04 11:15 | XMS_ITS | Clinical Summary ---
Author Organization [facility] ity Address [address] [place] [address] Care Team Providers Care Manager Architectural Name Role Phone Unavailable Primary Care Provider Unavailabl e Social History Tobacco Use Types Packs/Day Years Used Date Smoking Tobacco: Never Assessed Sex and Gender Information Value Date Recorded Sex Assigned at Not on file Gender Identity Not on file Sexual Orientation Not on file Plan of Treatment Health Maintenance Due Date Last Done Comments Breast Cancer Screening 1973 DTaP,Tdap,and Td Vaccines (1 - Tdap) 1992 Hepatitis B Vaccines (1 of 3 - 19+ 3-dose series) 1992 Cervical Cancer Screening: P ap Smear 1994 Zoster Vaccines (1 of 2) 2023 COVID-19 Vaccine (1 - 2023-2 5 season) 2023 Influenza Vaccine (#1) 2023 HIB Vaccines Aged Out No longer eligi ble based on patient's age to complete this topic HPV Vaccines Aged Out No longer eligi ble based on patient's age to complete this topic Hepatitis A Vaccines Aged Out No long er eligible based on patient's age to complete this topic IPV Vaccines Aged Out No longer eligi ble based on patient's age to complete this topic MMR Vaccines Aged Out No longer eligi ble based on patient's age to complete this topic Meningococcal ACWY Vaccine Aged Out N o longer eligible based on patient's age to complete this topic Pneumococcal Vaccine: Pediat rics (0 to 5 Years) and At-Risk Patients (6 to 64 Years) Aged Out No longer eligible b ased on patient's age to complete this topic RSV Immunization Patients Un monica 20 months Aged Out No longer eligible b ased on patient's age to complete this topic Varicella Vaccines Aged Out No longer eligible based on patient's age to complete this topic
== END 2024-05-04 11:24 | disposition home or self-care (01) ==
PROVIDERS: PCP Internal Medicine; Visit Provider Internal Medicine
DX: I10 Essential (primary) hypertension (principal)

== ENCOUNTER → 2024-05-04 10:33 | Outpatient (BNVA) | payer OTHER, SELFPAY | PROVIDERS: PCP Internal Medicine; Visit Provider Internal Medicine | DX: I10 Essential (primary) hypertension (principal) | CPT/HCPCS: 96127; 99212 ==

== ENCOUNTER 2024-06-04 10:41 | Outpatient (AMB) | payer OTHER, SELFPAY ==
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
[2024-06-04 10:58] VITALS: BP 142/110; BMI 35.1
--- OUTSIDE RECORDS SUMMARY | 2024-06-04 12:30 | XMS_ITS ---
Author Organization [facility] Address [address] [place] [address] Care Team Providers Care Director Of Psychiatry Name Role Phone [facility]elio [facility], [facility] Primary Care Provider Luisito Riggs Jr Unavailable Matthew Zaragoza M.D. Unavailable Unavailable REASON FOR VISIT another procedure in 2 weeks Encounters Encounter Location Date Provider Diagnosis [facility] [address] [place] [address] 12/01/2023 Luisito Mccartney Jr PLAN OF TREATMENT No Information
--- OUTSIDE RECORDS SUMMARY | 2024-06-04 12:30 | XMS_ITS ---
Author Organization [facility] Address [address] [place] [address] Care Team Providers Care Division Chief Name Role Phone [facility], [facility] Primary Care Provider Luisito Riggs Jr Unavailable Matthew Zaragoza M.D. Unavailable Unavailable REASON FOR VISIT balloon dilation, colonic stricture Encounters Encounter Location Date Provider Diagnosis [facility] Outpatient [address] [place] [id number] 12/20/2023 Luisito Mccartney Jr Other intestinal obstruction [...]
--- OUTSIDE RECORDS SUMMARY | 2024-06-04 12:30 | XMS_ITS | Clinical Summary ---
Author Organization [facility] ity Address [address] [place] [address] Care Team Providers Care Media Services Coordinator Name Role Phone Unavailable Primary Care Provider Unavailabl e Social History Tobacco Use Types Packs/Day Years Used Date Smoking Tobacco: Never Assessed Comments Unknown Sex and Gender Information Value Date Recorded Sex Assigned at Not on file Legal Sex Female 9:49 AM EST Gender Identity Not on file Sexual Orientation Not on file Plan of Treatment Health Maintenance Due Date Last Done Comments Breast Cancer Screening 1973 DTaP,Tdap,and Td Vaccines (1 - Tdap) 1992 Hepatitis B Vaccines (1 of 3 - 19+ 3-dose series) 1992 Cervical Cancer Screening: P ap Smear 1994 Pneumococcal Vaccine: 50+ Ye ars (1 of 1 - PCV) 2023 Zoster Vaccines (1 of 2) 2023 COVID-19 Vaccine ( - 2023-2 5 season) 2023 Influenza Vaccine [...] patient's age to complete this topic Meningococcal B Vacine Aged Out No lo nger eligible based on patient's age to complete [...]
--- OUTSIDE RECORDS SUMMARY | 2024-06-04 12:31 | XMS_ITS | Patient Health Record ---
Author Organization [facility] Address [address] [place] [address] Care Team Providers Care Benefits Technician Name Role Phone Rogelio GUEVARA, Lee Primary Care Provider Luisito Riggs Jr Unavailable Matthew Zaragoza M.D. Unavailable Unavailable ALLERGIES Allergen (clinical drug ingredient) Drug/Non Drug Allergy documented on EMR Reaction Allergy Type Onset Date Status Penicillin Unknown Drug Allergy Active RESULTS Component Value Reference Range Notes Pathology Reviewed date:12/02/2023 02:14:13 PM Interpretation: Performing Lab:[facility], [address] [place] [id number] Notes/Report: REASON FOR REFERRAL No Information MEDICATIONS [...] EVERY DAY AT BEDTIME Oral for 90 M18996,Unavail able Active Levothyroxine Sodium 25 MCG TAKE [...] Active confirmed Diverticul ar disease of colon (199512859) Problem Colonic stricture (K56.699) Active confirmed [id number] VITAL SIGNS Temperature 97.3 degrees Fahrenheit 11/02/2023 Blood pressure diastolic 00 mm Hg 11/02/2023 Height 5 ft 1 in in 11/02/2023 Blood pressure systolic 000 mm Hg 11/02/2023 Weight 184 lb 8 oz lbs 11/02/2023 BMI 34.86 kg/m2 11/02/2023 Encounters Encounter Location Date Provider Diagnosis [facility] [address] [place] [id number] 11/29/2023 Luisito Mccartney Jr Unspecified intestinal obstruction, unspecified as to partial versus complete obstruction K56.609 ; 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 ; Lymphocytic colitis K52.89 ; Diverticulosis of large intestine without perforation or abscess without bleeding K57.30 and Other hemorrhoids K64.8 [facility] Out[facility] [address] [place] [id number] 12/20/2023 Luisito Mccartney Jr Other intestinal obstruction unspecified as to partial versus complete obstruction K56.699 and Gastrointestinal anastomotic stricture K91.30 [facility] [address] [place] [address] 11/02/2023 Luisito Mccartney Jr Colonic stricture K56.699 [facility] [address] [place] [address] 12/01/2023 Luisito Mccartney Jr ASSESSMENTS Encounter Date [...] Insured Coverage Start Date Coverage End Date [facility] [address] Attn Claims ARSH [place] [id number] LUKE Self - patient is the [...]
--- OUTSIDE RECORDS SUMMARY | 2024-06-04 12:31 | XMS_ITS ---
Author Organization [facility] Address [address] [place] [address] Care Team Providers Care Gear Repair Supervisor Name Role Phone Rogelio GUEVARA, Asma Primary Care Provider Luisito Riggs Jr Unavailable Matthew Zaragoza M.D. Unavailable Unavailable REASON FOR VISIT colonic stricture PROBLEMS Problem Type ICD Code Onset Dates Problem Status W/U Status Risk SNOMED Code Notes Problem Diverticulosis of large intestine without perforation or abscess without bleeding (K57.30) Active confirmed Diverticul ar disease of colon ([id number]) Encounters Encounter Location Date Provider Diagnosis [facility] Outpatient [address] [place], [place] [phone] 11/29/2023 Luisito Mccartney Jr Unspecified intestinal obstruction, [...]
== END 2024-06-04 11:45 | disposition home or self-care (01) ==
LOC: HO.HWS 10:41
PROVIDERS: PCP Internal Medicine; Visit Provider Obstetrics & Gynecology
DX: Z01.419 Encounter for gynecological examination (general) (routine) without abnormal findings (principal)
CPT/HCPCS: 99396; 99459

== ENCOUNTER → 2024-06-04 10:41 | Outpatient (BNVA) | payer OTHER, SELFPAY | PROVIDERS: PCP Internal Medicine; Visit Provider Obstetrics & Gynecology | DX: Z01.419 Encounter for gynecological examination (general) (routine) without abnormal findings (principal); Z90.710 Acquired absence of both cervix and uterus | CPT/HCPCS: 99396; 99459 ==

== ENCOUNTER 2024-06-18 08:19 | Outpatient (REF) | payer OTHER, SELFPAY ==
--- NOTE | ~2024-06-18 | XR_ITS ---
EXAMINATION: XR ANKLE 3 OR MORE VIEWS RIGHT HISTORY: M25.579 - Pain in unspecified ankle and joints of unspecified foot COMPARISON: Comparison is made with the prior examination dated 05/04/2023. FINDINGS: Three views of the right ankle are submitted. Osseous mineralization is normal. There is no fracture or dislocation. There is severe osteoarthritis of the talonavicular joint with joint space narrowing and osteophyte formation. The tibiotalar joint is maintained. There is a small plantar calcaneal spur. The soft tissues are unremarkable. XR/XR ankle RT min 3V IMPRESSION: Severe osteoarthritis of the talonavicular joint. Electronically signed by: Arthur Rabago MD 06/18/2024 02:38 PM EDT
== END 2024-06-18 08:20 | disposition home or self-care (01) ==
LOC: HO.HOSX 08:19
PROVIDERS: Visit Provider Physician Assistant
DX: M25.571 Pain in right ankle and joints of right foot (principal); G89.29 Other chronic pain; M19.071 Primary osteoarthritis, right ankle and foot
CPT/HCPCS: 73610; 99212

== ENCOUNTER 2024-06-18 10:24 | Outpatient (AMB) | payer OTHER, SELFPAY ==
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
== END 2024-06-18 11:23 | disposition home or self-care (01) ==
LOC: HO.HOS 10:25
PROVIDERS: PCP Internal Medicine; Visit Provider Physician Assistant
DX: M25.571 Pain in right ankle and joints of right foot (principal); G89.29 Other chronic pain
CPT/HCPCS: 99213

== ENCOUNTER → 2024-06-18 10:45 | Outpatient (BNV) | payer OTHER, SELFPAY | PROVIDERS: Visit Provider Radiology Diagnostic Radiology | DX: M25.571 Pain in right ankle and joints of right foot (principal) | CPT/HCPCS: 73610 ==

== ENCOUNTER 2024-06-21 16:45 | Emergency (ER) | payer OTHER, SELFPAY ==
[2024-06-21 17:37] VITALS: BP 132/81; PULSE 63; RESP 16; TEMP 36.9; O2SAT 96; BMI 35.8
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
[2024-06-21 18:56] LABS: Influenza A PCR NEGATIVE (Negative); Influenza B PCR NEGATIVE (Negative); Resp Syncy Virus RNA Qual PCR NEGATIVE (Negative); SARS COV2 PCR INHOUSE NEGATIVE (Negative)
[2024-06-21 20:19] VITALS: BP 115/69; PULSE 65; RESP 16; TEMP 36.2; O2SAT 96
[2024-06-21] MEDS: Butalb/Acetamin/Caff 50/325/40 TABLET 1 TAB PO (21:25)
[2024-06-21] MEDS: Cyclobenzaprine HCl 10 MG TABLET PO (21:25)
[2024-06-21 22:14] VITALS: BP 159/96; PULSE 61; RESP 16; TEMP 36; O2SAT 95
[2024-06-21 22:30] VITALS: BP 159/96; PULSE 61; RESP 16; TEMP 36; O2SAT 95
== END 2024-06-21 22:30 | disposition home or self-care (01) ==
PROVIDERS: Physician Assistant Medical; Emergency Provider Emergency Medicine; PCP Internal Medicine
DX: G43.909 Migraine, unspecified, not intractable, without status migrainosus (principal); R11.2 Nausea with vomiting, unspecified; Z03.818 Encounter for observation for suspected exposure to other biological agents ruled out; I10 Essential (primary) hypertension; J45.909 Unspecified asthma, uncomplicated; Z79.899 Other long term (current) drug therapy
CPT/HCPCS: 0241U; 99283

== ENCOUNTER 2024-07-13 09:10 | Outpatient (REF) | payer OTHER, SELFPAY ==
--- OUTSIDE RECORDS SUMMARY | 2024-07-13 09:31 | XMS_ITS | Clinical Summary ---
Author Organization [facility] ity Address [address] [place] [address] Care Team Providers Care Sheet Metal Assembler And Riveter Name Role Phone Unavailable Primary Care Provider [...] - 2023-2 5 season) 2023 Influenza Vaccine (Season Ended) 2024 HIB Vaccines Aged Out No longer eligi [...] age to complete this topic Meningococcal B Vaccine Aged Out No l onger eligible based on patient's age to complete [...]
--- OUTSIDE RECORDS SUMMARY | 2024-07-13 09:32 | XMS_ITS | Patient Health Record ---
Author Organization [facility] Address [address] [place] [address] Care Team Providers Care Archeology Faculty Member Name Role Phone Rogelio GUEVARA, [facility] Primary Care Provider Luisito Riggs Jr Unavailable Matthew Zaragoza M.D. Unavailable Unavailable Allergies Allergen (clinical drug ingredient) Drug/Non Drug Allergy documented on EMR Reaction Allergy Type Onset Date Status Penicillin Unknown Drug Allergy Active Results Component Value Reference Range Notes Pathology Reviewed date:12/02/2023 02:14:13 PM Interpretation: Performing Lab:[facility], [address] [place] [id number] Notes/Report: Name: Za Luke charly Jones Age/Sex: 48/F : 1975 Unit#: [id number] Attend Dr: Luisito Mccartney MD Re11/29/23 Status : [facility] Location: [facility] Disch: SPEC : [id number] RECD : 11/30/23 STATUS: FELICITAS GAMINO NUM: [id number] HELLEN: 11/29/23-[address]: Luisito Mccartney MD ENTERED: 11/30/23- 10 SP TYPE: Surgical OTHR DR: Lee Mercado MD ORDERED: HE Stain/3, Gross Micro L4 Diagnosis Colon, 30 cm, biopsy : Colonic mucosa with partially denuded surface epithelium; otherwise within normal limits. Clinical History Pre-Op Dx: Other int estinal obstruction unspecified as to partial versus complete obstruction Post-Op Dx: Anastomo tic stricture Microscopic Description Microscopic sections reviewed. Material Received Sigmoid bx at 30 Gross Description Received in formalin are 2 diaz 2 mm soft tissue fragments, totally submitted in cassette A1. (DTL) Excision time: 14:11 on 11/29/23; formalin time: 14:11; cold ischemic time: 0 minutes; total time in formal in: 30 hours. Copies To: Luisito Mccartney MD [facility] [address] [place] [address] [address] [place], [place] [id number] Lee Mercado MD [facility], [address] [phone] Signed (si gnature on file) Jeromy Seo MD 12/02/23 [id number] END OF REPORT Reason For Referral No Information Medications Medication SIG (Take, Route, Frequency, Duration) Notes [...] EVERY DAY AT BEDTIME Oral for 90 [id number],Unavail able Active Levothyroxine Sodium 25 MCG TAKE 1 TABLET BY MOUTH DAILY Oral for 90 Active Chlorthalidone 25 MG 1 tablet in the morning with food Orally for 30 day(s) Active amLODIPine Besylate 10 MG Oral for 30 Active Cetirizine HCl 10 MG Oral for 90 Active Immunizations Vaccine Route Administration Date Status Comme nts Influenza Unknown 11/02/2023 Refused Social History Tobacco Use: Social History Observation Description Date Details (start date - stop date) Never Smoker NA - NA Tobacco Use/Smoking Question Answer Notes Patient is [...] Never (0 point) Points 1 Interpretation Negative Problems Problem Type SNOMED Code ICD Code Onset Dates Problem Status W/U Status Risk Notes Problem Diverticular disease of colon (668026199) Diverticulosis of large intestine without perforation or abscess without bleeding (K57.30) Active confirmed Problem 5363994 Colonic strictur e (K56.699) Active confirmed Vital Signs Temperature 97.3 degrees Fahrenheit 11/02/2023 Blood pressure diastolic 00 mm Hg 11/02/2023 Height 5 ft 1 in in 11/02/2023 Blood pressure systolic 000 mm Hg 11/02/2023 Weight 184 lb 8 oz lbs 11/02/2023 BMI 34.86 kg/m2 11/02/2023 Encounters Encounter Location Date Provider Diagnosis [facility] [address] [place] [id number] 11/29/2023 Luisito Mccartney Jr Unspecified intestinal obstruction, unspecified as to partial versus complete obstruction K56.609 ; 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 ; Lymphocytic colitis K52.89 ; Diverticulosis of large intestine without perforation or abscess without bleeding K57.30 and Other hemorrhoids K64.8 [facility] [address] [place] [id number] 12/20/2023 Luisito Mccartney Jr Other intestinal obstruction unspecified as to partial versus complete obstruction K56.699 and Gastrointestinal anastomotic stricture K91.30 [facility] [address] [place] [phone] 11/02/2023 Luisito Mccartney Jr Colonic stricture K56.699 [facility] [address] [place] [phone] 12/01/2023 Luisito Mccartney Jr Assessments Encounter Date Diagnosis (ICD Code) Assessment Notes Treatment Notes Treatment Clinical Notes Section Notes 11/29/2023 Unspecified intestinal obstruction, unspecified as to partial versus complete obstruction (ICD-10 - K56.609) 11/29/2023 Anastomotic stricture of gastrojejunostomy (ICD-10 - K91.89) 12/20/2023 Other intestinal obstruction unspecified as to partial versus complete obstruction (ICD-10 - K56.699) 12/20/2023 Gastrointestinal anastomotic stricture (ICD-10 - K91.30) 11/02/2023 Colonic stricture (ICD-10 - K56.699) Colonoscopy material was printed We discussed colonoscopy with balloon dilation of any anastomotic stricture, should one be found. We discussed her symptoms as of the procedure today. She understands these and agrees to proceed. She will have a 2 Fleet enema prep in stop her chlorthalidone the day before the procedure. 11/29/2023 Lymphocytic colitis (ICD-10 - K52.89) 11/29/2023 Diverticulosis of large intestine without perforation or abscess without bleeding (ICD-10 - K57.30) 11/29/2023 Other hemorrhoids (ICD-10 - K64.8) Plan Of Treatment Future Test Test Name Order Date Colonoscopy with balloon dilation 2023 Insurance Providers Payer Name Payer Address Payer Phone Subscriber Number Group Number Insured Name Patient Relationship to Insured Coverage Start Date Coverage End Date [facility] [address] Attn Claims [place] [id number] АЛЕКСАНДР LUKE Self - patient is the insured Medical (General) History Medical History History ICD Code Hypertension Bipolar disorder Migraine headaches Leukocytosis, thrombocytosis Colon polyps, colonoscopy 06/24, tubular adenoma, sigmoid diverticulosis Surgical History Surgery Date(Month/Year) skin graft 1991 Cholecystectomy 1996 Sigmoid resection, diverting loop ileost nicolas 2023 Hospitalization History Reason Date(Month/Year) Sigmoid resection, diverting loop ileost nicolas 08/18/23
--- OUTSIDE RECORDS SUMMARY | 2024-07-13 09:32 | XMS_ITS ---
Author Organization [facility] Address [address] [place] [address] Care Team Providers Care High Worker Name Role Phone Rogelio GUEVARA, Asma Primary Care Provider Luisito Riggs Jr Unavailable Matthew Zaragoza M.D. Unavailable Unavailable REASON FOR VISIT colonic stricture Problems Problem Type SNOMED Code ICD Code Onset Dates Problem Status W/U Status Risk Notes Problem Diverticular disease of colon (877830314) Diverticulosis of large intestine without perforation or abscess without bleeding (K57.30) Active confirmed Encounters Encounter Location Date Provider Diagnosis [facility] Outpatient [address], [place] [phone] 11/29/2023 Luisito Mccartney Jr Unspecified intestinal obstruction, [...] * LORI LUKE: [birth year] (49 yo F)Acc No.[id number]:11/29/2023 COLON WITH MAC Patient:АЛЕКСАНДР TEJEDA Provider:?Luisito Mccartney MD :1975???Age:48 Y???Sex:Female D ate:11/29/2023 Address:[address] [place] [address] [address] Pcp:Lee Mercado MD Subjective: * Chief Complaints: * ???1. Colonic stricture. * Medical History:? Objective: * Vitals:? Assessment: * Assessment: 1.?Unspecified intestinal ob struction, unspecified as to partial versus complete obstruction - K56.609 (Primary)???2.?Anastomotic stricture of gastrojejunostomy - K91.89???3.?Lymphocytic colitis - K52.89???4.?Diverticulosis of large intestine without perforation or abscess without bleeding - K57.30???5.?Other hemorrhoids - K64.8??? Plan: * Treatment: * Procedure Codes:?60080 COLON OSCOPE DILATE STRICTURE * * The named appointment provid er may or may not be the originator of this progress note, and it is not deemed complete until electronically signed by the appointment provider. Sign off status: Pending * Provider:?Luisito Mccartney MD Date:?0 11/29/2023 Generated for Derick lopez/Zabrina/eTcapricesmitting on:?07/13/2024 09:32 AM EDT
--- OUTSIDE RECORDS SUMMARY | 2024-07-13 09:32 | XMS_ITS ---
Author Organization [facility] Address [address] [place] [address] Care Team Providers Care Motorboat Operator Name Role Phone Rogelio GUEVARA, Lee Primary Care Provider Luisito Riggs Jr Unavailable [phone] Matthew Zaragoza M.D. Unavailable Unavailable REASON FOR VISIT balloon dilation, colonic stricture Encounters Encounter Location Date Provider Diagnosis [facility] Outpatient [address] [place] [phone] 12/20/2023 Luisito Mccartney Jr Other intestinal obstruction [...] * JAMIE LUKEVALENCIAOB: [birth year] (49 yo F)Acc No.[id number]:12/20/2023 COLON WITH MAC Patient:?АЛЕКСАНДР LUKE Provider:?Luisito Mccartney MD :1975???Age:48 Y???Sex:Female D ate:12/20/2023 Address:[address] [place] [address] [address], [id number] Pcp:Lee Mercado MD Subjective: * Chief Complaints: * ???1. Balloon dilation, colo yelena stricture. * Medical History:? Objective: * Vitals:? Assessment: * Assessment: 1.?Other intestinal obstruct ion unspecified as to partial versus complete obstruction - K56.699 (Primary)???2.?Gastrointestinal anastomotic stricture - K91.30??? Plan: * Treatment: * Procedure Codes:?15640 DIAGN OSTIC COLONOSCOPY, 67479 COLONOSCOPE DILATE STRICTURE, Modifiers: 59 * * The named appointment provid er may or may not be the originator of this progress note, and it is not deemed complete until electronically signed by the appointment provider. Sign off status: Pending * Provider:?Luisito Mccartney MD Date:?0 12/20/2023 Generated for Derick lopez/Zabrina/eTcapricesmitting on:?07/13/2024 09:32 AM EDT
--- OUTSIDE RECORDS SUMMARY | 2024-07-13 09:32 | XMS_ITS ---
Author Organization [facility] Address [address] [place] [address] Care Team Providers Care Byproduct Engineer Name Role Phone Rogelio GUEVARA, [facility] Primary Care Provider Luisito Riggs Jr Unavailable [phone] Matthew Zaragoza M.D. Unavailable Unavailable REASON FOR VISIT another procedure in 2 weeks Encounters Encounter Location Date Provider Diagnosis [facility] [address] [place] [address] 12/01/2023 Luisito Mccartney Jr Plan Of Treatment No Information Progress Notes * MICKIEJAMIE GONZALEZVALENCIAOB: [birth year] (48 yo F)Acc No.[id number]:12/01/2023 Patient:?АЛЕКСАНДР LUKE :1975???Age:48 Y???Sex:Female Address:[address] [place] [address] [address], [place], [address] * true * Date:? Generated for Masoni jessica/Faracquelg/eTransmitting on:?07/13/2024 09:31 AM EDT
[2024-07-13 11:11] LABS: Appearance Urine Clear; Color Urine Yellow; Glucose Urine UA Negative (Negative); Leukocyte Esterase Urine Moderate (2+) (Negative); Nitrite Urine Negative (Negative); PH 5.5 (5.0-9.0); Specific Gravity - Urine 1.025 (1.005-1.025); UMIC TRIGGER UA YES; Urine Blood Negative (Negative); Urine Ketones Trace mg/dL (Negative); Urine Protein Trace mg/dL (Neg-Trace)
[2024-07-13 11:52] LABS: Bacteria Urine 3+ (None Seen); Hyaline Casts Urine 0-2 /LPF (0-2); RBC Urine 0-2 /HPF (0-2)
== END 2024-07-13 09:11 | disposition home or self-care (01) ==
LOC: HO.HMGCLDS 09:10
PROVIDERS: PCP Internal Medicine; Visit Provider Internal Medicine Hypertension Specialist
DX: N18.9 Chronic kidney disease, unspecified (principal)
CPT/HCPCS: 81001; 81003

== ENCOUNTER 2024-07-24 11:46 | Outpatient (AMB) | payer OTHER, SELFPAY ==
[2024-07-24 11:45] VITALS: BP 142/90; PULSE 80; O2SAT 97; BMI 36.3
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
--- OUTSIDE RECORDS SUMMARY | 2024-07-24 14:15 | XMS_ITS ---
Author Organization [facility] Address [address] [place] [address] Care Team Providers Care Marketing Regional Consultant Name Role Phone Rogelio GUEVARA, Lee Primary Care Provider Luisito Riggs Jr Unavailable Matthew Zaragzoa M.D. Unavailable Unavailable REASON FOR VISIT balloon dilation, colonic stricture Encounters Encounter Location Date Provider Diagnosis [facility] Outpatient [address] [place] [phone] 12/20/2023 Luisito Mccartney Jr Other intestinal obstruction [...] * JAMIE LUKEVALENCIAOB: [birth year] (49 yo F)Acc No.[id number]:12/20/2023 COLON WITH MAC Patient:?АЛЕКСАНДР LUKE Provider:?Luisito Mccartney MD :1975???Age:48 Y???Sex:Female D ate:12/20/2023 Address:[address] [place] [address] [address], [id number] Pcp:Lee Mercado MD Subjective: * Chief Complaints: * ???1. Balloon dilation, colo yelena stricture. * Medical History:? Objective: * Vitals:? Assessment: * Assessment: 1.?Other intestinal obstruct ion unspecified as to partial versus complete obstruction - K56.699 (Primary)???2.?Gastrointestinal anastomotic stricture - K91.30??? Plan: * Treatment: * Procedure Codes:?13688 DIAGN OSTIC COLONOSCOPY, 58963 COLONOSCOPE DILATE STRICTURE, Modifiers: 59 * * The named appointment provid er may or may not be the originator of this progress note, and it is not deemed complete until electronically signed by the appointment provider. Sign off status: Pending * Provider:?Luisito Mccartney MD Date:?0 12/20/2023 Generated for Derick lopez/Zabrina/Alfredosmitting on:?07/24/2024 02:15 PM EDT
--- OUTSIDE RECORDS SUMMARY | 2024-07-24 14:15 | XMS_ITS ---
Author Organization [facility] Address [address] [place] [address] Care Team Providers Care Gastroenterology Technician Name Role Phone Rogelio GUEVARA, [facility] Primary Care Provider Luisito Riggs Jr Unavailable Matthew Zaragoza M.D. Unavailable Unavailable REASON FOR VISIT another procedure in 2 weeks Encounters Encounter Location Date Provider Diagnosis [facility] [address] [place] [phone] 12/01/2023 Luisito Mccartney Jr Plan Of Treatment No Information Progress Notes * MICKIEJAMIE GONZALEZVALENCIAOB: [birth year] (48 yo F)Acc No.[id number]:12/01/2023 Patient:?АЛЕКСАНДР LUKE :1975???Age:48 Y???Sex:Female Address:[address] [place] [address] [address], [place], [address] * true * Date:? Generated for Masoni jessica/Zabrina/eTransmitting on:?07/24/2024 02:15 PM EDT
--- OUTSIDE RECORDS SUMMARY | 2024-07-24 14:15 | XMS_ITS | Patient Health Record ---
Author Organization [facility] Address [address] [place] [address] Care Team Providers Care National Account Representative Name Role Phone Rogelio GUEVARA, [facility] Primary Care Provider Luisito Riggs Jr Unavailable Matthew Zaragoza M.D. Unavailable Unavailable Allergies Allergen (clinical drug ingredient) Drug/Non Drug Allergy documented on EMR Reaction Allergy Type Onset Date Status Penicillin Unknown Drug Allergy Active Results Component Value Reference Range Notes Pathology Reviewed date:12/02/2023 02:14:13 PM Interpretation: Performing Lab:[facility], [address] [place] [phone] Notes/Report: Name: Za Luke charly Jones Age/Sex: 48/F : 1975 Unit#: [id number] Attend Dr: Luisito Mccartney MD Re11/29/23 Status : [facility] Location: [facility] Disch: SPEC : [id number] RECD : 11/30/23 STATUS: FELICITAS GAMINO NUM: [id number] HELLEN: 11/29/23-[address]: Luisito Mccartney MD [...] 30 hours. Copies To: Luisito Mccartney MD [facility] [address] [place] [address] [address] [place], [place] [phone] Lee Mercado MD [facility], [address] [phone] Signed (si gnature on file) Jeromy Seo MD 12/02/23 5612 END OF REPORT Reason For Referral No [...] EVERY DAY AT BEDTIME Oral for 90 [id number],Unavail able Active Levothyroxine Sodium 25 MCG TAKE [...] Risk Notes Problem Diverticular disease of colon (326781135) Diverticulosis of large intestine without perforation or abscess without bleeding (K57.30) Active confirmed Problem [id number] Colonic strictur e (K56.699) Active confirmed Vital Signs Temperature 97.3 degrees Fahrenheit 11/02/2023 Blood pressure diastolic 00 mm Hg 11/02/2023 Height 5 ft 1 in in 11/02/2023 Blood pressure systolic 000 mm Hg 11/02/2023 Weight 184 lb 8 oz lbs 11/02/2023 BMI 34.86 kg/m2 11/02/2023 Encounters Encounter Location Date Provider Diagnosis [facility] Out[place] [address] [place] [phone] 11/29/2023 Luisito Mccartney Jr Unspecified intestinal obstruction, unspecified as to partial versus complete obstruction K56.609 ; 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 ; Lymphocytic colitis K52.89 ; Diverticulosis of large intestine without perforation or abscess without bleeding K57.30 and Other hemorrhoids K64.8 [facility] Out[facility] [address] [place] [phone] 12/20/2023 Luisito Mccartney Jr Other intestinal obstruction unspecified as to partial versus complete obstruction K56.699 and Gastrointestinal anastomotic stricture K91.30 [facility] [address] [place] [phone] 11/02/2023 Luisito Mccartney Jr Colonic stricture K56.699 [facility] [address] [place] [phone] 12/01/2023 Luisito Mccartney Jr Assessments Encounter Date [...] Insured Coverage Start Date Coverage End Date [facility] [address] Attn Claims [place] [id number] АЛЕКСАНДР LUKE Self - patient is the [...]
--- OUTSIDE RECORDS SUMMARY | 2024-07-24 14:15 | XMS_ITS | Clinical Summary ---
Author Organization [facility] Address [address] [place] [address] Care Team Providers Care Food Beverage Server Name Role Phone Unavailable Primary Care Provider [...]
--- OUTSIDE RECORDS SUMMARY | 2024-07-24 14:16 | XMS_ITS ---
Author Organization [facility] Address [address] [place] [address] Care Team Providers Care Software Development Advisor Name Role Phone Rogelio GUEVARA, Asma Primary Care Provider Luisito Riggs Jr Unavailable Matthew Zaragoza M.D. Unavailable Unavailable REASON FOR VISIT colonic stricture Problems Problem Type SNOMED Code ICD Code Onset Dates Problem Status W/U Status Risk Notes Problem Diverticular disease of colon (027761263) Diverticulosis of large intestine without perforation or abscess without bleeding (K57.30) Active confirmed Encounters Encounter Location Date Provider Diagnosis [facility] Outpatient [address] [place], [place] [phone] 11/29/2023 Luisito Mccartney Jr Unspecified intestinal obstruction, [...] * LORI LUKE: [birth year] (49 yo F)Acc No.[id number]:11/29/2023 COLON WITH MAC Patient:АЛЕКСАНДР TEJEDA Provider:?Luisito Mccartney MD :1975???Age:48 Y???Sex:Female D ate:11/29/2023 Address:[address] [place] [address] [address] [facility] Pcp:Lee Mercado MD Subjective: * Chief Complaints: * ???1. Colonic stricture. * Medical History:? Objective: * Vitals:? Assessment: * Assessment: 1.?Unspecified intestinal ob struction, unspecified as to partial versus complete obstruction - K56.609 (Primary)???2.?Anastomotic stricture of gastrojejunostomy - K91.89???3.?Lymphocytic colitis - K52.89???4.?Diverticulosis of large intestine without perforation or abscess without bleeding - K57.30???5.?Other hemorrhoids - K64.8??? Plan: * Treatment: * Procedure Codes:?67942 COLON OSCOPE DILATE STRICTURE * * The named appointment provid er may or may not be the originator of this progress note, and it is not deemed complete until electronically signed by the appointment provider. Sign off status: Pending * Provider:?Luisito Mccartney MD Date:?0 11/29/2023 Generated for Derick lopez/Zabrina/eTcapricesmitting on:?07/24/2024 02:15 PM EDT
== END 2024-07-24 11:58 | disposition home or self-care (01) ==
LOC: HO.HKA 11:47
PROVIDERS: PCP Internal Medicine; Visit Provider Internal Medicine Hypertension Specialist
DX: I12.9 Hypertensive chronic kidney disease with stage 1 through stage 4 chronic kidney disease, or unspecified chronic kidney disease (principal); N18.9 Chronic kidney disease, unspecified
CPT/HCPCS: 99214

== ENCOUNTER 2024-07-24 12:01 | Outpatient (REF) | payer OTHER, SELFPAY ==
[2024-07-24 13:38] LABS: Appearance Urine Clear; Color Urine Dark Yellow; Glucose Urine UA Negative (Negative); Leukocyte Esterase Urine Trace (Negative); Nitrite Urine Negative (Negative); Specific Gravity - Urine 1.025 (1.005-1.025); UMIC TRIGGER UA YES; Urine Blood Negative (Negative); Urine Ketones Trace mg/dL (Negative); Urine Protein Trace mg/dL (Neg-Trace)
[2024-07-24 13:48] LABS: Hematocrit 46.3 % (37.0-47.0); Hemoglobin 14.8 g/dl (12.0-16.0); Mean Corpuscular Hemoglobin 30.6 pg (27.0-33.0); Mean Corpuscular Volume 95.9 fL (80.0-98.0); Mean Platelet Volume 10.2 fL (9.4-12.3); Platelet Count 430 X10*3/uL (160-400); Red Blood Count 4.83 X10*6/uL (4.20-5.50); Red Cell Distribution Width 13.9 % (11.0-16.0); White Blood Count 11.8 X10*3/uL (4.8-10.8)
[2024-07-24 13:54] LABS: Bacteria Urine 1+ (None Seen); Hyaline Casts Urine 0-2 /LPF (0-2); RBC Urine 0-2 /HPF (0-2)
[2024-07-24 14:12] LABS: Anion Gap 11 (12-20); Blood Urea Nitrogen 14 mg/dL (9-16); Carbon Dioxide 26 mmol/L (22-29); Chloride 109 mmol/L (96-108); Estimated Glomerular Filt Rate 41; Glucose Random 76 mg/dL (60-115); Potassium 3.2 mmol/L (3.3-5.1); Sodium 143 mmol/L (135-145)
== END 2024-07-24 12:02 | disposition home or self-care (01) ==
LOC: HO.10HDL 12:01
PROVIDERS: Visit Provider Internal Medicine Hypertension Specialist
DX: N18.9 Chronic kidney disease, unspecified (principal)
CPT/HCPCS: 36415; 80048; 81001; 85027

== ENCOUNTER 2024-08-09 08:40 | Outpatient (AMB) | payer OTHER, SELFPAY ==
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
--- OUTSIDE RECORDS SUMMARY | 2024-08-09 08:57 | XMS_ITS ---
Author Organization [facility] Address [address] [place] [phone] Care Team Providers Care Perfect Binder Feeder Offbearer Name Role Phone Rogelio GUEVARA, [facility] Primary [facility] Provider Luisito Riggs Jr Unavailable Matthew Zaragoza M.D. Unavailable Unavailable REASON FOR VISIT another procedure in 2 weeks Encounters Encounter Location Date Provider Diagnosis [facility] [address] [place] [phone] 12/01/2023 Luisito Mccartney Jr Plan Of Treatment No Information Progress Notes * MICKIEJAMIE GONZALEZVALENCIAOB: [birth year] (48 yo F)Acc No.[id number]:12/01/2023 Patient:?АЛЕКСАНДР LUKE :1975???Age:48 Y???Sex:Female Address:[address] [place] [address] [address], [place], [address] * true * Date:? Generated for Masoni jessica/Faracquelg/eTransmitting on:?08/09/2024 08:57 AM EDT
--- OUTSIDE RECORDS SUMMARY | 2024-08-09 08:57 | XMS_ITS | Clinical Summary ---
Author Organization [facility] ity Address [address] [place] [address] Care Team Providers Care Qa Architect Name Role Phone Unavailable Primary Care Provider [...]
--- OUTSIDE RECORDS SUMMARY | 2024-08-09 08:57 | XMS_ITS | Patient Health Record ---
Author Organization [facility] Address [address] [place] [address] Care Team Providers Care Chainstitch Tunnel Elastic Operator Name Role Phone Rogelio GUEVARA, [facility] Primary Care Provider Luisito Riggs Jr Unavailable Matthew Zaragoza M.D. Unavailable Unavailable Allergies Allergen (clinical drug ingredient) Drug/Non Drug Allergy documented on EMR Reaction Allergy Type Onset Date Status Penicillin Unknown Drug Allergy Active Results Component Value Reference Range Notes Pathology Reviewed date:12/02/2023 02:14:13 PM Interpretation: Performing Lab:[facility], [address] [place] [phone] Notes/Report: Name: Za Luke charly Jones Age/Sex: 48/F : 1975 Unit#: [id number] Attend Dr: Luisito Mccartney MD Re11/29/23 Status : [facility] Location: [facility] Disch: SPEC : [id number] RECD : 11/30/23 STATUS: FELICITAS GAMINO NUM: [id number] HELLEN: 11/29/23-[address]: Luisito Mccarteny MD ENTERED: 11/30/23- 10 SP TYPE: Surgical [...] 30 hours. Copies To: Luisito Mccartney MD [facility] [address] [place] [address] [address] [place], [place] [phone] Lee Mercado MD [facility], [address] [phone] Signed (si gnature on file) Jeromy Seo MD 12/02/23 8502 END OF REPORT Reason For Referral No [...] EVERY DAY AT BEDTIME Oral for 90 M11630,Unavail able Active Levothyroxine Sodium 25 MCG TAKE [...] Risk Notes Problem Diverticular disease of colon (856608811) Diverticulosis of large intestine without perforation or abscess without bleeding (K57.30) Active confirmed Problem 4637384 Colonic strictur e (K56.699) Active confirmed Vital Signs Temperature 97.3 degrees Fahrenheit 11/02/2023 Blood pressure diastolic 00 mm Hg 11/02/2023 Height 5 ft 1 in in 11/02/2023 Blood pressure systolic 000 mm Hg 11/02/2023 Weight 184 lb 8 oz lbs 11/02/2023 BMI 34.86 kg/m2 11/02/2023 Encounters Encounter Location Date Provider Diagnosis [facility] Outpatient [address] [place] [id number] 11/29/2023 Luisito Mccartney Jr Unspecified intestinal obstruction, unspecified as to partial versus complete obstruction K56.609 ; 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 ; Lymphocytic colitis K52.89 ; Diverticulosis of large intestine without perforation or abscess without bleeding K57.30 and Other hemorrhoids K64.8 [facility] Outpatient [address] [place] [id number] 12/20/2023 Luisito Mccartney Jr Other intestinal obstruction unspecified as to partial versus complete obstruction K56.699 and Gastrointestinal anastomotic stricture K91.30 [facility] [address] [place] [phone] 11/02/2023 Luisito Mccartney Jr Colonic stricture K56.699 [facility] [address] [place] [phone] 12/01/2023 Luisito Mccartney Jr Assessments Encounter Date [...] Insured Coverage Start Date Coverage End Date [facility] [address] Attn Claims ARSH [place] [id number] АЛЕКСАНДР LUKE Self - patient is the [...]
--- OUTSIDE RECORDS SUMMARY | 2024-08-09 08:57 | XMS_ITS ---
Author Organization [facility] Address [address] [place] [phone] Care Team Providers Care Cloth Seconds Sorter Name Role Phone Rogelio GUEVARA, Lee Primary Care Provider Shanice Mccartney Jr, Luisito Unavailable Matthew Zaragoza M.D. Unavailable Unavailable REASON FOR VISIT balloon dilation, colonic stricture Encounters Encounter Location Date Provider Diagnosis [facility] Out[facility] [address] [place] [phone] 12/20/2023 Luisito Mccartney Jr Other intestinal obstruction [...] * JAMIE LUKEVALENCIAOB: [birth year] (49 yo F)Acc No.[id number]:12/20/2023 COLON WITH MAC Patient:?АЛЕКСАНДР LUKE Provider:?Luisito Mccartney MD :1975???Age:48 Y???Sex:Female D ate:12/20/2023 Address:[address] [place] [address] [address], [id number] Pcp:Lee Mercado MD Subjective: * Chief Complaints: * ???1. Balloon dilation, colo yelena stricture. * Medical History:? Objective: * Vitals:? Assessment: * Assessment: 1.?Other intestinal obstruct ion unspecified as to partial versus complete obstruction - K56.699 (Primary)???2.?Gastrointestinal anastomotic stricture - K91.30??? Plan: * Treatment: * Procedure Codes:?04560 DIAGN OSTIC COLONOSCOPY, 48680 COLONOSCOPE DILATE STRICTURE, Modifiers: 59 * * The named appointment provid er may or may not be the originator of this progress note, and it is not deemed complete until electronically signed by the appointment provider. Sign off status: Pending * Provider:?Luisito Mccartney MD Date:?0 12/20/2023 Generated for Derick lopez/Zabrina/eTcapricesmitting on:?08/09/2024 08:57 AM EDT
--- OUTSIDE RECORDS SUMMARY | 2024-08-09 08:58 | XMS_ITS ---
Author Organization [facility] Address [address] [place] [address] Care Team Providers Care Cleaner Housekeeping Name Role Phone Rogelio GUEVARA, Asma Primary Care Provider Luisito Riggs Jr Unavailable Matthew Zaragoza M.D. Unavailable Unavailable REASON FOR VISIT colonic stricture Problems Problem Type SNOMED Code ICD Code Onset Dates Problem Status W/U Status Risk Notes Problem Diverticular disease of colon (275454716) Diverticulosis of large intestine without perforation or abscess without bleeding (K57.30) Active confirmed Encounters Encounter Location Date Provider Diagnosis [facility] Outpatient [address] [place], [place] [phone] 11/29/2023 Luisito Mccartney Jr Unspecified intestinal obstruction, [...] * LORI LUKE: [birth year] (49 yo F)Acc No.[id number]:11/29/2023 COLON WITH MAC Patient:АЛЕКСАНДР TEJEDA Provider:?Luisito Mccartney MD :1975???Age:48 Y???Sex:Female D ate:11/29/2023 Address:[address] [place] [address] [address] Pcp:Lee Mercado MD Subjective: * Chief Complaints: * ???1. Colonic stricture. * Medical History:? Objective: * Vitals:? Assessment: * Assessment: 1.?Unspecified intestinal ob struction, unspecified as to partial versus complete obstruction - K56.609 (Primary)???2.?Anastomotic stricture of gastrojejunostomy - K91.89???3.?Lymphocytic colitis - K52.89???4.?Diverticulosis of large intestine without perforation or abscess without bleeding - K57.30???5.?Other hemorrhoids - K64.8??? Plan: * Treatment: * Procedure Codes:?92087 COLON OSCOPE DILATE STRICTURE * * The named appointment provid er may or may not be the originator of this progress note, and it is not deemed complete until electronically signed by the appointment provider. Sign off status: Pending * Provider:?Luisito Mccartney MD Date:?0 11/29/2023 Generated for Derick lopez/Zabrina/eTransmitting on:?08/09/2024 08:57 AM EDT
== END 2024-08-09 09:23 | disposition home or self-care (01) ==
LOC: HO.HMCC 08:40
PROVIDERS: PCP Internal Medicine; Visit Provider Internal Medicine
DX: I12.9 Hypertensive chronic kidney disease with stage 1 through stage 4 chronic kidney disease, or unspecified chronic kidney disease (principal); Z91.09 Other allergy status, other than to drugs and biological substances; N18.9 Chronic kidney disease, unspecified; E03.8 Other specified hypothyroidism; E78.9 Disorder of lipoprotein metabolism, unspecified

== ENCOUNTER → 2024-08-09 08:40 | Outpatient (BNVA) | payer OTHER, SELFPAY | PROVIDERS: PCP Internal Medicine; Visit Provider Internal Medicine | DX: Z13.89 Encounter for screening for other disorder (principal) ==

== ENCOUNTER 2024-08-20 08:59 | Outpatient (REF) | payer OTHER, SELFPAY ==
--- OUTSIDE RECORDS SUMMARY | 2024-08-20 09:12 | XMS_ITS | Clinical Summary ---
Author Organization [facility] ity Address [address] [place] [address] Care Team Providers Care Mill Worker Name Role Phone Unavailable Primary Care Provider [...]
--- OUTSIDE RECORDS SUMMARY | 2024-08-20 09:12 | XMS_ITS | Patient Health Record ---
Author Organization [facility] Address [address] [place] [address] Care Team Providers Care Tub Operator Name Role Phone Rogelio [facility], [facility] Primary [facility] Provider Luisito Riggs Jr Unavailable Matthew Zaragoza M.D. Unavailable Unavailable Allergies Allergen (clinical drug ingredient) Drug/Non Drug Allergy documented on EMR Reaction Allergy Type Onset Date Status Penicillin Unknown Drug Allergy Active Results Component Value Reference Range Notes Pathology Reviewed date:12/02/2023 02:14:13 PM Interpretation: Performing Lab:[facility], [address] [place] [phone] Notes/Report: Name: Hany Lukeprince Jones Age/Sex: 48/F : 1975 Unit#: [id number] Attend Dr: Luisito Mccartney MD Re11/29/23 Status : [facility] Location: [facility] Disch: SPEC : [id number] RECD : 11/30/23 STATUS: FELICITAS GAMINO NUM: [id number] HELLEN: 11/29/23-[address]: Luisito Mccartney MD [...] 30 hours. Copies To: Luisito Mccartney MD [facility] [address] [place] [address] [address] [place], [place] [phone] Lee Mercado MD [facility], [address] [phone] Signed (si gnature on file) Jeromy Seo MD 12/02/23 4192 END OF REPORT Reason For Referral No [...] EVERY DAY AT BEDTIME Oral for 90 P35063,Unavail able Active Levothyroxine Sodium 25 MCG TAKE [...] abscess without bleeding (K57.30) Active confirmed Problem 9372107 Colonic strictur e (K56.699) Active confirmed Vital Signs Temperature 97.3 degrees Fahrenheit 11/02/2023 Blood pressure diastolic 00 mm Hg 11/02/2023 Height 5 ft 1 in in 11/02/2023 Blood pressure systolic 000 mm Hg 11/02/2023 Weight 184 lb 8 oz lbs 11/02/2023 BMI 34.86 kg/m2 11/02/2023 Encounters Encounter Location Date Provider Diagnosis [facility] Outpatient [address] [place] [id number] 11/29/2023 Luisito Mccartney Jr Unspecified intestinal obstruction, unspecified as to partial versus complete obstruction K56.609 ; 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 ; Lymphocytic colitis K52.89 ; Diverticulosis of large intestine without perforation or abscess without bleeding K57.30 and Other hemorrhoids K64.8 [facility] Outpatient [address] [place] [id number] 12/20/2023 Luisito Mccartney Jr Other intestinal obstruction unspecified as to partial versus complete obstruction K56.699 and Gastrointestinal anastomotic stricture K91.30 [facility] [address] [place] [phone] 11/02/2023 Luisito cMcartney Jr Colonic stricture K56.699 [facility] [address] [place] [phone] 12/01/2023 Luisito Mccartney Jr Assessments Encounter Date [...] Insured Coverage Start Date Coverage End Date [facility] [address] Attn Claims ARSH [place] [id number] АЛЕКСАНДР LUKE Self - patient is the [...]
--- OUTSIDE RECORDS SUMMARY | 2024-08-20 09:12 | XMS_ITS ---
Author Organization [facility] Address [address] [place] [id number] Care Team Providers Care Electric Motor Analyst Name Role Phone Rogelio GUEVARA, Lee Primary Care Provider Luisito Riggs Jr Unavailable Matthew Zaragoza M.D. Unavailable Unavailable REASON FOR VISIT balloon dilation, colonic stricture Encounters Encounter Location Date Provider Diagnosis [facility] Outpatient [address] [place] [phone] 12/20/2023 Luisito Mccartney Jr Other intestinal obstruction [...] * JAMIE LUKEVALENCIAOB: [birth year] (49 yo F)Acc No.[id number]:12/20/2023 COLON WITH MAC Patient:?АЛЕКСАНДР LUKE Provider:?Luisito Mccartney MD :1975???Age:48 Y???Sex:Female D ate:12/20/2023 Address:[address] [place] [address] [address], [id number] Pcp:Lee Mercado MD Subjective: * Chief Complaints: * ???1. Balloon dilation, colo yelena stricture. * Medical History:? Objective: * Vitals:? Assessment: * Assessment: 1.?Other intestinal obstruct ion unspecified as to partial versus complete obstruction - K56.699 (Primary)???2.?Gastrointestinal anastomotic stricture - K91.30??? Plan: * Treatment: * Procedure Codes:?55933 DIAGN OSTIC COLONOSCOPY, 93954 COLONOSCOPE DILATE STRICTURE, Modifiers: 59 * * The named appointment provid er may or may not be the originator of this progress note, and it is not deemed complete until electronically signed by the appointment provider. Sign off status: Pending * Provider:?Luisito Mccartney MD Date:?0 12/20/2023 Generated for Derick lopez/Zabrina/eTcapricesmitting on:?08/20/2024 09:12 AM EDT
--- OUTSIDE RECORDS SUMMARY | 2024-08-20 09:12 | XMS_ITS ---
Author Organization [facility] Address [address] [place] [phone] Care Team Providers Care Bomb Technician Name Role Phone Rogelio GUEVARA, [facility] Primary [facility] Provider Luisito Riggs Jr Unavailable [phone] Matthew Zaragoza M.D. Unavailable Unavailable REASON FOR VISIT another procedure in 2 weeks Encounters Encounter Location Date Provider Diagnosis [facility] [address] [place] [phone] 12/01/2023 Luisito Mccartney Jr Plan Of Treatment No Information Progress Notes * MICKIEJAMIE GONZALEZVALENCIAOB: [birth year] (48 yo F)Acc No.[id number]:12/01/2023 Patient:?АЛЕКСАНДР LUKE :1975???Age:48 Y???Sex:Female Address:[address] [place] [address] [address], [place], [address] * true * Date:? Generated for Masoni jessica/Faracquelg/eTransmitting on:?08/20/2024 09:12 AM EDT
--- OUTSIDE RECORDS SUMMARY | 2024-08-20 09:12 | XMS_ITS ---
Author Organization [facility] Address [address] [place] [address] Care Team Providers Care Machinery Engineer Name Role Phone Rogelio GUEVARA, [facility] Primary Care Provider Luisito Riggs Jr Unavailable Matthew Zaragoza M.D. Unavailable Unavailable REASON FOR VISIT colonic stricture Problems Problem Type SNOMED Code ICD Code Onset Dates Problem Status W/U Status Risk Notes Problem Diverticulosis o f large intestine without perforation or abscess without bleeding (K57.30) Active confirmed Encounters Encounter Location Date Provider Diagnosis [facility] Outpatient [address] [place], [place] [phone] 11/29/2023 Luisito Mccartney Jr Unspecified intestinal obstruction, [...] * MICHAEL LUKEOB: [birth year] (49 yo F)Acc No.[id number]:11/29/2023 COLON WITH MAC Patient:АЛЕКСАНДР TEJEDA Provider:?Luisito Mccartney MD :1975???Age:48 Y???Sex:Female D ate:11/29/2023 Address:[address] [place] [address] [address] [facility] [id number] Pcp:Lee Mercado MD Subjective: * Chief Complaints: * ???1. Colonic stricture. * Medical History:? Objective: * Vitals:? Assessment: * Assessment: 1.?Unspecified intestinal ob struction, unspecified as to partial versus complete obstruction - K56.609 (Primary)???2.?Anastomotic stricture of gastrojejunostomy - K91.89???3.?Lymphocytic colitis - K52.89???4.?Diverticulosis of large intestine without perforation or abscess without bleeding - K57.30???5.?Other hemorrhoids - K64.8??? Plan: * Treatment: * Procedure Codes:?08487 COLON OSCOPE DILATE STRICTURE * * The named appointment provid er may or may not be the originator of this progress note, and it is not deemed complete until electronically signed by the appointment provider. Sign off status: Pending * Provider:?Luisito Mccartney MD Date:?0 11/29/2023 Generated for Derick lopez/Zabrina/eTcapricesmitting on:?08/20/2024 09:12 AM EDT
[2024-08-20 10:14] LABS: MANUAL DIFF FLAG NO
[2024-08-20 10:34] LABS: Basophils Absolute Auto 0.1 X10*3/uL (0.0-0.2); Basophils Percent Auto 0.7 % (0-2); Eosinophils Absolute Auto 1.1 X10*3/uL (0.0-0.4); Eosinophils Percent Auto 10.3 % (0-4); Hematocrit 47.2 % (37.0-47.0); Hemoglobin 15.4 g/dl (12.0-16.0); Imm Gran Abs Auto 0.05 X10*3/uL (0.00-0.03); Imm Gran Pct Auto 0.5 % (0.0-0.4); Lymphocytes Absolute Auto 3.2 X10*3/uL (1.2-4.9); Lymphocytes Percent Auto 30.3 % (20-40); Mean Corpuscular HGB Conc 32.6 g/dl (31.0-35.0); Mean Corpuscular Hemoglobin 30.9 pg (27.0-33.0); Mean Corpuscular Volume 94.8 fL (80.0-98.0); Mean Platelet Volume 10.8 fL (9.4-12.3); Monocytes Absolute Auto 0.7 X10*3/uL (0.1-1.2); Monocytes Percent Auto 6.9 % (2-11); Neutrophils Absolute Auto 5.4 x10*3/uL (2.0-8.3); Neutrophils Percent Auto 51.3 % (45-73); Platelet Count 413 X10*3/uL (160-400); Red Blood Count 4.98 X10*6/uL (4.20-5.50); Red Cell Distribution Width 14.3 % (11.0-16.0); White Blood Count 10.6 X10*3/uL (4.8-10.8)
[2024-08-20 10:53] LABS: Alanine Aminotransferase 10 U/L (0-31); Albumin Level 4.1 g/dL (3.5-5.0); Alkaline Phosphatase 89 U/L (39-117); Anion Gap 12 (12-20); Aspartate Amino Transferase 20 U/L (5-31); Bilirubin Total 0.3 mg/dL (0.0-1.0); Blood Urea Nitrogen 12 mg/dL (9-16); Calcium 9.1 mg/dL (8.4-10.2); Carbon Dioxide 24 mmol/L (22-29); Chloride 109 mmol/L (96-108); Estimated Glomerular Filt Rate 38; Glucose Random 117 mg/dL (60-115); Potassium 3.3 mmol/L (3.3-5.1); Sodium 142 mmol/L (135-145); Total Protein 7.3 g/dL (6.5-8.0)
[2024-08-20 11:09] LABS: TSH reflex Free T4 4.04 uIU/mL (0.32-4.0)
[2024-08-20 12:59] LABS: Free T4 (Free Thyroxine) 0.99 ng/dL (0.71-1.85)
[2024-08-21 16:38] LABS: LDL Cholesterol Direct 98 mg/dL (<100)
== END 2024-08-20 09:00 | disposition home or self-care (01) ==
LOC: HO.HMGCLDS 08:59
PROVIDERS: PCP Internal Medicine; Visit Provider Internal Medicine
DX: N18.9 Chronic kidney disease, unspecified (principal); R73.01 Impaired fasting glucose; E03.8 Other specified hypothyroidism; J45.40 Moderate persistent asthma, uncomplicated; E78.9 Disorder of lipoprotein metabolism, unspecified; G43.119 Migraine with aura, intractable, without status migrainosus; F31.78 Bipolar disorder, in full remission, most recent episode mixed; I12.9 Hypertensive chronic kidney disease with stage 1 through stage 4 chronic kidney disease, or unspecified chronic kidney disease; Z91.09 Other allergy status, other than to drugs and biological substances
CPT/HCPCS: 36415; 80053; 83721; 84439; 84443; 85025

== ENCOUNTER 2024-10-17 10:00 | Outpatient (RCR) | payer OTHER, SELFPAY | END 2024-10-22 06:27 | disposition home or self-care (01) | LOC: HO.PTCHIC 10:00 | PROVIDERS: PCP Internal Medicine; Visit Provider Physical Medicine & Rehabilitation Sports Medicine | DX: M76.821 Posterior tibial tendinitis, right leg (principal) | CPT/HCPCS: 97110; 97140; 97161 ==

== ENCOUNTER 2024-10-20 06:34 | Inpatient (IN) | payer OTHER, SELFPAY ==
--- OUTSIDE RECORDS SUMMARY | 2023-12-20 08:30 | XMS_ITS ---
Author Organization [facility] Address [address] [place] [phone] Care Team Providers Care Balance Assembler Name Role Phone Rogelio GUEVARA, Lee Primary Care Provider Shanice Mccartney Jr, Luisito Unavailable [phone] Matthew Zaragoza M.D. Unavailable Unavailable REASON FOR VISIT balloon dilation, colonic stricture Encounters Encounter Location Date Provider [place] [facility] [place] [address] [place] [phone] 12/20/2023 Luisito Mccartney Jr Other intestinal obstruction [...] * JAMIE LUKEVALENCIAOB: [birth year] (49 yo F)Acc No.[id number]:12/20/2023 COLON WITH MAC Patient: АЛЕКСАНДР RENE Provider: Oscar Mccartney MD :1975 A ge:48 Y S ex:Female Date:12/20/2023 Address:[address] [place] [address] [address], [place] Pcp:Lee Mercado MD Subjective: * Chief Complaints: * 1 . Balloon dilation, colonic stricture. * Medical History: Objective: * Vitals: Assessment: * Assessment: 1. O ther intestinal obstruction unspecified as to partial versus complete obstruction - K56.699 (Primary) 2 . G astrointestinal anastomotic stricture - K91.30 ? Plan: * Treatment: * Procedure Codes: 4 5378 DIAGNOSTIC COLONOSCOPY, 69408 COLONOSCOPE DILATE STRICTURE, Modifiers: 59 * * The named appointment provid er may or may not be the originator of this progress note, and it is not deemed complete until electronically signed by the appointment provider. Sign off status: Pending * Provider: Oscar Mccartney MD Date: 0 12/20/2023 Generated for Derick lopez/Zabrina/Alfredosmitting on: 0 10/20/2024 06:50 AM EDT
[2024-10-20] VITALS (12 sets, daily range): BP systolic 158–210; BP diastolic 83–103; PULSE 68–90; RESP 16–18; TEMP 36.3–37; O2SAT 95–99; BMI 38.0; BMI 36.7
--- NOTE | ~2024-10-20 | XR_ITS ---
EXAMINATION: XR CHEST 1 VIEW HISTORY: Confirm placement of NG tube COMPARISON: Comparison is made with the prior examination performed earlier in the day at 10:33 AM. FINDINGS: A single AP portable view of the chest performed at 1:48 PM is submitted. A nasogastric tube is in place with its tip and sidehole below the diaphragm. The lungs are expanded and clear. There is no pleural effusion, pneumothorax, or pulmonary vascular congestion. The heart is normal in size. There is degenerative disc disease of the spine. XR/XR chest 1V IMPRESSION: The tip and sidehole of the nasogastric tube are below the diaphragm. No acute cardiopulmonary abnormality. Electronically signed by: Arthur Rabago MD 10/22/2024 09:02 AM EDT
--- NOTE | ~2024-10-20 | XR_ITS ---
CLINICAL HISTORY: After NG tube placement 1 view chest x-ray. Comparison: CR/SR - XR CHEST 2 VIEWS - 11/13/21 09:43 EDT Findings: The lungs are adequately expanded. No focal consolidation. No effusion or pneumothorax. Cardiac and mediastinal contours are within normal limits. No acute osseous abnormality Impression: No acute process. This document has been electronically signed by: Farshad Boswell MD on 10/20/2024 11:37:34
--- NOTE | ~2024-10-20 | CT_ITS ---
CLINICAL HISTORY: Abdominal pain, history of diverticulitis CT abdomen and pelvis with contrast Comparison: CT/REG/SR - CT ABDOMEN PELVIS WO IV CON - 08/24/23 01:17 EDT Findings: The lung bases are clear. The liver, spleen, adrenal glands and pancreas are unremarkable. Kidneys, ureters and bladder are normal. There is a partial or early small-bowel obstruction with the transition involving the anastomosis of the terminal ileum. There is stranding about this in the small focus of free fluid medial to this, axial 59. No free air or pneumatosis. There is also a segment of small bowel narrowing and hyperenhancement involving the distal ileum on axial image 40. There remains gas and fluid within the colon. Diverticulosis is present. No acute osseous finding. Impression: There is an early or partial small bowel obstruction with transition of the anastomosis of the distal ileum. Stranding and small volume free fluid about this obstruction point. No free air or abscess. There is also a short segment of small bowel thickening and hyperenhancement involving the distal ileum. Correlation for entities such as Crohn's disease. Additional incidental findings. This document has been electronically signed by: Farshad Boswell MD on 10/20/2024 09:37:52
--- OUTSIDE RECORDS SUMMARY | 2024-10-20 06:51 | XMS_ITS | Clinical Summary ---
Author Organization [facility] Address [address] [place] [address] Phone Care Team Providers Care Brim Rounder Name Role Phone Lee Mercado MD Primary Care Provider Unavailabl e Allergies Active Allergy Reactions Criticality Noted Date Comments Celecoxib 01/26/2023 Penicillins 01/26/2023 Medications amLODIPine (NORVASC) 10 MG tablet Take 1 tablet by mouth every morning. 3 Active amitriptyline (ELAVIL) 50 MG tablet Take 50 mg by mouth nightly at bedtime. 3 Active cetirizine (ZYRTEC) 10 MG tablet Take 1 tablet by mouth every morning. 3 Active cholecalciferol (VITAMIN D3) 2,000 unit capsule TAKE 1 CAPSULE BY MOUTH EVERY MORNING WITH FOOD 3 Active diclofenac sodium (VOLTAREN) 75 MG EC tablet Take 75 mg by mouth 2 (two) times a day as needed. 3 Active hydrOXYzine (VISTARIL) 25 MG capsule Take 25 mg by mouth 3 (three) times a day. 3 Active lamoTRIgine (LAMICTAL) 150 MG IMMEDIATE release tablet TAKE 2 TABLETS BY MOUTH EVERY DAY BEFORE BREAKFAST 3 Active losartan (COZAAR) 50 MG tablet Take 1 tablet by mouth every morning. 3 Active melatonin 5 mg Tab TAKE 1 TO 2 TABLETS BY MOUTH EVERY NIGHT AT BEDTIME NEEDED FOR INSOMNIA 3 Active propranoloL (INDERAL LA) 120 mg 24 hr capsule Take 1 capsule by mouth every morning. 3 Active simvastatin (ZOCOR) 20 MG tablet Take 20 mg by mouth nightly at bedtime. at bedtime. 3 Active ziprasidone (GEODON) 60 MG capsule TAKE 2 CAPSULES BY MOUTH EVERY DAY AFTER DINNER 3 Active atenolol (TENORMIN) 100 MG tablet Take 100 mg by mouth daily. 5 Active chlorthalidone (HYGROTON) 25 MG tablet Take 1 tablet by mouth every morning. 5 Active cloNIDine HCL (CATAPRES) 0.1 MG tablet Take 1 tablet by mouth 2 (two) times a day. 5 Active cyclobenzaprine (FLEXERIL) 10 MG tablet Take 10 mg by mouth 3 (three) times a day as needed. 5 Active Encounters Date Type Department Care Team Description 09/12/2024 10:00 AM EDT Office Visit [facility] [address] [place] [address] Angie Theodore MD Tibialis posterior tendinitis, right (Primary Dx); Inversion sprain of ankle, right, initial encounter from Last 3 Months Social History Tobacco Use Types Packs/Day Years Used Date Smoking Tobacco: Never Assessed Education Answer Date Recorded Are you interested in more education? Not on silver e 01/07/2023 Are you concerned about learning? Not on file 01/07/2023 No 01/07/2023 No 01/07/2023 Digital Access Answer Date Recorded No 01/07/2023 No 01/07/2023 Reliable internet access at home? Not on file 01/07/2023 Device with a working camera? Not on file Comments Unknown Sex and Gender Information Value Date Recorded Sex Assigned at Not on file Legal Sex Female 9:44 AM EDT Gender Identity Not on file Sexual Orientation Not on file Plan of Treatment Health Maintenance Due Date Last Done Comments Adult Td,Tdap Booster 1975 CREATININE LEVEL 1975 LIPID PANEL 1973 POTASSIUM LEVEL 1973 DEPRESSION SCREENING 1985 SMOKING Hx and SMOKELESS TOBACCO SCREENING 1986 HEPATITIS C SCREENING 1991 HIV ONE-TIME SCREENING (18-6 5 YEARS) 1991 PAP SMEAR 1994 MAMMOGRAM 2013 COLOGUARD 2018 COLONOSCOPY 2018 COLORECTAL CANCER SCREENING 2018 FIT TEST 2018 FOBT 2018 SIGMOIDOSCOPY 2018 VIRTUAL COLONOSCOPY 2018 PNEUMOCOCCAL VACCINES (50+ years) (1 of 1 - PCV) 2023 ZOSTER VACCINES (1 of 2) 2023 COVID-19 VACCINE (3 - 2023-2 5 season) 2023 08/25/2020, 07/28/2020 HEPATITIS A VACCINES Aged Out No long er eligible based on patient's age to complete this topic HIB VACCINES Aged Out No longer eligi ble based on patient's age to complete this topic MENINGOCOCCAL VACCINES (ACWY) Aged Out No longer eligible based on patient's age to complete this topic MENINGOCOCCAL VACCINES (B) Aged Out N o longer eligible based on patient's age to complete this topic Medical Devices Not on file Insurance [facility] MEDICARE REPLACEMENT [facility] MEDICARE REPLACEMENT [facility] MEDICARE REPLACEMENT [facility] MEDICARE [facility]PLACEMENT [facility] MEDICARE REPLACEMENT [facility] ONE CARE MEDICARE REPLACEMENT Care Teams Brim Rounder Relationship Specialty Start Date End Date Lee Mercado MD PCP - General Internal Medicine 01/03/23 Additional Source Comments The information contained in this document represents components of the legal health record. It is not the complete legal health record.[facility]
[2024-10-20 06:55] LABS: MANUAL DIFF FLAG NO
[2024-10-20 06:59] LABS: Hematocrit 45.7 % (37.0-47.0); Hemoglobin 15.5 g/dl (12.0-16.0); Imm Gran Abs Auto 0.05 X10*3/uL (0.00-0.03); Imm Gran Pct Auto 0.4 % (0.0-0.4); Lymphocytes Absolute Auto 1.7 X10*3/uL (1.2-4.9); Mean Corpuscular HGB Conc 33.9 g/dl (31.0-35.0); Mean Corpuscular Hemoglobin 31.7 pg (27.0-33.0); Mean Corpuscular Volume 93.5 fL (80.0-98.0); NRBC Abs Auto 0.000 X10*3/uL (0.0-0.012); NRBC Pct Auto 0.0 /100WBC (0.0-0.2); Platelet Count 421 X10*3/uL (160-400); Red Blood Count 4.89 X10*6/uL (4.20-5.50); White Blood Count 13.2 X10*3/uL (4.8-10.8)
[2024-10-20 07:13] LABS: Alanine Aminotransferase 9 U/L (0-31); Albumin Level 4.1 g/dL (3.5-5.0); Alkaline Phosphatase 94 U/L (39-117); Anion Gap 14 (12-20); Aspartate Amino Transferase 19 U/L (5-31); Blood Urea Nitrogen 18 mg/dL (9-16); Calcium 8.9 mg/dL (8.4-10.2); Carbon Dioxide 20 mmol/L (22-29); Chloride 109 mmol/L (96-108); Creatinine Clr Calc Pharmacy 53.0; Estimated Glomerular Filt Rate 44; Lipase 23 U/L (8-78); Potassium 3.9 mmol/L (3.3-5.1); Sodium 139 mmol/L (135-145); Total Protein 6.9 g/dL (6.5-8.0)
[2024-10-20 07:50] LABS: Appearance Urine Clear; Glucose Urine UA Negative (Negative); PH 7.5 (5.0-9.0); Specific Gravity - Urine 1.025 (1.005-1.025); UMIC TRIGGER UACC YES
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
[2024-10-20 08:21] LABS: OBS Int Ctl Valid YES; OBS1 NEGATIVE (NEGATIVE)
[2024-10-20] MEDS: Lactated Ringers 1,000 ML 999 ML IV (08:24)
--- NOTE | 2024-10-20 08:27 | PC.NURSE ---
Patient presents to ED c/o abdomen pain right above umbilicus rated 8/10 non radiaitng. Pain began 1400 yesterday, denies injury. Nausea but no vomiting. afebrile. +bowel sounds. +BM this morning denies blood in stool. IV 20G in right AC currently running LR. Patient c/o nausea and pain, tordol and zofran given per MD order, effectiveness pending. Occult stool sample obtained and negative. Patient hypertensive but all other VSS and up to date. Patient awaiting CT w contrast.
[2024-10-20] MEDS: iohexoL 350 MG/ML 100 ML INFUS..BTL IV (09:19)
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
[2024-10-20] MEDS: Dextrose 5 % and Lactated Ring 1,000 ML 125 ML IVCONT ×2 (13:48→19:46)
--- NOTE | 2024-10-20 14:09 | PHA.MEDREC ---
Addendum entered by Nadia Espinosa RPh 10/20/24 14:52: [facility] reviewed Original Note: Pharmacy Consult ? Medication Reconciliation Pharmacy has completed the medication reconciliation. Spoke with patient to confirm. She confirmed lamotrigine is 1 + 1/2 tabs daily. She takes topiramate bid. She is no longer taking nabumetone or rizatriptan. She reports still taking levothyroxine 25 mcg daily, LF per claims 12/13/23. She did not take any medications today, took medications last night.
--- NOTE | 2024-10-20 15:09 | PC.NURSE ---
NG tube placed per ED provider order. Patient seen by Davion GUEVARA, NG tube not needed at this time as patient is not experiencing pain and nausea. NG tube removed, patient tolerated procedure
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
[2024-10-20] MEDS: oxyCODONE HCl Immed Release 5 MG TABLET PO (19:56)
--- NOTE | 2024-10-20 20:09 | PC.NURSE ---
Assumed care of this patient at 19:00. This pt is A&Ox4. Remains hypertensive on evening vitals despite po BP meds x2 administered in the 16:00 hour, IVP labetalol at 18:43 per MAR review from prior to assuming care. Pt only complaint related to HTN is nausea, though of note this pt also has a partial SBO per imaging done in ED. Pt denies dizziness, vision changes, headache, and sob. This pt was medicated with prn zofran, prn oxycodone for pain, and given scheduled topomax and clonidine. Covering provider Dr. Gambino was notified.
[2024-10-20] MEDS: 0.9 % Sodium Chloride Flush 3 ML SYRINGE IVFLUSH (21:35)
[2024-10-21] VITALS (7 sets, daily range): BP systolic 128–164; BP diastolic 73–90; PULSE 71–85; RESP 16–18; TEMP 36.4–37.1; O2SAT 92–98
[2024-10-21] MEDS: Dextrose 5 % and Lactated Ring 1,000 ML 125 ML IVCONT ×2 (03:31→11:11)
[2024-10-21 06:44] LABS: Hemoglobin 15.3 g/dl (12.0-16.0); NRBC Abs Auto 0.020 X10*3/uL (0.0-0.012); NRBC Pct Auto 0.1 /100WBC (0.0-0.2)
[2024-10-21 06:46] LABS: Hematocrit 45.6 % (37.0-47.0); Imm Gran Abs Auto 0.09 X10*3/uL (0.00-0.03); Imm Gran Pct Auto 0.5 % (0.0-0.4); Lymphocytes Absolute Auto 1.7 X10*3/uL (1.2-4.9); Mean Corpuscular HGB Conc 33.6 g/dl (31.0-35.0); Mean Corpuscular Hemoglobin 31.7 pg (27.0-33.0); Mean Corpuscular Volume 94.6 fL (80.0-98.0); Red Blood Count 4.82 X10*6/uL (4.20-5.50)
[2024-10-21 06:49] LABS: Platelet Count 358 X10*3/uL (160-400); White Blood Count 19.3 X10*3/uL (4.8-10.8)
[2024-10-21 06:56] LABS: Anion Gap 12 (12-20); Blood Urea Nitrogen 12 mg/dL (9-16); Calcium 8.4 mg/dL (8.4-10.2); Carbon Dioxide 23 mmol/L (22-29); Chloride 108 mmol/L (96-108); Creatinine Clr Calc Pharmacy 58.9; Estimated Glomerular Filt Rate 50; Potassium 3.4 mmol/L (3.3-5.1); Sodium 140 mmol/L (135-145)
--- NOTE | 2024-10-21 08:59 | MHC.CM.PN ---
PT REPORTS SHE LIVES ALONE, HOWEVER HER DAUGHTER PLANS TO MOVE IN WITH HER NEXT WEEK SHE HAS A BH RN THAT VISITS YEARLY AND A CM RN WHO VISITS Q 6 MOS, BOTH ARE FROM [facility] PT USES A CANE PRN DUE TO ARTHRITIS HCP ON FILE PCP: ARTEMIO BECK IMM DELIVERED DCP: HOME VIA PRIVATE TRANSPORT
[2024-10-21] MEDS: oxyCODONE HCl Immed Release 5 MG TABLET PO ×2 (09:00→15:24)
--- NOTE | 2024-10-21 09:42 | PM.PNGS ---
Subjective Subjective Date of Service: 10/21/24 Interval history: Reports 2 bowel movements last evening and this morning which were soft along with latest. Still had several mild episodes of abdominal pain in the epigastric region but not as severe as previously. She reports a headache possibly due to lack of caffeine. Denies any cough, shortness of breath, dysuria or leg pain. Physical Exam Vital Signs: Vital Signs: Last Vital Signs Temp 97.9 F 10/21/24 07:40 Pulse 85 10/21/24 07:40 Resp 16 10/21/24 07:40 BP 164/90 H 10/21/24 07:40 Pulse Ox 98 10/21/24 07:40 O2 Del Method Room Air 10/21/24 07:40 BMI result Body Mass Index 36.7 Const: General: healthy appearing and no acute distress Nutritional Appearance: well nourished Orientation/consciousness: patient oriented x3 Limitations: no limitations Resp: Effort & Inspection: normal respiratory effort, no audible wheezes, no cough and no respiratory distress Auscultation: clear to auscultation bilaterally GI: Inspection: Yes normal to inspection and No distended Palpation (GI): Soft to palpation, nontender and no guarding Skin: Other: Warm, dry, no rash Neuro: General: patient oriented x3 Extrem: Other: No calf tenderness Objective Data Active Medications Albuterol Sulfate (Albuterol Sulfate 90 Mcg 8 Gm Inhaler) 2 puff INHALE Q6H PRN PRN Reason: Shortness Of Breath Or Wheezing Amitriptyline HCl (Amitriptyline Hcl 50 Mg Tablet) 50 mg PO BEDTIME [facility] Last Admin: 10/20/24 20:08 Dose: 50 mg Documented By: PAT Amlodipine Besylate (Amlodipine Besylate 10 Mg Tablet) 10 mg PO DAILY [facility]; Protocol Last Admin: 10/21/24 07:55 Dose: 10 mg Documented By: RAGHAV Atenolol (Atenolol 100 Mg Tablet) 100 mg PO DAILY [facility]; Protocol Last Admin: 10/21/24 07:53 Dose: 100 mg Documented By: RAGHAV Calcium Carbonate (Calcium Carbonate 750 Mg Tab.Chew) 750 mg PO Q4H PRN PRN Reason: Heartburn Clonidine HCl (Clonidine Hcl 0.1 Mg Tablet) 0.1 mg PO BID [facility]; Protocol Last Admin: 10/21/24 07:53 Dose: 0.1 mg Documented By: RAGHAV Hydromorphone HCl (Hydromorphone Hcl 0.5 Mg/0.5 Ml Syringe) 0.5 mg IVPUSH Q3H PRN; Protocol PRN Reason: Pain, Severe (Pain Scale 7-10) Last Admin: 10/21/24 02:16 Dose: 0.5 mg Documented By: KAREL Acetaminophen (Ofirmev) 1,000 mg in 100 mls @ 400 mls/hr IV Q6H PRN PRN Reason: Pain, Mild (Pain Scale 1-3) Last Infusion: 10/21/24 06:08 Dose: Infused Documented By: KAREL Dextrose/Lactated Ringer's (D5lr) 1,000 mls @ 125 mls/hr IVCONT .Q8H [facility] Last Admin: 10/21/24 03:31 Dose: 125 mls/hr Documented By: KAREL Lamotrigine (Lamotrigine 100 Mg Tablet) 300 mg PO DAILY [facility] Last Admin: 10/21/24 07:55 Dose: 300 mg Documented By: RAGHAV Levothyroxine Sodium (Levothyroxine Sodium 25 Mcg Tablet) 25 mcg PO DAILY@0600 [facility] Last Admin: 10/21/24 05:53 Dose: 25 mcg Documented By: KAREL Losartan Potassium (Losartan Potassium 50 Mg Tablet) 100 mg PO DAILY [facility]; Protocol Last Admin: 10/21/24 07:54 Dose: 100 mg Documented By: RAGHAV Magnesium Hydroxide (Milk Of Magnesia 30 Ml Oral.Susp) 30 ml PO DAILY PRN PRN Reason: Constipation Melatonin (Melatonin 3 Mg Tablet) 6 mg PO BEDTIME PRN PRN Reason: Insomnia Last Admin: 10/20/24 21:36 Dose: 6 mg Documented By: KAREL Ondansetron HCl (Ondansetron Hcl 4 Mg/2 Ml Vial) 4 mg IVPUSH QID PRN PRN Reason: Nausea Last Admin: 10/21/24 09:02 Dose: 4 mg Documented By: RAGHAV Oxycodone HCl (Oxycodone Hcl Immed Release 5 Mg Tablet) 5 mg PO Q6H PRN PRN Reason: Pain, Moderate(Pain Scale 4-6) Last Admin: 10/21/24 09:00 Dose: 5 mg Documented By: RAGHAV Sodium Chloride (0.9 % Sodium Chloride Flush 3 Ml Syringe) 3 ml IVFLUSH QSHIFT [facility] Last Admin: 10/21/24 07:58 Dose: Not Given Documented By: RAGHAV Non-Admin Reason: IV Running Topiramate (Topiramate 25 Mg Tablet) 50 mg PO BID [facility] Last Admin: 10/21/24 07:54 Dose: 50 mg Documented By: RAGHAV Ziprasidone (Ziprasidone 60 Mg Capsule) 120 mg PO DAILY@1700 [facility] Last Admin: 10/20/24 17:09 Dose: 120 mg Documented By: RAGHAV Zolpidem Tartrate (Zolpidem Tartrate 5 Mg Tablet) 5 mg PO BEDTIME PRN PRN Reason: Insomnia Labs 10/21/24 05:22 10/21/24 05:22 Labs: Laboratory Results - last 24 hr 10/21/24 05:22 MCV 94.6 MCH 31.7 MCHC 33.6 RDW 14.5 Plt Count 358 MPV 10.9 Immature Gran % (Auto) 0.5 H Neut % (Auto) 83.6 H Lymph % (Auto) 8.6 L [place] % (Auto) 5.9 Eos % (Auto) 1.2 Baso % (Auto) 0.2 Lymph # (Auto) 1.7 [place] # (Auto) 1.1 Eos # (Auto) 0.2 Baso # (Auto) 0.0 Abs Immat Gran (auto) 0.09 H Absolute Neuts (auto) 16.1 H Absolute Nucleated RBC 0.020 H Nucleated RBC % (auto) 0.1 Anion Gap 12 Estim Creat Clear Calc 58.9 Estimated GFR 50 Random Glucose 113 Calcium 8.4 Procedures Date of Service Date of Service: 10/21/24 Progress Note: A&P Assessment and plan (1) Partial small bowel obstruction: Status: Acute Plan 49-year-old female patient with multiple abdominal surgeries presenting with abdominal pain nausea/vomiting, admitted yesterday for bowel rest and hydration. This morning the patient is much improved with decreased abdominal pain and several bowel movements. She denies any nausea or vomiting. Abdominal exam is benign. Patient did have an elevated WBC this morning. No clinical evidence of infection at this time. We will repeat WBC in a.m.. Plan to start clear liquids today, advance as tolerated. Encouraged out of bed and ambulation. Time Spent With Patient Time: Total time managing care of this patient today ____ minutes. Quality Stroke Does the patient have a stroke diagnosis?: No VTE Prior VTE?: No VTE Risk Level:: Surgical - moderate VTE Device Contraindication: N/A - Device Ordered VTE Drug Contraindication: Treatment Not Indicated
--- NOTE | 2024-10-21 09:43 | P.PNIM_ITS ---
Subjective Subjective Date of Service: 10/21/24 Interval History: feeling better Physical Exam 2 Exam: Exam: General: AO X 3, no acute distress Resp: CTA bilateral, no accessory muscles used CVS: S1,S2,RRR GI: soft, non tender, non distended Neuro: motor grossly intact, alert Psych: appropriate affect, appropriate insight Vital Signs: Vital Signs: Last Vital Signs Temp 97.9 F 10/21/24 07:40 Pulse 85 10/21/24 07:40 Resp 16 10/21/24 07:40 BP 164/90 H 10/21/24 07:40 Pulse Ox 98 10/21/24 07:40 O2 Del Method Room Air 10/21/24 07:40 BMI result Body Mass Index 36.7 Objective Data Active Medications Albuterol Sulfate (Albuterol Sulfate 90 Mcg 8 Gm Inhaler) 2 puff INHALE Q6H PRN PRN Reason: Shortness Of Breath Or Wheezing Amitriptyline HCl (Amitriptyline Hcl 50 Mg Tablet) 50 mg PO BEDTIME [facility] Last Admin: 10/20/24 20:08 Dose: 50 mg Documented By: PAT Amlodipine Besylate (Amlodipine Besylate 10 Mg Tablet) 10 mg PO DAILY [facility]; Protocol Last Admin: 10/21/24 07:55 Dose: 10 mg Documented By: RAGHAV Atenolol (Atenolol 100 Mg Tablet) 100 mg PO DAILY [facility]; Protocol Last Admin: 10/21/24 07:53 Dose: 100 mg Documented By: RAGHAV Calcium Carbonate (Calcium Carbonate 750 Mg Tab.Chew) 750 mg PO Q4H PRN PRN Reason: Heartburn Clonidine HCl (Clonidine Hcl 0.1 Mg Tablet) 0.1 mg PO BID [facility]; Protocol Last Admin: 10/21/24 07:53 Dose: 0.1 mg Documented By: RAGHAV Hydromorphone HCl (Hydromorphone Hcl 0.5 Mg/0.5 Ml Syringe) 0.5 mg IVPUSH Q3H PRN; Protocol PRN Reason: Pain, Severe (Pain Scale 7-10) Last Admin: 10/21/24 02:16 Dose: 0.5 mg Documented By: KAREL Acetaminophen (Ofirmev) 1,000 mg in 100 mls @ 400 mls/hr IV Q6H PRN PRN Reason: Pain, Mild (Pain Scale 1-3) Last Infusion: 10/21/24 06:08 Dose: Infused Documented By: KAREL Dextrose/Lactated Ringer's (D5lr) 1,000 mls @ 125 mls/hr IVCONT .Q8H [facility] Last Admin: 10/21/24 03:31 Dose: 125 mls/hr Documented By: KAREL Lamotrigine (Lamotrigine 100 Mg Tablet) 300 mg PO DAILY [facility] Last Admin: 10/21/24 07:55 Dose: 300 mg Documented By: RAGHAV Levothyroxine Sodium (Levothyroxine Sodium 25 Mcg Tablet) 25 mcg PO DAILY@0600 [facility] Last Admin: 10/21/24 05:53 Dose: 25 mcg Documented By: KAREL Losartan Potassium (Losartan Potassium 50 Mg Tablet) 100 mg PO DAILY [facility]; Protocol Last Admin: 10/21/24 07:54 Dose: 100 mg Documented By: RAGHAV Magnesium Hydroxide (Milk Of Magnesia 30 Ml Oral.Susp) 30 ml PO DAILY PRN PRN Reason: Constipation Melatonin (Melatonin 3 Mg Tablet) 6 mg PO BEDTIME PRN PRN Reason: Insomnia Last Admin: 10/20/24 21:36 Dose: 6 mg Documented By: KAREL Ondansetron HCl (Ondansetron Hcl 4 Mg/2 Ml Vial) 4 mg IVPUSH QID PRN PRN Reason: Nausea Last Admin: 10/21/24 09:02 Dose: 4 mg Documented By: RAGHAV Oxycodone HCl (Oxycodone Hcl Immed Release 5 Mg Tablet) 5 mg PO Q6H PRN PRN Reason: Pain, Moderate(Pain Scale 4-6) Last Admin: 10/21/24 09:00 Dose: 5 mg Documented By: RAGHAV Sodium Chloride (0.9 % Sodium Chloride Flush 3 Ml Syringe) 3 ml IVFLUSH QSHIFT [facility] Last Admin: 10/21/24 07:58 Dose: Not Given Documented By: RAGHAV Non-Admin Reason: IV Running Topiramate (Topiramate 25 Mg Tablet) 50 mg PO BID [facility] Last Admin: 10/21/24 07:54 Dose: 50 mg Documented By: RAGHAV Ziprasidone (Ziprasidone 60 Mg Capsule) 120 mg PO DAILY@1700 [facility] Last Admin: 10/20/24 17:09 Dose: 120 mg Documented By: RAGHAV Zolpidem Tartrate (Zolpidem Tartrate 5 Mg Tablet) 5 mg PO BEDTIME PRN PRN Reason: Insomnia Labs 10/21/24 05:22 10/21/24 05:22 Labs: Laboratory Results - last 24 hr 10/21/24 05:22 MCV 94.6 MCH 31.7 MCHC 33.6 RDW 14.5 Plt Count 358 MPV 10.9 Immature Gran % (Auto) 0.5 H Neut % (Auto) 83.6 H Lymph % (Auto) 8.6 L [place] % (Auto) 5.9 Eos % (Auto) 1.2 Baso % (Auto) 0.2 Lymph # (Auto) 1.7 [place] # (Auto) 1.1 Eos # (Auto) 0.2 Baso # (Auto) 0.0 Abs Immat Gran (auto) 0.09 H Absolute Neuts (auto) 16.1 H Absolute Nucleated RBC 0.020 H Nucleated RBC % (auto) 0.1 Anion Gap 12 Estim Creat Clear Calc 58.9 Estimated GFR 50 Random Glucose 113 Calcium 8.4 Assessment and Plan (1) Bipolar disorder: Status: Acute Plan 49F PMH bipolar, CKD III, htn, diverticular disease, hypothryoid, mild intermittent asthma, presented with abd pain, found to have partial SBO, admitted to surgery. consult requested for labile blood pressures uncontrolled hypertension continue losartan, atenolol, clonidince, amlodipine better controlled now as pain improves, conitnue to monitor leukocytosis ?due to partial sbo monitor bipolar lamictal, zaprisadone hypothyroid levothyroxine ckd III stable Quality Stroke Does the patient have a stroke diagnosis?: No VTE Prior VTE?: No VTE Risk Level:: Surgical - moderate VTE Device Contraindication: N/A - Device Ordered VTE Drug Contraindication: Treatment Not Indicated
[2024-10-21] MEDS: 0.9 % Sodium Chloride Flush 3 ML SYRINGE IVFLUSH ×2 (17:50→20:24)
[2024-10-22 03:50] VITALS: BP 141/84; PULSE 70; RESP 20; TEMP 36.9; O2SAT 94
[2024-10-22 07:08] LABS: Hematocrit 44.4 % (37.0-47.0); Hemoglobin 14.7 g/dl (12.0-16.0); Mean Corpuscular HGB Conc 33.1 g/dl (31.0-35.0); Mean Corpuscular Hemoglobin 31.5 pg (27.0-33.0); Mean Corpuscular Volume 95.3 fL (80.0-98.0); NRBC Abs Auto 0.000 X10*3/uL (0.0-0.012); NRBC Pct Auto 0.0 /100WBC (0.0-0.2); Platelet Count 362 X10*3/uL (160-400); Red Blood Count 4.66 X10*6/uL (4.20-5.50); White Blood Count 14.1 X10*3/uL (4.8-10.8)
[2024-10-22 07:25] LABS: Alanine Aminotransferase 42 U/L (0-31); Albumin Level 3.7 g/dL (3.5-5.0); Alkaline Phosphatase 219 U/L (39-117); Anion Gap 11 (12-20); Aspartate Amino Transferase 50 U/L (5-31); Blood Urea Nitrogen 12 mg/dL (9-16); Calcium 8.5 mg/dL (8.4-10.2); Carbon Dioxide 23 mmol/L (22-29); Chloride 109 mmol/L (96-108); Creatinine Clr Calc Pharmacy 46.9; Estimated Glomerular Filt Rate 39; Magnesium 2.2 mg/dL (1.6-2.6); Potassium 4.1 mmol/L (3.3-5.1); Sodium 139 mmol/L (135-145); Total Protein 6.4 g/dL (6.5-8.0)
[2024-10-22 07:32] VITALS: BP 138/87; PULSE 70; RESP 16; TEMP 36; O2SAT 95
--- NOTE | 2024-10-22 07:33 | PM.PNGS ---
Subjective Subjective Date of Service: 10/22/24 Interval history: Continues to have mid/epigastric abdominal pain. She had a small amount of regular food last night without worsening of her abd pain. She has been ambulating in room only. She continues to pass flatus, last BM yesterday morning. Physical Exam Vital Signs: Vital Signs: Last Vital Signs Temp 96.8 F 10/22/24 07:32 Pulse 70 10/22/24 07:32 Resp 16 10/22/24 07:32 BP 138/87 10/22/24 07:32 Pulse Ox 95 10/22/24 07:32 O2 Del Method Room Air 10/22/24 07:32 BMI result Body Mass Index 36.7 Const: General: comfortable, no acute distress and alert Orientation/consciousness: patient oriented x3 GI: Inspection: Yes distended Palpation (GI): Soft to palpation, Tenderness to palpation present (GI) (mild tenderness of entire upper abdomen) and no guarding Skin: General skin exam: no rashes or lesions noted Neuro: General: patient oriented x3 and moves all extremities Objective Data Active Medications Albuterol Sulfate (Albuterol Sulfate 90 Mcg 8 Gm Inhaler) 2 puff INHALE Q6H PRN PRN Reason: Shortness Of Breath Or Wheezing Amitriptyline HCl (Amitriptyline Hcl 50 Mg Tablet) 50 mg PO BEDTIME [facility] Last Admin: 10/21/24 20:24 Dose: 50 mg Documented By: JOSEMANUEL Amlodipine Besylate (Amlodipine Besylate 10 Mg Tablet) 10 mg PO DAILY [facility]; Protocol Last Admin: 10/21/24 07:55 Dose: 10 mg Documented By: RAGHAV Atenolol (Atenolol 100 Mg Tablet) 100 mg PO DAILY [facility]; Protocol Last Admin: 10/21/24 07:53 Dose: 100 mg Documented By: RAGHAV Calcium Carbonate (Calcium Carbonate 750 Mg Tab.Chew) 750 mg PO Q4H PRN PRN Reason: Heartburn Clonidine HCl (Clonidine Hcl 0.1 Mg Tablet) 0.1 mg PO BID [facility]; Protocol Last Admin: 10/21/24 20:23 Dose: 0.1 mg Documented By: JOSEMANUEL Hydromorphone HCl (Hydromorphone Hcl 0.5 Mg/0.5 Ml Syringe) 0.5 mg IVPUSH Q3H PRN; Protocol PRN Reason: Pain, Severe (Pain Scale 7-10) Last Admin: 10/22/24 01:59 Dose: 0.5 mg Documented By: JOSEMANUEL Acetaminophen (Ofirmev) 1,000 mg in 100 mls @ 400 mls/hr IV Q6H PRN PRN Reason: Pain, Mild (Pain Scale 1-3) Last Infusion: 10/21/24 06:08 Dose: Infused Documented By: KAREL Lamotrigine (Lamotrigine 100 Mg Tablet) 300 mg PO DAILY [facility] Last Admin: 10/21/24 07:55 Dose: 300 mg Documented By: RAGHAV Levothyroxine Sodium (Levothyroxine Sodium 25 Mcg Tablet) 25 mcg PO DAILY@0600 [facility] Last Admin: 10/22/24 06:12 Dose: 25 mcg Documented By: JOSEMANUEL Losartan Potassium (Losartan Potassium 50 Mg Tablet) 100 mg PO DAILY [facility]; Protocol Last Admin: 10/21/24 07:54 Dose: 100 mg Documented By: RAGHAV Magnesium Hydroxide (Milk Of Magnesia 30 Ml Oral.Susp) 30 ml PO DAILY PRN PRN Reason: Constipation Melatonin (Melatonin 3 Mg Tablet) 6 mg PO BEDTIME PRN PRN Reason: Insomnia Last Admin: 10/21/24 20:24 Dose: 6 mg Documented By: JOSEMANUEL Comments: patient requesting at this time, due 1 hour, made aware, still insistent Ondansetron HCl (Ondansetron Hcl 4 Mg/2 Ml Vial) 4 mg IVPUSH QID PRN PRN Reason: Nausea Last Admin: 10/21/24 18:54 Dose: 4 mg Documented By: ALENA Oxycodone HCl (Oxycodone Hcl Immed Release 5 Mg Tablet) 5 mg PO Q6H PRN PRN Reason: Pain, Moderate(Pain Scale 4-6) Last Admin: 10/21/24 15:24 Dose: 5 mg Documented By: RAGHAV Sodium Chloride (0.9 % Sodium Chloride Flush 3 Ml Syringe) 3 ml IVFLUSH QSHIFT [facility] Last Admin: 10/21/24 20:24 Dose: 3 ml Documented By: JOSEMANUEL Topiramate (Topiramate 25 Mg Tablet) 50 mg PO BID [facility] Last Admin: 10/21/24 20:24 Dose: 50 mg Documented By: JOSEMANUEL Ziprasidone (Ziprasidone 60 Mg Capsule) 120 mg PO DAILY@1700 [facility] Last Admin: 10/21/24 16:49 Dose: 120 mg Documented By: RAGHAV Zolpidem Tartrate (Zolpidem Tartrate 5 Mg Tablet) 5 mg PO BEDTIME PRN PRN Reason: Insomnia Labs 10/22/24 06:17 10/22/24 06:17 Labs: Laboratory Results - last 24 hr 10/22/24 06:17 MCV 95.3 MCH 31.5 MCHC 33.1 RDW 14.8 Plt Count 362 MPV 10.9 Absolute Nucleated RBC 0.000 Nucleated RBC % (auto) 0.0 Anion Gap 11 L Estim Creat Clear Calc 46.9 Estimated GFR 39 Random Glucose 87 Calcium 8.5 Magnesium 2.2 Total Bilirubin 0.4 Direct Bilirubin 0.2 AST 50 H ALT 42 H Alkaline Phosphatase 219 H Total Protein 6.4 L Albumin 3.7 Procedures Date of Service Date of Service: 10/22/24 Progress Note: A&P Assessment and plan (1) Small bowel obstruction due to adhesions: Status: Acute Plan SBO appears to be resolving with good GI function however abdomen is distended and she does have some mild persistent pain. Encouraged smaller meals, increasing activity and ambulation today. If no further improvement, consider possible SBFT. She reports chronic leukocytosis of unknown origin after extensive workup and is followed by Dr. Ramirez for this yearly. Await AM labs. Time Spent With Patient Time: Total time managing care of this patient today ____ minutes. Quality Stroke Does the patient have a stroke diagnosis?: No VTE Prior VTE?: No VTE Risk Level:: Surgical - moderate VTE Device Contraindication: N/A - Device Ordered VTE Drug Contraindication: Treatment Not Indicated
[2024-10-22] MEDS: oxyCODONE HCl Immed Release 5 MG TABLET PO (08:29)
[2024-10-22] MEDS: 0.9 % Sodium Chloride Flush 3 ML SYRINGE IVFLUSH (08:32)
--- NOTE | 2024-10-22 08:58 | HO.PM.IMPN ---
Subjective Subjective Date of Service: 10/22/24 Interval History: feeling better Physical Exam Vital Signs: Vital Signs: Last Vital Signs Temp 96.8 F 10/22/24 07:32 Pulse 70 10/22/24 07:32 Resp 16 10/22/24 07:32 BP 138/87 10/22/24 07:32 Pulse Ox 95 10/22/24 07:32 O2 Del Method Room Air 10/22/24 07:32 BMI result Body Mass Index 36.7 Const: General: comfortable, no acute distress and alert Orientation/consciousness: patient oriented x3 GI: Inspection: Yes distended Palpation (GI): Soft to palpation, Tenderness to palpation present (GI) (mild tenderness of entire upper abdomen) and no guarding Skin: General skin exam: no rashes or lesions noted Neuro: General: patient oriented x3 and moves all extremities Objective Data Active Medications Albuterol Sulfate (Albuterol Sulfate 90 Mcg 8 Gm Inhaler) 2 puff INHALE Q6H PRN PRN Reason: Shortness Of Breath Or Wheezing Amitriptyline HCl (Amitriptyline Hcl 50 Mg Tablet) 50 mg PO BEDTIME [facility] Last Admin: 10/21/24 20:24 Dose: 50 mg Documented By: JOSEMANUEL Amlodipine Besylate (Amlodipine Besylate 10 Mg Tablet) 10 mg PO DAILY [facility]; Protocol Last Admin: 10/22/24 08:30 Dose: 10 mg Documented By: BLANCA Atenolol (Atenolol 100 Mg Tablet) 100 mg PO DAILY [facility]; Protocol Last Admin: 10/22/24 08:30 Dose: 100 mg Documented By: BLANCA Calcium Carbonate (Calcium Carbonate 750 Mg Tab.Chew) 750 mg PO Q4H PRN PRN Reason: Heartburn Clonidine HCl (Clonidine Hcl 0.1 Mg Tablet) 0.1 mg PO BID [facility]; Protocol Last Admin: 10/22/24 08:30 Dose: 0.1 mg Documented By: BLANCA Hydromorphone HCl (Hydromorphone Hcl 0.5 Mg/0.5 Ml Syringe) 0.5 mg IVPUSH Q3H PRN; Protocol PRN Reason: Pain, Severe (Pain Scale 7-10) Last Admin: 10/22/24 01:59 Dose: 0.5 mg Documented By: JOSEMANUEL Acetaminophen (Ofirmev) 1,000 mg in 100 mls @ 400 mls/hr IV Q6H PRN PRN Reason: Pain, Mild (Pain Scale 1-3) Last Infusion: 10/21/24 06:08 Dose: Infused Documented By: KAREL Lamotrigine (Lamotrigine 100 Mg Tablet) 300 mg PO DAILY [facility] Last Admin: 10/22/24 08:30 Dose: 300 mg Documented By: BLANCA Levothyroxine Sodium (Levothyroxine Sodium 25 Mcg Tablet) 25 mcg PO DAILY@0600 [facility] Last Admin: 10/22/24 06:12 Dose: 25 mcg Documented By: JOSEMANUEL Losartan Potassium (Losartan Potassium 50 Mg Tablet) 100 mg PO DAILY [facility]; Protocol Last Admin: 10/22/24 08:29 Dose: 100 mg Documented By: BLANCA Magnesium Hydroxide (Milk Of Magnesia 30 Ml Oral.Susp) 30 ml PO DAILY PRN PRN Reason: Constipation Melatonin (Melatonin 3 Mg Tablet) 6 mg PO BEDTIME PRN PRN Reason: Insomnia Last Admin: 10/21/24 20:24 Dose: 6 mg Documented By: JOSEMANUEL Comments: patient requesting at this time, due 1 hour, made aware, still insistent Ondansetron HCl (Ondansetron Hcl 4 Mg/2 Ml Vial) 4 mg IVPUSH QID PRN PRN Reason: Nausea Last Admin: 10/21/24 18:54 Dose: 4 mg Documented By: ALENA Oxycodone HCl (Oxycodone Hcl Immed Release 5 Mg Tablet) 5 mg PO Q6H PRN PRN Reason: Pain, Moderate(Pain Scale 4-6) Last Admin: 10/22/24 08:29 Dose: 5 mg Documented By: BLANCA Sodium Chloride (0.9 % Sodium Chloride Flush 3 Ml Syringe) 3 ml IVFLUSH QSHIFT [facility] Last Admin: 10/22/24 08:32 Dose: 3 ml Documented By: BLANCA Topiramate (Topiramate 25 Mg Tablet) 50 mg PO BID [facility] Last Admin: 10/22/24 08:29 Dose: 50 mg Documented By: BLANCA Ziprasidone (Ziprasidone 60 Mg Capsule) 120 mg PO DAILY@1700 [facility] Last Admin: 10/21/24 16:49 Dose: 120 mg Documented By: RAGHAV Zolpidem Tartrate (Zolpidem Tartrate 5 Mg Tablet) 5 mg PO BEDTIME PRN PRN Reason: Insomnia Labs 10/22/24 06:17 10/22/24 06:17 Labs: Laboratory Results - last 24 hr 10/22/24 06:17 MCV 95.3 MCH 31.5 MCHC 33.1 RDW 14.8 Plt Count 362 MPV 10.9 Absolute Nucleated RBC 0.000 Nucleated RBC % (auto) 0.0 Anion Gap 11 L Estim Creat Clear Calc 46.9 Estimated GFR 39 Random Glucose 87 Calcium 8.5 Magnesium 2.2 Total Bilirubin 0.4 Direct Bilirubin 0.2 AST 50 H ALT 42 H Alkaline Phosphatase 219 H Total Protein 6.4 L Albumin 3.7 Assessment and Plan (1) Bipolar disorder: Status: Acute Plan 49F PMH bipolar, CKD III, htn, diverticular disease, hypothryoid, mild intermittent asthma, presented with abd pain, found to have partial SBO, admitted to surgery. consult requested for labile blood pressures uncontrolled hypertension continue losartan, atenolol, clonidince, amlodipine now better controoled leukocytosis appears chronic, following hematology outpatient bipolar lamictal, zaprisadone hypothyroid levothyroxine ckd III stable pateint appears medically stable, will sign off, please recall if needed Quality Stroke Does the patient have a stroke diagnosis?: No VTE Prior VTE?: No VTE Risk Level:: Surgical - moderate VTE Device Contraindication: N/A - Device Ordered VTE Drug Contraindication: Treatment Not Indicated
--- NOTE | 2024-10-22 11:35 | MHC.CM.PN ---
PATIENT NOT MEDICALLY CLEARED FOR DC AT THIS TIME. DO NOT ANTICIPATE THE NEED FOR SERVICES. CM WILL CONTINUE TO FOLLOW.
[2024-10-22 11:38] VITALS: BP 121/79; PULSE 66; RESP 15; TEMP 36.5; O2SAT 94
[2024-10-22 12:38] VITALS: RESP 18
[2024-10-22] MEDS: oxyCODONE HCl Immed Release 5 MG TABLET 10 MG PO (15:20)
[2024-10-22 15:54] VITALS: BP 114/69; PULSE 68; RESP 18; TEMP 36.2; O2SAT 93
--- NOTE | 2024-10-22 17:09 | PC.NURSE ---
Patient has no IV access, surg. PA aware
[2024-10-22 19:46] VITALS: BP 127/71; PULSE 64; RESP 18; TEMP 36.4; O2SAT 97
[2024-10-23] VITALS: BP 130/61; PULSE 62; RESP 18; TEMP 36.1; O2SAT 96
[2024-10-23 02:50] VITALS: BP 96/57; PULSE 60; RESP 17; TEMP 36; O2SAT 96
[2024-10-23 05:56] LABS: Alanine Aminotransferase 27 U/L (0-31); Albumin Level 3.6 g/dL (3.5-5.0); Alkaline Phosphatase 162 U/L (39-117); Aspartate Amino Transferase 23 U/L (5-31); Total Protein 6.1 g/dL (6.5-8.0)
[2024-10-23 07:26] VITALS: BP 113/67; PULSE 61; RESP 16; TEMP 36.1; O2SAT 97
--- NOTE | 2024-10-23 07:26 | PM.PNGS ---
Subjective Subjective Date of Service: 10/23/24 Interval history: Feels significantly improved this morning. Has very mild pain only with movement now. Tolerated dinner last night without worsening pain, nausea or vomiting. Continues to pass flatus and had another BM last night. Wants to go home. Physical Exam Vital Signs: Vital Signs: Last Vital Signs Temp 96.8 F 10/23/24 02:50 Pulse 60 10/23/24 02:50 Resp 17 10/23/24 02:50 BP 96/57 L 10/23/24 02:50 Pulse Ox 96 10/23/24 02:50 O2 Del Method Room Air 10/23/24 02:50 BMI result Body Mass Index 36.7 Const: General: comfortable, no acute distress and alert Orientation/consciousness: patient oriented x3 Resp: Effort & Inspection: normal respiratory effort GI: Inspection: Yes distended (mild, improved) Palpation (GI): Soft to palpation, Tenderness to palpation present (GI) (very mild epigastric) and no guarding Skin: General skin exam: no rashes or lesions noted and no jaundice Neuro: General: patient oriented x3 and moves all extremities Objective Data Active Medications Acetaminophen (Acetaminophen 325 Mg Tablet) 650 mg PO Q6H PRN PRN Reason: Pain, Mild 1-3,fever,headache Albuterol Sulfate (Albuterol Sulfate 90 Mcg 8 Gm Inhaler) 2 puff INHALE Q6H PRN PRN Reason: Shortness Of Breath Or Wheezing Amitriptyline HCl (Amitriptyline Hcl 50 Mg Tablet) 50 mg PO BEDTIME [facility] Last Admin: 10/22/24 20:48 Dose: 50 mg Documented By: JOSEMANUEL Amlodipine Besylate (Amlodipine Besylate 10 Mg Tablet) 10 mg PO DAILY [facility]; Protocol Last Admin: 10/22/24 08:30 Dose: 10 mg Documented By: BLANCA Atenolol (Atenolol 100 Mg Tablet) 100 mg PO DAILY [facility]; Protocol Last Admin: 10/22/24 08:30 Dose: 100 mg Documented By: BLANCA Calcium Carbonate (Calcium Carbonate 750 Mg Tab.Chew) 750 mg PO Q4H PRN PRN Reason: Heartburn Clonidine HCl (Clonidine Hcl 0.1 Mg Tablet) 0.1 mg PO BID [facility]; Protocol Last Admin: 10/22/24 20:48 Dose: 0.1 mg Documented By: HO.[email or web address] Lamotrigine (Lamotrigine 100 Mg Tablet) 300 mg PO DAILY [facility] Last Admin: 10/22/24 08:30 Dose: 300 mg Documented By: BLANCA Levothyroxine Sodium (Levothyroxine Sodium 25 Mcg Tablet) 25 mcg PO DAILY@0600 [facility] Last Admin: 10/23/24 05:57 Dose: 25 mcg Documented By: JOSEMANUEL Losartan Potassium (Losartan Potassium 50 Mg Tablet) 100 mg PO DAILY [facility]; Protocol Last Admin: 10/22/24 08:29 Dose: 100 mg Documented By: BLANCA Magnesium Hydroxide (Milk Of Magnesia 30 Ml Oral.Susp) 30 ml PO DAILY PRN PRN Reason: Constipation Melatonin (Melatonin 3 Mg Tablet) 6 mg PO BEDTIME PRN PRN Reason: Insomnia Last Admin: 10/22/24 20:59 Dose: 6 mg Documented By: JOSEMANUEL Ondansetron HCl (Ondansetron Hcl 4 Mg/2 Ml Vial) 4 mg IVPUSH QID PRN PRN Reason: Nausea Last Admin: 10/21/24 18:54 Dose: 4 mg Documented By: ALENA Oxycodone HCl (Oxycodone Hcl Immed Release 5 Mg Tablet) 5 mg PO Q4H PRN PRN Reason: Pain, Moderate(Pain Scale 4-6) Oxycodone HCl (Oxycodone Hcl Immed Release 5 Mg Tablet) 10 mg PO Q4H PRN PRN Reason: Pain, Severe (Pain Scale 7-10) Last Admin: 10/22/24 15:20 Dose: 10 mg Documented By: BLANCA Sodium Chloride (0.9 % Sodium Chloride Flush 3 Ml Syringe) 3 ml IVFLUSH QSHIFT [facility] Last Admin: 10/22/24 23:21 Dose: Not Given Documented By: JOSEMANUEL Non-Admin Reason: No Access Topiramate (Topiramate 25 Mg Tablet) 50 mg PO BID [facility] Last Admin: 10/22/24 20:48 Dose: 50 mg Documented By: JOSEMANUEL Ziprasidone (Ziprasidone 60 Mg Capsule) 120 mg PO DAILY@1700 [facility] Last Admin: 10/22/24 17:06 Dose: 120 mg Documented By: BLANCA Zolpidem Tartrate (Zolpidem Tartrate 5 Mg Tablet) 5 mg PO BEDTIME PRN PRN Reason: Insomnia Labs 10/22/24 06:17 10/22/24 06:17 Labs: Laboratory Results - last 24 hr 10/23/24 05:22 Total Bilirubin 0.3 Direct Bilirubin 0.1 AST 23 ALT 27 Alkaline Phosphatase 162 H Total Protein 6.1 L Albumin 3.6 Procedures Date of Service Date of Service: 10/23/24 Progress Note: A&P Assessment and plan (1) Small bowel obstruction due to adhesions: Status: Acute Plan SBO resolved. Now very mild residual pain, tolerating solid diet with good GI function. Abd remains benign- soft, distention improved, very mild epigastric tenderness. Stable for dc to home today. Patient comfortable with plan. Her LFTs were elevated yesterday, now normalized this AM. Instructed to f/u with PCP regarding this. Time Spent With Patient Time: Total time managing care of this patient today ____ minutes. Quality Stroke Does the patient have a stroke diagnosis?: No VTE Prior VTE?: No VTE Risk Level:: Surgical - moderate VTE Device Contraindication: N/A - Device Ordered VTE Drug Contraindication: Treatment Not Indicated
[2024-10-23] MEDS: oxyCODONE HCl Immed Release 5 MG TABLET PO (07:50)
--- NOTE | 2024-10-23 08:49 | MHC.CM.PN ---
Patient medically cleared for dc home self care via private transport.
--- NOTE | 2024-10-23 13:04 | PM.DS ---
DS: Providers Provider Date of Service: 10/23/24 Date of admission: 10/20/24 11:12 Date of discharge: 10/23/24 Primary care physician: Richard Vidal MD Attending physician on admission: Daniel Ricardo Consults: 10/20/24 14:44 Consult to Hospitalist Routine Comment: Consulting Provider: [facility] Hospitalists Reason For Exam: labile hypertension, med management, SBO Attending physician on discharge: Daniel Ricardo DS: Diagnosis Discharge Diagnosis (1) Small bowel obstruction due to adhesions: Status: Acute DS: Summary Hospital Course Hospital Course: HPI AT ADMISSION: Charity Roberts is a 49 year old female presenting with complaints of abdominal pain, nausea without vomiting and constipation for the past 3 days. The pain was mainly located in the epigastrium and was reported to come in waves. She denies a previous history of similar problems. She has had several abdominal surgeries including colon surgery for diverticulitis with ileostomy followed by ileostomy closure. She also underwent a cholecystectomy. She presented to the emergency department by EMS. Workup in the emergency department revealed WBC of 13.2. A CT abdomen and pelvis revealed evidence of early or partial small-bowel obstruction with a transition at the anastomosis of the distal ileum (site of loop ileostomy closure). Stranding and small volume free fluid was noted around the obstruction point. No free air or abscess was identified. HOSPITAL COURSE: She is admitted to the surgical service for further management of her abdominal pain/partial small-bowel obstruction. She will be kept NPO and started on IV fluids. NG tube insertion was held as her pain and nausea is better. Hospitalist service was consulted for management of her medical comorbidities. She had an uncomplicated hospital course. Her symptoms improved and she began to pass flatus and move her bowels. Her diet was gradually advanced as tolerated. On the day of discharge, she felt well and was tolerating a solid diet without nausea or vomiting, had minimal pain and was ambulating without difficulty. She was hemodynamically stable. Her abdomen was soft and benign with minimal tenderness. She did have slight elevation of her LFTs during admission which improved the following day. She was instructed to follow up with her PCP regarding this. She was discharged to home on 10/23/24 in stable condition. Status at Discharge Functional status at discharge: independent ambulation Time Attestation Discharge Coordination Time (in mins): 35 Quality: Safe Use of Opioids Does Pt have an Active Cancer Diagnosis on the Problem List?: No Quality: Stroke Does the patient have a stroke diagnosis?: No Physical Exam Vital Signs: Vital Signs: Last Vital Signs Temp 97.0 F 10/23/24 07:26 Pulse 61 10/23/24 07:26 Resp 16 10/23/24 07:26 BP 113/67 10/23/24 07:26 Pulse Ox 97 10/23/24 07:26 O2 Del Method Room Air 10/23/24 07:26 BMI result Body Mass Index 36.7 Const: General: comfortable, no acute distress and alert Orientation/consciousness: patient oriented x3 Resp: Effort & Inspection: normal respiratory effort GI: Inspection: Yes distended (mild) Palpation (GI): Soft to palpation, Tenderness to palpation present (GI) (very mild epigastric ) and no guarding Skin: General skin exam: no rashes or lesions noted and no jaundice Neuro: General: patient oriented x3 DS: Data Data Completed and Pending Completed studies during hospitalization [Text1]: Procedures Bypass Ileum to Cutaneous, Open Approach (08/18/23) Excision of Sigmoid Colon, Open Approach (08/18/23) Release Peritoneum, Open Approach (08/18/23) Repair Ileum, Open Approach (01/20/24) Labs on day of discharge: Laboratory Results - last 24 hr 10/23/24 05:22 Total Bilirubin 0.3 Direct Bilirubin 0.1 AST 23 ALT 27 Alkaline Phosphatase 162 H Total Protein 6.1 L Albumin 3.6 Discharge Plan Discharge Anticipated Discharge Date/Time: 10/22/24 10:56 Patient Disposition: Home, Self-Care Discharge Diagnosis: SBO Referrals: Lee Mercado MD [Physician, Internal Medicine] - 2 Weeks Richard Vidal MD [Primary Care Provider, [employer]] - 1 Week Discharge Medications: Continued (DME) blood pressure test kit-large Kit See Rx Instructions .Route Qty: 1 0RF Rx Instructions: once daily chlorthalidone 25 mg tablet 25 mg PO DAILY Qty: 90 0RF losartan 100 mg tablet 100 mg PO DAILY Qty: 90 0RF simvastatin 20 mg tablet 20 mg PO BEDTIME 90 Days Qty: 90 0RF ibuprofen [Advil] 200 mg Tablet 400 mg PO Q8H PRN (Reason: Pain) diclofenac sodium 1 % Gel 2 g TOPICAL BID Rx Instructions: Applies to ankle melatonin 5 mg tablet 10 mg PO BEDTIME bisacodyl [Dulcolax (bisacodyl)] 5 mg tablet,delayed release (DR/EC) 5 mg PO BEDTIME PRN (Reason: Constipation) albuterol sulfate 90 mcg/actuation HFA aerosol inhaler 2 puff PO Q6H PRN (Reason: Shortness Of Breath Or Wheezing) lamotrigine 200 mg tablet,disintegrating 300 mg PO DAILY levothyroxine 25 mcg tablet 25 mcg PO DAILY@0600 cholecalciferol (vitamin D3) 50 mcg (2,000 unit) capsule 50 mcg PO DAILY ziprasidone HCl 60 mg capsule 120 mg PO DAILY@1700 amitriptyline 50 mg tablet 50 mg PO BEDTIME hydroxyzine pamoate 25 mg capsule 50 mg PO TID topiramate 50 mg tablet 50 mg PO BID cetirizine 10 mg tablet 10 mg PO BID 90 Days Qty: 180 0RF clonidine HCl 0.1 mg tablet 0.1 mg PO BID Qty: 180 1RF No Action amlodipine 10 mg tablet 10 mg PO DAILY Qty: 90 0RF atenolol 100 mg tablet 100 mg PO DAILY Qty: 90 0RF Discharge Orders: Discharge Order (Routine); Ordered 10/23/24 Ordered By: Naya Fields Diet: Advance to usual diet Activity on Discharge: As tolerated Stand Alone Forms: Patient Portal Discharge page Print Language: Serbian Activity Restrictions/Additional Instructions: Follow up with your PCP. Call Your Doctor If: ? ? -Your temperature exceeds 101? F? ? ? -You experience excessive pain or swelling ? ? -You have an unexpected reaction to medication ? ? -You experience continued vomiting/nausea Care Plan Goals: Return to baseline health and resume normal activities. Health Concerns: SBO HTN chronic leukocytosis elevated LFTs Plan of Treatment: supportive with bowel rest, IV hydration Assessment: Follow up with PCP Discharge Date/Time: 10/23/24 10:18
== END 2024-10-23 10:18 | disposition home or self-care (01) | DRG 390 ==
LOC: HO.ED 10:35 → HO.EDOVER 11:49 → HO.S3 14:33
PROVIDERS: Internal Medicine; Physician Assistant Surgical; Admitting Provider Surgery; Emergency Provider Emergency Medicine; PCP Obstetrics & Gynecology; Visit Provider Surgery
DX: K56.51 Intestinal adhesions [bands], with partial obstruction (principal); K59.00 Constipation, unspecified; N18.30 Chronic kidney disease, stage 3 unspecified; F31.9 Bipolar disorder, unspecified; E03.9 Hypothyroidism, unspecified; Z87.891 Personal history of nicotine dependence; Z79.890 Hormone replacement therapy; Z79.899 Other long term (current) drug therapy
CPT/HCPCS: 36415; 71045; 74177; 80048; 80053; 80076; 81001; 82272; 83690; 83735; 85025; 85027; 99285; J0131; J1171; J1885; J1920; J2405; J7120; Q9967

== ENCOUNTER → 2024-10-20 06:46 | Outpatient (BNV) | payer OTHER, SELFPAY | PROVIDERS: Emergency Provider Emergency Medicine; PCP Obstetrics & Gynecology; Visit Provider Surgery | DX: K56.600 Partial intestinal obstruction, unspecified as to cause (principal) | CPT/HCPCS: 99222; 99232 ==

== ENCOUNTER → 2024-10-20 07:54 | Outpatient (BNV) | payer OTHER, SELFPAY | PROVIDERS: Emergency Provider Emergency Medicine; PCP Obstetrics & Gynecology; Visit Provider Radiology Vascular & Interventional Radiology | DX: R10.84 Generalized abdominal pain (principal); Z46.59 Encounter for fitting and adjustment of other gastrointestinal appliance and device | CPT/HCPCS: 71045; 74177 ==

== ENCOUNTER → 2024-10-20 11:12 | Outpatient (BNV) | payer OTHER, SELFPAY | PROVIDERS: Admitting Provider Surgery; Emergency Provider Emergency Medicine; PCP Obstetrics & Gynecology; Visit Provider Internal Medicine | DX: F31.78 Bipolar disorder, in full remission, most recent episode mixed (principal) | CPT/HCPCS: 99232 ==

== ENCOUNTER 2024-11-20 12:07 | Outpatient (AMB) | payer OTHER, SELFPAY ==
--- OUTSIDE RECORDS SUMMARY | 2023-12-20 08:30 | XMS_ITS ---
Author Organization [facility] Address [address] [place] [phone] Care Team Providers Care Sheet Rock Taper Name Role Phone Rogelio GUEVARA, Lee Primary Care Provider Shanice Mccartney Jr, Luisito Unavailable [phone] Matthew Zaragoza M.D. Unavailable Unavailable REASON FOR VISIT balloon dilation, colonic stricture Encounters Encounter Location Date Provider Diagnosis [facility] [place] [address] [place] [phone] 12/20/2023 Luisito Mccartney Jr Other intestinal obstruction [...] * JAMIE LUKEVALENCIAOB: [birth year] (49 yo F)Acc No.[id number]:12/20/2023 COLON WITH MAC Patient: АЛЕКСАНДР RENE Provider: Oscar Mccartney MD :1975 A ge:48 Y S ex:Female Date:12/20/2023 Address:[address] [place] [address] [address], [place] Pcp:Lee Mercado MD Subjective: * Chief Complaints: * 1 . Balloon dilation, colonic stricture. * Medical History: Objective: * Vitals: Assessment: * Assessment: 1. O ther intestinal obstruction unspecified as to partial versus complete obstruction - K56.699 (Primary) 2 . G astrointestinal anastomotic stricture - K91.30 ? Plan: * Treatment: * Procedure Codes: 4 5378 DIAGNOSTIC COLONOSCOPY, 31104 COLONOSCOPE DILATE STRICTURE, Modifiers: 59 * * The named appointment provid er may or may not be the originator of this progress note, and it is not deemed complete until electronically signed by the appointment provider. Sign off status: Pending * Provider: Oscar Mccartney MD Date: 0 12/20/2023 Generated for Derick lopez/Zabrina/Johnitting on: 0 11/20/2024 01:30 PM EDT
[2024-11-20 12:11] VITALS: BP 96/60; PULSE 62; O2SAT 96; BMI 35.9
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
--- OUTSIDE RECORDS SUMMARY | 2024-11-20 13:30 | XMS_ITS | Clinical Summary ---
Author Organization [facility] ity Address [address] [place] [address] Care Team Providers Care Health Education Specialist Name Role Phone Unavailable Primary Care Provider [...] Vaccine ( - 2023-2 5 season) 2023 Depression Screening 04/04/2024 Influenza Vaccine (#1) 2024 HIB Vaccines Aged Out No longer [...]
== END 2024-11-20 12:38 | disposition home or self-care (01) ==
LOC: HO.HMCC 12:08
PROVIDERS: PCP Obstetrics & Gynecology; Visit Provider Internal Medicine
DX: G43.119 Migraine with aura, intractable, without status migrainosus (principal); R42 Dizziness and giddiness; I95.2 Hypotension due to drugs; Z09 Encounter for follow-up examination after completed treatment for conditions other than malignant neoplasm; N18.9 Chronic kidney disease, unspecified; E03.8 Other specified hypothyroidism; Z91.09 Other allergy status, other than to drugs and biological substances; E78.9 Disorder of lipoprotein metabolism, unspecified; F31.78 Bipolar disorder, in full remission, most recent episode mixed; E66.09 Other obesity due to excess calories; Z68.32 Body mass index [BMI] 32.0-32.9, adult; Z90.49 Acquired absence of other specified parts of digestive tract

== ENCOUNTER → 2024-11-20 12:07 | Outpatient (BNVA) | payer OTHER, SELFPAY | PROVIDERS: PCP Obstetrics & Gynecology; Visit Provider Internal Medicine | DX: I95.2 Hypotension due to drugs (principal); R42 Dizziness and giddiness; E03.8 Other specified hypothyroidism; E78.9 Disorder of lipoprotein metabolism, unspecified; F31.78 Bipolar disorder, in full remission, most recent episode mixed; E66.09 Other obesity due to excess calories; G43.119 Migraine with aura, intractable, without status migrainosus; N18.9 Chronic kidney disease, unspecified; J45.40 Moderate persistent asthma, uncomplicated; Z09 Encounter for follow-up examination after completed treatment for conditions other than malignant neoplasm; Z90.49 Acquired absence of other specified parts of digestive tract; Z91.09 Other allergy status, other than to drugs and biological substances; Z68.35 Body mass index [BMI] 35.0-35.9, adult | CPT/HCPCS: 99212 ==

== ENCOUNTER 2024-12-03 21:32 | Emergency (ER) | payer OTHER, SELFPAY ==
--- OUTSIDE RECORDS SUMMARY | 2023-11-29 08:30 | XMS_ITS ---
Author Organization [facility] Address [address] [place] [address] Care Team Providers Care Ear Flap Binder Name Role Phone Rogelio GUEVARA, Asma Primary Care Provider Luisito Riggs Jr Unavailable Matthew Zaragoza M.D. Unavailable Unavailable REASON FOR VISIT colonic stricture Problems Problem Type SNOMED Code ICD Code Onset Dates Problem Status W/U Status Risk Notes Problem Diverticular disease of colon (187675185) Diverticulosis of large intestine without perforation or abscess without bleeding (K57.30) Active confirmed Encounters Encounter Location Date Provider Diagnosis [facility] Outpatient [address] [place], [place] [phone] 11/29/2023 uLisito Mccartney Jr Unspecified intestinal obstruction, unspecified as [...] * LORI LUKE: 9[birth year] (49 yo F)Acc No.[id number]:11/29/2023 COLON WITH MAC Patient: АЛЕКСАНДР RENE Provider: Oscar Mccartney MD :1975 A ge:48 Y S ex:Female Date:11/29/2023 Address:[address] [place] [address] [address] [facility] [facility] Pcp:Lee Mercado MD Subjective: * Chief Complaints: [...] 0 11/29/2023 Generated for Derick lopez/Zabrina/Johnitting on: 0 12/03/2024 10:21 PM EDT
--- OUTSIDE RECORDS SUMMARY | 2023-12-20 08:30 | XMS_ITS ---
Author Organization [facility] Address [address] [place] [phone] Care Team Providers Care Liner Reroll Tender Name Role Phone Rogelio GUEVARA, Lee Primary Care Provider Shanice Mccartney Jr, Luisito Unavailable Matthew Zaragoza M.D. Unavailable Unavailable REASON FOR VISIT balloon dilation, colonic stricture Encounters Encounter Location Date Provider Diagnosis [facility] [place] [address] [place] [phone] 12/20/2023 Luisito Mccartney Jr Other intestinal obstruction [...] * JAMIE LUKEVALENCIAOB: [birth year] (49 yo F)Acc No.[id number]:12/20/2023 COLON WITH MAC Patient: АЛЕКСАНДР RENE Provider: Oscar Mccartney MD :1975 A ge:48 Y S ex:Female Date:12/20/2023 Address:[address] [place] [address] [address], [place] Pcp:Lee Mercado MD Subjective: * Chief Complaints: * 1 . Balloon dilation, colonic stricture. * Medical History: Objective: * Vitals: Assessment: * Assessment: 1. O ther intestinal obstruction unspecified as to partial versus complete obstruction - K56.699 (Primary) 2 . G astrointestinal anastomotic stricture - K91.30 ? Plan: * Treatment: * Procedure Codes: 4 5378 DIAGNOSTIC COLONOSCOPY, 25686 COLONOSCOPE DILATE STRICTURE, Modifiers: 59 * * The named appointment provid er may or may not be the originator of this progress note, and it is not deemed complete until electronically signed by the appointment provider. Sign off status: Pending * Provider: Oscar Mccartney MD Date: 0 12/20/2023 Generated for Derikc lopez/Zabrina/Alfredosmitting on: 0 12/03/2024 10:21 PM EDT
[2024-12-03 21:46] VITALS: BP 161/88; PULSE 76; RESP 18; TEMP 37.3; O2SAT 93
[2024-12-03 21:57] VITALS: BP 150/89; PULSE 85; RESP 16; O2SAT 96; BMI 35.9
--- OUTSIDE RECORDS SUMMARY | 2024-12-03 22:21 | XMS_ITS | Patient Health Record ---
Author Organization [facility] Address [address] [place] [address] Care Team Providers Care Ore Bridge Operator Name Role Phone Rogelio GUEVARA, Lee Primary Care Provider Luisito Riggs Jr Unavailable [phone] Matthew Zaragoza M.D. Unavailable Unavailable Allergies Allergen (clinical drug ingredient) Drug/Non Drug Allergy documented on EMR Reaction Allergy Type Onset Date Status Penicillin Unknown Drug Allergy Active Reason For Referral No Information Medications Medication [...] EVERY DAY AT BEDTIME Oral for 90 [id number],Unavail able Active Levothyroxine Sodium 25 MCG TAKE [...] Risk Notes Problem Diverticular disease of colon ([id number]) Diverticulosis of large intestine without perforation or abscess without bleeding (K57.30) Active confirmed Problem [id number] Colonic strictur e (K56.699) Active confirmed Encounters Encounter Location Date Provider Diagnosis [facility] [address] [place] [id number] 12/20/2023 Luisito Mccartney Jr Other intestinal obstruction unspecified as to partial versus complete obstruction K56.699 and Gastrointestinal anastomotic stricture K91.30 Assessments Encounter Date Diagnosis (ICD Code) Assessment Notes Treatment Notes Treatment Clinical Notes Section Notes 12/20/2023 Other intestinal obstruction unspecified as to partial versus complete obstruction (ICD-10 - K56.699) 12/20/2023 Gastrointestinal anastomotic stricture (ICD-10 - K91.30) Plan Of Treatment Future Test Test Name Order Date Colonoscopy with balloon dilation 2023 Insurance Providers Payer Name Payer Address Payer Phone Subscriber Number Group Number Insured Name Patient Relationship to Insured Coverage Start Date Coverage End Date [facility] [address] Attn Claims ARSH [place] [id number] LUKE Self - patient is the [...]
--- OUTSIDE RECORDS SUMMARY | 2024-12-03 22:21 | XMS_ITS | Clinical Summary ---
Author Organization [facility] ity Address [address] [place] [address] Care Team Providers Care Anesthesiologist Name Role Phone Unavailable Primary Care Provider [...] 2023 Zoster Vaccines (1 of 2) 2023 Depression Screening 04/04/2024 COVID-19 Vaccine ( - 2023-2 5 season) 2024 Influenza Vaccine (#1) 2024 HIB Vaccines Aged [...]
--- OUTSIDE RECORDS SUMMARY | 2024-12-03 22:21 | XMS_ITS | Clinical Summary ---
Author Organization [facility] Address [address] [place] [address] Phone Care Team Providers Care Solder Sprayer Name Role Phone Lee Mercado MD Primary Care Provider [phone] Allergies Active Allergy Reactions Criticality Noted Date [...] Description 09/12/2024 10:00 AM EDT Office Visit [facility] [address] [place] [address] Angie Theodore MD Tibialis posterior tendinitis, right [...] - 2023-2 5 season) 2023 08/25/2020, 07/28/2020 INFLUENZA VACCINE (#1) 2024 HEPATITIS A VACCINES Aged Out No long [...] topic Medical Devices Not on file Insurance [facility] MEDICARE REPLACEMENT ARSH LICEA [id number] [facility] MEDICARE REPLACEMENT [facility] MEDICARE REPLACEMENT [facility] MEDICARE REPLACEMENT [address] [place] [address] [facility] MEDICARE REPLACEMENT [facility] [employer] MEDICARE REPLACEMENT Care Teams Solder Sprayer Relationship Specialty Start Date End Date Lee Mercado MD [facility] [place] [address] PCP - General Internal Medicine 01/03/23 Additional Source Comments The information contained in this document represents components of the legal health record. It is not the complete legal health record.[facility]
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
[2024-12-04] MEDS: Lactated Ringers 1,000 ML 999 ML IV (01:33)
[2024-12-04 03:29] VITALS: BP 129/87; PULSE 78; RESP 16; TEMP 36.8; O2SAT 98
== END 2024-12-04 03:33 | disposition home or self-care (01) ==
PROVIDERS: Emergency Provider Emergency Medicine; PCP Internal Medicine
DX: G43.901 Migraine, unspecified, not intractable, with status migrainosus (principal); I12.9 Hypertensive chronic kidney disease with stage 1 through stage 4 chronic kidney disease, or unspecified chronic kidney disease; E11.22 Type 2 diabetes mellitus with diabetic chronic kidney disease; N18.9 Chronic kidney disease, unspecified
CPT/HCPCS: 96361; 96374; 96375; 99284; J1885; J2765; J7120

== ENCOUNTER 2024-12-05 06:54 | Emergency (ER) | payer OTHER, SELFPAY ==
--- OUTSIDE RECORDS SUMMARY | 2023-11-29 08:30 | XMS_ITS ---
Author Organization [facility] Address [address] [place] [address] Care Team Providers Care Marine Consultant Name Role Phone Rogelio GUEVARA, [facility] Primary Care Provider Luisito Riggs Jr Unavailable [phone] Matthew Zaragoza M.D. Unavailable Unavailable REASON FOR VISIT colonic stricture Problems Problem Type SNOMED Code ICD Code Onset Dates Problem Status W/U Status Risk Notes Problem Diverticulosis o f large intestine without perforation or abscess without bleeding (K57.30) Active confirmed Encounters Encounter Location Date Provider Diagnosis [facility] [place] [address] [place], [place] [phone] 11/29/2023 Luisito Mccartney Jr Unspecified intestinal obstruction, [...] Of Treatment No Information Progress Notes * MICHAEL LUKEOB: [birth year] (49 yo F)Acc No.[id number]:11/29/2023 COLON WITH MAC Patient: АЛЕКСАНДР RENE Provider: Oscar Mccartney MD :1975 A ge:48 Y S ex:Female Date:11/29/2023 Address:[address] [place] [address] [address], [place], [facility] Pcp:Lee Mercado MD Subjective: * Chief Complaints: [...] 11/29/2023 Generated for Derick lopez/Zabrina/Johnitting on: 0 12/05/2024 07:45 AM EDT
--- OUTSIDE RECORDS SUMMARY | 2023-12-20 08:30 | XMS_ITS ---
Author Organization [facility] Address [address] [place] [phone] Care Team Providers Care Double Cut Sawyer Name Role Phone Rogelio GUEVARA, Lee Primary Care Provider Shanice Mccartney Jr, Luisito Unavailable [phone] Matthew Zaragoza M.D. Unavailable Unavailable REASON FOR VISIT balloon dilation, colonic stricture Encounters Encounter Location Date Provider Diagnosis [facility] [place] [address] [place] [phone] 12/20/2023 Luisito Mccartney Jr Other intestinal obstruction [...] * JAMIE LUKEVALENCIAOB: [birth year] (49 yo F)Acc No.[id number]:12/20/2023 COLON WITH MAC Patient: АЛЕКСАНДР RENE Provider: Oscar Mccartney MD :1975 A ge:48 Y S ex:Female Date:12/20/2023 Address:[address] [place] [address] [address], [place], [place] Pcp:Lee Mercado MD Subjective: * Chief Complaints: * 1 . Balloon dilation, colonic stricture. * Medical History: Objective: * Vitals: Assessment: * Assessment: 1. O ther intestinal obstruction unspecified as to partial versus complete obstruction - K56.699 (Primary) 2 . G astrointestinal anastomotic stricture - K91.30 ? Plan: * Treatment: * Procedure Codes: 4 5378 DIAGNOSTIC COLONOSCOPY, 95845 COLONOSCOPE DILATE STRICTURE, Modifiers: 59 * * The named appointment provid er may or may not be the originator of this progress note, and it is not deemed complete until electronically signed by the appointment provider. Sign off status: Pending * Provider: Oscar Mccartney MD Date: 0 12/20/2023 Generated for Derick lopez/Zabrina/Alfredosmitting on: 12/05/2024 07:44 AM EDT
--- NOTE | ~2024-12-05 | XR_ITS ---
EXAMINATION: XR CHEST CLINICAL INFORMATION: cough COMPARISON: October 20, 2024. TECHNIQUE: 2 views of the chest were obtained. FINDINGS: The pony tail overlaps the right upper hemithorax. Pulmonary reticular pattern. No consolidation, pleural effusion or pneumothorax. Cardiomediastinal silhouette size is normal. Multilevel thoracolumbar spondylosis. Degenerative changes in the acromioclavicular joints pronounced on the right side. Patient's large body habitus/obesity. Vascular clips in the right upper Abdomen and likely prior laparoscopic cholecystectomy. XR/XR chest 2V IMPRESSION: No acute airspace disease. Electronically signed by: Errol Khan MD 12/05/2024 08:48 AM EDT
[2024-12-05 07:00] VITALS: BP 180/100; PULSE 88; O2SAT 95
[2024-12-05 07:05] VITALS: BP 159/90; PULSE 73; RESP 16; TEMP 37.5; O2SAT 96; BMI 36.9
--- OUTSIDE RECORDS SUMMARY | 2024-12-05 07:45 | XMS_ITS | Clinical Summary ---
Author Organization [facility] ity Address [address] [place] [address] Care Team Providers Care Gyroscope Technician Name Role Phone Unavailable Primary Care Provider [...]
--- OUTSIDE RECORDS SUMMARY | 2024-12-05 07:46 | XMS_ITS | Patient Health Record ---
Author Organization [facility] Address [address] [place] [address] Care Team Providers Care Water Treatment Plant Mechanic Name Role Phone Rogelio GUEVARA, Lee Primary [...] EVERY DAY AT BEDTIME Oral for 90 [id number],Unavail able Active Levothyroxine Sodium 25 MCG TAKE [...] abscess without bleeding (K57.30) Active confirmed Problem [id number] Colonic strictur e (K56.699) Active confirmed Encounters Encounter Location Date Provider Diagnosis [facility] Outpatient [address] [place] [address] [id number] 12/20/2023 Luisito Mccartney Jr Other intestinal obstruction [...] Insured Coverage Start Date Coverage End Date [facility] [address] Attn Claims ARSH [id number] LUKE Self - patient is the [...]
--- OUTSIDE RECORDS SUMMARY | 2024-12-05 07:46 | XMS_ITS | Clinical Summary ---
Author Organization [facility] Address [address] [place] [address] Phone Care Team Providers Care Roll Coating Machine Operator Name Role Phone Lee Mercado MD Primary Care Provider [phone] Allergies Active Allergy Reactions Criticality Noted Date [...] Description 09/12/2024 10:00 AM EDT Office Visit [facility] [address] [place] [address] Angie Theodore MD Tibialis posterior tendinitis, right [...] Devices Not on file Insurance [facility] MEDICARE REPLACEMENT [place] [id number] [facility] MEDIC[facility] REPLACEMENT [facility] MEDIC[facility] REPLACEMENT [facility] MEDICARE RE[address] [place] [address] [facility] MEDIC[facility]PLACEMENT [facility] MEDICARE REPLACEMENT Care Teams Roll Coating Machine Operator Relationship Specialty Start Date End Date Lee Mercado MD [facility] [place] [address] PCP - General Internal Medicine 01/03/23 Additional Source Comments The information contained in this document represents components of the legal health record. It is not the complete legal health record.[facility]
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
[2024-12-05 09:02] LABS: Resp Syncy Virus RNA Qual PCR NEGATIVE (Negative); SARS COV2 PCR INHOUSE POSITIVE (Negative)
[2024-12-05 09:10] VITALS: BP 150/100; PULSE 77; RESP 16; TEMP 37.4; O2SAT 97
== END 2024-12-05 09:11 | disposition home or self-care (01) ==
PROVIDERS: Emergency Provider Emergency Medicine Emergency Medical Services; PCP Internal Medicine
DX: U07.1 COVID-19 (principal); H65.03 Acute serous otitis media, bilateral; R05.9 Cough, unspecified; R51.9 Headache, unspecified; R09.81 Nasal congestion; B37.0 Candidal stomatitis; J01.90 Acute sinusitis, unspecified; Z79.899 Other long term (current) drug therapy; Z87.891 Personal history of nicotine dependence
CPT/HCPCS: 71046; 87637; 99283; 99284

== ENCOUNTER → 2024-12-05 08:23 | Outpatient (BNV) | payer OTHER, SELFPAY | PROVIDERS: Emergency Provider Emergency Medicine Emergency Medical Services; PCP Internal Medicine; Visit Provider Radiology Diagnostic Radiology | DX: R05.9 Cough, unspecified (principal) | CPT/HCPCS: 71046 ==

== ENCOUNTER 2024-12-12 13:31 | Outpatient (AMB) | payer OTHER, SELFPAY ==
--- OUTSIDE RECORDS SUMMARY | 2023-11-29 08:30 | XMS_ITS ---
Author Organization [facility] Address [address] [place] [address] Care Team Providers Care Neurophysiology Tech Name Role Phone Rogelio GUEVARA, Asma Primary Care Provider Luisito Riggs Jr Unavailable Matthew Zaragoza M.D. Unavailable Unavailable REASON FOR VISIT colonic stricture Problems Problem Type SNOMED Code ICD Code Onset Dates Problem Status W/U Status Risk Notes Problem Diverticular disease of colon (172564852) Diverticulosis of large intestine without perforation or abscess without bleeding (K57.30) Active confirmed Encounters Encounter Location Date Provider Diagnosis [facility] Out[place] [address] [place], [place] [phone] 11/29/2023 Luisito Mccartney Jr Unspecified intestinal obstruction, [...] * LORI LUKE: 974 (49 yo F)Acc No.[id number]:11/29/2023 COLON WITH MAC Patient: АЛЕКСАНДР RENE Provider: Oscar Mccartney MD :1975 A ge:48 Y S ex:Female Date:11/29/2023 Address:[address] [place] [address] [address] [facility] [facility] Pcp:Lee Mercado MD Subjective: * Chief Complaints: [...] 11/29/2023 Generated for Derick lopez/Zabrina/Johnitting on: 0 12/12/2024 04:34 PM EDT
--- OUTSIDE RECORDS SUMMARY | 2023-12-20 08:30 | XMS_ITS ---
Author Organization [facility] Address [address] [place] [phone] Care Team Providers Care Keyboard Instrument Tuner Name Role Phone Rogelio GUEVARA, Lee Primary Care Provider Shanice Mccartney Jr, Luisito Unavailable Matthew Zaragoza M.D. Unavailable Unavailable REASON FOR VISIT balloon dilation, colonic stricture Encounters Encounter Location Date Provider Diagnosis [facility] [place] [address] [place] [phone] 12/20/2023 Luisito Mccartney Jr Other intestinal obstruction [...] * JAMIE LUKEVALENCIAOB: [birth year] (49 yo F)Acc No.[id number]:12/20/2023 COLON WITH MAC Patient: АЛЕКСАНДР RENE Provider: Oscar Mccartney MD :1975 A ge:48 Y S ex:Female Date:12/20/2023 Address:[address] [place] [address] [address], [place], [place] Pcp:Lee Mrecado MD Subjective: * Chief Complaints: * 1 . Balloon dilation, colonic stricture. * Medical History: Objective: * Vitals: Assessment: * Assessment: 1. O ther intestinal obstruction unspecified as to partial versus complete obstruction - K56.699 (Primary) 2 . G astrointestinal anastomotic stricture - K91.30 ? Plan: * Treatment: * Procedure Codes: 4 5378 DIAGNOSTIC COLONOSCOPY, 43674 COLONOSCOPE DILATE STRICTURE, Modifiers: 59 * * The named appointment provid er may or may not be the originator of this progress note, and it is not deemed complete until electronically signed by the appointment provider. Sign off status: Pending * Provider: Oscar Mccartney MD Date: 12/20/2023 Generated for Derick lopez/Zabrina/Johnitting on: 12/12/2024 04:34 PM EDT
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
--- OUTSIDE RECORDS SUMMARY | 2024-12-12 16:34 | XMS_ITS | Clinical Summary ---
Author Organization [facility] Address [address] [place] [address] Phone Care Team Providers Care [employer]ater [employer] Name Role Phone Lee Mercado MD Primary Care Provider Allergies Active Allergy Reactions Criticality Noted Date [...] Description 09/12/2024 10:00 AM EDT Office Visit [facility] [address] [place] [address] Angie Theodore MD Tibialis posterior tendinitis, right [...] 2023 ZOSTER VACCINES (1 of 2) 2023 INFLUENZA VACCINE (#1) 2024 COVID-19 VACCINE (3 - 2024-2 6 season) 2024 08/25/2020, 07/28/2020 HEPATITIS A VACCINES Aged Out [...] topic Medical Devices Not on file Insurance [facility] MEDICARE REPLACEMENT [place] [id number] [facility] MEDICARE REPLACEMENT [facility] MEDICARE REPLACEMENT [facility] MEDICARE REPLACEMENT [address] [place] [address] [facility] MEDICARE [facility]PLACEMENT [facility] MEDICARE REPLACEMENT Care Teams Crater And Packer Relationship Specialty Start Date End Date Lee Mercado MD [facility] [place] [id number] PCP - General Internal Medicine 01/03/23 Additional Source Comments The information contained in this document represents components of the legal health record. It is not the complete legal health record.[facility]
--- OUTSIDE RECORDS SUMMARY | 2024-12-12 16:34 | XMS_ITS | Patient Health Record ---
Author Organization [facility] Address [address] [place] [address] Care Team Providers Care Seat Cover Installer Name Role Phone Rogelio GUEVARA, Lee Primary Care Provider Luisito Riggs Jr Unavailable [phone] Matthew Zaragoza M.D. Unavailable Unavailable Allergies [...] EVERY DAY AT BEDTIME Oral for 90 [id number],Unavail able Active Levothyroxine Sodium 25 MCG TAKE [...] Risk Notes Problem Diverticular disease of colon (665068279) Diverticulosis of large intestine without perforation or abscess without bleeding (K57.30) Active confirmed Problem 3757740 Colonic strictur e (K56.699) Active confirmed Encounters Encounter Location Date Provider Diagnosis [facility] Outpatient [address] [place] [address] [id number] 12/20/2023 Luisito Mccartney Jr Other intestinal obstruction [...] Insured Coverage Start Date Coverage End Date [facility] [address] Attn Claims ARSH Cruz [id number] АЛЕКСАНДР LUKE Self - patient is the [...]
--- OUTSIDE RECORDS SUMMARY | 2024-12-12 16:34 | XMS_ITS | Clinical Summary ---
Author Organization [facility] ity Address [address] [place] [address] Care Team Providers Care Lay Out And Detail Drafter Name Role Phone Unavailable Primary Care Provider [...]
== END 2024-12-12 14:07 | disposition home or self-care (01) ==
LOC: HO.HSM 13:32
PROVIDERS: PCP Internal Medicine; Referring Provider Internal Medicine; Visit Provider Registered Nurse
DX: G43.909 Migraine, unspecified, not intractable, without status migrainosus (principal)
CPT/HCPCS: 99214

== ENCOUNTER → 2024-12-12 13:31 | Outpatient (BNVA) | payer OTHER, SELFPAY | PROVIDERS: PCP Internal Medicine; Referring Provider Internal Medicine; Visit Provider Registered Nurse | DX: G43.909 Migraine, unspecified, not intractable, without status migrainosus (principal); Z79.899 Other long term (current) drug therapy | CPT/HCPCS: 99212 ==

== ENCOUNTER 2025-01-22 11:07 | Outpatient (AMB) | payer OTHER, SELFPAY ==
--- OUTSIDE RECORDS SUMMARY | 2023-11-29 08:30 | XMS_ITS ---
Author Organization [facility] Address [address] [place] [address] Care Team Providers Care Console Attendant Name Role Phone Rogelio GUEVARA, Asma Primary Care Provider Luisito Riggs Jr Unavailable [phone] Matthew Zaragoza M.D. Unavailable Unavailable REASON FOR VISIT colonic stricture Problems Problem Type SNOMED Code ICD Code Onset Dates Problem Status W/U Status Risk Notes Problem Diverticular disease of colon (149599567) Diverticulosis of large intestine without perforation or abscess without bleeding (K57.30) Active confirmed Encounters Encounter Location Date Provider Diagnosis [facility] Outpatient [address] [place], [place] [phone] 11/29/2023 Luisito Mccartney Jr Unspecified intestinal obstruction, [...] * LORI LUKE: 974 (49 yo F)Acc No.[id number]:11/29/2023 COLON WITH MAC Patient: АЛЕКСАНДР RENE Provider: Oscar Mccartney MD :1975 A ge:48 Y S ex:Female Date:11/29/2023 Address:[address] [place] [address] [address] [facility] [facility] Pcp:Lee Mercado MD Subjective: * Chief Complaints: [...] 0 11/29/2023 Generated for Derick lopez/Zabrina/Johnitting on: 1 02:11 PM EDT
--- OUTSIDE RECORDS SUMMARY | 2023-12-20 08:30 | XMS_ITS ---
Author Organization [facility] Address [address] [place] [phone] Care Team Providers Care Ranch Supervisor Name Role Phone Rogelio GUEVARA, Lee Primary Care Provider Shanice Mccartney Jr, Luisito Unavailable [phone] Matthew Zaragoza M.D. Unavailable Unavailable REASON FOR VISIT balloon dilation, colonic stricture Encounters Encounter Location Date Provider Diagnosis [facility] [place] [address] [place] [phone] 12/20/2023 Luisito Mccartney Jr Other intestinal obstruction [...] * JAMIE LUKEVALENCIAOB: [birth year] (49 yo F)Acc No.[id number]:12/20/2023 COLON WITH MAC Patient: АЛЕКСАНДР RENE Provider: Oscar Mccartney MD :1975 A ge:48 Y S ex:Female Date:12/20/2023 Address:[address] [place] [address] [address], [place] Pcp:Lee Mercado MD Subjective: * Chief Complaints: * 1 . Balloon dilation, colonic stricture. * Medical History: Objective: * Vitals: Assessment: * Assessment: 1. O ther intestinal obstruction unspecified as to partial versus complete obstruction - K56.699 (Primary) 2 . G astrointestinal anastomotic stricture - K91.30 ? Plan: * Treatment: * Procedure Codes: 4 5378 DIAGNOSTIC COLONOSCOPY, 15516 COLONOSCOPE DILATE STRICTURE, Modifiers: 59 * * The named appointment provid er may or may not be the originator of this progress note, and it is not deemed complete until electronically signed by the appointment provider. Sign off status: Pending * Provider: Oscar Mccartney MD Date: 0 12/20/2023 Generated for Derick lopez/Zabrina/Alferdosmitting on: 1 02:11 PM EDT
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
[2025-01-22 11:10] VITALS: BP 140/88; PULSE 70; O2SAT 99; BMI 35.9
--- OUTSIDE RECORDS SUMMARY | 2025-01-22 14:11 | XMS_ITS | Patient Health Record ---
Author Organization [facility] Address [address] [place] [address] Care Team Providers Care Frankfurter Inspector Name Role Phone Rogelio GUEVARA, Lee Primary [...] 1 CAPSULE BY MOUTH THREE TIMES DAILY Oral; Duration: 30 Active Losartan Potassium 100 MG TAKE 1 TABLET BY MOUTH DAILY Oral; Duration: 90 Active lamoTRIgine 200 MG Oral; Duration: 30 Active Vitamin D3 50 MCG (1999) TAKE 1 CAPSULE BY MOUTH DAILY WITH FOOD IN THE AM Oral; Duration: 30 Active Atenolol 100 MG Oral; Duration: 90 Active Melatonin 5 MG TAKE 1-2 TABLETS BY MOUTH AT BEDTIME NEEDED FOR INSOMNIA Oral; Duration: 30 Active Simvastatin 20 MG Oral; Duration: 90 Active Ziprasidone HCl 60 MG Oral; Duration: 30 Active Docusate Sodium 100 MG TAKE 2 CAPSULES B Y MOUTH EVERY NIGHT AT BEDTIME Oral; Duration: 30 Active Amitriptyline HCl 50 MG TAKE 1 TABLET BY MOUTH EVERY DAY AT BEDTIME Oral; Duration: 90 [id number],Unavail able Active Levothyroxine Sodium 25 MCG TAKE 1 TABLET BY MOUTH DAILY Oral; Duration: 90 Active Chlorthalidone 25 MG 1 tablet in the morning with food Orally; Duration: 30 day(s) Active amLODIPine Besylate 10 MG Oral; Duration: 30 Active Cetirizine HCl 10 MG Oral; Duration: 90 Active Immunizations Vaccine Route Administration Date [...] Risk Notes Problem Diverticular disease of colon (078386761) Diverticulosis of large intestine without perforation or abscess without bleeding (K57.30) Active confirmed Problem Colonic stricture (0457602) Colonic stricture (K56.699) Active confirmed Plan Of Treatment Future Test Test Name Order Date Colonoscopy with balloon dilation 2023 Insurance Providers Payer Name Payer Address Payer Phone Subscriber Number Group Number Insured Name Patient Relationship to Insured Coverage Start Date Coverage End Date [facility] [address] Attn Claims ARSH Cruz [id number] АЛЕКСАНДР LUKE Self - patient is the [...]
--- OUTSIDE RECORDS SUMMARY | 2025-01-22 14:11 | XMS_ITS | Clinical Summary ---
Author Organization [facility] Address [address] [place] [address] Phone Care Team Providers Care Hand I Tube Bender Name Role Phone Lee Mercado MD Primary Care Provider [phone] Allergies Active Allergy Reactions Criticality Noted Date [...] times a day as needed. 5 Active Social History Tobacco Use Types Packs/Day Years [...] - 2024-2 6 season) 2024 08/25/2020, 07/28/2020 RSV VACCINE (1 - 1-dose 75+ series) 2048 HEPATITIS A VACCINES Aged Out No long [...] topic Medical Devices Not on file Insurance [facility] CARE MEDICARE REPLACEMENT ARSH LICEA [id number] [place] [address] [facility] MEDICARE REPLACEMENT [address] [place] [id number] [facility] MEDICARE REPLACEMENT [address] [facility] [place] [id number] [facility] MEDICARE REPLACEMENT [address] [facility] [place] [id number] [facility] MEDICARE REPLACEMENT [facility] ONE CARE MEDICARE REPLACEMENT ARSH LICEA [id number] Care Teams Hand I Tube Bender Relationship Specialty Start Date End Date Lee Mercado MD [address] [facility] [place] [address] PCP - General Internal Medicine 01/03/23 Additional Source Comments The information contained in this document represents components of the legal health record. It is not the complete legal health record.[facility]
== END 2025-01-22 11:28 | disposition home or self-care (01) ==
LOC: HO.HKA 11:08
PROVIDERS: PCP Internal Medicine; Visit Provider Internal Medicine Hypertension Specialist
DX: I12.9 Hypertensive chronic kidney disease with stage 1 through stage 4 chronic kidney disease, or unspecified chronic kidney disease (principal); N18.9 Chronic kidney disease, unspecified
CPT/HCPCS: 99214

== ENCOUNTER → 2025-01-22 11:07 | Outpatient (BNVA) | payer OTHER, SELFPAY | PROVIDERS: PCP Internal Medicine; Visit Provider Internal Medicine Hypertension Specialist | DX: I10 Essential (primary) hypertension (principal); N18.9 Chronic kidney disease, unspecified; F31.9 Bipolar disorder, unspecified | CPT/HCPCS: 99212 ==

== ENCOUNTER 2025-01-29 14:39 | Outpatient (REF) | payer OTHER, SELFPAY ==
--- OUTSIDE RECORDS SUMMARY | 2023-11-29 08:30 | XMS_ITS ---
Author Organization [facility] Address [address] [place] [address] Care Team Providers Care Home Organizer Name Role Phone Rogelio GUEVARA, Asma Primary Care Provider Luisito Riggs Jr Unavailable Matthew Zaragoza M.D. Unavailable Unavailable REASON FOR VISIT colonic stricture Problems Problem Type SNOMED Code ICD Code Onset Dates Problem Status W/U Status Risk Notes Problem Diverticular disease of colon (156049134) Diverticulosis of large intestine without perforation or abscess without bleeding (K57.30) Active confirmed Encounters Encounter Location Date Provider Diagnosis [facility] Outpatient [address] [place], [place] [phone] 11/29/2023 Luisito Mccartney Jr Unspecified intestinal obstruction, [...] * LORI LUKE: 974 (49 yo F)Acc No.[id number]:11/29/2023 COLON WITH MAC Patient: АЛЕКСАНДР RENE Provider: Oscar Mccartney MD :1975 A ge:48 Y S ex:Female Date:11/29/2023 Address:[address] [place] [address] [address] [facility] [facility] Pcp:Lee Mercado MD Subjective: * Chief Complaints: [...] 11/29/2023 Generated for Derick lopez/Zabrina/Johnitting on: 1 07:06 PM EDT
--- OUTSIDE RECORDS SUMMARY | 2023-12-20 08:30 | XMS_ITS ---
Author Organization [facility] Address [address] [place] [phone] Care Team Providers Care Electrician Chief Name Role Phone Rogelio GUEVARA, Lee Primary Care Provider Shanice Mccartney Jr, Luisito Unavailable [phone] Matthew Zaragoza M.D. Unavailable Unavailable REASON FOR VISIT balloon dilation, colonic stricture Encounters Encounter Location Date Provider Diagnosis [facility] [place] [address] [place] [phone] 12/20/2023 Luisito Mccartney Jr Other intestinal obstruction [...] * JAMIE LUKEVALENCIAOB: [birth year] (49 yo F)Acc No.[id number]:12/20/2023 COLON WITH MAC Patient: АЛЕКСАНДР RENE Provider: Oscar Mccartney MD :1975 A ge:48 Y S ex:Female Date:12/20/2023 Address:[address] [place] [address] [address], [place] Pcp:Lee Mercado MD Subjective: * Chief Complaints: * 1 . Balloon dilation, colonic stricture. * Medical History: Objective: * Vitals: Assessment: * Assessment: 1. O ther intestinal obstruction unspecified as to partial versus complete obstruction - K56.699 (Primary) 2 . G astrointestinal anastomotic stricture - K91.30 ? Plan: * Treatment: * Procedure Codes: 4 5378 DIAGNOSTIC COLONOSCOPY, 57711 COLONOSCOPE DILATE STRICTURE, Modifiers: 59 * * The named appointment provid er may or may not be the originator of this progress note, and it is not deemed complete until electronically signed by the appointment provider. Sign off status: Pending * Provider: Oscar Mccartney MD Date: 0 12/20/2023 Generated for Derick lopez/Zabrina/Alfredosmitting on: 1 07:06 PM EDT
[2025-01-29 15:57] LABS: Anion Gap 11 (12-20); Blood Urea Nitrogen 16 mg/dL (9-16); Calcium 9.7 mg/dL (8.4-10.2); Carbon Dioxide 24 mmol/L (22-29); Chloride 111 mmol/L (96-108); Estimated Glomerular Filt Rate 39; Potassium 4.0 mmol/L (3.3-5.1); Sodium 142 mmol/L (135-145)
--- OUTSIDE RECORDS SUMMARY | 2025-01-29 19:07 | XMS_ITS | Patient Health Record ---
Author Organization [facility] Address [address] [place] [address] Care Team Providers Care Line Controller Name Role Phone Rogelio GUEVARA, Lee Primary Care Provider Luisito Riggs Jr Unavailable [phone] Matthew Zaragoza M.D. Unavailable Unavailable Allergies [...] EVERY DAY AT BEDTIME Oral; Duration: 90 [id number],Unavail able Active Levothyroxine Sodium 25 MCG TAKE [...] Risk Notes Problem Diverticular disease of colon (305918727) Diverticulosis of large intestine without perforation or abscess without bleeding (K57.30) Active confirmed Problem Colonic stricture (3014180) Colonic stricture (K56.699) Active confirmed Plan Of Treatment Future Test Test Name Order Date Colonoscopy with balloon dilation 2023 Insurance Providers Payer Name Payer Address Payer Phone Subscriber Number Group Number Insured Name Patient Relationship to Insured Coverage Start Date Coverage End Date [facility] [address] Attn Claims ARSH Cruz [id number] АЛЕКСАНДР LUKE Self - patient is the [...]
--- OUTSIDE RECORDS SUMMARY | 2025-01-29 19:07 | XMS_ITS | Clinical Summary ---
Author Organization [facility] Address [address] [place] [address] Phone Care Team Providers Care Prepress Technician Name Role Phone Lee Mercado MD Primary Care Provider [phone] Allergies Active Allergy Reactions Criticality Noted Date [...] topic Medical Devices Not on file Insurance [facility] CARE MEDICARE REPLACEMENT ARSH LICEA [id number] [place] [address] [facility] MEDICARE REPLACEMENT [address] [place] [id number] [facility] MEDICARE REPLACEMENT [address] [facility] [place] [id number] [facility] MEDICARE REPLACEMENT [address] [facility] [place] [id number] [facility] MEDICARE REPLACEMENT [facility] ONE CARE MEDICARE REPLACEMENT ARSH LICEA [id number] Care Teams Prepress Technician Relationship Specialty Start Date End Date Lee Mercado MD [address] [facility] [place] [address] PCP - General Internal Medicine 01/03/23 Additional Source Comments The information contained in this document represents components of the legal health record. It is not the complete legal health record.[facility]
--- OUTSIDE RECORDS SUMMARY | 2025-01-29 19:07 | XMS_ITS | Clinical Summary ---
Author Organization [facility] ity Address [address] [place] [address] Care Team Providers Care Ice Cutter Name Role Phone Unavailable Primary Care Provider [...] 5 season) 2024 Influenza Vaccine (#1) 2024 RSV Immunization Adult Patie nts (1 - 1-dose 75+ series) 2048 HIB Vaccines Aged Out No longer eligi [...]
== END 2025-01-29 14:40 | disposition home or self-care (01) ==
LOC: HO.LAB 14:39
PROVIDERS: PCP Internal Medicine; Visit Provider Internal Medicine Hypertension Specialist
DX: N18.9 Chronic kidney disease, unspecified (principal)
CPT/HCPCS: 36415; 80048

== ENCOUNTER 2025-02-08 10:33 | Outpatient (AMB) | payer OTHER, SELFPAY ==
--- OUTSIDE RECORDS SUMMARY | 2023-11-29 07:30 | XMS_ITS ---
Author Organization [facility] Address [address] [place] [address] Care Team Providers Care Pouch Maker Name Role Phone Rogelio GUEVARA, Asma Primary Care Provider Luisito Riggs Jr Unavailable [phone] Matthew Zaragoza M.D. Unavailable Unavailable REASON FOR VISIT colonic stricture Problems Problem Type SNOMED Code ICD Code Onset Dates Problem Status W/U Status Risk Notes Problem Diverticular disease of colon (397363936) Diverticulosis of large intestine without perforation or abscess without bleeding (K57.30) Active confirmed Encounters Encounter Location Date Provider Diagnosis [facility] [place] Outpatient [address] [place], [place] [phone] 11/29/2023 Luisito Mccartney Jr Unspecified intestinal obstruction, unspecified as to partial versus complete obstruction K56.609 ; 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 ; Lymphocytic colitis K52.89 ; Diverticulosis of large intestine without perforation or abscess without bleeding K57.30 and Other hemorrhoids K64.8 Assessments Encounter Date Diagnosis (ICD Code) Assessment Notes Treatment Notes Treatment Clinical Notes Section Notes 11/29/2023 Unspecified intestinal obstruction, unspecified as to partial versus complete obstruction (ICD-10 - K56.609) 11/29/2023 Anastomotic strictur e of gastrojejunostomy (ICD-10 - K91.89) 11/29/2023 Lymphocytic colitis (ICD-10 - K52.89) 11/29/2023 Diverticulosis of large intestine without perforation or abscess without bleeding (ICD-10 - K57.30) 11/29/2023 Other hemorrhoids (ICD-10 - K64.8) Plan Of Treatment No Information Progress Notes * LORI LUKE: 974 (49 yo F)Acc No.[id number]:11/29/2023 COLON WITH MAC Patient: АЛЕКСАНДР RENE Provider: Oscar Mccartney MD :1975 A ge:48 Y S ex:Female Date:11/29/2023 Address:[address] [place] [address] [address] [facility] [facility] Pcp:Lee Mercado MD Subjective: * Chief Complaints: * 1 . Colonic stricture. * Medical History: Objective: * Vitals: Assessment: * Assessment: 1. U nspecified intestinal obstruction, unspecified as to partial versus complete obstruction - K56.609 (Primary) 2 . A nastomotic stricture of gastrojejunostomy - K91.89 3 . L ymphocytic colitis - K52.89 4 . D iverticulosis of large intestine without perforation or abscess without bleeding - K57.30 5 . O ther hemorrhoids - K64.8 Plan: * Treatment: * Procedure Codes: 4 5386 COLONOSCOPE DILATE STRICTURE * * The named appointment provid er may or may not be the originator of this progress note, and it is not deemed complete until electronically signed by the appointment provider. Sign off status: Pending * Provider: Oscar Mccartney MD Date: 0 11/29/2023 Generated for Derick lopez/Zabrina/Johnitting on: 04/10/2024 12:29 PM EST
--- OUTSIDE RECORDS SUMMARY | 2023-12-20 07:30 | XMS_ITS ---
Author Organization [facility] Address [address] [place] [phone] Care Team Providers Care Sheep Shearer Name Role Phone Rogelio GUEVARA, Lee Primary Care Provider Shanice Mccartney Jr, Luisito Unavailable [phone] Matthew Zaragoza M.D. Unavailable Unavailable REASON FOR VISIT balloon dilation, colonic stricture Encounters Encounter Location Date Provider Diagnosis [facility] [place] [address] [place] [phone] 12/20/2023 Luisito Mccartney Jr Other intestinal obstruction unspecified as to partial versus complete obstruction K56.699 and Gastrointestinal anastomotic stricture K91.30 Assessments Encounter Date Diagnosis (ICD Code) Assessment Notes Treatment Notes Treatment Clinical Notes Section Notes 12/20/2023 Other intestinal obstruction unspecified as to partial versus complete obstruction (ICD-10 - K56.699) 12/20/2023 Gastrointestinal anastomotic stricture (ICD-10 - K91.30) Plan Of Treatment No Information Progress Notes * JAMIE LUKEVALENCIAOB: [birth year] (49 yo F)Acc No.[id number]:12/20/2023 COLON WITH MAC Patient: АЛЕКСАНДР RENE Provider: Oscar Mccartney MD :1975 A ge:48 Y S ex:Female Date:12/20/2023 Address:[address] [address] [address], [place] Pcp:Lee Mercado MD Subjective: * Chief Complaints: * 1 . Balloon dilation, colonic stricture. * Medical History: Objective: * Vitals: Assessment: * Assessment: 1. O ther intestinal obstruction unspecified as to partial versus complete obstruction - K56.699 (Primary) 2 . G astrointestinal anastomotic stricture - K91.30 ? Plan: * Treatment: * Procedure Codes: 4 5378 DIAGNOSTIC COLONOSCOPY, 92220 COLONOSCOPE DILATE STRICTURE, Modifiers: 59 * * The named appointment provid er may or may not be the originator of this progress note, and it is not deemed complete until electronically signed by the appointment provider. Sign off status: Pending * Provider: Oscar Mccartney MD Date: 0 12/20/2023 Generated for Derick lopez/Zabrina/Alfredosmitting on: 04/10/2024 12:28 PM EST
[2025-02-08 10:37] VITALS: BP 140/92; PULSE 108; O2SAT 96; BMI 36.5
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
[2025-02-08 10:48] VITALS: BP 120/84
--- OUTSIDE RECORDS SUMMARY | 2025-02-08 12:29 | XMS_ITS | Clinical Summary ---
Author Organization [facility] ity Address [address] [place] [address] Care Team Providers Care Concrete Block Mason Name Role Phone Unavailable Primary Care Provider [...]
--- OUTSIDE RECORDS SUMMARY | 2025-02-08 12:29 | XMS_ITS | Clinical Summary ---
Author Organization [facility] Address [address] [place] [address] Phone Care Team Providers Care Canvas Cutter Hand Name Role Phone Lee Mercado MD Primary Care Provider [phone] Allergies Active Allergy Reactions Criticality Noted Date [...] topic Medical Devices Not on file Insurance [facility] C[facility] MEDICARE REPLACEMENT ARSH LICEA [id number] [place] [address] [facility] MEDICARE [facility]PLACEMENT [address] TYLER LORENZANA [id number] [facility] MEDICARE REPLACEMENT [address] [facility] [place] [place] [id number] [facility] MEDICARE REPLACEMENT [address] [facility] [place] [place] [id number] [facility] MEDICARE REPLACEMENT [facility] CARE MEDICARE REPLACEMENT ARSH LICEA [id number] Care Teams Canvas Cutter Hand Relationship Specialty Start Date End Date Lee Mercado MD [address] [place] [address] PCP - General Internal Medicine 01/03/23 Additional Source Comments The information contained in this document represents components of the legal health record. It is not the complete legal health record.[facility]
--- OUTSIDE RECORDS SUMMARY | 2025-02-08 12:29 | XMS_ITS | Patient Health Record ---
Author Organization [facility] Address [address] [place] [address] Care Team Providers Care Sharepoint Engineer Name Role Phone Rogelio GUEVARA, Lee Primary [...] EVERY DAY AT BEDTIME Oral; Duration: 90 [id number],Unavail able Active Levothyroxine Sodium 25 MCG TAKE [...] Risk Notes Problem Diverticular disease of colon (168987726) Diverticulosis of large intestine without perforation or abscess without bleeding (K57.30) Active confirmed Problem Colonic stricture (2772517) Colonic stricture (K56.699) Active confirmed Plan Of Treatment Future Test Test Name Order Date Colonoscopy with balloon dilation 2023 Insurance Providers Payer Name Payer Address Payer Phone Subscriber Number Group Number Insured Name Patient Relationship to Insured Coverage Start Date Coverage End Date [facility] [address] Attn Claims ARSH Cruz [id number] АЛЕКСАНДР LUKE Self - patient is the [...]
== END 2025-02-08 10:51 | disposition home or self-care (01) ==
LOC: HO.HKA 10:33
PROVIDERS: PCP Internal Medicine; Visit Provider Internal Medicine Hypertension Specialist
DX: I12.9 Hypertensive chronic kidney disease with stage 1 through stage 4 chronic kidney disease, or unspecified chronic kidney disease (principal); N18.9 Chronic kidney disease, unspecified
CPT/HCPCS: 99214

== ENCOUNTER → 2025-02-08 10:33 | Outpatient (BNVA) | payer OTHER, SELFPAY | PROVIDERS: PCP Internal Medicine; Visit Provider Internal Medicine Hypertension Specialist | DX: I10 Essential (primary) hypertension (principal); N18.9 Chronic kidney disease, unspecified | CPT/HCPCS: 99212 ==

== ENCOUNTER 2025-02-25 09:58 | Outpatient (REF) | payer OTHER, SELFPAY ==
--- OUTSIDE RECORDS SUMMARY | 2025-02-25 11:56 | XMS_ITS | Clinical Summary ---
Author Organization [facility] it[facility] Address [address] [place] [address] Care Team Providers Care Furniture Manager Name Role Phone Unavailable Primary Care Provider [...] Depression Screening 04/04/2024 COVID-19 Vaccine ( - 2024-2 6 season) 2024 Influenza Vaccine (#1) 2024 RSV [...]
--- OUTSIDE RECORDS SUMMARY | 2025-02-25 11:56 | XMS_ITS | Clinical Summary ---
Author Organization [facility] Address [address] [place] [address] Phone Care Team Providers Care Diamond Sizer And Grader Name Role Phone Lee Mercado MD Primary Care Provider [phone] Allergies Active Allergy Reactions Criticality Noted Date [...] Devices Not on file Insurance [facility] MEDICARE REPLACEMENT ARSH LICEA [id number] [place] [address] [facility] MEDICARE REPLACEMENT [address] TYLER [place]ORENZANA [id number] [facility] MEDICARE [address]EMENT [address] [facility] [place] [id number] [facility] MEDICARE [address]PLACEMENT [address] [facility] [place] [id number] [facility] MEDICARE REPLACEMENT [facility] C[facility] MEDICARE REPLACEMENT ARSH LICEA [id number] Care Teams Diamond Sizer And Grader Relationship Specialty Start Date End Date Lee Mercado MD [address] [place] [address] PCP - General Internal Medicine 01/03/23 Additional Source Comments The information contained in this document represents components of the legal health record. It is not the complete legal health record.[facility]
[2025-02-25 16:18] LABS: Anion Gap 13 (12-20); Blood Urea Nitrogen 17 mg/dL (9-16); Calcium 9.2 mg/dL (8.4-10.2); Carbon Dioxide 24 mmol/L (22-29); Chloride 111 mmol/L (96-108); Estimated Glomerular Filt Rate 37; Potassium 3.7 mmol/L (3.3-5.1); Sodium 144 mmol/L (135-145)
== END 2025-02-25 09:59 | disposition home or self-care (01) ==
LOC: HO.HMGCLDS 09:58
PROVIDERS: PCP Internal Medicine; Visit Provider Internal Medicine Hypertension Specialist
DX: I10 Essential (primary) hypertension (principal)
CPT/HCPCS: 36415; 80048

== ENCOUNTER 2025-03-07 08:54 | Outpatient (REF) | payer OTHER, SELFPAY ==
--- OUTSIDE RECORDS SUMMARY | 2023-11-29 07:30 | XMS_ITS ---
Author Organization [facility] Address [address] [place] [address] Care Team Providers Care Kitchen Bath Designer Name Role Phone Rogelio GUEVARA, Asma Primary Care Provider Luisito Riggs Jr Unavailable Matthew Zaragoza M.D. Unavailable Unavailable REASON FOR VISIT colonic stricture Problems Problem Type SNOMED Code ICD Code Onset Dates Problem Status W/U Status Risk Notes Problem Diverticular disease of colon (344979594) Diverticulosis of large intestine without perforation or abscess without bleeding (K57.30) Active confirmed Encounters Encounter Location Date Provider Diagnosis [facility] Outpatient [address] [place], [place] [phone] 11/29/2023 Luisito Mccartney Jr Unspecified intestinal obstruction, [...] Of Treatment No Information Progress Notes * LROI LUKE: 974 (49 yo F)Acc No.[id number]:11/29/2023 COLON WITH MAC Patient: АЛЕКСАНДР RENE Provider: Oscar Mccartney MD :1975 A ge:48 Y S ex:Female Date:11/29/2023 Address:[address] [place] [address] [address] [facility] [facility] Pcp:Lee Mercado MD Subjective: * Chief Complaints: * C olonic stricture Assessment: * Assessment: 1. U nspecified intestinal obstruction, unspecified as to partial versus complete obstruction - K56.609 (Primary) 2 . A nastomotic stricture of gastrojejunostomy - K91.89 3 . L ymphocytic colitis - K52.89 4 . D iverticulosis of large intestine without perforation or abscess without bleeding - K57.30 5 . O ther hemorrhoids - K64.8 Plan: * Procedure Codes: 4 5386 COLONOSCOPE DILATE STRICTURE Billing Information: * Procedure Codes: 31630 COLONOSCOPE DILATE STRICTURE. * The named appointment provid er may or may not be the originator of this progress note, and it is not deemed complete until electronically signed by the appointment provider. Sign off status: Pending * Provider: Oscar Mccartney MD Date: 0 11/29/2023 Generated for Derick lopez/Zabrina/Alfredosmitting on: 1 05/08/2024 09:39 AM EST
--- NOTE | ~2025-03-07 | MM_ITS ---
EXAMINATION: MM SCREENING DIGITAL BREAST TOMOSYNTHESIS, BILATERAL CLINICAL INFORMATION: Screening. Asymptomatic. COMPARISON: Mammography: Comparison is made with available priors TECHNIQUE: Digital breast mammography with tomosynthesis is performed in both the craniocaudal and mediolateral oblique views along with computer-aided detection (CAD). FINDINGS: There are scattered areas of fibroglandular density. There are no significant masses, abnormal calcifications, or other abnormalities. MM/MM tomosynthesis screening BI IMPRESSION: No mammographic evidence of malignancy. ASSESSMENT: BI-RADS Category 1: Negative RECOMMENDATION: Routine annual mammography screening. 1 year F/U This examination should not preclude the clinical evaluation of a suspicious palpable abnormality. This patient's information was entered into a reminder system with a target due date for their next mammogram. Electronically signed by: Jody Fuentes DO 03/08/2025 06:04 PM DORIE
--- OUTSIDE RECORDS SUMMARY | 2025-03-07 09:36 | XMS_ITS | Clinical Summary ---
Author Organization [facility] ity Address [address] [place] [address] Care Team Providers Care Nurse Plastics Name Role Phone Unavailable Primary Care Provider [...]
--- OUTSIDE RECORDS SUMMARY | 2025-03-07 09:40 | XMS_ITS | Clinical Summary ---
Author Organization [facility] Address [address] [place] [address] Phone Care Team Providers Care County Court Judge Name Role Phone Lee Mercado MD Primary Care Provider [phone] Allergies Active Allergy Reactions Criticality Noted Date [...] topic Medical Devices Not on file Insurance [facility] CARE MEDICARE REPLACEMENT ARSH LICEA [id number] [place] [address] [facility] MEDICARE REPLACEMENT [address] T[place]ORENZANA [id number] [facility] MEDICARE [facility]PLACEMENT [address] [facility] [place] [place] [id number] [facility] MEDICARE [address]PLACEMENT [address] [facility] [place] T[place] [id number] [facility] MEDICARE REPLACEMENT [facility] ONE CARE MEDICARE REPLACEMENT ARSH LICEA [id number] Relationship Specialty Start Date End Date Lee Mercado MD [address] [place] [address] PCP - General Internal Medicine 01/03/23 Additional Source Comments The information contained in this document represents components of the legal health record. It is not the complete legal health record.[facility]
--- OUTSIDE RECORDS SUMMARY | 2025-03-07 09:40 | XMS_ITS | Patient Health Record ---
Author Organization [facility] Address [address] [place] [address] Care Team Providers Care Wind Energy Project Manager Name Role Phone Rogelio GUEVARA, Lee Primary Care Provider Luisito Riggs Jr Unavailable [phone] Matthew Zaragoza M.D. Unavailable Unavailable Allergies Allergen (clinical drug ingredient) Drug/Non Drug Allergy documented on EMR Reaction Allergy Type Onset Date Status Penicillin Unknown Drug Allergy Active Reason For Referral No Information Medications Medication SIG (Take, Route, Frequency, Duration) Notes Start Date End Date Status hydrOXYzine Pamoate 25 MG Capsule TAKE 1 CAPSULE BY MOUTH THREE TIMES DAILY Oral; Duration: 30 Active Losartan Potassium 100 MG Tablet TAKE 1 TABLET BY MOUTH DAILY Oral; Duration: 90 Active lamoTRIgine 200 MG Tablet Disintegrating Oral; Duration: 30 Active Vitamin D3 50 MCG (1999) Capsule TAKE 1 CAPSULE BY MOUTH DAILY WITH FOOD IN THE AM Oral; Duration: 30 Active Atenolol 100 MG Tablet Oral; Duration: 90 Active Melatonin 5 MG Tablet TAKE 1-2 TABLETS B Y MOUTH AT BEDTIME NEEDED FOR INSOMNIA Oral; Duration: 30 Active Simvastatin 20 MG Tablet Oral; Duration: 90 Active Ziprasidone HCl 60 MG Capsule Oral; Duration: 30 Active Docusate Sodium 100 MG Capsule TAKE 2 CAPSULES BY MOUTH EVERY NIGHT AT BEDTIME Oral; Duration: 30 Active Amitriptyline HCl 50 MG Tablet TAKE 1 TABLET BY MOUTH EVERY DAY AT BEDTIME Oral; Duration: 90 [id number],Unavail able Active Levothyroxine Sodium 25 MCG Tablet TAKE 1 TABLET BY MOUTH DAILY Oral; Duration: 90 Active Chlorthalidone 25 MG Tablet 1 tablet in the morning with food Orally; Duration: 30 day(s) Active amLODIPine Besylate 10 MG Tablet Oral; Duration: 30 Active Cetirizine HCl 10 MG Tablet Oral; Duration: 90 Active Immunizations Vaccine Route Administration Date Status Comme nts Influenza Unknown 11/02/2023 Refused Social History Tobacco Use: Social History Observation Description Date Details (start date - stop date) Never Smoker NA - NA Social History Drugs/Alcohol: Social Info Question Answer Notes Alcohol Screen Did you have a drink containing alcohol in the past year? Yes How often did you have a drink containing alcohol in the past year? Monthly or less (1 point) How many drinks did you have on a typical day when you were drinking in the past year? 1 or 2 drinks (0 point) How often did you have 6 or more drinks on one occasion in the past year? Never (0 point) Points 1 Interpretation Negative Tobacco Use: Social Info Question Answer Notes Tobacco Use/Smoking Patient is a nonsmoker Additional Details Category Social Info Options Details Miscellaneous: Marital status: single Occupation: unemployed Problems Problem Type SNOMED Code ICD Code Onset Dates Problem Status W/U Status Risk Notes Problem Diverticular disease of colon (346035805) Diverticulosis of large intestine without perforation or abscess without bleeding (K57.30) Active confirmed Problem Colonic stricture (5474784) Colonic stricture (K56.699) Active confirmed Plan Of Treatment Future Test Test Name Order Date Colonoscopy with balloon dilation 2023 Insurance Providers Payer Name Payer Address Payer Phone Subscriber Number Group Number Insured Name Patient Relationship to Insured Coverage Start Date Coverage End Date [facility] [address] Attn Claims ARSH Cruz [phone] [id number] АЛЕКСАНДР LUKE Self - patient is the [...]
== END 2025-03-07 08:55 | disposition home or self-care (01) ==
LOC: HO.MAMMO 08:54
PROVIDERS: PCP Internal Medicine; Visit Provider Internal Medicine
DX: Z12.31 Encounter for screening mammogram for malignant neoplasm of breast (principal)
CPT/HCPCS: 77063; 77067

== ENCOUNTER → 2025-03-07 09:30 | Outpatient (BNV) | payer OTHER, SELFPAY | PROVIDERS: PCP Internal Medicine; Visit Provider Internal Medicine | DX: Z12.31 Encounter for screening mammogram for malignant neoplasm of breast (principal) | CPT/HCPCS: 77063; 77067 ==

== ENCOUNTER 2025-03-08 10:00 | Outpatient (AMB) | payer OTHER, SELFPAY ==
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
[2025-03-08 10:16] VITALS: BP 138/86; PULSE 109; O2SAT 99; BMI 36.5
== END 2025-03-08 10:27 | disposition home or self-care (01) ==
LOC: HO.HKA 10:01
PROVIDERS: PCP Internal Medicine; Visit Provider Internal Medicine Hypertension Specialist
DX: I12.9 Hypertensive chronic kidney disease with stage 1 through stage 4 chronic kidney disease, or unspecified chronic kidney disease (principal); N18.9 Chronic kidney disease, unspecified
CPT/HCPCS: 99214

== ENCOUNTER → 2025-03-08 10:00 | Outpatient (BNVA) | payer OTHER, SELFPAY | PROVIDERS: PCP Internal Medicine; Visit Provider Internal Medicine Hypertension Specialist | DX: Z79.899 Other long term (current) drug therapy (principal) | CPT/HCPCS: 99212 ==